=== PATIENT | female | born 1975 | race Caucasian/White ===

== ENCOUNTER → 2019-08-03 09:11 | Outpatient (CLI) | payer OTHER, SELFPAY ==
[2019-08-03 14:22] LABS: Alanine Aminotransferase 37 U/L (12-78); Albumin Level 3.8 gm/dL (3.4-5.0); Albumin/Globulin Ratio 1.2 (1.1-1.8); Alkaline Phosphatase 87 U/L (46-116); Anion Gap 12.7 mEq/L (5-15); Aspartate Amino Transferase 25 U/L (15-37); Bilirubin,Total 0.4 mg/dL (0.2-1.0); Blood Urea Nitrogen 16 mg/dL (7-18); Calcium 9.2 mg/dL (8.5-10.1); Carbon Dioxide 29 mmol/L (21.0-32.0); Chloride 104 mmol/L (98-107); Chol/HDL Ratio 7.5 (1-3.5); Cholesterol 210 mg/dL (140-200); Creatinine,Serum 0.82 mg/dL (0.55-1.02); Estimated Glomerular Filt Rate 75 ml/min (>60); Free Thyroxine Index 4.6 ug/dL (5.93-13.13); GFR (African American) 91 ML/MIN (>60); Globulin 3.3 gm/dl (1.3-3.2); Glucose 83 mg/dL (74-106); HDL Cholesterol 28 mg/dL (29-89); LDL Cholesterol 159 mg/dL (0-130); Potassium 4.7 mmoL/L (3.5-5.1); Sodium 141 mmol/L (136-145); T4 (Thyroxine) 13.2 ug/dl (4.7-13.3); Thyroid Stimulating Hormone 0.16 uIU/ml (0.358-3.740); Total Protein,Serum 7.1 gm/dL (6.4-8.2); Triglycerides 115 mg/dL (30-200); Triiodothryronine (T3) Uptake 35 % (31-39); VLDL Cholesterol 23 mg/dL (0-40)
[2019-08-03 15:04] LABS: Basophils # 0.1 K/mm3 (0-0.2); Basophils % 0.5 % (0.1-2.0); Eosinophils # 0.2 K/mm3 (0.0-0.4); Eosinophils % 1.7 % (0.1-12.0); Hematocrit 42.1 % (37.0-47.0); Hemoglobin 13.1 g/dL (12.2-16.2); Lymphocytes # 3.3 K/mm3 (0.7-4.5); Lymphocytes % 30.9 % (10-50); Mean Corpuscular HGB Conc 31.2 g/dL (31.8-35.4); Mean Corpuscular Hemoglobin 29.1 pg (27.0-31.2); Mean Corpuscular Volume 93.1 fl (81-99); Mean Platelet Volume 7.8 fl (7.4-10.4); Monocytes # 0.5 K/mm3 (0.1-1.0); Monocytes % 4.5 % (1.7-9.3); Neutrophils # 6.8 K/mm3 (1.8-7.8); Neutrophils % 62.4 % (37.0-80.0); Platelet Count 344 K/mm3 (142-424); Red Blood Count 4.52 M/mm3 (4.20-5.40); Red Cell Distribution Width 14.7 % (11.5-17.5); White Blood Count 10.8 K/mm3 (4.8-10.8)
[2019-08-03 16:05] LABS: Hemoglobin A1C 5.5 % (0.0-7.0)
== END ==
PROVIDERS: Visit Provider Nurse Practitioner Family
DX: E03.9 Hypothyroidism, unspecified (principal); E78.5 Hyperlipidemia, unspecified; I10 Essential (primary) hypertension
CPT/HCPCS: 36415; 80053; 80061; 83036; 84436; 84443; 84479; 85025

== ENCOUNTER 2020-01-07 18:49 | Emergency (ER) | payer OTHER, SELFPAY ==
[2020-01-07 19:05] VITALS: BP 136/75; PULSE 87; RESP 17; O2SAT 99; BMI 32.3
--- NOTE | 2020-01-07 19:08 | XR_ITS ---
PROCEDURE: XR FOOT LT MIN 3V CLINICAL INDICATION: pain COMPARISON: No exams were available for comparison FINDINGS: No fracture or dislocation. No lytic or blastic change. There is normal mineralization. The joint spaces are well-preserved. No significant degenerative/arthritic changes. No erosive changes evident. Other findings:There is a prominent calcaneal spur in there is some spurring at the base of the proximal phalanx of the 4th and 5th toes. IMPRESSION: Mild degenerative changes, no acute finding Dictated by: Marshall Brito MD 01/07/2020 21:05 Electronically signed by Marshall Brito MD in [place] 01/07/2020 21:05
--- NOTE | 2020-01-07 19:10 | XR_ITS ---
PROCEDURE: XR ANKLE LT MIN 3V CLINICAL INDICATION: pain COMPARISON: No exams were available for comparison FINDINGS: No fracture or dislocation. No lytic or blastic change. There are minimal spurring along the posterior distal tibia and there is a calcaneal spur noted. IMPRESSION: Degenerative changes, no acute finding Dictated by: Marshall Brito MD 01/07/2020 20:42 Electronically signed by Marshall Brito MD in [place] 01/07/2020 20:42
--- NOTE | 2020-01-07 19:19 | HMH.EDUTC ---
[facility] [place] Clinical Impression: Foot pain Qualifiers: Laterality: left Qualified Code(s): M79.672 - Pain in left foot Disposition: Home, Self-Care Condition on Discharge: Good Additional Instructions: Follow up with family doctor if no improvement or any worsening of symptoms in the next 48-72 hours *Return if needed Straight to ER if any life threatening symptoms Follow up with Dr Cardona if you continue to have pain and swelling in your feet and ankles Use your cane/walker to help with walking and ambulation Call back to [facility] tomorrow for official reading of your xray Referrals: Krystal Chilel APRN [Primary Care Provider] - As needed Elaina Cardona DPM [Staff Physician] - Time of Disposition: 20:07 Medical Decision Making - Tanner Inquiry Pt receiving controlled substance: No Tanner was queried for this patient: No Vital Signs: 01/07/20 19:05 01/07/20 19:27 Temperature 98.3 F Temperature Source Oral Pulse Rate [Right Brachial] 87 87 Respiratory Rate 17 17 Blood Pressure [Right Arm] 136/75 136/75 Blood Pressure Mean [Right Arm] 95 95 Blood Pressure Source [Right Arm] Automatic Cuff Automatic Cuff Blood Pressure Position [Right Arm] Sitting Sitting 02 Sat by Pulse Oximetry 99 99 Oxygen Delivery Method Room Air Room Air - Lab Data Lab results reviewed: Yes: I reviewed the patient's lab results. Lab Results 01/07/20 19:25: Uric Acid 3.5 Orders (Tests/Meds): ORDERS Category Date Time Status Ankle XR - Left minimum 3 Views [XR ankle LT min 3V] Exams 01/07/20 19:10 Taken Stat Foot XR left minimum 3 views [XR foot LT min 3V] Stat Exams 01/07/20 19:08 Taken - Radiology Data #1 Image(s): Foot/Toes Image Reviewed: Yes I reviewed the patient's radiology image Preliminary Findings: No Fracture Seen heel spur noted #2 Image(s): Ankle Image Reviewed: Yes I reviewed the patient's radiology image Preliminary Findings: No Fracture Seen [facility] [place] - General Stated complaint: Left foot pain (no accident) Time Seen by Provider: 01/07/20 19:19 Mode of Arrival: Family Vehicle Source of Information: Patient Limitations: No Limitations Description of Symptoms (Recalled from Triage Doc. by RN): left ankle swollen shooting pain - History of Present Illness Provider Complaint: Patient state that she has been having pain in her left ankle/foot on and off for a couple of weeks States that it is sore to touch and hurts when she walks on it but denies known injury states that she wasnt sure if she hurt it or may have gout - Related Data Home Medications Medication Instructions Recorded Confirmed calcium lnd-H4-J-mag tab PO tab 10/02/18 10/02/18 wz-gvwhnh-hfktmb 250 mg calcium-500 unit tablet cetirizine 10 mg tablet PO 30 Days #30 tab 10/02/18 10/02/18 escitalopram oxalate 20 mg tablet PO 30 Days #30 tab 10/02/18 10/02/18 estradiol 0.075 mg/24 hr TRANSDERMA 28 Days #8 each 10/02/18 10/02/18 semiweekly transdermal patch levothyroxine 100 mcg tablet PO 30 Days #30 tab 10/02/18 10/02/18 linaclotide 145 mcg capsule PO 30 Days #30 cap 10/02/18 10/02/18 multivitamin 1 cap PO DAILY 10/02/18 10/02/18 oxybutynin chloride 15 mg PO 30 Days #30 tab 10/02/18 10/02/18 tablet,extended release 24 hr pantoprazole 40 mg tablet,delayed PO 30 Days #30 tab 10/02/18 10/02/18 release potassium chloride 10 mEq PO 30 Days #30 cap 10/02/18 10/02/18 capsule,extended release pravastatin 40 mg tablet PO 30 Days #30 tab 10/02/18 10/02/18 Allergies Allergy/AdvReac Type Severity Reaction Status Date / Time No Known Allergies Allergy Verified 10/02/18 14:42 [facility] History - Hepatitis A Screen Attestation statement:: This patient has been screened for Hepatitis A risk factors. I have reviewed the patient's past medical history: Yes Medical History: Reports:: Anxiety, Depression, Gastroesophageal Reflux Disease(GERD), Hyperlipidemia Other Medical History: Reports: Ar
[2020-01-07 19:27] VITALS: BP 136/75; PULSE 87; RESP 17; TEMP 36.8; O2SAT 99; BMI 32.3
[2020-01-07 19:48] LABS: Uric Acid 3.5 mg/dl (2.5-6.2)
[2020-01-07 20:17] VITALS: BP 136/75; PULSE 87; RESP 17; TEMP 36.8; O2SAT 99
== END 2020-01-07 20:18 | disposition home or self-care (01) ==
LOC: ER 19:02 → UTC 19:03
PROVIDERS: Emergency Provider Nurse Practitioner; PCP Nurse Practitioner
DX: M79.672 Pain in left foot (principal); F41.8 Other specified anxiety disorders; K21.9 Gastro-esophageal reflux disease without esophagitis; E78.5 Hyperlipidemia, unspecified; M79.7 Fibromyalgia; Z79.899 Other long term (current) drug therapy
CPT/HCPCS: 73610; 73630; 84550; 99202

== ENCOUNTER → 2020-02-29 13:45 | Outpatient (CLI) | payer OTHER, SELFPAY ==
--- NOTE | 2020-02-29 13:59 | MR_ITS ---
PROCEDURE: MR ANKLE LT WO/W CON CLINICAL INDICATION: peroneal tendinitis, pain Lateral sided ankle pain with pain radiating into 2nd and 3rd toes. [id number]. Pain worse when stepping and going down steps. Swelling on anterior aspect of ankle. COMPARISON: CR XR ANKLE LT MIN 3V from 01/07/2020 CR XR FOOT LT MIN 3V from 01/07/2020 TECHNIQUE: Routine multiplanar multi echo sequences are performed without and with gadolinium enhancement. FINDINGS: The tibial fibular ligaments appear intact. There is some mild thickening the ATFL with slight increased T2 signal and slight enhancement suggesting ligamentous sprain. The PT FL appears intact as does the deltoid ligament. No evidence of tear of the peroneal tendons, posterior tibialis, flexor hallucis longus or flexor digitorum longus. There is a small amount of fluid along the tendon sheath of the posterior tibialis and the peroneal tendon suggesting tendinitis. The Achilles tendon appears intact. No bone bruise or fracture. There is a small amount fluid along the posterior aspect of the talus and at the talocalcaneal joint. IMPRESSION: 1. There is some slight thickening of the ATFL which may represent sprain or partial tear. 2. Fluid along the tendon sheath of the posterior tibialis and peroneal tendons consistent with tendinitis. No evidence of tendon tear. 3. Small ankle joint effusion with a small amount of fluid at the talocalcaneal joint posteriorly Dictated by: Marshall Brito MD 03/03/2020 10:01 Marshall Brito MD in [place] 03/03/2020 10:01
[2020-02-29 14:08] LABS: Blood Urea Nitrogen 16 mg/dl (7-17); Estimated Glomerular Filt Rate 67 ml/min (>60); GFR (African American) 82 ML/MIN (>60)
== END ==
PROVIDERS: Visit Provider Podiatrist
DX: G89.29 Other chronic pain (principal); M25.572 Pain in left ankle and joints of left foot; M76.72 Peroneal tendinitis, left leg
CPT/HCPCS: 36415; 73723; 82565; 84520; A9576

== ENCOUNTER 2020-04-23 11:48 | Emergency (ER) | payer OTHER, SELFPAY ==
[2020-04-23 11:56] VITALS: BP 122/80; PULSE 83; RESP 19; TEMP 36.6; O2SAT 98; BMI 32.4
--- NOTE | 2020-04-23 12:01 | HMH.EDUTC ---
[facility] [place] Dis[place] Clinical Impression: Rash and other nonspecific skin eruption Disposition: Home, Self-Care Condition on Discharge: Good Instructions: DI for Insect Bites and Stings, DI for Rash, Hydrocortisone Topical Additional Instructions: Go home and inspect to see what may have been biting you *Over the counter Benadryl may help with itching and irritation of rash Return if needed FOllow up with Family Doctor or Dermatology if no improvement or any worsening of symptoms Straight to ER if any life threatening symptoms Topical hydrocortisone as advised to help with itching Prescriptions: Hydrocortisone [Cortisone] 1 applicatio TP BID #1 tube Transmission Status: Pending to [id number] Referrals: Krystal Chilel, [employer] [Primary Care Provider] - As needed Time of Disposition: 12:27 Medical Decision Making - Tanner Inquiry Pt receiving controlled substance: No Tanner was queried for this patient: No Vital Signs: 04/23/20 11:56 Temperature 97.8 F Temperature Source Oral Pulse Rate [Radial] 83 Respiratory Rate 19 Blood Pressure [Right Arm] 122/80 Blood Pressure Mean [Right Arm] 94 Blood Pressure Source [Right Arm] Automatic Cuff Blood Pressure Position [Right Arm] Sitting 02 Sat by Pulse Oximetry 98 Oxygen Delivery Method Room Air Medical Decision Narrative: Patient states that she is a diabetic however has taken SoluMedrol in that past without complications or reactions and aware that it may elevate her blood sugrar but should return to normal Rash appeared improved after injection [facility] [place] HPI - General Stated complaint: Rash on both arms/legs Time Seen by Provider: 04/23/20 12:01 Mode of Arrival: Ambulatory Source of Information: Patient Limitations: No Limitations Description of Symptoms (Recalled from Triage Doc. by RN): painful rash on arms and legs since last night HEENT Symptoms (Recalled from RN notes): No Resp Symptoms (Recalled from RN notes): No Skin Symptoms (Recalled from RN notes): Yes MS Symptoms (Recalled from RN notes): No Functional Status (Recalled from RN notes): wnl - History of Present Illness Provider Complaint: Patient states that she woke up this morning with rash on both arms and legs States that rash is tender to the touch and feels sore States that she is not sure if she may have been bitten by something throughout the night or not States that she does have animals and not sure if they may have got into something that she is allergic too States that she took benadryl and it helped with the itching but rash did not go away - Related Data Home Medications Medication Instructions Recorded Confirmed calcium amv-N2-Y-mag tab PO tab 10/02/18 03/31/20 dr-rrtddk-gthdml 250 mg calcium-500 unit tablet cetirizine 10 mg tablet PO 30 Days #30 tab 10/02/18 03/31/20 escitalopram oxalate 20 mg tablet PO 30 Days #30 tab 10/02/18 03/31/20 estradiol 0.075 mg/24 hr TRANSDERMA 28 Days #8 each 10/02/18 03/31/20 semiweekly transdermal patch levothyroxine 100 mcg tablet PO 30 Days #30 tab 10/02/18 03/31/20 linaclotide 145 mcg capsule PO 30 Days #30 cap 10/02/18 03/31/20 multivitamin 1 cap PO DAILY 10/02/18 03/31/20 oxybutynin chloride 15 mg PO 30 Days #30 tab 10/02/18 03/31/20 tablet,extended release 24 hr pantoprazole 40 mg tablet,delayed PO 30 Days #30 tab 10/02/18 03/31/20 release potassium chloride 10 mEq PO 30 Days #30 cap 10/02/18 03/31/20 capsule,extended release pravastatin 40 mg tablet PO 30 Days #30 tab 10/02/18 03/31/20 empagliflozin 25 mg tablet 25 mg PO tab 01/21/20 03/31/20 sertraline 50 mg tablet 50 mg PO tab 01/21/20 03/31/20 fluticasone propionate 50 g INTRANASAL 03/31/20 03/31/20 mcg/actuation nasal spray,suspension hydroxyzine HCl 10 mg tablet 10 mg PO PRN tab 03/31/20 03/31/20 Previous Rx's Medication Instructions Recorded lactic acid-urea lotion 1 applic TOPICAL DAILY PRN #473 ml 02/18/20 meloxicam 7.5 mg tablet 7.5 mg PO
[2020-04-23 12:43] VITALS: BP 122/80; PULSE 83; RESP 19; TEMP 36.6; O2SAT 98
== END 2020-04-23 12:44 | disposition home or self-care (01) ==
PROVIDERS: Emergency Provider Nurse Practitioner; PCP Nurse Practitioner
DX: R21 Rash and other nonspecific skin eruption (principal); E11.9 Type 2 diabetes mellitus without complications; F41.8 Other specified anxiety disorders; K21.9 Gastro-esophageal reflux disease without esophagitis; E78.5 Hyperlipidemia, unspecified; M79.7 Fibromyalgia; F17.210 Nicotine dependence, cigarettes, uncomplicated; Z90.49 Acquired absence of other specified parts of digestive tract; Z90.710 Acquired absence of both cervix and uterus; Z79.899 Other long term (current) drug therapy
CPT/HCPCS: 96372; 99201

== ENCOUNTER 2020-04-29 11:00 | Outpatient (RCR) | payer OTHER, SELFPAY ==
--- NOTE | 2020-04-07 11:39 | HMH.PTOPEV ---
PT Outpatient Evaluation Rehab PT Outpatient Evaluation Start: 04/07/20 10:44 Freq: Status: Active Protocol: Document 04/07/20 10:44 LEIA (Rec: 04/07/20 11:38 [email or web address] [id number]) Electronically Signed By Víctor Silva, PT 04/07/20 10:44 Outpatient Therapy Subjective History Subjective History Pt. is a 45 year old female who presents to Outpatient PT clinic w/ complaints of subacute and constant LLE ft./ankle P! of insidious onset for several months. Pt. reports symptoms worsen w/ walking and standing , and states standing and doing dishes is the worst. Pt . reports she was in a cast for 3wks. and is currently donning a CAM bt. walker w/ WBAT, and to progress to an ankle brace per pt. tolerance. Pt. reports I don't feel stable when I use the ankle brace. (PT instructed pt. to bring ankle brace to next session, pt. vocalized understanding) Recent diagnostic imaging positive for increased edema/OA, and exhibited the peroneal tendon has healed per pt. report. Pt. denies having injections for current pathology. Pt. RTMD end of Apr. Current medications include Jardiance, Meloxicam, Levothyroxine, Zoloft, Oxybutynin, Claritin, Pravastatin, and fluid pill as needed. PMH incldues Thyroidectomy, GERD, Hysterectomy, Cholecystectomy, cervical fusion, bilateral Carpal Tunnel, 2 sections, Type II Diabetes, and Hemorrhoids. Chief Complaint Pain,Swelling,Weakness Symptom Type Ache,Throb,Shooting Symptoms Relieved By Rest/Positioning,Brace/Support ,Prescription Meds Symptoms Aggravated By Standing,Physical Activity, Walking Prior Functional Limitations None Current
== END 2020-05-07 11:00 | disposition home or self-care (01) ==
LOC: PT.CARL 11:00
PROVIDERS: PCP Nurse Practitioner; Visit Provider Podiatrist
DX: M76.72 Peroneal tendinitis, left leg (principal); S93.492A Sprain of other ligament of left ankle, initial encounter
CPT/HCPCS: 97010; 97014; 97033; 97110; 97112; 97163; G0283

== ENCOUNTER → 2021-06-27 10:49 | Outpatient (CLI) | payer OTHER, SELFPAY | PROVIDERS: Visit Provider Ophthalmology | DX: Z01.812 Encounter for preprocedural laboratory examination (principal); Z11.52 Encounter for screening for COVID-19 | CPT/HCPCS: C9803; U0003; U0005 ==

== ENCOUNTER 2021-06-30 09:41 | Day surgery (SDC) | payer OTHER, SELFPAY ==
[2021-06-26 09:14] VITALS: BMI 33.9
[2021-06-30] VITALS (7 sets, daily range): BP systolic 115–136; BP diastolic 69–78; PULSE 67–85; RESP 16–18; TEMP 36.3–36.7; O2SAT 97–100
[2022-04-15 10:55] LABS: POC Glucose,Bedside 93 (70-110)
== END 2021-06-30 12:14 | disposition home or self-care (01) ==
LOC: OR 09:42
PROVIDERS: PCP Nurse Practitioner; Visit Provider Ophthalmology
PROC: (CPT 66984; principal; 2021-06-30 12:00)
DX: H25.813 Combined forms of age-related cataract, bilateral (principal); H02.831 Dermatochalasis of right upper eyelid; H02.834 Dermatochalasis of left upper eyelid; E11.9 Type 2 diabetes mellitus without complications; E78.5 Hyperlipidemia, unspecified; Z79.899 Other long term (current) drug therapy; F41.1 Generalized anxiety disorder
CPT/HCPCS: 66984; 82962; V2632

== ENCOUNTER → 2021-07-25 12:56 | Outpatient (CLI) | payer OTHER, SELFPAY | PROVIDERS: Visit Provider Ophthalmology | DX: Z01.812 Encounter for preprocedural laboratory examination (principal); Z11.52 Encounter for screening for COVID-19 | CPT/HCPCS: C9803; U0003; U0005 ==

== ENCOUNTER 2021-07-28 08:26 | Day surgery (SDC) | payer OTHER, SELFPAY ==
[2021-07-22 13:08] VITALS: BMI 33.9
[2021-07-28] VITALS (8 sets, daily range): BP systolic 113–132; BP diastolic 67–79; PULSE 79–91; RESP 16–18; TEMP 36.4; O2SAT 96–100
[2022-04-15 10:56] LABS: POC Glucose,Bedside 106 (70-110)
== END 2021-07-28 11:20 | disposition home or self-care (01) ==
LOC: OR 08:27
PROVIDERS: PCP Nurse Practitioner; Visit Provider Ophthalmology
PROC: (CPT 66984; principal; 2021-07-28 10:30)
DX: H25.813 Combined forms of age-related cataract, bilateral (principal); H53.149 Visual discomfort, unspecified; H02.831 Dermatochalasis of right upper eyelid; H02.834 Dermatochalasis of left upper eyelid; E11.9 Type 2 diabetes mellitus without complications; F41.9 Anxiety disorder, unspecified; M19.90 Unspecified osteoarthritis, unspecified site; K21.9 Gastro-esophageal reflux disease without esophagitis; E78.5 Hyperlipidemia, unspecified; E06.3 Autoimmune thyroiditis; Z79.899 Other long term (current) drug therapy
CPT/HCPCS: 66984; 82962; V2632

== ENCOUNTER 2022-01-21 19:39 | Emergency (ER) | payer OTHER, SELFPAY ==
[2022-01-21 19:40] VITALS: BP 144/80; PULSE 89; RESP 16; TEMP 37.1; O2SAT 100; BMI 32.3
[2022-01-21 20:19] VITALS: BMI 32.3
--- NOTE | 2022-01-21 20:19 | CT_ITS ---
PROCEDURE INFORMATION: Exam: CT Abdomen And Pelvis With Contrast Exam date and time: 01/21/22 08:50 PM Age: 46 years old Clinical indication: Abdominal pain; Generalized; Prior surgery; Additional info: Abd pain TECHNIQUE: Imaging protocol: Computed tomography of the abdomen and pelvis with contrast. Radiation optimization: All CT scans at this facility use at least one of these dose optimization techniques: automated exposure control; mA and/or kV adjustment per patient size (includes targeted exams where dose is matched to clinical indication); or iterative reconstruction. Contrast material: ISOVUE; Contrast volume: 75 ml; Contrast route: IV; COMPARISON: No relevant prior studies available. FINDINGS: Tubes, catheters and devices: None noted. Lungs: Lung bases appear clear. Heart: No significant coronary calcifications. No cardiomegaly. No significant pericardial effusion. Liver: Normal. No mass. Gallbladder and bile ducts: Cholecystectomy. No ductal dilation. Pancreas: Normal. No ductal dilation. Spleen: Normal. No splenomegaly. Adrenal glands: Normal. No mass. Kidneys and ureters: Normal. No hydronephrosis. Stomach and bowel: Diverticulitis in the distal transverse colon. No obstruction. No mucosal thickening. Appendix: No evidence of appendicitis. Intraperitoneal space: Unremarkable. No free air. No significant fluid collection. Retroperitoneal space: No significant retroperitoneal inflammatory changes are noted. Vasculature: Unremarkable. No abdominal aortic aneurysm. Lymph nodes: Unremarkable. No enlarged lymph nodes. Urinary bladder: Unremarkable as visualized. Reproductive: Unremarkable as visualized. Bones/joints: Unremarkable. No acute fracture. Soft tissues: Unremarkable. IMPRESSION: 1. Diverticulitis in the distal transverse colon. No free peritoneal perforation or drainable abscess detected. 2. Cholecystectomy.
[2022-01-21 20:29] LABS: Basophils # 0.2 K/mm3 (0-0.2); Basophils % 1.3 % (0.1-2.0); Eosinophils # 0.2 K/mm3 (0.0-0.4); Eosinophils % 1.1 % (0.1-12.0); Hematocrit 38.2 % (37.0-47.0); Hemoglobin 12.3 g/dL (12.2-16.2); Lymphocytes # 3.9 K/mm3 (0.7-4.5); Lymphocytes % 26.9 % (10-50); Mean Corpuscular HGB Conc 32.2 g/dL (31.8-35.4); Mean Corpuscular Hemoglobin 26.1 pg (27.0-31.2); Mean Corpuscular Volume 81.1 fl (81-99); Mean Platelet Volume 7.8 fl (7.4-10.4); Monocytes # 0.6 K/mm3 (0.1-1.0); Monocytes % 4.4 % (1.7-9.3); Neutrophils # 9.6 K/mm3 (1.8-7.8); Neutrophils % 66.3 % (37.0-80.0); Platelet Count 297 K/mm3 (142-424); Red Blood Count 4.71 M/mm3 (4.20-5.40); White Blood Count 14.5 K/mm3 (4.8-10.8)
[2022-01-21 20:30] LABS: Appearance,Urine CLEAR (Clear); Bilirubin,Urine Negative (Negative); Blood, Urine 1+ (Negative); Chloride 106 mmol/L (98-107); Color,Urine YELLOW (Yellow); Glucose,Urine (UA) 3+ (Negative); Ketones,Urine Negative (Negative); Leukocyte Esterase,Urine Negative (Negative); Microscopic, Urine URINE MICROSCOPIC (MICROSCOPIC); Nitrate,Urine Negative (Negative); Protein,Urine Negative (Negative); Sodium 142 mmol/L (136-145); Specific Gravity, Urine <= 1.005 (1.005-1.030); Urobilinogen,Urine 0.2 EU/dl (0.2)
[2022-01-21 20:31] LABS: Potassium 4.2 mmoL/L (3.5-5.1)
[2022-01-21 20:33] LABS: Alanine Aminotransferase 27 U/L (12-78); Albumin Level 4.5 g/dl (3.5-5.0); Alkaline Phosphatase 81 U/L (38-126); Amylase 40 U/L (30-110); Anion Gap 13.2 mEq/L (5-15); Aspartate Amino Transferase 38 U/L (14-36); Bilirubin,Total 0.6 mg/dl (0.2-1.3); Blood Urea Nitrogen 21 mg/dl (7-17); Calcium 9.4 mg/dl (8.4-10.2); Carbon Dioxide 27 mmol/L (22.0-30.0); Creatinine Clearance Estimated 123 mL/min (50-200); Estimated Glomerular Filt Rate 77 ml/min (>60); GFR (African American) 93 ML/MIN (>60); Glucose 125 mg/dl (74-100); Lipase 51 U/L (23-300)
[2022-01-21 20:34] LABS: Albumin/Globulin Ratio 1.3 (1.1-1.8); Globulin 3.6 g/dL (1.3-3.2); Total Protein,Serum 8.1 g/dl (6.3-8.2)
[2022-01-21 20:39] LABS: C-Reactive Protein 90.9 mg/L (0-4)
--- NOTE | 2022-01-21 20:49 | PC.NURSE ---
DR. DALY AT BEDSIDE DISCUSSING PLAN OR CARE WITH PATIENT.
--- NOTE | 2022-01-21 20:52 | PC.NURSE ---
Pt gone to RAD
[2022-01-21 20:55] LABS: Bacteria,Urine Trace /lpf; WBC,Urine Occasional #/hpf (0-3)
--- NOTE | 2022-01-21 21:02 | PC.NURSE ---
PATIENT RETURNED FROM XRAY.
--- NOTE | 2022-01-21 21:14 | HMH.EDNVD ---
ED Disposition Clinical Impression: Diverticulitis, SIRS (systemic inflammatory response syndrome) Disposition: Home, Self-Care Condition on Discharge: Good Instructions: DI for Diverticulitis Additional Instructions: fluids and use meds and see pcp for follow up Prescriptions: metroNIDAZOLE [metroNIDAZOLE 500mg Tablet] 500 mg PO TID #30 tab Transmission Status: Pending to [id number] Cefdinir [Omnicef 300mg Capsule] 300 mg PO BID #14 cap Transmission Status: Pending to [id number] Referrals: Krystal Chilel APRN [Primary Care Provider] - - Critical Care Critical Care Time: No Attestation: On 01/21/22, the high probability of a clinically significant, sudden or life threatening deterioration of the following system(s) required my full and direct attention, intervention and personal management. The time I documented below is in addition to time spent performing reported procedures but includes the following listed in this critical care notation. Medical Decision Making - Medical Records Medical records reviewed: Yes: I reviewed the patient's medical records. - Tanner Inquiry Pt receiving controlled substance: No Vital Signs: 01/21/22 19:40 Temperature 98.8 F Temperature Source Oral Pulse Rate [Left] 89 Respiratory Rate 16 Blood Pressure [Right Arm] 144/80 H Blood Pressure Mean [Right Arm] 101 02 Sat by Pulse Oximetry 100 Oxygen Delivery Method Room Air - Lab Data Lab results reviewed: Yes: I reviewed the patient's lab results. Lab Results 01/21/22 20:06: Urine Color Yellow, Urine Appearance Clear, Urine pH 6.0, Ur Specific [place] <= 1.005, Urine Protein Negative, Urine Glucose (UA) 3+, Urine Ketones Negative, Urine Blood 1+, Urine Nitrate Negative, Urine Bilirubin Negative, Urine Urobilinogen 0.2, Ur Leukocyte Esterase Negative, Urine WBC Occasional, Ur Squamous Epith Cells 3-5, Urine Bacteria Trace 01/21/22 20:06: WBC 14.5 H, RBC 4.71, Hgb 12.3, Hct 38.2, MCV 81.1, MCH 26.1 L, MCHC 32.2, RDW 17.0, Plt Count 297, MPV 7.8, Neut % (Auto) 66.3, Lymph % (Auto) 26.9, Placer % (Auto) 4.4, Eos % (Auto) 1.1, Baso % (Auto) 1.3, Neut # (Auto) 9.6 H, Lymph # (Auto) 3.9, Placer # (Auto) 0.6, Eos # (Auto) 0.2, Baso # (Auto) 0.2, ESR 116 H 01/21/22 20:06: Sodium 142, Potassium 4.2, Chloride 106, Carbon Dioxide 27, Anion Gap 13.2, BUN 21 H, Creatinine 0.80, Estimated Creat Clear 123, Estimated GFR 77, Est GFR ( Amer) 93, Glucose 125 H, Calcium 9.4, Total Bilirubin 0.6, AST 38 H, ALT 27, Alkaline Phosphatase 81, C-Reactive Protein 90.9 H, Total Protein 8.1, Albumin 4.5, Globulin 3.6 H, Albumin/Globulin Ratio 1.3, Amylase 40, Lipase 51 Result diagrams: 01/21/22 20:06 01/21/22 20:06 Orders (Tests/Meds): ED MEDICATIONS Generic Name Dose Route Start Last Admin Trade Name Freq PRN Reason Stop Dose Admin Sodium Chloride 1,000 mls @ 999 mls/hr 01/21/22 20:30 01/21/22 20:28 Sod Chlor 0.9% 1000ml Bag IV 01/21/22 21:30 999 mls/hr .Q1H1M OUSMANE Administration Sodium Chloride 1,000 mls @ 999 mls/hr 01/21/22 20:30 01/21/22 20:50 Sod Chlor 0.9% 1000ml Bag IV 01/21/22 21:30 999 mls/hr .Q1H1M OUSMANE Administration Sodium Chloride 1,000 mls @ 999 mls/hr 01/21/22 23:15 01/21/22 23:12 Sod Chlor 0.9% 1000ml Bag IV 01/22/22 00:15 999 mls/hr .Q1H1M OUSMANE Administration Ertapenem 1 gm/ Sodium 50 mls @ 100 mls/hr 01/21/22 23:30 Chloride IV 02/04/22 23:29 Q24H OUSMANE Sodium Chloride 8 ml 01/21/22 20:22 Sodium Chloride 0.9% 10ml Vial IV 02/20/22 20:21 NEEDED PRN dilute pepcid Sodium Chloride 8 ml 01/21/22 20:22 Sodium Chloride 0.9% 10ml Vial IV 02/20/22 20:21 NEEDED PRN dilute pepcid Discontinued Medications Generic Name Dose Route Start Last Admin Trade Name Freq PRN Reason Stop Dose Admin Famotidine 20 mg 01/21/22 20:22 01/21/22 20:27 Famotidine 20mg/2ml Vial IV 01/21/22 20:23 20 mg ONCE ONE Administrati
[2022-01-21 21:27] LABS: Erythrocyte Sedimentation Rate 116 mm/hr (0-20)
[2022-01-22 00:07] VITALS: BP 142/80; PULSE 84; RESP 19; TEMP 36.8; O2SAT 98
[2022-01-22 00:08] VITALS: BP 134/78; PULSE 81; RESP 16; TEMP 36.8; O2SAT 98
== END 2022-01-22 00:09 | disposition home or self-care (01) ==
PROVIDERS: Emergency Provider Emergency Medicine; PCP Nurse Practitioner
DX: K57.32 Diverticulitis of large intestine without perforation or abscess without bleeding (principal); R65.10 Systemic inflammatory response syndrome (SIRS) of non-infectious origin without acute organ dysfunction; Z79.899 Other long term (current) drug therapy; Z88.1 Allergy status to other antibiotic agents; F41.9 Anxiety disorder, unspecified; F32.A Depression, unspecified; E11.9 Type 2 diabetes mellitus without complications; K21.9 Gastro-esophageal reflux disease without esophagitis; E78.5 Hyperlipidemia, unspecified; G47.33 Obstructive sleep apnea (adult) (pediatric); K58.9 Irritable bowel syndrome, unspecified; E89.0 Postprocedural hypothyroidism
CPT/HCPCS: 74177; 80053; 81001; 82150; 83690; 85025; 85651; 86140; 96365; 96366; 96375; 99284; J1335; J2405; Q9967

== ENCOUNTER 2022-03-21 11:44 | Emergency (ER) | payer OTHER, SELFPAY ==
[2022-03-21 11:50] VITALS: BP 125/70; PULSE 77; RESP 20; TEMP 36.7; O2SAT 98; BMI 32.8
--- NOTE | 2022-03-21 12:06 | EXP.UTC ---
Discharge Plan Disposition Patient Disposition: Home, Self-Care Condition: Good Prescriptions Prescriptions: New mupirocin 2 % ointment 1 applic topical TID Qty: 22 0RF No Action levothyroxine 100 mcg tablet 150 mcg PO DAILY 30 Days Qty: 30 pravastatin 40 mg tablet 40 mg PO DAILY 30 Days Qty: 30 pantoprazole 40 mg tablet,delayed release (DR/EC) 40 mg PO DAILY 30 Days Qty: 30 oxybutynin chloride 15 mg tablet extended release 24hr 15 mg PO DAILY 30 Days Qty: 30 cetirizine 10 mg tablet 10 mg PO DAILY 30 Days Qty: 30 multivitamin capsule 1 cap PO DAILY Ca Bty-Y6-P-Bdam-ojrib-zlx bor 250 mg calcium -500 unit tablet 250 mg PO BID sertraline 50 mg tablet 50 mg PO DAILY Label Comments: TAKE 1 TABLET BY MOUTH ONCE DAILY empagliflozin 25 mg tablet 25 mg PO DAILY Label Comments: TAKE 1 TABLET BY MOUTH ONCE DAILY IN THE MORNING fluticasone propionate 50 mcg/actuation spray,suspension 50 mcg INTRANASAL BID Label Comments: USE 1 SPRAY(S) IN EACH NOSTRIL ONCE DAILY hydroxyzine HCl 10 mg tablet 10 mg PO DIRECTED PRN (Reason: Anxiety) Label Comments: TAKE 1 TABLET BY MOUTH THREE TIMES DAILY lactic acid-urea Lotion 1 applic TOPICAL DAILY PRN (Reason: keratosis) Qty: 473 2RF metronidazole 500 MG tablet 500 mg PO TID Qty: 30 0RF cefdinir 300 MG capsule 300 mg PO BID Qty: 14 0RF Referrals Follow up/Referrals: Krystal Chilel APRN [Primary Care Provider] - See instructions Activity Restrictions/Add. Instructions Additional Instructions/Restrictions: Do not scratch site. Cut nails. Wash hands frequently. Apply medication as prescribed. Follow up with PCP if symptoms persist or worsen. Clinical Impressions Clinical Impression: Impetigo Discharge ED Provider: Jane Arellano [facility] [place] HPI General Stated complaint: irritation on back of neck Time Seen by Provider: 03/21/22 12:06 History of Present Illness Provider Complaint: Pt states that she was working in the garden and the back of her neck started itching badly. She states that she has been scratching it and her put a gauze over it to protect it. 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 Related Data Home Medications Medication Instructions Recorded Confirmed calcium iyu-G0-C-mag 250 mg PO BID Supplement 10/02/18 01/21/22 oe-qssyso-arzolf 250 mg calcium-500 unit tablet cetirizine 10 mg tablet 10 mg PO DAILY allergies 30 days 10/02/18 01/21/22 #30 tabs levothyroxine 100 mcg tablet 150 mcg PO DAILY thyroid 30 days 10/02/18 01/21/22 #30 tabs multivitamin 1 cap PO DAILY Supplement 10/02/18 01/21/22 oxybutynin chloride 15 mg 15 mg PO DAILY bladder spasms 30 10/02/18 01/21/22 tablet,extended release 24 hr days #30 tabs pantoprazole 40 mg tablet,delayed 40 mg PO DAILY GERD 30 days #30 10/02/18 01/21/22 release tabs pravastatin 40 mg tablet 40 mg PO DAILY Cholesterol 30 days 10/02/18 01/21/22 #30 tabs empagliflozin 25 mg tablet 25 mg PO DAILY Diabetes 01/21/20 01/21/22 sertraline 50 mg tablet 50 mg PO DAILY allergies 01/21/20 01/21/22 fluticasone propionate 50 50 mcg intranasal BID allergies 03/31/20 07/28/21 mcg/actuation nasal spray,suspension hydroxyzine HCl 10 mg tablet 10 mg PO DIRECTED PRN Anxiety 03/31/20 01/21/22 Previous Rx's Medication Instructions Recorded lactic acid-urea lotion 1 applic TOPICAL DAILY PRN 03/31/20 keratosis #473 mL cefdinir 300 mg capsule 300 mg PO BID #14 caps 01/21/22 metronidazole 500 mg tablet 500 mg PO TID #30 tabs 01/21/22 mupirocin 2 % topical ointment 1 applic topical TID #22 grams 03/21/22 Allergies Allergy/AdvReac Type Severity Reaction Status Date / Time azithromycin Allergy Unknown Verified 01/21/22 20:41 [facility] Medical History (Updated 03/21/22 @ 12:22 by Cherry Gaona APRN) Anxiety Bilateral cataracts Depression Diabetes thais
[2022-03-21 12:28] VITALS: BP 125/70; PULSE 77; RESP 20; TEMP 36.7; O2SAT 98
== END 2022-03-21 12:31 | disposition home or self-care (01) ==
PROVIDERS: Emergency Provider Nurse Practitioner; PCP Nurse Practitioner
DX: L01.00 Impetigo, unspecified (principal)
CPT/HCPCS: 99212; G0463

== ENCOUNTER 2022-03-21 20:41 | Emergency (ER) | payer OTHER, SELFPAY ==
[2022-03-21 20:43] VITALS: BP 120/68; PULSE 80; RESP 16; TEMP 37; O2SAT 98; BMI 32.9
--- NOTE | 2022-03-21 21:28 | HMH.EDGENADL ---
Discharge Plan Disposition Patient Disposition: Home, Self-Care Condition: Good Prescriptions Prescriptions: New sulfamethoxazole-trimethoprim [Bactrim DS] 800-160 mg tablet 1 tab PO BID 10 Days Qty: 20 0RF Benadryl 2 % gel 1 applic topical BID PRN (Reason: itching) Qty: 1 0RF No Action levothyroxine 100 mcg tablet 150 mcg PO DAILY 30 Days Qty: 30 pravastatin 40 mg tablet 40 mg PO DAILY 30 Days Qty: 30 pantoprazole 40 mg tablet,delayed release (DR/EC) 40 mg PO DAILY 30 Days Qty: 30 oxybutynin chloride 15 mg tablet extended release 24hr 15 mg PO DAILY 30 Days Qty: 30 cetirizine 10 mg tablet 10 mg PO DAILY 30 Days Qty: 30 multivitamin capsule 1 cap PO DAILY Ca Gqh-V1-F-Rbdv-xsfic-puj bor 250 mg calcium -500 unit tablet 250 mg PO BID sertraline 50 mg tablet 50 mg PO DAILY Label Comments: TAKE 1 TABLET BY MOUTH ONCE DAILY empagliflozin 25 mg tablet 25 mg PO DAILY Label Comments: TAKE 1 TABLET BY MOUTH ONCE DAILY IN THE MORNING fluticasone propionate 50 mcg/actuation spray,suspension 50 mcg INTRANASAL BID Label Comments: USE 1 SPRAY(S) IN EACH NOSTRIL ONCE DAILY hydroxyzine HCl 10 mg tablet 10 mg PO DIRECTED PRN (Reason: Anxiety) Label Comments: TAKE 1 TABLET BY MOUTH THREE TIMES DAILY lactic acid-urea Lotion 1 applic TOPICAL DAILY PRN (Reason: keratosis) Qty: 473 2RF metronidazole 500 MG tablet 500 mg PO TID Qty: 30 0RF cefdinir 300 MG capsule 300 mg PO BID Qty: 14 0RF mupirocin 2 % ointment 1 applic topical TID Qty: 22 0RF Referrals Follow up/Referrals: Krystal Chilel APRN [Primary Care Provider] - See instructions Activity Restrictions/Add. Instructions Additional Instructions/Restrictions: Please follow up with your primary care physician in 2-3 days for further management. Please use the antibiotic as prescribed. You have also been given benadryl cream to help with the itching. Please return if symptoms worsen. Keep pictures of wound progression and bring to your next appointment with primary care physician. Clinical Impressions Clinical Impression: Cellulitis Instructions Patient Instructions: Cellulitis Discharge ED Provider: Cora Vallejo Adult HPI General Chief complaint: Skin/Abscess/Foreign Body Stated complaint: spot on neck Time Seen by Provider: 03/21/22 21:00 Mode of Arrival: Ambulatory Source of Information: Patient Limitations: No Limitations Description of Symptoms (Recalled from ER Triage Doc. by RN): pt was seen in the [facility] earlier today for a spot on her neck the pt stated she was given a cream and came back this eavning and stated it feels worse area is red and opened History of Present Illness MD complaint: Wound on back of neck Onset (ago): day(s) Location: neck Radiation: non-radiation Severity: mild Quality: aching Consistency: constant Relieving factors: none Exacerbating factors: none Associated symptoms: denies other symptoms Treatments prior to arrival: none Related Data Home Medications Medication Instructions Recorded Confirmed calcium kaa-[id number]-[id number]-mag 250 mg PO BID Supplement 10/02/18 01/21/22 og-[id number]-deqphk 250 mg calcium-500 unit tablet cetirizine 10 mg tablet 10 mg PO DAILY allergies 30 days 10/02/18 01/21/22 #30 tabs levothyroxine 100 mcg tablet 150 mcg PO DAILY thyroid 30 days 10/02/18 01/21/22 #30 tabs multivitamin 1 cap PO DAILY Supplement 10/02/18 01/21/22 oxybutynin chloride 15 mg 15 mg PO DAILY bladder spasms 30 10/02/18 01/21/22 tablet,extended release 24 hr days #30 tabs pantoprazole 40 mg tablet,delayed 40 mg PO DAILY GERD 30 days #30 10/02/18 01/21/22 release tabs pravastatin 40 mg tablet 40 mg PO DAILY Cholesterol 30 days 10/02/18 01/21/22 #30 tabs empagliflozin 25 mg tablet 25 mg PO DAILY Diabetes 01/21/20 01/21/22 sertraline 50 mg tablet 50 mg PO DAILY allergies 01/21/20 01/21/22 flut
[2022-03-21 21:36] VITALS: BP 115/78; PULSE 79; RESP 16; TEMP 37; O2SAT 98
== END 2022-03-21 21:43 | disposition home or self-care (01) ==
PROVIDERS: Emergency Provider Student in an Organized Health Care Education/Training Program; PCP Nurse Practitioner
DX: L03.221 Cellulitis of neck (principal)
CPT/HCPCS: 99282

== ENCOUNTER 2022-03-26 19:26 | Emergency (ER) | payer OTHER, SELFPAY ==
[2022-03-26 19:28] VITALS: BP 116/56; PULSE 77; RESP 17; TEMP 37.3; O2SAT 99; BMI 30.9
[2022-03-26 20:46] LABS: Basophils # 0.1 K/mm3 (0-0.2); Eosinophils # 0.3 K/mm3 (0.0-0.4); Eosinophils % 2.4 % (0.1-12.0); Hematocrit 35.8 % (37.0-47.0); Hemoglobin 11.5 g/dL (12.2-16.2); Lymphocytes % 24.4 % (10-50); Mean Corpuscular HGB Conc 32.2 g/dL (31.8-35.4); Mean Corpuscular Volume 77.8 fl (81-99); Mean Platelet Volume 7.3 fl (7.4-10.4); Monocytes # 0.5 K/mm3 (0.1-1.0); Monocytes % 4.3 % (1.7-9.3); Neutrophils # 8.3 K/mm3 (1.8-7.8); Neutrophils % 67.9 % (37.0-80.0); Platelet Count 360 K/mm3 (142-424); Red Cell Distribution Width 16.9 % (11.5-17.5); White Blood Count 12.2 K/mm3 (4.8-10.8)
--- NOTE | 2022-03-26 20:47 | PC.NURSE ---
at speaking with pt about POC
[2022-03-26 20:50] LABS: Alanine Aminotransferase 32 U/L (12-78); Albumin Level 4.4 g/dl (3.5-5.0); Albumin/Globulin Ratio 1.4 (1.1-1.8); Alkaline Phosphatase 96 U/L (38-126); Anion Gap 11.7 mEq/L (5-15); Aspartate Amino Transferase 44 U/L (14-36); Blood Urea Nitrogen 13 mg/dl (7-17); Calcium 9.2 mg/dl (8.4-10.2); Carbon Dioxide 29 mmol/L (22.0-30.0); Chloride 107 mmol/L (98-107); Creatinine Clearance Estimated 88 mL/min (50-200); Estimated Glomerular Filt Rate 59 ml/min (>60); GFR (African American) 71 ML/MIN (>60); Globulin 3.2 g/dL (1.3-3.2); Glucose 104 mg/dl (74-100); Potassium 4.7 mmoL/L (3.5-5.1); Sodium 143 mmol/L (136-145); Total Protein,Serum 7.6 g/dl (6.3-8.2)
[2022-03-26 20:52] LABS: Lactic Acid 1.2 mmol/L (0.7-2.1)
--- NOTE | 2022-03-26 20:52 | HMH.EDSKAF ---
Discharge Plan Disposition Patient Disposition: Home, Self-Care Prescriptions Prescriptions: No Action levothyroxine 100 mcg tablet 150 mcg PO DAILY 30 Days Qty: 30 pravastatin 40 mg tablet 40 mg PO DAILY 30 Days Qty: 30 pantoprazole 40 mg tablet,delayed release (DR/EC) 40 mg PO DAILY 30 Days Qty: 30 oxybutynin chloride 15 mg tablet extended release 24hr 15 mg PO DAILY 30 Days Qty: 30 cetirizine 10 mg tablet 10 mg PO DAILY 30 Days Qty: 30 multivitamin capsule 1 cap PO DAILY Ca Qay-O7-U-Bdlo-ffasz-ott bor 250 mg calcium -500 unit tablet 250 mg PO BID sertraline 50 mg tablet 50 mg PO DAILY Label Comments: TAKE 1 TABLET BY MOUTH ONCE DAILY empagliflozin 25 mg tablet 25 mg PO DAILY Label Comments: TAKE 1 TABLET BY MOUTH ONCE DAILY IN THE MORNING fluticasone propionate 50 mcg/actuation spray,suspension 50 mcg INTRANASAL BID Label Comments: USE 1 SPRAY(S) IN EACH NOSTRIL ONCE DAILY hydroxyzine HCl 10 mg tablet 10 mg PO DIRECTED PRN (Reason: Anxiety) Label Comments: TAKE 1 TABLET BY MOUTH THREE TIMES DAILY lactic acid-urea Lotion 1 applic TOPICAL DAILY PRN (Reason: keratosis) Qty: 473 2RF metronidazole 500 MG tablet 500 mg PO TID Qty: 30 0RF cefdinir 300 MG capsule 300 mg PO BID Qty: 14 0RF mupirocin 2 % ointment 1 applic topical TID Qty: 22 0RF sulfamethoxazole-trimethoprim [Bactrim DS] 800-160 mg tablet 1 tab PO BID 10 Days Qty: 20 0RF Benadryl 2 % gel 1 applic topical BID PRN (Reason: itching) Qty: 1 0RF Referrals Follow up/Referrals: Krystal Chilel, RETAIL ADVISOR [Primary Care Provider] - See instructions Clinical Impressions Clinical Impression: Cellulitis Instructions Patient Instructions: Cellulitis Discharge ED Provider: Buddy Guerrier Skin/Abscess/FB HPI General Chief complaint: Skin/Abscess/Foreign Body Stated complaint: spot on back of neck Time Seen by Provider: 03/26/22 20:52 Mode of Arrival: Family Vehicle Source of Information: Patient and Medical Record Limitations: No Limitations Description of Symptoms (Recalled from ER Triage Doc. by RN): Pt c/o pain, swelling, redness, and clear drainage from a wound to posterior neck/upper back. States she was seen at [facility], ER, and her PCP regarding this and abx was changed to Doxycycline yesterday but pt is concerned d/t the new pain and drainage. She also c/o fever, chills, and malaise. She did take Tylenol at 1400 today, but no motrin d/t her bleeding disorder. History of Present Illness HPI narrative: cellulitis tp post neck over the last week on abx per pcp - tender - pt with feeling of malaise MD complaint: abscess/boil Onset (ago): day(s) Tetanus up to date: unsure Location: neck Severity: moderate Exacerbating factors: palpation Context: recent antibiotic Associated symptoms: malaise Treatments prior to arrival: antibiotic Related Data Home Medications Medication Instructions Recorded Confirmed calcium mqz-K7-R-mag 250 mg PO BID Supplement 10/02/18 01/21/22 nc-rkwrzu-lpcamb 250 mg calcium-500 unit tablet cetirizine 10 mg tablet 10 mg PO DAILY allergies 30 days 10/02/18 01/21/22 #30 tabs levothyroxine 100 mcg tablet 150 mcg PO DAILY thyroid 30 days 10/02/18 01/21/22 #30 tabs multivitamin 1 cap PO DAILY Supplement 10/02/18 01/21/22 oxybutynin chloride 15 mg 15 mg PO DAILY bladder spasms 30 10/02/18 01/21/22 tablet,extended release 24 hr days #30 tabs pantoprazole 40 mg tablet,delayed 40 mg PO DAILY GERD 30 days #30 10/02/18 01/21/22 release tabs pravastatin 40 mg tablet 40 mg PO DAILY Cholesterol 30 days 10/02/18 01/21/22 #30 tabs empagliflozin 25 mg tablet 25 mg PO DAILY Diabetes 01/21/20 01/21/22 sertraline 50 mg tablet 50 mg PO DAILY allergies 01/21/20 01/21/22 fluticasone propionate 50 50 mcg intranasal BID allergies 03/31/20 07/28/21 mcg/actuation nasal spray,suspension hydroxyzine H
[2022-03-26 20:54] LABS: Bilirubin,Total < 0.1 mg/dl (0.2-1.3)
[2022-03-26 20:55] LABS: C-Reactive Protein 11.4 mg/L (0-4)
--- NOTE | 2022-03-26 20:57 | PC.NURSE ---
Pt ambulatory to bathroom
[2022-03-26 21:09] LABS: Procalcitonin 0.031 ng/mL (0.0-2.0)
[2022-03-26 21:17] LABS: Erythrocyte Sedimentation Rate 42 mm/hr (0-20)
[2022-03-26 21:44] VITALS: BP 99/62; PULSE 90; RESP 18; TEMP 37.1; O2SAT 97
== END 2022-03-26 22:01 | disposition home or self-care (01) ==
PROVIDERS: Emergency Provider Emergency Medicine; PCP Nurse Practitioner
DX: L03.221 Cellulitis of neck (principal); L03.312 Cellulitis of back [any part except buttock and flank]; R53.81 Other malaise; R50.9 Fever, unspecified; K21.9 Gastro-esophageal reflux disease without esophagitis; E78.5 Hyperlipidemia, unspecified; E11.9 Type 2 diabetes mellitus without complications; E89.0 Postprocedural hypothyroidism; G43.909 Migraine, unspecified, not intractable, without status migrainosus; H26.9 Unspecified cataract; F32.A Depression, unspecified; F41.9 Anxiety disorder, unspecified; F17.210 Nicotine dependence, cigarettes, uncomplicated; Z79.51 Long term (current) use of inhaled steroids; Z79.899 Other long term (current) drug therapy; Z88.8 Allergy status to other drugs, medicaments and biological substances
CPT/HCPCS: 80053; 83605; 84145; 85025; 85651; 86140; 87040; 96360; 99284; J0696

== ENCOUNTER → 2022-08-03 12:59 | Outpatient (CLI) | payer OTHER, SELFPAY ==
--- NOTE | 2022-08-03 13:04 | XR_ITS ---
FINAL REPORT CLINICAL HISTORY: dizziness/carotid artery disease/family hx of cad/ FINDINGS: PA and lateral views of the chest are obtained. There is no prior exam for comparison. The cardiac and mediastinal silhouettes are within normal limits. The lungs are clear. There is no pleural effusion, pneumothorax, or acute osseous abnormality. IMPRESSION: No radiographic evidence of acute cardiac or pulmonary disease. Reviewed, Interpreted and Dictated by Sadia Barraza MD Transcribed by Tracie Nixon Authenticated and [facility]
== END ==
PROVIDERS: PCP Nurse Practitioner; Visit Provider Physician Assistant
DX: R07.9 Chest pain, unspecified (principal); R42 Dizziness and giddiness; E11.9 Type 2 diabetes mellitus without complications; E78.5 Hyperlipidemia, unspecified; H93.291 Other abnormal auditory perceptions, right ear; I65.29 Occlusion and stenosis of unspecified carotid artery; Z72.0 Tobacco use
CPT/HCPCS: 71046

== ENCOUNTER → 2022-08-10 07:16 | Outpatient (CLI) | payer OTHER, SELFPAY ==
--- NOTE | 2022-08-10 07:16 | NM_ITS ---
APPROVED REPORT Exam: Nuclear Stress Test Indication: Chest pain, Fatigue, Dizziness, DM, High cholesterol, Tobacco use, Family history Patient Location: Outpatient Stress Tech: Courtney Austin [place] Tech:Tanisha Euceda, ARRT, RT (R)(N) Ht: 5 ft 6 in Wt: 201 lbs Bra Size: 38B HR: 69 bpm BP: 123/64 mmHg BSA: 2.00 m2 TID: 1.11 BMI: 32.4 History: Chest pain, Fatigue, Dizziness, DM, High cholesterol, Tobacco use, Family history Procedure: Patient exercised on Silvino protocol 6:15 minutes and sec, resting heart rate 69 bpm, resting blood pressure 123/64 mmHg, with exercise maximum heart rate achived was 146 bpm which is 85 % of the maximum predicted heart rate and blood pressure was 190/72 mmHg. Test was stopped due to SOB and hip pain. Patient denied any complaint of chest pain. Patient has Adequate exercise capacity, achieved 7.0 METs of workload on treadmill, the blood pressure response to exercise was Adequate. Electrocardiogram Resting electrocardiogram shows sinus rhythm, with exercise there is less than 1.[address] segment depression noted from the baseline EKG. The EKG portion of the exercise Myoview is negative for ischemia. Cardiac Stress and Resting SPECT Images: Cardiac Stress and Resting SPECT images were obtained using technetium 99m Myoview 31.5 mCi stress and 9.81 mCi at rest. Gated SPECT for analysis of segmental wall motion and calculation of the ejection fraction also done. Prone images were also obtained. Cardiac stress and rest respectively show uniform myocardial activity without segmental perfusion abnormality, computer derived ejection fraction is 58% with no regional wall motion abnormality, right ventricle is normal size and contractility. Conclusion: 1. The EKG portion of the exercise Myoview is negative for ischemia, patient has adequate exercise capacity achieved 7 METS of workload on treadmill, the blood pressure response to exercise was adequate, there was no exercise-induced chest discomfort. 2. No scintigraphic evidence of reversible ischemia seen, computer derived ejection fraction is 58% with no regional wall motion abnormality, right ventricle is normal size and contractility. 3. Normal Lexiscan Myoview study. Electronically signed by : Edu Magdaleno MD 08/11/2022 07:00:59
--- NOTE | 2022-08-10 08:39 | CA_ITS ---
APPROVED REPORT EXAM: Comprehensive 2D, Doppler, and color-flow Echocardiogram Inspector Assembly: Heide Almeida CRT Ht: 5 ft 4 in Wt: 201lbs BSA: 1.96 BP: 116/75 mmHg Indications: Chest Pain, Diabetes, Hyperlipidemia, smoker, dizziness 2D Dimensions LVOT 1.93 cm (M/F) 1.5-2.5 LA Volume 33.00 mL LA Volume Index 16.40 mL/m2 (M/F) 16-34 M-Mode Dimensions RVDd 3.07 cm (0.9-2.6) LA Diam 2.89 cm (1.9-4.0) LVDd 4.36 cm (3.5-5.7) Ao Diam 3.28 cm (2.0-3.7) LVDs 2.68 cm (3.5-5.7) IVSd 1.18 cm (0.6-1.1) PWd 0.82 cm (0.6-1.1) EF (Teich) 69.10% FS 38.50% EDV (Teich) 85.80 mL TAPSE 1.48 (<1.7) ESV (Teich) 26.50 mL LV Diastology MED E' 8.20 (< 7 cm/sec) MED A' 7.50 cm/s LAT E' 11.70 (<10 cm/sec) LAT A' 12.60 cm/s Aortic Valve AO Peak GR. 6.30 mmHg Pulmonary Valve PV Peak Velocity 123.00 (50-150 cm/s) Tricuspid Valve TR P. Velocity 203.00 cm/s RAP Estimate 10.00 mmHg RVSP 26.50 mmHg Left Ventricle Left atrium normal size left ventricle is normal size, estimated ejection fraction 55% with no regional wall motion abnormality, diastolic parameters are within normal range. Right Ventricle Right atrium and right ventricle are normal size and contractility. Aortic Valve Aortic valve is grossly normal there is no aortic stenosis or aortic insufficiency. Mitral Valve Mitral valve grossly normal, there is trace mitral regurgitation. Tricuspid Valve Tricuspid valve grossly normal, there is trace tricuspid regurgitation, tricuspid regurgitation jet velocity is inadequate for calculation of the right ventricular systolic pressure. Pulmonic Valve Pulmonic valve is poorly visualized. Great Vessels Aortic root is normal size. Inferior vena cava is normal size with normal inspiratory collapse. Pericardium No significant pericardial effusion noted. Conclusion 1. Normal left ventricular size preserved left ventricular systolic function, estimated ejection fraction 55% with no regional wall motion abnormality, diastolic parameters are within normal range. 2. Trace mitral and tricuspid regurgitation. 3. No significant pericardial effusion. 4. Inferior vena cava is normal size with normal inspiratory collapse. Electronically signed by : Edu Magdaleno MD 08/11/2022 05:36:56
--- NOTE | 2022-08-10 08:48 | HMH.ITSHM ---
Current Home Medications as stated by this patient Aracely Powell or parts representative. []SERTRALINE PRAVASTATIN PANTOPRAZOLE OXYBUTYNIN MULTIVITAMIN METRONIDAZOLE LEVOTHYROXINE FLUTICASONE HYDROXYZINE EMPAGLIFLOZIN CETIRIZINE CALCIUM
--- NOTE | 2022-08-10 09:45 | CA_ITS ---
APPROVED REPORT Exam: Exercise Treadmill Technologist: Courtney Austin Ht: 5 ft 4 in Wt: 201 lbs BSA: 1.96 m2 HR: 66 bpm BP: 123/64 mmHg Indications: CAD and dizziness Medical History Medications: Levothyroxine,,,,, Pravastatin,,,,, Pantoprazole,,,,, Sertraline,,,,, BenaDRYL,,,,, Hydroxyzine,,,,, Metronidazole,,,,, EMpagliflozin,,,,, CetIRIizine,,,,, OxYbuteNIN,,,,, Stress Test Details Test: Silvino HR Resting HR: 69 bpm Max Heart Rate (APMHR): 171.005108 bpm Max HR Achieved: 146 bpm Target HR (85% APMHR): 145.302861 bpm % of APMHR: 85.38 Recovery HR: 80 bpm BP Resting BP: 123.0/64.0 mmHg Max BP: 190.0/72.0 mmHg Recovery BP: 132.0/72.0 mmHg ECG Resting ECG: Normal sinus rhythm Clinical Exercise duration: 06:15 min Highest Stage Achieved: Exercise capacity: 7.0 METs Stress ECG Conclusion Patient walked 6:15 on Silvino Protocol with stage II held to completion. Test stopped due to hip pain and shortness of air. Symptoms: Head pressure. No chest pain. Arrhythmias/Ectopy: None ST-T Changes: Within normal ST response to exercise. Conclusion: Normal GXT. Myoview images reported separately. Test Summary REST . . . . . . . Sitting REST . . . . . . . Standing REST 05:49 0.0 0.0 69 . 123/ 64 . . Stage 1 01:00 10.0 1.7 101 . . . . Stage 1 02:00 10.0 1.7 122 . . . . Stage 1 03:00 10.0 1.7 130 . 180/ 70 . . Stage 2 01:00 12.0 2.5 136 . . . . Stage 2 02:00 12.0 2.5 140 . . . . Stage 2 . . . . . . . Myoview Injected Stage 2 . . . . . . . Stage held Stage 2 03:00 12.0 2.5 144 . 190/ 72 . . Stage 2 . . . . . . . Stage resumed Stage 2 03:15 12.0 2.5 146 . 190/ 72 . Stop exercise at 06:15 RECOVERY 01:00 0.0 0.0 128 . . . . RECOVERY 02:00 0.0 0.0 102 . 175/ 77 . . RECOVERY 03:00 0.0 0.0 92 . 175/ 77 . . RECOVERY 04:00 0.0 0.0 87 . 139/ 75 . . RECOVERY 05:00 0.0 0.0 86 . 132/ 72 . . RECOVERY 05:14 0.0 0.0 80 . 132/ 72 . . Electronically signed by : Edu Magdaleno MD 08/11/2022 06:46:45
== END ==
PROVIDERS: PCP Nurse Practitioner; Visit Provider Physician Assistant
DX: R42 Dizziness and giddiness (principal); R07.9 Chest pain, unspecified; E11.9 Type 2 diabetes mellitus without complications; E78.5 Hyperlipidemia, unspecified; H93.291 Other abnormal auditory perceptions, right ear; I65.29 Occlusion and stenosis of unspecified carotid artery; Z72.0 Tobacco use
CPT/HCPCS: 78452; 93017; 93306; A9502

== ENCOUNTER → 2022-08-12 12:05 | Outpatient (CLI) | payer OTHER, SELFPAY ==
--- NOTE | 2022-08-12 12:22 | CT_ITS ---
FINAL REPORT TECHNIQUE: Axial images through the chest were performed by computed tomography before and after the administration of IV contrast. This study was performed with techniques to keep radiation doses as low as reasonably achievable, (ALARA). Individualized dose reduction techniques using automated exposure control or adjustment of mA and/or kV according to the patient's size were employed. CLINICAL HISTORY: cpdizziness/carotid artery disease/family hx of ca FINDINGS: There is no axillary adenopathy. There is no hilar or mediastinal adenopathy. There are surgical changes from thyroidectomy without evidence of mass in the thyroidectomy bed. The heart size is normal. The thoracic aorta and great vessel origins are widely patent without dissection or aneurysm. There is no pericardial or pleural effusion. Limited images of the upper abdomen are unremarkable. No suspicious infiltrate or nodule identified. IMPRESSION: Unremarkable. Reviewed, Interpreted and Dictated by Beka Bowden MD Transcribed by Tracie Nixon Authenticated and [facility]
--- NOTE | 2022-08-12 12:22 | US_ITS ---
FINAL REPORT CLINICAL HISTORY: hx of right carotid dissection/can hear pulse in r FINDINGS: Limited sonographic images of the thyroid were obtained. There are surgical changes from bilateral thyroid lobectomy. There is no evidence of recurrent or residual tissue or adenopathy. IMPRESSION: No thyroid remnant tissue or mass. Reviewed, Interpreted and Dictated by Beka Bowden MD Transcribed by Elena Hurtado Authenticated and [facility]
[2022-08-12 12:37] LABS: Blood Urea Nitrogen 15 mg/dl (7-17); Estimated Glomerular Filt Rate 76 ml/min (>60); GFR (African American) 92 ML/MIN (>60)
== END ==
PROVIDERS: PCP Nurse Practitioner; Visit Provider Physician Assistant
DX: R42 Dizziness and giddiness (principal); R07.9 Chest pain, unspecified; H93.291 Other abnormal auditory perceptions, right ear; E11.9 Type 2 diabetes mellitus without complications; E78.5 Hyperlipidemia, unspecified; I65.29 Occlusion and stenosis of unspecified carotid artery; Z72.0 Tobacco use
CPT/HCPCS: 36415; 71270; 76536; 82565; 84520; Q9967

== ENCOUNTER → 2022-09-10 13:08 | Outpatient (CLI) | payer OTHER, SELFPAY ==
--- NOTE | 2022-09-10 13:15 | CA_ITS ---
FINAL REPORT TECHNIQUE: Color Doppler, duplex Doppler and keane scale sonography of the bilateral neck arterial vasculature was performed. Velocities were measured in the carotid arteries. Stenosis evaluation based on the validated velocity criteria. CLINICAL HISTORY: dizziness, hyperlipidemia, DM, smoker, right sided neck pain. Patient states she hears heartbeat in right ear at all times. COMPARISON: none FINDINGS: The peak systolic velocity of the right common carotid artery is 83 cm/s. The peak systolic velocity of the right internal carotid artery is 92 cm/s and end diastolic velocity 37 cm/s. The ICA/CCA ratio is 1.10. A mild amount of plaque is present. The right external carotid artery is patent. The right vertebral artery is patent with antegrade flow. The peak systolic velocity of the left common carotid artery is 108 cm/s. The peak systolic velocity of the left internal carotid artery is 103 cm/s and end diastolic velocity 34 cm/s. The ICA/CCA ratio is 1.24. A mild amount of plaque is present. The left external carotid artery is patent.The left vertebral artery is patent with antegrade flow. IMPRESSION: Less than 50% bilateral carotid stenoses. Bilateral patent vertebral arteries with antegrade flow. If indicated, CTA or MRA could further evaluate. Reviewed, Interpreted and Dictated by Les Pulido III, MD Transcribed by Sally Macdonald Authenticated and [facility]
== END ==
PROVIDERS: PCP Nurse Practitioner; Visit Provider Internal Medicine
DX: R42 Dizziness and giddiness (principal)
CPT/HCPCS: 93880

== ENCOUNTER → 2023-01-12 07:15 | Outpatient (CLI) | payer OTHER, SELFPAY ==
[2023-01-12 07:37] LABS: Basophils # 0.1 K/mm3 (0-0.2); Basophils % 0.6 % (0.1-2.0); Eosinophils # 0.2 K/mm3 (0.0-0.4); Eosinophils % 1.8 % (0.1-12.0); Hematocrit 38.1 % (37.0-47.0); Hemoglobin 12.1 g/dL (12.2-16.2); Lymphocytes # 3.3 K/mm3 (0.7-4.5); Mean Corpuscular HGB Conc 31.8 g/dL (31.8-35.4); Mean Corpuscular Hemoglobin 23.1 pg (27.0-31.2); Mean Corpuscular Volume 72.6 fl (81-99); Mean Platelet Volume 7.9 fl (7.4-10.4); Monocytes # 0.5 K/mm3 (0.1-1.0); Monocytes % 3.9 % (1.7-9.3); Neutrophils # 7.4 K/mm3 (1.8-7.8); Neutrophils % 64.7 % (37.0-80.0); Platelet Count 324 K/mm3 (142-424); Red Blood Count 5.25 M/mm3 (4.20-5.40); Red Cell Distribution Width 18.6 % (11.5-17.5); White Blood Count 11.4 K/mm3 (4.8-10.8)
--- NOTE | 2023-01-12 07:40 | MR_ITS ---
FINAL REPORT CLINICAL HISTORY: worsening [place] TOR[place], tinnitus, dizziness vision disturbance nausea 18 ml prohance given COMPARISON: None FINDINGS: Multiplanar MR imaging of the brain was performed without and with contrast. There is no evidence of intracranial hemorrhage or mass. No abnormal extra-axial fluid collection is seen. The ventricular size is within normal limits. There is no evidence of shift of the midline structures. The posterior fossa and brainstem have an unremarkable appearance. No area of abnormal restricted diffusion is identified. No abnormal contrast enhancement is seen. Normal major vessel vascular flow voids are noted. IMPRESSION: No acute intracranial abnormality identified. Reviewed, Interpreted and Dictated by Les Pulido III, MD Transcribed by Sally Macdonald Authenticated and [facility]
--- NOTE | 2023-01-12 07:40 | MR_ITS ---
FINAL REPORT CLINICAL HISTORY: worsening [place], tinnitus, dizziness FINDINGS: Multiple projection images of the brain arterial vasculature were obtained without contrast. The raw data images were also reviewed. The distal internal carotid, and basilar arteries have an unremarkable appearance without evidence of significant stenosis or occlusion. The distal right vertebral artery is hypoplastic as a variant. The proximal anterior, middle and posterior cerebral arteries have an unremarkable appearance. There is no evidence of significant stenosis or major branch occlusion. No aneurysm or vascular malformation is identified. IMPRESSION: Unremarkable MR angiogram of the head. Reviewed, Interpreted and Dictated by Les Pulido III, MD Transcribed by Elena Hurtado Authenticated and [facility]
--- NOTE | 2023-01-12 07:40 | MR_ITS ---
FINAL REPORT CLINICAL HISTORY: worsening [place] T[place], tinnitus, dizziness FINDINGS: Multiple projection images of the neck arterial vasculature were obtained without contrast. The raw data images were also reviewed. The right common carotid artery has an unremarkable appearance without evidence of stenosis or occlusion. The right internal carotid artery has an unremarkable appearance without evidence of stenosis or occlusion. The right external carotid artery is patent. The right vertebral artery is patent without evidence of stenosis. The right vertebral artery is hypoplastic. The left common carotid artery has an unremarkable appearance without evidence of stenosis or occlusion. The left internal carotid artery is patent without evidence of stenosis or occlusion. The left external carotid artery is patent. The left vertebral artery is patent without evidence of stenosis. IMPRESSION: Unremarkable MR angiogram of the neck without evidence of stenosis or occlusion. Reviewed, Interpreted and Dictated by Les Pulido III, MD Transcribed by Elena Hurtado Authenticated and [facility]
[2023-01-12 08:14] LABS: Alanine Aminotransferase 29 U/L (12-78); Albumin Level 4.3 g/dl (3.5-5.0); Albumin/Globulin Ratio 1.3 (1.1-1.8); Alkaline Phosphatase 84 U/L (38-126); Anion Gap 13.5 mEq/L (5-15); Aspartate Amino Transferase 36 U/L (14-36); Bilirubin,Total 0.4 mg/dl (0.2-1.3); Blood Urea Nitrogen 15 mg/dl (7-17); Carbon Dioxide 29 mmol/L (22.0-30.0); Chloride 106 mmol/L (98-107); Estimated Glomerular Filt Rate 76 ml/min (>60); GFR (African American) 92 ML/MIN (>60); Globulin 3.2 g/dL (1.3-3.2); Glucose 118 mg/dl (74-100); Potassium 4.5 mmoL/L (3.5-5.1); Sodium 144 mmol/L (136-145); Total Protein,Serum 7.5 g/dl (6.3-8.2)
[2023-01-12 08:53] LABS: Thyroid Stimulating Hormone 2.61 uIU/mL (0.465-4.68)
--- NOTE | 2023-01-12 09:18 | XR_ITS ---
FINAL REPORT CLINICAL HISTORY: neck pain COMPARISON: None FINDINGS: 7 views of the cervical spine were obtained including flexion and extension. Status post fusion at C5-6. There is kyphosis centered at C4. There is no acute fracture or malalignment. Mild and moderate degenerative changes are noted. There is mild neuroforaminal narrowing on the right at C4-5, on the left at C4-5, C5-6, and C6-7. No abnormal movement on flexion or extension. IMPRESSION: Degenerative changes with no acute findings. No abnormal movement on flexion or extension. Reviewed, Interpreted and Dictated by Les Pulido III, MD Transcribed by Sally Macdonald Authenticated and [facility]
[2023-01-12 09:28] LABS: Vitamin B12 417 pg/mL (239-931)
[2023-01-12 09:35] LABS: Folate 6.31 ng/mL
[2023-01-13 11:24] LABS: Rapid Plasma Reagin Ab Titer Non Reactive (NonRea<1:1)
== END ==
PROVIDERS: PCP Nurse Practitioner; Visit Provider Nurse Practitioner Family
DX: G43.709 Chronic migraine without aura, not intractable, without status migrainosus (principal); R42 Dizziness and giddiness; G44.40 Drug-induced headache, not elsewhere classified, not intractable; F11.90 Opioid use, unspecified, uncomplicated; G44.86 Cervicogenic headache; G89.29 Other chronic pain; H93.A1 Pulsatile tinnitus, right ear; M54.2 Cervicalgia; E11.9 Type 2 diabetes mellitus without complications; E66.9 Obesity, unspecified; R53.83 Other fatigue; Z72.0 Tobacco use
CPT/HCPCS: 70544; 70547; 70553; 72052; 80053; 82607; 82746; 84443; 85025; 86593; A9576

== ENCOUNTER → 2023-02-11 13:24 | Outpatient (CLI) | payer OTHER, SELFPAY ==
[2023-02-11 15:39] LABS: Iron 35 ug/dL (37-170)
[2023-02-11 15:49] LABS: Total Iron Binding Capacity 391 ug/dL (265-497)
[2023-02-11 16:16] LABS: Ferritin 9.91 ng/ml (6.24-137)
== END ==
PROVIDERS: PCP Nurse Practitioner; Visit Provider Nurse Practitioner Family
DX: D64.9 Anemia, unspecified (principal); D50.9 Iron deficiency anemia, unspecified
CPT/HCPCS: 36415; 82728; 83540; 83550

== ENCOUNTER → 2023-02-21 13:29 | Outpatient (CLI) | payer OTHER, SELFPAY ==
--- NOTE | 2023-02-21 13:29 | MR_ITS ---
FINAL REPORT CLINICAL HISTORY: neck pain, abn cspine xray, PRIOR FUSION 18ML PROHANCE INJECTED FINDINGS: Multiplanar MR imaging of the cervical spine was performed without and with contrast. On the sagittal T2-weighted images, disc degeneration is seen throughout. There is fusion of C6-7. The vertebral alignment is normal. There is no evidence of fracture. No bony mass is identified. The cervical spinal cord has an unremarkable appearance without evidence of mass, edema or syrinx. There is no evidence of significant canal stenosis. C2-3: Small central disc protrusion is present. No significant canal stenosis or neural foraminal narrowing is identified. C3-4: An annular bulge and uncovertebral osteophytes are present. There is mild bilateral neural foraminal narrowing. C4-5: An annular bulge and uncovertebral osteophytes are present. There is severe bilateral neural foraminal narrowing. C5-6: Disc osteophyte complex is present with severe right and moderate left neural foraminal narrowing. C6-7: This level is fused. There is mild bilateral neural foraminal narrowing. C7-T1: Uncovertebral osteophytes are present with mild bilateral neural foraminal narrowing. T1-2: Uncovertebral osteophytes are present with mild left neural foraminal narrowing. T2-3: No axials were obtained through this level but there appears to be a left foraminal disc protrusion. No abnormal contrast enhancement is seen on the postcontrast images. IMPRESSION: Multilevel degenerative disc disease as described. Small central disc protrusion at C2-3. Left foraminal disc protrusion at T2-3. Reviewed, Interpreted and Dictated by Les Pulido III, MD Transcribed by Elena Hurtado Authenticated and [facility]
== END ==
PROVIDERS: PCP Nurse Practitioner; Visit Provider Nurse Practitioner Family
DX: M54.2 Cervicalgia (principal); R93.7 Abnormal findings on diagnostic imaging of other parts of musculoskeletal system; Z98.890 Other specified postprocedural states
CPT/HCPCS: 72156; 76376; A9576

== ENCOUNTER 2023-11-16 13:31 | Emergency (ER) | payer OTHER, SELFPAY ==
[2023-11-16 13:33] VITALS: BP 127/88; PULSE 68; RESP 17; TEMP 36.6; O2SAT 98; BMI 32.3
--- NOTE | 2023-11-16 14:05 | ED_ITS ---
<Statement entered by Brandon Saravia MD - 11/16/23 15:40> I was consulted by the FELIX, and we discussed the complexity of the problems being addressed. I approved the treatment and management plan for this patient's care in the emergency department, thus performing a substantive portion of the medical decision making. Brandon Saravia MD Discharge Plan Disposition Patient Disposition: Home, Self-Care Condition: Good Prescriptions Prescriptions: New methocarbamol 750 mg tablet 750 mg PO Q6H PRN (Reason: Spasm) Qty: 10 0RF No Action pantoprazole 40 mg tablet,delayed release (DR/EC) 40 mg PO DAILY 30 Days Qty: 30 oxybutynin chloride 15 mg tablet extended release 24hr 15 mg PO DAILY 30 Days Qty: 30 cetirizine 10 mg tablet 10 mg PO DAILY 30 Days Qty: 30 multivitamin capsule 1 cap PO DAILY levothyroxine 100 mcg tablet 110 mcg PO DAILY 30 Days Qty: 33 pravastatin 40 mg tablet 80 mg PO DAILY 30 Days Qty: 60 clgxlxcduy-knvpixodorhsz-jnma 50-300-40 mg capsule 1 cap PO Q8H PRN acetaminophen-codeine 300-30 mg tablet 1 tab PO Q8H PRN flaxseed oil 1,000 mg capsule 1,000 mg PO DAILY Rx Instructions: administer with a meal magnesium oxide 400 mg (241.3 mg magnesium) tablet 400 mg PO DAILY Slow Release Iron 140 mg (45 mg iron) tablet extended release 140 mg PO DAILY Patient Comments: Take 1 tablet every day by oral route for 90 days. sumatriptan succinate 100 mg tablet See Rx Instructions PO .COMPLEX Qty: 10 5RF Rx Instructions: take 1 tab at onset of headache; if no relief, may repeat 1 tab after at least 2 hrs; max = 2 tabs/24 hrs or 4 tabs per week topiramate 50 mg tablet 75 mg PO HS 30 Days Qty: 45 5RF sertraline 50 mg tablet 50 mg PO DAILY Patient Comments: TAKE 1 TABLET BY MOUTH ONCE DAILY empagliflozin 25 mg tablet 25 mg PO DAILY Patient Comments: TAKE 1 TABLET BY MOUTH ONCE DAILY IN THE MORNING fluticasone propionate 50 mcg/actuation spray,suspension 50 mcg INTRANASAL BID Patient Comments: USE 1 SPRAY(S) IN EACH NOSTRIL ONCE DAILY hydroxyzine HCl 10 mg tablet 10 mg PO DIRECTED PRN (Reason: Anxiety) Patient Comments: TAKE 1 TABLET BY MOUTH THREE TIMES DAILY Benadryl 2 % gel 1 applic topical BID PRN (Reason: itching) Qty: 1 0RF Referrals Follow up/Referrals: Krystal Chilel APRN [Primary Care Provider] - See instructions Activity Restrictions/Add. Instructions Additional Instructions/Restrictions: If your symptoms do not resolve please follow-up with your PCP for further evaluation for possible MRI. Return to ER for any worsening signs or symptoms as needed. Clinical Impressions Clinical Impression: Cervicalgia Discharge ED Provider: Dany Watts General Adult HPI General Chief complaint: Fall Stated complaint: AO 11/11/23, inj right shoulder and neck Time Seen by Provider: 11/16/23 13:52 Mode of Arrival: Ambulatory Source of Information: Patient Limitations: No Limitations Description of Symptoms (Recalled from ER Triage Doc. by RN): Patient presents to ED with complaints that she had a fall on Tuesday from standing position and caught herself with right arm. Patient states she thinks she hit her head but denies LOC and blood thinners. Patient states she started hurting on Tuesday and it has gotten progressively worse over the last couple days. Reports pain that starts on right side of neck and goes down right arm into hand. States she has trouble turning head to either side. Patient states pain is constant and rates it 6/10 History of Present Illness HPI narrative: Patient presents for evaluation of left neck and shoulder pain. Patient had a fall on 11/11/2023 after tripping. Patient states that she fell to her knees however her forehead struck a concrete. She did not have any immediate ill effects other than an abrasion to her bilateral knees. However over the course since she has began having right-sided and midline cervical spine pain along with muscular pain along with paresthesias to the right upper extremity. She has no muscle weakness and no other lower extremity symptoms or chest symptoms. Patient does have a history of a previous cervical fusion and degenerative disc disease. She denies chest pain fever chills hemoptysis hematochezia melena nausea vomit diarrhea. Related Data Home Medications Medication Instructions Recorded Confirmed cetirizine 10 mg tablet 10 mg PO DAILY allergies 30 days 10/02/18 06/13/23 #30 tabs multivitamin 1 cap PO DAILY Supplement 10/02/18 06/13/23 oxybutynin chloride 15 mg 15 mg PO DAILY bladder spasms 30 10/02/18 06/13/23 tablet,extended release 24 hr days #30 tabs pantoprazole 40 mg tablet,delayed 40 mg PO DAILY GERD 30 days #30 10/02/18 06/13/23 release tabs empagliflozin 25 mg tablet 25 mg PO DAILY Diabetes 01/21/20 06/13/23 sertraline 50 mg tablet 50 mg PO DAILY allergies 01/21/20 06/13/23 fluticasone propionate 50 50 mcg intranasal BID allergies 03/31/20 06/13/23 mcg/actuation nasal spray,suspension hydroxyzine HCl 10 mg tablet 10 mg PO DIRECTED PRN Anxiety 03/31/20 06/13/23 acetaminophen 300 mg-codeine 30 mg 1 tab PO Q8H PRN 01/03/23 06/13/23 tablet jekiqqnqdn-pkrwcqyefplka-nmyekzbc 1 cap PO Q8H PRN 01/03/23 06/13/23 50 mg-300 mg-40 mg capsule flaxseed oil 1,000 mg capsule 1,000 mg PO DAILY 01/03/23 06/13/23 levothyroxine 100 mcg tablet 110 mcg PO DAILY thyroid 30 days 01/03/23 06/13/23 #33 tabs pravastatin 40 mg tablet 80 mg PO DAILY Cholesterol 30 days 01/03/23 06/13/23 #60 tabs ferrous sulfate 140 mg (45 mg 140 mg PO DAILY 06/13/23 06/13/23 iron) tablet,extended release (Slow Release Iron) magnesium oxide 400 mg (241.3 mg 400 mg PO DAILY 06/13/23 06/13/23 magnesium) tablet Previous Rx's Medication Instructions Recorded diphenhydramine HCl 2 % topical 1 applic topical BID PRN itching 03/21/22 gel (Benadryl) #1 tube sumatriptan succinate 100 mg tablet See Rx Instructions PO .COMPLEX 06/13/23 #10 tabs topiramate 50 mg tablet 75 mg (1.5 x 50 mg) PO HS 30 days 06/13/23 #45 tabs methocarbamol 750 mg tablet 750 mg PO Q6H PRN Spasm #10 tabs 11/16/23 Allergies Allergy/AdvReac Type Severity Reaction Status Date / Time azithromycin Allergy Unknown Verified 06/13/23 12:14 [facility] Disclaimer: The information contained in this section may have been updated after the patient was seen, as this information can be updated by other users. Medical History Anxiety Auditory complaints of right ear Bilateral cataracts Chest pain Depression Diabetes mellitus, type 2 Dizziness DM2 (diabetes mellitus, type 2) History of gastroesophageal reflux (GERD) Hyperlipidemia Migraine Stenosis of carotid artery Thyroid disease Tobacco use Urinary tract infection Surgical History History of carpal tunnel surgery History of section History of cholecystectomy History of hysterectomy History of spinal fusion History of thyroidectomy Hx of hemorrhoidectomy Family History (Updated 06/13/23 @ 13:19 by Shira Martinez) Other Cancer Coronary artery disease Diabetes Hyperlipidemia Hypertension Social History Smoking Status: Current every day smoker tobacco type: cigarettes packs per day: 1 second hand exposure: Yes alcohol intake: never current occupational status: employed Travel in the last 8 weeks: None household members: spouse and family housing: house 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 current occupational exposures/hazards: No caffeine: Yes ROS Obtained: Yes Systems reviewed as appropriate & no additional complaints except as documented Physical Exam General General appearance: alert and in no apparent distress Head Head exam: atraumatic and normal inspection Eye Eye exam: Present normal appearance, PERRL and EOMI ENT ENT exam: Present normal exam, normal oropharynx and mucous membranes moist Neck Neck exam: Present normal inspection, full ROM, trachea midline and tenderness (Patient is tender to palpation in the midline and on the right sided paraspinous musculature into the trapezius. No deformities noted on palpation. Patient is also tender medial to the scapular winging but no deformities noticed in the scapula.); Absent lymphadenopathy Chest Chest inspection: Present normal inspection and symmetric chest wall rise Respiratory Respiratory exam: Present normal lung sounds bilaterally; Absent respiratory distress Cardiovascular Cardiovascular exam: Present regular rate and normal rhythm Extremities Exam Extremities exam: Present normal inspection and full ROM Back Exam Back exam: Present normal inspection, full ROM and tenderness Neurological Exam Neurological exam: Present alert, oriented X3 and CN II-XII intact Psychiatric Psychiatric exam: Present normal affect and normal mood Skin Skin exam: Present warm, dry and normal color Other Other exam information: Patient has decreased flexion due to pain of her cervical spine, patient cannot abduct her right upper extremity due to pain in her trapezius. Abduction causes a tingling sensation down her right upper extremity however she is motor and sensory intact distally in the right upper extremity. Muscle strength is 5 out of 5 bilaterally in upper extremities. Remainder of the 3 unaffected extremities have full range of motion without pain or tenderness. Medical Decision Making Medical Records Medical records reviewed: Yes I reviewed the patient's medical records. [facility] Inquiry Pt receiving controlled substance: No Vital Signs: 11/16/23 13:33 11/16/23 14:37 Temperature 97.9 F Temperature Source Oral Pulse Rate 67 Pulse Rate [Right] 68 Respiratory Rate 17 Blood Pressure 124/81 Blood Pressure [Right Arm] 127/88 Blood Pressure Mean [Right Arm] 101 Blood Pressure Source [Right Arm] Automatic Cuff 02 Sat by Pulse Oximetry 98 98 Oxygen Delivery Method Room Air Lab Data Lab results reviewed: Yes I reviewed the patient's lab results. Orders (Tests/Meds): ED MEDICATIONS Generic Name Dose Route Start Last Admin Trade Name Freq PRN Reason Stop Dose Admin Methocarbamol 500 mg 11/16/23 21:00 11/16/23 14:49 Methocarbamol 500mg Tablet PO 12/16/23 20:59 500 mg BID OUSMANE Administration Discontinued Medications Generic Name Dose Route Start Last Admin Trade Name Freq PRN Reason Stop Dose Admin Acetaminophen 1,000 mg 11/16/23 14:17 11/16/23 14:40 Acetaminophen 1,000mg/100ml Vial IV 11/16/23 14:18 1,000 mg ONCE ONE Administration Dexamethasone Sodium Phosphate 10 mg 11/16/23 14:17 11/16/23 14:40 Dexamethasone 4mg/Ml 5ml Mdv IV 11/16/23 14:18 10 mg ONCE ONE Administration Ketorolac Tromethamine 15 mg 11/16/23 14:17 11/16/23 14:40 Ketorolac 30mg/Ml Vial IV 11/16/23 14:18 15 mg ONCE ONE Administration ORDERS Category Date Time Status CT cervical spine wo con Stat Cat Scan 11/16/23 14:[address] head/brain wo con Stat Cat Scan 11/16/23 14:[address] thoracic spine wo con Stat Cat Scan 11/16/23 14:17 Completed XR shoulder RT min 2V Stat Exams 11/16/23 14:17 Completed Medical Decision Narrative: In summary patient is a 48-year-old female who presents to the emergency department for evaluation of neck and right shoulder pain after a fall. Patient is hemodynamically stable upon arrival, afebrile. Physical exam is remarkable for midline C-spine tenderness and upper thoracic spine tenderness but no deformities noted. Patient is also tender in the musculature on the right side of the trapezius. Right shoulder is intact and has good range of passive motion however abduction causes pain in her neck. Patient also has paresthesias that are worse with abduction of the right upper extremity. Patient is neurovascularly intact distally in the right upper extremity however. Differenti al diagnosis includes cervical spine fracture versus herniated disc versus hardware failure versus brachial plexus injury versus musculoskeletal spasm etc. Initial workup will be conducted with CT scan of the head C-spine and T-spine and right shoulder imaging. Initial interventions include Toradol Tylenol Decadron. Initial workup reviewed by me and my informal interpretation of her imaging shows no acute fractures. Her hematologic labs are nonactionable. Upon repeat evaluation has near complete resolution of her neck pain. Given this patient is appropriate for discharge home with a prescription for Robaxin and close follow-up with her PCP if her symptoms continue for further outpatient evaluation with possibly an MRI. Patient verbalized understanding agreement. Critical Care Critical Care Time Critical Care Time: No
--- NOTE | 2023-11-16 14:08 | PC.NURSE ---
LATANYA DASILVA AT BEDSIDE
--- NOTE | 2023-11-16 14:17 | CT_ITS ---
PROCEDURE INFORMATION: Exam: CT Cervical Spine Without Contrast Exam date and time: 11/16/2023 2:50 PM Age: 48 years old Clinical indication: Injury or trauma; Fall; Blunt trauma TECHNIQUE: Imaging protocol: Computed tomography of the cervical spine without contrast. Radiation optimization: All CT scans at this facility use at least one of these dose optimization techniques: automated exposure control; mA and/or kV adjustment per patient size (includes targeted exams where dose is matched to clinical indication); or iterative reconstruction. COMPARISON: MR CERVICAL SPINE WO/W CON 02/21/2023 1:32 PM FINDINGS: Bones: Postsurgical changes of anterior spinal fusion C6 and C7. Appearance stable. No evidence of periprosthetic lucency or fracture. Lungs: Lung apices are normal. Lymph nodes: nonspecific level 2 B lymph nodes on the right measuring up to 6 x 14 mm in maximum dimensions. Soft tissues: Unremarkable. IMPRESSION: No evidence of acute osseous injury.
--- NOTE | 2023-11-16 14:17 | XR_ITS ---
PROCEDURE INFORMATION: Exam: XR Right Shoulder Exam date and time: 11/16/2023 2:15 PM Age: 48 years old Clinical indication: Injury or trauma; Fall; Blunt trauma (contusions or hematomas); Shoulder; Right TECHNIQUE: Imaging protocol: Radiologic exam of the right shoulder. Views: 2 or more views. COMPARISON: MR CERVICAL SPINE WO/W CON 02/21/2023 1:32 PM FINDINGS: Bones/joints: Normal. Soft tissues: Normal. IMPRESSION: No acute findings.
--- NOTE | 2023-11-16 14:17 | CT_ITS ---
PROCEDURE INFORMATION: Exam: CT Thoracic Spine Without Contrast Exam date and time: 11/16/2023 2:53 PM Age: 48 years old Clinical indication: Injury or trauma; Fall; Blunt trauma (contusions or hematomas) TECHNIQUE: Imaging protocol: Computed tomography of the thoracic spine without contrast. Radiation optimization: All CT scans at this facility use at least one of these dose optimization techniques: automated exposure control; mA and/or kV adjustment per patient size (includes targeted exams where dose is matched to clinical indication); or iterative reconstruction. COMPARISON: CT CERVICAL SPINE WO CON 11/16/2023 2:50 PM FINDINGS: Bones/joints: Generalized osteopenia. Thoracic spondylosis with multilevel disc degeneration. Soft tissues: Unremarkable. IMPRESSION: No evidence of acute osseous injury.
--- NOTE | 2023-11-16 14:18 | CT_ITS ---
PROCEDURE INFORMATION: Exam: CT Head Without Contrast Exam date and time: 11/16/2023 2:50 PM Age: 48 years old Clinical indication: Injury or trauma; Fall; Blunt trauma (contusions or hematomas) TECHNIQUE: Imaging protocol: Computed tomography of the head without contrast. Radiation optimization: All CT scans at this facility use at least one of these dose optimization techniques: automated exposure control; mA and/or kV adjustment per patient size (includes targeted exams where dose is matched to clinical indication); or iterative reconstruction. COMPARISON: MR ANGIO HEAD WO CON 12/01/2023 07:42 FINDINGS: Brain: Normal. No hemorrhage. Unremarkable white matter. No mass effect. Cerebral ventricles: No ventriculomegaly. Paranasal sinuses: Small mucous retention cyst in the right maxillary sinus. Mastoid air cells: Visualized mastoid air cells are well aerated. Bones: Unremarkable. No acute fracture. Soft tissues: Unremarkable. IMPRESSION: No CT evidence of acute brain injury
[2023-11-16 14:37] VITALS: BP 124/81; PULSE 67; O2SAT 98
[2023-11-16] MEDS: KETOROLAC 30MG/ML VIAL 15 MG IV (14:40)
[2023-11-16] MEDS: DEXAMETHASONE 4MG/ML 5ML MDV 10 MG IV (14:40)
[2023-11-16] MEDS: ACETAMINOPHEN 1,000MG/100ML VIAL 1000 MG IV (14:40)
[2023-11-16] MEDS: METHOCARBAMOL 500MG TABLET 500 MG PO (14:49)
[2023-11-16 15:36] VITALS: BP 107/80; PULSE 68; RESP 18; TEMP 36.6; O2SAT 98
== END 2023-11-16 15:40 | disposition home or self-care (01) ==
PROVIDERS: Emergency Provider Emergency Medicine; PCP Nurse Practitioner
DX: M54.2 Cervicalgia (principal); M25.511 Pain in right shoulder; R20.2 Paresthesia of skin; F17.210 Nicotine dependence, cigarettes, uncomplicated; W19.XXXA Unspecified fall, initial encounter
CPT/HCPCS: 70450; 72125; 72128; 73030; 96374; 96375; 99285; J0131

== ENCOUNTER 2023-11-21 10:09 | Observation (INO) | payer OTHER, SELFPAY ==
[2023-11-21] VITALS (11 sets, daily range): BP systolic 108–146; BP diastolic 61–91; PULSE 59–94; RESP 16–20; TEMP 36.8–37; O2SAT 91–100; BMI 32.3; BMI 31.8
--- NOTE | 2023-11-21 10:32 | CT_ITS ---
FINAL REPORT CLINICAL HISTORY: prev R diverticulitis/RLQ pain/constipation COMPARISON: 01/21/2022 FINDINGS: CT OF THE ABDOMEN AND PELVIS WITH CONTRAST Axial CT images of the abdomen and pelvis were obtained after the administration of IV contrast. Coronal reformatted images were also obtained and reviewed. This study was performed with techniques to keep radiation doses as low as reasonably achievable (ALARA). Individualized dose reduction techniques using automated exposure control or adjustment of mA and/or kV according to the patient's size were employed. Abdomen: There is mild atelectasis or scarring in the lung bases.. The heart is normal in size. The liver has an unremarkable appearance, without evidence of mass or biliary ductal dilatation. Postcholecystectomy. The spleen is unremarkable. No adrenal mass is present. The pancreas has an unremarkable appearance. The kidneys are normal, without evidence of mass or hydronephrosis. The aorta is normal in caliber. There are mild vascular calcifications. There is no free fluid or adenopathy. No mass or abnormal fluid collection is seen. There is scattered descending and sigmoid diverticula. There is wall thickening with surrounding inflammation in the mid sigmoid colon consistent with acute diverticulitis. Pelvis: The appendix is not well-visualized. The urinary bladder is unremarkable. Post hysterectomy. There is a moderate to large amount of retained stool in the rectum which may represent constipation/fecal impaction. There is no evidence of mass or adenopathy. There is no evidence of bowel obstruction. IMPRESSION: Acute diverticulitis mid sigmoid colon. Moderate to large amount of retained stool in the rectum may represent constipation/fecal impaction. Reviewed, Interpreted and Dictated by Les Pulido III, MD Transcribed by Sally Macdonald Authenticated and [facility]
--- NOTE | 2023-11-21 10:33 | HMH.EDGENADL ---
Discharge Plan Disposition Patient Disposition: Home, Self-Care Chief Complaint: Abdominal Pain Prescriptions Prescriptions: No Action pantoprazole 40 mg tablet,delayed release (DR/EC) 40 mg PO DAILY 30 Days Qty: 30 oxybutynin chloride 15 mg tablet extended release 24hr 15 mg PO DAILY 30 Days Qty: 30 cetirizine 10 mg tablet 10 mg PO DAILY 30 Days Qty: 30 multivitamin capsule 1 cap PO DAILY levothyroxine 100 mcg tablet 110 mcg PO DAILY 30 Days Qty: 33 pravastatin 40 mg tablet 80 mg PO DAILY 30 Days Qty: 60 wnrlaffnmf-yvlrdkdkchcvk-rmzu 50-300-40 mg capsule 1 cap PO Q8H PRN acetaminophen-codeine 300-30 mg tablet 1 tab PO Q8H PRN flaxseed oil 1,000 mg capsule 1,000 mg PO DAILY Rx Instructions: administer with a meal magnesium oxide 400 mg (241.3 mg magnesium) tablet 400 mg PO DAILY Slow Release Iron 140 mg (45 mg iron) tablet extended release 140 mg PO DAILY Patient Comments: Take 1 tablet every day by oral route for 90 days. sumatriptan succinate 100 mg tablet See Rx Instructions PO .COMPLEX Qty: 10 5RF Rx Instructions: take 1 tab at onset of headache; if no relief, may repeat 1 tab after at least 2 hrs; max = 2 tabs/24 hrs or 4 tabs per week topiramate 50 mg tablet 75 mg PO HS 30 Days Qty: 45 5RF sertraline 50 mg tablet 50 mg PO DAILY Patient Comments: TAKE 1 TABLET BY MOUTH ONCE DAILY empagliflozin 25 mg tablet 25 mg PO DAILY Patient Comments: TAKE 1 TABLET BY MOUTH ONCE DAILY IN THE MORNING fluticasone propionate 50 mcg/actuation spray,suspension 50 mcg INTRANASAL BID Patient Comments: USE 1 SPRAY(S) IN EACH NOSTRIL ONCE DAILY hydroxyzine HCl 10 mg tablet 10 mg PO DIRECTED PRN (Reason: Anxiety) Patient Comments: TAKE 1 TABLET BY MOUTH THREE TIMES DAILY Benadryl 2 % gel 1 applic topical BID PRN (Reason: itching) Qty: 1 0RF methocarbamol 750 mg tablet 750 mg PO Q6H PRN (Reason: Spasm) Qty: 10 0RF Referrals Follow up/Referrals: Krystal Chilel APRN [Primary Care Provider] - See instructions Clinical Impressions Clinical Impression: Diverticulitis, Constipation, UTI (urinary tract infection) Instructions Patient Instructions: DI for Acute Abdominal Pain Discharge ED Provider: Brandon Saravia General Adult HPI General Chief complaint: Abdominal Pain Stated complaint: lower abd pain Time Seen by Provider: 11/21/23 10:13 Mode of Arrival: Ambulatory Source of Information: Patient Limitations: No Limitations Description of Symptoms (Recalled from ER Triage Doc. by RN): pt presents to ED c/o RLQ abdominal pain. pt reports hx of diverticulitis, pt also states that she has not had a bowel movement in 3 days and has stool stuck in her rectum. History of Present Illness HPI narrative: Patient is a 48-year-old female past medical history of obn-qlqiomu-ybovxemjm diabetes, chronic narcotic use, previous right-sided diverticulitis who presents emergency department for evaluation of abdominal pain. Onset was acute, over the last 24 hours. Patient has been constipated for 3 days and feels as if there is a ball stool in her rectum. Still passing flatus. Over the last 24 hours she has had stabbing right lower quadrant abdominal pain, patient still has her appendix. There is associated dysuria. No vomiting although nauseous. No other acute complaints at this time. Related Data Home Medications Medication Instructions Recorded Confirmed cetirizine 10 mg tablet 10 mg PO DAILY allergies 30 days 10/02/18 06/13/23 #30 tabs multivitamin 1 cap PO DAILY Supplement 10/02/18 06/13/23 oxybutynin chloride 15 mg 15 mg PO DAILY bladder spasms 30 10/02/18 06/13/23 tablet,extended release 24 hr days #30 tabs pantoprazole 40 mg tablet,delayed 40 mg PO DAILY GERD 30 days #30 10/02/18 06/13/23 release tabs empagliflozin 25 mg tablet 25 mg PO DAILY Diabetes 01/21/20 06/13/23 sertraline 50 mg tablet 50 mg PO DAILY allergies 01/21/20 06/13/23 fluticasone propionate 50 50 mcg intranasal BID allergies 03/31/20 06/13/23 mcg/actuation nasal spray,suspension hydroxyzine HCl 10 mg tablet 10 mg PO DIRECTED PRN Anxiety 03/31/20 06/13/23 acetaminophen 300 mg-codeine 30 mg 1 tab PO Q8H PRN 01/03/23 06/13/23 tablet emxdwijlch-tmmptbanfeorc-uiquoqjc 1 cap PO Q8H PRN 01/03/23 06/13/23 50 mg-300 mg-40 mg capsule flaxseed oil 1,000 mg capsule 1,000 mg PO DAILY 01/03/23 06/13/23 levothyroxine 100 mcg tablet 110 mcg PO DAILY thyroid 30 days 01/03/23 06/13/23 #33 tabs pravastatin 40 mg tablet 80 mg PO DAILY Cholesterol 30 days 01/03/23 06/13/23 #60 tabs ferrous sulfate 140 mg (45 mg 140 mg PO DAILY 06/13/23 06/13/23 iron) tablet,extended release (Slow Release Iron) magnesium oxide 400 mg (241.3 mg 400 mg PO DAILY 06/13/23 06/13/23 magnesium) tablet Previous Rx's Medication Instructions Recorded diphenhydramine HCl 2 % topical 1 applic topical BID PRN itching 03/21/22 gel (Benadryl) #1 tube sumatriptan succinate 100 mg tablet See Rx Instructions PO .COMPLEX 06/13/23 #10 tabs topiramate 50 mg tablet 75 mg (1.5 x 50 mg) PO HS 30 days 06/13/23 #45 tabs methocarbamol 750 mg tablet 750 mg PO Q6H PRN Spasm #10 tabs 11/16/23 Allergies Allergy/AdvReac Type Severity Reaction Status Date / Time azithromycin Allergy Unknown Verified 06/13/23 12:14 [facility] Disclaimer: The information contained in this section may have been updated after the patient was seen, as this information can be updated by other users. Medical History Anxiety Auditory complaints of right ear Bilateral cataracts Chest pain Depression Diabetes mellitus, type 2 Dizziness DM2 (diabetes mellitus, type 2) History of gastroesophageal reflux (GERD) Hyperlipidemia Migraine Stenosis of carotid artery Thyroid disease Tobacco use Urinary tract infection Surgical History History of carpal tunnel surgery History of section History of cholecystectomy History of hysterectomy History of spinal fusion History of thyroidectomy Hx of hemorrhoidectomy Family History (Updated 06/13/23 @ 13:19 by Shira Martinez) Other Cancer Coronary artery disease Diabetes Hyperlipidemia Hypertension Social History Smoking Status: Current every day smoker tobacco type: cigarettes packs per day: 1 second hand exposure: Yes alcohol intake: never current occupational status: employed Travel in the last 8 weeks: None household members: spouse and family housing: house 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 current occupational exposures/hazards: No caffeine: Yes ROS Obtained: Yes Systems reviewed as appropriate & no additional complaints except as documented Physical Exam General General appearance: alert and in no apparent distress Head Head exam: atraumatic and normocephalic Eye Eye exam: Present PERRL ENT ENT exam: Present mucous membranes moist Neck Neck exam: Present normal inspection Chest Chest inspection: Present normal inspection and symmetric chest wall rise Respiratory Respiratory exam: Absent respiratory distress Cardiovascular Cardiovascular exam: Present regular rate and normal rhythm Abdominal Exam Abdominal exam: Present soft, tenderness (Diffuse, mild, severe, right lower quadrant) and guarding (Voluntary) Extremities Exam Extremities exam: Present normal inspection Neurological Exam Neurological exam: Present alert Psychiatric Psychiatric exam: Present normal affect Skin Skin exam: Present warm and dry Medical Decision Making Tanner Inquiry Pt receiving controlled substance: No Vital Signs: 11/21/23 10:09 11/21/23 10:30 11/21/23 11:00 Temperature 98.6 F Temperature Source Oral Pulse Rate 85 82 Pulse Rate [Right Radial] 94 H Respiratory Rate 18 18 Blood Pressure 146/76 H 146/76 H Blood Pressure [Right Arm] 129/80 Blood Pressure Mean Blood Pressure Mean [Right Arm] 96 Blood Pressure Source Automatic Cuff Blood Pressure Source [Right Arm] Automatic Cuff Blood Pressure Position Sitting Blood Pressure Position [Right Arm] Sitting 02 Sat by Pulse Oximetry 98 97 91 L Oxygen Delivery Method Room Air Room Air Room Air 11/21/23 11:01 11/21/23 11:30 11/21/23 12:00 Temperature Temperature Source Pulse Rate 77 74 66 Pulse Rate [Right Radial] Respiratory Rate 16 Blood Pressure 113/66 111/67 108/61 L Blood Pressure [Right Arm] Blood Pressure Mean 76 Blood Pressure Mean [Right Arm] Blood Pressure Source Blood Pressure Source [Right Arm] Blood Pressure Position Blood Pressure Position [Right Arm] 02 Sat by Pulse Oximetry 92 L 94 L 93 L Oxygen Delivery Method Room Air Room Air 11/21/23 12:06 11/21/23 13:03 Temperature Temperature Source Pulse Rate 67 59 L Pulse Rate [Right Radial] Respiratory Rate 18 Blood Pressure 108/61 L 133/82 Blood Pressure [Right Arm] Blood Pressure Mean Blood Pressure Mean [Right Arm] Blood Pressure Source Automatic Cuff Blood Pressure Source [Right Arm] Blood Pressure Position Sitting Blood Pressure Position [Right Arm] 02 Sat by Pulse Oximetry 93 L 100 Oxygen Delivery Method Room Air Room Air Lab Data Lab Results 11/21/23 10:30: WBC 19.9 H, RBC 4.25, Hgb 13.7, Hct 40.0, MCV 94.2, MCH 32.3 H, MCHC 34.3, RDW 14.5, Plt Count 302, MPV 7.8, Neut % (Auto) 80.2 H, Lymph % (Auto) 14.0, [place] % (Auto) 4.2, Eos % (Auto) 1.3, Baso % (Auto) 0.4, Neut # (Auto) 15.9 H, Lymph # (Auto) 2.8, [place] # (Auto) 0.8, Eos # (Auto) 0.3, Baso # (Auto) 0.1, Total Counted 100, Neutrophils % (Manual) 82 H, Lymphocytes % (Manual) 14, Monocytes % (Manual) 4, Platelet Estimate Normal, RBC Morphology Normal, Sodium 142, Potassium 4.0, Chloride 113 H, Carbon Dioxide 24, Anion Gap 9.0, BUN 15, Creatinine 0.90, Estimated Creat Clear 107, Estimated GFR 66, Est GFR ( Amer) 80, Glucose 119 H, Calcium 9.7, Total Bilirubin 0.9, AST 32, ALT 29, Alkaline Phosphatase 70, Total Protein 8.0, Albumin 4.4, Globulin 3.6 H, Albumin/Globulin Ratio 1.2, Lipase 76, Urine Color Yellow, Urine Appearance Clear, Urine pH 6.0, Ur Specific [place] 1.010, Urine Protein 1+, Urine Glucose (UA) 3+, Urine Ketones Negative, Urine Blood 2+, Urine Nitrate Positive, Urine Bilirubin Negative, Urine Urobilinogen 0.2, Ur Leukocyte Esterase Negative, Urine RBC 5-10, Urine WBC 10-20, Ur Squamous Epith Cells 5-10, Urine Bacteria 4+ 11/21/23 10:30 11/21/23 10:30 Orders (Tests/Meds): ED MEDICATIONS Generic Name Dose Route Start Last Admin Trade Name Freq PRN Reason Stop Dose Admin Acetaminophen 650 mg 11/21/23 13:26 Acetaminophen 325mg Tab PO 12/21/23 13:25 Q4HP PRN Fever or Mild Pain (1-3) Heparin Sodium (Porcine) 5,000 unit 11/21/23 13:30 Heparin Sodium 5,000 Unit/Ml Vial SQ 12/21/23 13:29 Q8H OUSMANE Sodium Chloride 1,000 mls @ 75 mls/hr 11/21/23 13:30 Sod Chlor 0.9% 1000ml Bag IV 12/21/23 13:29 .[id number] OUSMANE Morphine Sulfate 2 mg 11/21/23 13:26 Morphine 2mg/Ml Syringe IV 12/21/23 13:25 Q2HP PRN Severe Pain (7-10) Ondansetron HCl 4 mg 11/21/23 13:26 Ondansetron 4mg/2ml Vial IV 12/21/23 13:25 Q8HP PRN Nausea Sodium Chloride 10 ml 11/21/23 11:24 11/21/23 11:25 Sodium Chloride 0.9% 10ml Syr (Rad Only) IV 12/21/23 11:23 10 ml NEEDED PRN Administration Maintain IV Site Discontinued Medications Generic Name Dose Route Start Last Admin Trade Name Freq PRN Reason Stop Dose Admin Acetaminophen 1,000 mg 11/21/23 10:32 11/21/23 10:47 Acetaminophen 1,000mg/100ml Vial IV 11/21/23 10:33 1,000 mg ONCE ONE Administration Hydromorphone HCl 0.5 mg 11/21/23 10:36 11/21/23 10:50 Hydromorphone 2mg/Ml Syringe IV 11/21/23 10:37 0.5 mg ONCE ONE Administration Hydromorphone HCl 0.5 mg 11/21/23 13:03 11/21/23 13:07 Hydromorphone 2mg/Ml Syringe IV 11/21/23 13:04 0.5 mg ONCE ONE Administration Lactated Ringer's 1,000 mls @ 999 mls/hr 11/21/23 10:32 11/21/23 10:46 Lactated Ringer's 1000 Ml Bag IV 11/21/23 11:32 999 mls/hr .Q1H1M ONE Administration Piperacillin Sod/Tazobactam 100 mls @ 200 mls/hr 11/21/23 12:58 11/21/23 13:07 Sod 4.5 gm/ Sodium Chloride IV 11/21/23 13:27 200 mls/hr ONCE ONE Administration Iopamidol 75 ml 11/21/23 11:24 11/21/23 11:24 Iopamidol-370 (76%);100ml Bottle IV 11/21/23 11:25 75 ml ONCE ONE Administration Ketorolac Tromethamine 30 mg 11/21/23 10:32 11/21/23 10:46 Ketorolac 30mg/Ml Vial IV 11/21/23 10:33 30 mg ONCE ONE Administration Ondansetron HCl 4 mg 11/21/23 10:32 11/21/23 10:46 Ondansetron 4mg/2ml Vial IV 11/21/23 10:33 4 mg ONCE ONE Administration ORDERS Category Date Time Status CT abdomen pelvis w con Stat Cat Scan 11/21/23 10:32 Completed Basic Metabolic Panel [facility] Lab 11/22/23 06:00 Ordered Basic Metabolic Panel [facility] Lab 11/23/23 06:00 Ordered Basic Metabolic Panel [facility] Lab 11/24/23 06:00 Ordered Complete Blood Count Auto Diff [facility] Lab 11/22/23 06:00 Ordered Complete Blood Count Auto Diff [facility] Lab 11/23/23 06:00 Ordered Complete Blood Count Auto Diff [facility]AB Lab 11/24/23 06:00 Ordered Complete Blood Count Auto Diff Stat Lab 11/21/23 10:30 Completed Comprehensive Metabolic Panel Stat Lab 11/21/23 10:30 Completed Lipase Stat Lab 11/21/23 10:30 Completed Urinalysis and Microscopic Stat Lab 11/21/23 10:30 Completed Blood Culture Stat Micro 11/21/23 13:03 Received Urine Culture Stat Micro 11/21/23 10:30 Received Medical Decision Narrative: In summary patient is a 48-year-old female past medical history described above who presents emergency department for evaluation of right lower quadrant abdominal pain in the setting of previous right-sided diverticulitis, constipation. Patient is hemodynamically stable nontoxic-appearing upon arrival, appearing in pain, afebrile. Differential diagnosis includes appendicitis, diverticulitis, urinary tract infection, stercoral colitis, among others. Workup will be conducted with hematologic labs, urinalysis, CT abdomen pelvis IV contrast. Initial inventions include crystalloid bolus, IV Tylenol, Toradol, IV Dilaudid. Initial workup reviewed by me, hematologic labs remarkable for leukocytosis 19.9, no MESSI or critical electrolyte abnormality. Urinalysis interpreted by me and consistent with infection. CT imaging shows acute diverticulitis mid sigmoid colon with moderate to large retained stool in the rectum. Patient was started on Zosyn for empiric coverage of UTI and diverticulitis. She has persistent pain for which medication will be redosed. Patient will undergo enema at bedside for her stool ball in her rectum. The case was discussed with hospital medicine who will admit the patient their service for continued evaluation at this time. Critical Care Critical Care Time Critical Care Time: No
[2023-11-21 10:41] LABS: Microscopic, Urine URINE MICROSCOPIC (MICROSCOPIC)
[2023-11-21 10:44] LABS: Basophils # 0.1 K/mm3 (0-0.2); Basophils % 0.4 % (0.1-2.0); Eosinophils # 0.3 K/mm3 (0.0-0.4); Eosinophils % 1.3 % (0.1-12.0); Hemoglobin 13.7 g/dL (12.2-16.2); Lymphocytes # 2.8 K/mm3 (0.7-4.5); Mean Corpuscular HGB Conc 34.3 g/dL (31.8-35.4); Mean Corpuscular Hemoglobin 32.3 pg (27.0-31.2); Mean Corpuscular Volume 94.2 fl (81-99); Mean Platelet Volume 7.8 fl (7.4-10.4); Monocytes # 0.8 K/mm3 (0.1-1.0); Monocytes % 4.2 % (1.7-9.3); Neutrophils # 15.9 K/mm3 (1.8-7.8); Neutrophils % 80.2 % (37.0-80.0); Platelet Count 302 K/mm3 (142-424); Red Blood Count 4.25 M/mm3 (4.20-5.40); Red Cell Distribution Width 14.5 % (11.5-17.5); White Blood Count 19.9 K/mm3 (4.8-10.8)
[2023-11-21 10:45] LABS: Appearance,Urine CLEAR (Clear); Bilirubin,Urine Negative (Negative); Blood, Urine 2+ (Negative); Color,Urine YELLOW (Yellow); Glucose,Urine (UA) 3+ (Negative); Ketones,Urine Negative (Negative); Leukocyte Esterase,Urine Negative (Negative); MANUAL DIFFERENTIAL MANUAL DIFFERENTIAL (MANUAL DIFF); Nitrate,Urine POSITIVE (Negative); Protein,Urine 1+ (Negative); Urobilinogen,Urine 0.2 EU/dl (0.2)
[2023-11-21 10:46] LABS: Sodium 142 mmol/L (136-145)
[2023-11-21] MEDS: LACTATED RINGERS 1000ML 1,000 ML 999 ML IV (10:46)
[2023-11-21] MEDS: ONDANSETRON 4MG/2ML VIAL 4 MG IV (10:46)
[2023-11-21] MEDS: KETOROLAC 30MG/ML VIAL 30 MG IV (10:46)
[2023-11-21 10:47] LABS: Chloride 113 mmol/L (98-107)
[2023-11-21] MEDS: ACETAMINOPHEN 1,000MG/100ML VIAL 1000 MG IV (10:47)
[2023-11-21 10:48] LABS: Blood Urea Nitrogen 15 mg/dl (7-17); Creatinine Clearance Estimated 107 mL/min (50-200); Estimated Glomerular Filt Rate 66 ml/min (>60); GFR (African American) 80 ML/MIN (>60)
[2023-11-21 10:49] LABS: Alanine Aminotransferase 29 U/L (12-78); Albumin Level 4.4 g/dl (3.5-5.0); Albumin/Globulin Ratio 1.2 (1.1-1.8); Alkaline Phosphatase 70 U/L (38-126); Aspartate Amino Transferase 32 U/L (14-36); Bilirubin,Total 0.9 mg/dl (0.2-1.3); Calcium 9.7 mg/dl (8.4-10.2); Carbon Dioxide 24 mmol/L (22.0-30.0); Globulin 3.6 g/dL (1.3-3.2); Glucose 119 mg/dl (74-100); Lipase 76 U/L (23-300)
[2023-11-21] MEDS: HYDROMORPHONE 2MG/ML SYRINGE 0.5 MG IV ×2 (10:50→13:07)
--- NOTE | 2023-11-21 11:14 | PC.NURSE ---
Pt gone to RAD
[2023-11-21 11:20] LABS: Bacteria,Urine 4+ /lpf
[2023-11-21] MEDS: IOPAMIDOL-370 (76%);100ML BOTTLE 75 ML IV (11:24)
[2023-11-21] MEDS: SODIUM CHLORIDE 0.9% 10ML SYR (RAD ONLY) 10 ML IV (11:25)
--- NOTE | 2023-11-21 11:25 | PC.NURSE ---
pt returned from radiology. call light w/i reach.
[2023-11-21 11:29] LABS: Lymphocytes % 14 % (10-50); Monocytes % 4 % (2-9); Neutrophils % 82 % (42-76); Total Cells Counted 100
--- NOTE | 2023-11-21 11:29 | PC.NURSE ---
pt arrived back to room from ct
[2023-11-21 11:30] LABS: Platelet Estimate Normal; RBC Morphology Normal
--- NOTE | 2023-11-21 12:35 | PC.NURSE ---
ROUNDED ON PT NO NEEDS AT THIS TIME,CALL LIGHT IN REACH
[2023-11-21] MEDS: PIPERACILLIN/TAZO 4.5 GM in 0.9 % SODIUM CHLORIDE 100 ML IV (13:07)
--- NOTE | 2023-11-21 13:39 | PC.NURSE ---
House notified of pt admission
--- NOTE | 2023-11-21 13:46 | PC.NURSE ---
report called to Jane Gregg RN.
--- NOTE | 2023-11-21 14:13 | PC.NURSE ---
arrived by w/c from ED
[2023-11-21] MEDS: HEPARIN SODIUM 5,000 UNIT/ML VIAL 5000 UNIT SQ ×2 (15:11→20:59)
[2023-11-21] MEDS: 0.9 % SODIUM CHLORIDE 1000ML 1,000 ML 75 ML IV (15:17)
[2023-11-21 17:11] LABS: POC Glucose,Bedside 111 (70-110)
--- NOTE | 2023-11-21 17:14 | EXP.HP ---
History of Present Illness *Admission Date: 11/21/23 *Reason for visit:: Abdominal pain *History of present illness: Patient is a 48-year-old female with past medical history of diabetes mellitus, tobacco use hypertension hyperlipidemia who presents to the hospital due to abdominal pain. According to the patient she has been having abdominal pain for past 1 day, it is located in the left lower quadrant, constant, associated with constipation, burning urination. She mentions she has been passing flatus. Denies associated fevers chills diarrhea. Patient endorses having nausea but no vomiting. On further evaluation on CT abdomen patient was found to have mid sigmoid colon PFSH PFS Disclaimer: The information contained in this section may have been updated after the patient was seen, as this information can be updated by other users. Medical History Anxiety Auditory complaints of right ear Bilateral cataracts Chest pain Depression Diabetes mellitus, type 2 Dizziness DM2 (diabetes mellitus, type 2) History of gastroesophageal reflux (GERD) Hyperlipidemia Migraine Stenosis of carotid artery Thyroid disease Tobacco use Urinary tract infection Surgical History History of carpal tunnel surgery History of section History of cholecystectomy History of hysterectomy History of spinal fusion History of thyroidectomy Hx of hemorrhoidectomy Family History Other Cancer Coronary artery disease Diabetes Hyperlipidemia Hypertension Social History (Updated 11/21/23 @ 14:41 by Jane Vargas RN) Smoking Status: Current every day smoker tobacco type: cigarettes packs per day: 1 second hand exposure: Yes alcohol intake: never current occupational status: employed Travel in the last 8 weeks: None household members: spouse and family housing: house 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 current occupational exposures/hazards: No caffeine: Yes Review of Systems Review of Systems Review of systems:: pertinent systems reviewed and negative unless documented below Meds Home Medications and Allergies Home Medications Medication Instructions Recorded Confirmed Type cetirizine 10 mg tablet 10 mg PO DAILY 30 days #30 tabs 10/02/18 11/21/23 History multivitamin 1 cap PO DAILY Supplement 10/02/18 06/13/23 History oxybutynin chloride 15 mg 15 mg PO DAILY 30 days #30 tabs 10/02/18 11/21/23 History tablet,extended release 24 hr pantoprazole 40 mg tablet,delayed 40 mg PO DAILY 30 days #30 tabs 10/02/18 11/21/23 History release sertraline 50 mg tablet 50 mg PO DAILY 01/21/20 11/21/23 History fluticasone propionate 50 50 mcg intranasal BID 03/31/20 11/21/23 History mcg/actuation nasal spray,suspension flaxseed oil 1,000 mg capsule 1,000 mg PO DAILY 01/03/23 06/13/23 History pravastatin 40 mg tablet 80 mg PO DAILY 30 days #60 tabs 01/03/23 11/21/23 History ergocalciferol (vitamin D2) 1,250 1,250 mcg PO WEEKLY 11/21/23 11/21/23 History mcg (50,000 unit) capsule (Vitamin D2) levothyroxine 112 mcg tablet 112 mcg PO DAILYDM 11/21/23 11/21/23 History sumatriptan succinate 100 mg tablet 100 mg PO NEEDED PRN migraine 11/21/23 11/21/23 History headaches topiramate 50 mg tablet 75 mg PO HS migraine headaches 11/21/23 11/21/23 History New Prescriptions to Start Prescriptions: Allergies Allergy/AdvReac Type Severity Reaction Status Date / Time azithromycin Allergy Unknown Verified 06/13/23 12:14 Exam Data for Last 24 hours Vital signs and Labs for Last 24 Hours: Temp Pulse Resp BP Pulse Ox O2 Del Method 98.6 F 73 18 133/91 H 99 Room Air 11/21/23 15:00 11/21/23 15:00 11/21/23 15:11/21/23 15:11/21/23 15:00 11/21/23 17:12 Laboratory Results - last 24 hr 11/21/23 10:30: WBC 19.9 H, RBC 4.25, Hgb 13.7, Hct 40.0, MCV 94.2, MCH 32.3 H, MCHC 34.3, RDW 14.5, Plt Count 302, MPV 7.8, Neut % (Auto) 80.2 H, Lymph % (Auto) 14.0, [place] % (Auto) 4.2, Eos % (Auto) 1.3, Baso % (Auto) 0.4, Neut # (Auto) 15.9 H, Lymph # (Auto) 2.8, [place] # (Auto) 0.8, Eos # (Auto) 0.3, Baso # (Auto) 0.1, Total Counted 100, Neutrophils % (Manual) 82 H, Lymphocytes % (Manual) 14, Monocytes % (Manual) 4, Platelet Estimate Normal, RBC Morphology Normal, Sodium 142, Potassium 4.0, Chloride 113 H, Carbon Dioxide 24, Anion Gap 9.0, BUN 15, Creatinine 0.90, Estimated Creat Clear 107, Estimated GFR 66, Est GFR ( Amer) 80, Glucose 119 H, Calcium 9.7, Total Bilirubin 0.9, AST 32, ALT 29, Alkaline Phosphatase 70, Total Protein 8.0, Albumin 4.4, Globulin 3.6 H, Albumin/Globulin Ratio 1.2, Lipase 76, Urine Color Yellow, Urine Appearance Clear, Urine pH 6.0, Ur Specific [place] 1.010, Urine Protein 1+, Urine Glucose (UA) 3+, Urine Ketones Negative, Urine Blood 2+, Urine Nitrate Positive, Urine Bilirubin Negative, Urine Urobilinogen 0.2, Ur Leukocyte Esterase Negative, Urine RBC 5-10, Urine WBC 10-20, Ur Squamous Epith Cells 5-10, Urine Bacteria 4+ 11/21/23 16:32: POC Glucose 111 H I & O for Last 24 hours: Intake & Output 11/18/23 11/19/23 11/20/23 11/21/23 23:59 23:59 23:59 23:59 Output Total 0 / 0 Balance 0 / 0 Weight 89.358 kg Constitutional Constitutional: no acute distress *Routine HEENT Exam Head: Present normocephalic Eye: Present EOMI and PERRL ENT: Present mucous membranes moist *Routine Neck Exam Neck: Present supple; Absent lymphadenopathy *Routine Respiratory Exam Respiratory: Present CTA bilaterally *Routine Cardiovascular Exam Cardiovascular: Present RRR *Routine Abdominal Exam Abdominal: Present soft, normoactive bowel sounds and tenderness Comments: tender in lower abdomen *Routine Rectal Exam Rectal:: deferred *Routine Genitalia Exam Genitalia:: deferred *Routine Extremities Exam Extremities: Absent cyanosis, clubbing or edema *Routine Skin Exam Skin: Present warm; Absent rash *Routine Neurological Exam Neurological: Present alert and oriented X3 Assessment and Plan *Assessment and plan (1) Diverticulitis: Status: Acute Category: Medical Code(s): K57.92 - Diverticulitis of intestine, part unspecified, without perforation or abscess without bleeding (2) Constipation: Status: Acute Category: Medical Code(s): K59.00 - Constipation, unspecified (3) Chronic narcotic use: Status: Chronic Category: Social Hx Code(s): F11.90 - Opioid use, unspecified, uncomplicated (4) Dizziness: Status: Chronic Category: Medical Code(s): R42 - Dizziness and giddiness Plan Patient is a 48-year-old female with past medical history of diabetes mellitus, tobacco use hypertension hyperlipidemia who presents to the hospital due to abdominal pain. According to the patient she has been having abdominal pain for past 1 day, it is located in the left lower quadrant, constant, associated with constipation, burning urination. She mentions she has been passing flatus. Denies associated fevers chills diarrhea. Patient endorses having nausea but no vomiting. On further evaluation on CT abdomen patient was found to have mid sigmoid colon Assessment and plan Acute diverticulitis sigmoid colon Constipation/ rectal fecal impaction on CT abdomen Leukocytosis secondary to #1 IV fluids Start IV Zosyn N.p.o. for now Pain control fleet enema chronic medical conditions Hypertension - monitor Hyperlipidemia DVT PPx - heparin
[2023-11-21] MEDS: MINERAL OIL ENEMA 133ML 133 ML RC (18:09)
[2023-11-21] MEDS: PIPERACILLIN/TAZO 3.375 GM in 0.9 % SODIUM CHLORIDE 50 ML IV (20:58)
[2023-11-21] MEDS: MORPHINE 2MG/ML SYRINGE 2 MG IV (20:59)
[2023-11-21] MEDS: PATIENT'S OWN HOME MEDICATION (Topiramate 50 mg tablet) 75 EACH PO (21:00)
[2023-11-21 22:29] LABS: POC Glucose,Bedside 122 (70-110)
[2023-11-22] MEDS: PIPERACILLIN/TAZO 3.375 GM in 0.9 % SODIUM CHLORIDE 50 ML IV ×3 (02:32→15:10)
[2023-11-22 04:00] VITALS: BP 101/60; PULSE 65; RESP 18; TEMP 36.7; O2SAT 98; BMI 32.5
[2023-11-22] MEDS: HEPARIN SODIUM 5,000 UNIT/ML VIAL 5000 UNIT SQ ×3 (06:16→20:38)
[2023-11-22] MEDS: MORPHINE 2MG/ML SYRINGE 2 MG IV ×3 (06:22→20:35)
[2023-11-22 06:40] LABS: POC Glucose,Bedside 103 (70-110)
[2023-11-22 06:57] LABS: Basophils # 0.1 K/mm3 (0-0.2); Basophils % 0.6 % (0.1-2.0); Eosinophils # 0.3 K/mm3 (0.0-0.4); Eosinophils % 2.4 % (0.1-12.0); Hematocrit 37.5 % (37.0-47.0); Lymphocytes # 2.9 K/mm3 (0.7-4.5); Lymphocytes % 23.4 % (10-50); Mean Corpuscular HGB Conc 32.3 g/dL (31.8-35.4); Mean Corpuscular Hemoglobin 31.2 pg (27.0-31.2); Mean Corpuscular Volume 96.7 fl (81-99); Mean Platelet Volume 7.7 fl (7.4-10.4); Monocytes # 0.5 K/mm3 (0.1-1.0); Monocytes % 3.9 % (1.7-9.3); Neutrophils # 8.5 K/mm3 (1.8-7.8); Neutrophils % 69.8 % (37.0-80.0); Platelet Count 242 K/mm3 (142-424); Red Blood Count 3.88 M/mm3 (4.20-5.40); Red Cell Distribution Width 14.2 % (11.5-17.5); White Blood Count 12.2 K/mm3 (4.8-10.8)
[2023-11-22 07:00] LABS: Anion Gap 11.9 mEq/L (5-15); Blood Urea Nitrogen 17 mg/dl (7-17); Calcium 8.4 mg/dl (8.4-10.2); Carbon Dioxide 25 mmol/L (22.0-30.0); Chloride 109 mmol/L (98-107); Creatinine Clearance Estimated 109 mL/min (50-200); Estimated Glomerular Filt Rate 66 ml/min (>60); GFR (African American) 80 ML/MIN (>60); Glucose 94 mg/dl (74-100); Potassium 3.9 mmoL/L (3.5-5.1); Sodium 142 mmol/L (136-145)
[2023-11-22 07:05] LABS: Hemoglobin 12.1 g/dL (12.2-16.2)
[2023-11-22 08:00] VITALS: BP 108/63; PULSE 64; RESP 16; TEMP 36.9; O2SAT 98
[2023-11-22] MEDS: POLYETHYLENE GLYCOL 3350 17 GM PACKET PO ×3 (10:05→20:38)
[2023-11-22] MEDS: OXYBUTYNIN 5MG TAB 5 MG PO ×2 (10:07→20:38)
[2023-11-22] MEDS: LEVOTHYROXINE 112MCG (0.112MG) TAB 112 MCG PO (10:07)
[2023-11-22] MEDS: SERTRALINE 50MG TABLET 50 MG PO (10:07)
[2023-11-22] MEDS: 0.9 % SODIUM CHLORIDE 1000ML 1,000 ML 75 ML IV (10:08)
[2023-11-22] MEDS: PANTOPRAZOLE 40MG TABLET 40 MG PO (10:24)
[2023-11-22 12:34] LABS: POC Glucose,Bedside 109 (70-110)
[2023-11-22 16:00] VITALS: BP 127/74; PULSE 72; RESP 20; TEMP 36.9; O2SAT 97
--- NOTE | 2023-11-22 16:17 | EXP.ACUTE.PN ---
Subjective *Date: 11/22/23 *Time: 17:47 Interval history: Patient did well overnight. Seeing some slight improvement in her abdominal pain. No fever overnight. On room air. Tolerating clears, would like to advance diet. Denies chest pain or shortness of breath. Small bowel movement with enemas. Medical Exam Vital signs and Labs for Last 24 Hours: Vital Signs Temp Pulse Resp BP Pulse Ox O2 Del Method 11/22/23 15:00 Room Air 11/22/23 13:00 Room Air 11/22/23 11:00 Room Air 11/22/23 09:00 Room Air 11/22/23 08:00 98.5 F 64 16 108/63 L 98 Room Air 11/22/23 08:00 Room Air 11/22/23 06:43 Room Air 11/22/23 05:00 Room Air 11/22/23 04:00 98.0 F 65 18 101/60 L 98 Room Air 11/22/23 02:59 Room Air 11/22/23 00:58 Room Air 11/21/23 22:52 Room Air 11/21/23 21:00 Room Air 11/21/23 20:00 Room Air 11/21/23 20:00 98.3 F 67 20 131/75 100 Room Air 11/21/23 18:45 Room Air 11/21/23 17:12 Room Air 11/21/23 17:00 Room Air Intake and Output 11/22/23 11/22/23 11/22/23 07:59 15:59 23:59 Intake Total 50 / 410 360 / 410 Output Total 0 / 0 0 / 0 Balance 50 / 410 360 / 410 Intake: Intake, Oral Amount 360 / 360 Intake, Total IV Amount 50 / 50 Piperacillin/Tazo 3.375 gm In 0 50 / 50 .9 % Sodium Chloride 50 ml @ 100 mls/hr IV Q6H [facility] Rx#: [id number] Output: Output, Urine Amount 0 / 0 0 / 0 Other: Number of Voids 0 Number of Unmeasured Voids 1 1 Number of Bowel Movements 1 Weight 91.943 kg Patient Weight 11/22/23 23:59 Weight 91.943 kg Laboratory Results - last 24 hr 11/21/23 10:30: Urine Color Yellow, Urine Appearance Clear, Urine pH 6.0, Ur Specific [place] 1.010, Urine Protein 1+, Urine Glucose (UA) 3+, Urine Ketones Negative, Urine Blood 2+, Urine Nitrate Positive, Urine Bilirubin Negative, Urine Urobilinogen 0.2, Ur Leukocyte Esterase Negative, Urine RBC 5-10, Urine WBC 10-20, Ur Squamous Epith Cells 5-10, Urine Bacteria 4+ 11/21/23 16:32: POC Glucose 111 H 11/21/23 22:22: POC Glucose 122 H 11/22/23 06:15: POC Glucose 103 11/22/23 06:33: WBC 12.2 H D, RBC 3.88 L, Hgb 12.1 L D, Hct 37.5, MCV 96.7, MCH 31.2, MCHC 32.3, RDW 14.2, Plt Count 242, MPV 7.7, Neut % (Auto) 69.8, Lymph % (Auto) 23.4, [place] % (Auto) 3.9, Eos % (Auto) 2.4, Baso % (Auto) 0.6, Neut # (Auto) 8.5 H, Lymph # (Auto) 2.9, [place] # (Auto) 0.5, Eos # (Auto) 0.3, Baso # (Auto) 0.1, Sodium 142, Potassium 3.9, Chloride 109 H, Carbon Dioxide 25, Anion Gap 11.9, BUN 17, Creatinine 0.90, Estimated Creat Clear 109, Estimated GFR 66, Est GFR ( Amer) 80, Glucose 94 D, Calcium 8.4 11/22/23 12:15: POC Glucose 109 I & O for Labs for Last 24 Hours: Intake & Output 11/19/23 11/20/23 11/21/23 11/22/23 23:59 23:59 23:59 23:59 Intake Total 410 / 410 Output Total 0 / 0 0 / 0 Balance 0 / 50 410 / 410 Weight 89.358 kg 91.943 kg Microbiology Reports for the Last 24 Hours: Microbiology 11/21/23 10:30 Urine,Clean Catch Urine Culture - Preliminary Gram Negative Rods Constitutional: Present no acute distress and obese Head: Present atraumatic and normocephalic ENT: Present normal exam Neck: Present normal inspection Respiratory: Present normal respiratory effort; Absent rhonchi, wheezes or crackles Cardiac: Present Reg Rate and Rhythm GI: Present soft, tenderness (Diffuse, no rebound) and normal bowel sounds; Absent distention or guarding Extremities: Present normal inspection and full ROM Comment:: Complaining of some right calf pain, not tender on exam however. No swelling or redness Skin: Present intact; Absent erythema Neuro: Present Grossly Intact, alert, awake, oriented x 3 and moves all extremities Assessment and Plan *Assessment and plan (1) Diverticulitis: Status: Acute Category: Medical Code(s): K57.92 - Diverticulitis of intestine, part unspecified, without perforation or abscess without bleeding (2) UTI (urinary tract infection): Status: Acute Category: Medical Code(s): N39.0 - Urinary tract infection, site not specified (3) Constipation: Status: Acute Category: Medical Code(s): K59.00 - Constipation, unspecified (4) Chronic narcotic use: Status: Chronic Category: Social Hx Code(s): F11.90 - Opioid use, unspecified, uncomplicated (5) Dizziness: Status: Chronic Category: Medical Code(s): R42 - Dizziness and giddiness (6) DM2 (diabetes mellitus, type 2): Status: Chronic Category: Medical Code(s): E11.9 - Type 2 diabetes mellitus without complications Plan Patient is a 48-year-old female with past medical history of diabetes mellitus, tobacco use hypertension hyperlipidemia who presents to the hospital due to abdominal pain. According to the patient she has been having abdominal pain for past 1 day, it is located in the left lower quadrant, constant, associated with constipation, burning urination. She mentions she has been passing flatus. Denies associated fevers chills diarrhea. Patient endorses having nausea but no vomiting. On further evaluation on CT abdomen patient was found to have mid sigmoid colon diverticulitis. Along with constipation. Urine positive for UTI. Continues to require inpatient management. Problems addressed as follows: Acute diverticulitis sigmoid colon Constipation/ rectal fecal impaction on CT abdomen -Discontinue Zosyn, transition to Levaquin Flagyl for diverticulitis as well as UTI below. Transition for ease of dosing and transition to oral therapy at discharge -White cell count elevated at 12.2. No fever overnight. Tolerating p.o. liquid diet. Advance to full's. -Repeat CBC, CMP, magnesium ordered for the morning. -Wean morphine to 2 mg every 4 hours as needed for breakthrough pain. Will continue to de-escalate daily. Monitor for toxicity -No further enemas, increase bowel regimen with MiraLAX 17 g every 6 hours. Discussed potential need for disimpaction if no improvement the next 24-hour UTI: - Urine positive for nitrate, negative for leuk esterase. 10-20 white cells. 4+ bacteria. -Urine culture positive for greater than 100,000 CFU's of gram-negative rods -Initiated on Zosyn, transition to levofloxacin for ease of dosing and transition to oral regimen at discharge. De-escalate pending sensitivity Continue levothyroxine for hypothyroidism, 112 mcg daily Continue oxybutynin 5 mg twice daily Protonix 40 mg nightly for GERD Pravastatin 80 mg nightly for hyperlipidemia Zoloft 50 mg daily for mood Topamax 75 mg nightly for sleep DVT PPx - heparin Full code Full liquid diet
[2023-11-22 17:32] LABS: POC Glucose,Bedside 87 (70-110)
--- NOTE | 2023-11-22 17:34 | PC.NURSE ---
Pt had a large BM this afternoon. She states she feels better. Has had a shower. She is currently eating her dinner. Medications administered per mar. VS currently stable. Call light within reach.
[2023-11-22] MEDS: METRONIDAZ/SOD CHL 500 MG/100 ML PIGGYBACK 100 MG IV (17:55)
[2023-11-22] MEDS: LEVOFLOXACIN/D5W 750 MG/150 ML 750 MG/150 ML PIGGYBACK 100 MG IV (19:00)
[2023-11-22 20:00] VITALS: BP 123/68; PULSE 64; RESP 18; TEMP 36.6; O2SAT 100
[2023-11-22] MEDS: TOPIRAMATE 25MG TABLET 75 MG PO (20:38)
[2023-11-22] MEDS: PRAVASTATIN 40MG TAB 80 MG PO (20:38)
[2023-11-22 22:18] LABS: POC Glucose,Bedside 98 (70-110)
[2023-11-23] MEDS: MORPHINE 2MG/ML SYRINGE 2 MG IV ×2 (01:02→21:16)
[2023-11-23] MEDS: METRONIDAZ/SOD CHL 500 MG/100 ML PIGGYBACK 100 MG IV ×3 (01:03→17:10)
[2023-11-23 04:00] VITALS: BP 130/76; PULSE 56; RESP 18; TEMP 36.3; O2SAT 100; BMI 32.5
[2023-11-23] MEDS: HEPARIN SODIUM 5,000 UNIT/ML VIAL 5000 UNIT SQ ×3 (06:07→21:06)
[2023-11-23] MEDS: LEVOTHYROXINE 112MCG (0.112MG) TAB 112 MCG PO (06:08)
[2023-11-23 06:41] LABS: Basophils # 0.1 K/mm3 (0-0.2); Basophils % 0.5 % (0.1-2.0); Eosinophils # 0.3 K/mm3 (0.0-0.4); Eosinophils % 2.8 % (0.1-12.0); Hematocrit 36.3 % (37.0-47.0); Hemoglobin 11.8 g/dL (12.2-16.2); Lymphocytes # 3.4 K/mm3 (0.7-4.5); Lymphocytes % 35.2 % (10-50); Mean Corpuscular HGB Conc 32.5 g/dL (31.8-35.4); Mean Corpuscular Hemoglobin 31.3 pg (27.0-31.2); Mean Corpuscular Volume 96.5 fl (81-99); Mean Platelet Volume 7.5 fl (7.4-10.4); Monocytes # 0.4 K/mm3 (0.1-1.0); Monocytes % 4.6 % (1.7-9.3); Neutrophils # 5.5 K/mm3 (1.8-7.8); Platelet Count 233 K/mm3 (142-424); Red Blood Count 3.76 M/mm3 (4.20-5.40); White Blood Count 9.6 K/mm3 (4.8-10.8)
[2023-11-23 06:49] LABS: Anion Gap 14.7 mEq/L (5-15); Blood Urea Nitrogen 13 mg/dl (7-17); Calcium 8.5 mg/dl (8.4-10.2); Carbon Dioxide 22 mmol/L (22.0-30.0); Chloride 109 mmol/L (98-107); Creatinine Clearance Estimated 122 mL/min (50-200); Estimated Glomerular Filt Rate 76 ml/min (>60); GFR (African American) 92 ML/MIN (>60); Glucose 94 mg/dl (74-100); Potassium 3.7 mmoL/L (3.5-5.1); Sodium 142 mmol/L (136-145)
[2023-11-23 07:04] LABS: POC Glucose,Bedside 108 (70-110)
[2023-11-23 08:00] VITALS: BP 119/68; PULSE 54; RESP 16; TEMP 36.4; O2SAT 100
[2023-11-23] MEDS: 0.9 % SODIUM CHLORIDE 1000ML 1,000 ML 75 ML IV (08:51)
[2023-11-23] MEDS: SERTRALINE 50MG TABLET 50 MG PO (08:51)
[2023-11-23] MEDS: PANTOPRAZOLE 40MG TABLET 40 MG PO (08:51)
[2023-11-23] MEDS: OXYBUTYNIN 5MG TAB 5 MG PO ×2 (08:51→21:07)
[2023-11-23 11:31] LABS: POC Glucose,Bedside 115 (70-110)
[2023-11-23 12:00] VITALS: BP 120/66; PULSE 56; RESP 16; TEMP 36.6; O2SAT 100
--- NOTE | 2023-11-23 12:20 | CT_ITS ---
FINAL REPORT CLINICAL HISTORY: abscess formation or perf? + peritonitis, rlq pain COMPARISON: 11/21/2023 FINDINGS: CT OF THE ABDOMEN AND PELVIS WITH CONTRAST Axial CT images of the abdomen and pelvis were obtained after the administration of oral and iv contrast. Coronal and sagittal reformatted images were also obtained and reviewed.This study was performed with techniques to keep radiation doses as low as reasonably achievable (ALARA). Individualized dose reduction techniques using automated exposure control or adjustment of mA and/or kV according to the patient's size were employed. Abdomen: There is mild atelectasis in the lung bases.. The heart is normal in size. The liver has an unremarkable appearance, without evidence of mass or biliary ductal dilatation. The gallbladder has been surgically resected. The spleen is unremarkable. No adrenal mass is present. The pancreas has an unremarkable appearance. The kidneys are normal, without evidence of mass or hydronephrosis. The aorta is normal in caliber. There is no free fluid or adenopathy. No mass or abnormal fluid collection is seen. Pelvis: The appendix is normal in appearance. The uterus has been surgically resected. The urinary bladder is unremarkable. There is been interval partial improvement of inflammatory change in the distal sigmoid colon when compared to the prior exam. There is new rectal wall thickening with surrounding stranding worrisome for proctitis. No evidence of abscess or pneumoperitoneum is present. There is no evidence of mass or adenopathy. There is no evidence of bowel obstruction. IMPRESSION: There has been interval partial improvement in the inflammatory change around the sigmoid colon. There is new rectal wall thickening with stranding surrounding the region of the rectum, worrisome for proctitis. No focal abscess or pneumoperitoneum is identified. Reviewed, Interpreted and Dictated by Les Pulido III, MD Transcribed by Tere Blair Authenticated and [facility]
[2023-11-23] MEDS: IOPAMIDOL-370 (76%);100ML BOTTLE 75 ML IV (12:42)
[2023-11-23] MEDS: SODIUM CHLORIDE 0.9% 10ML SYR (RAD ONLY) 10 ML IV (12:42)
[2023-11-23] MEDS: DIATRIZOATE MEG 66% & DIATRIZOATE NA 10% 30ML UDC 30 ML PO (12:42)
--- NOTE | 2023-11-23 14:23 | P.PN_ITS ---
Subjective *Date: 11/23/23 *Time: 14:23 Interval history: Patient hemodynamically stable. Belly pain has changes morning however, has some pain on rebound. Discussed obtaining CT of abdomen to monitor for perforation or abscess formation. Urine culture returned positive for E. coli. Tolerating p.o. intake. Had several bowel movements, denies any further constipation. Stable on room air. Medical Exam Vital signs and Labs for Last 24 Hours: Vital Signs Temp Pulse Resp BP Pulse Ox O2 Del Method 11/23/23 13:00 Room Air 11/23/23 12:00 98 F 56 L 16 120/66 100 Room Air 11/23/23 11:00 Room Air 11/23/23 09:00 Room Air 11/23/23 08:00 Room Air 11/23/23 08:00 97.6 F 54 L 16 119/68 100 Room Air 11/23/23 04:00 97.4 F L 56 L 18 130/76 100 Room Air 11/22/23 20:00 97.8 F 64 18 123/68 100 Room Air 11/22/23 18:43 Room Air 11/22/23 17:00 Room Air 11/22/23 16:00 98.5 F 72 20 127/74 97 Room Air 11/22/23 15:00 Room Air Intake and Output 11/22/23 11/23/23 11/23/23 23:59 07:59 15:59 Intake Total 480 / 480 Output Total 0 / 0 0 / 250 250 / 250 Balance 0 / 830 0 / 230 230 / 230 Intake: Intake, Oral Amount 480 / 480 Output: Output, Urine Amount 0 / 0 0 / 250 250 / 250 Other: Number of Voids 2 Number of Unmeasured Voids 1 1 1 Number of Bowel Movements 1 1 Weight 91.943 kg Patient Weight 11/23/23 23:59 Weight 91.943 kg Laboratory Results - last 24 hr 11/22/23 17:24: POC Glucose 87 11/22/23 22:10: POC Glucose 98 11/23/23 06:00: WBC 9.6, RBC 3.76 L, Hgb 11.8 L, Hct 36.3 L, MCV 96.5, MCH 31.3 H, MCHC 32.5, RDW 14.0, Plt Count 233, MPV 7.5, Neut % (Auto) 57.0, Lymph % (Auto) 35.2, [place] % (Auto) 4.6, Eos % (Auto) 2.8, Baso % (Auto) 0.5, Neut # (Auto) 5.5, Lymph # (Auto) 3.4, [place] # (Auto) 0.4, Eos # (Auto) 0.3, Baso # (Auto) 0.1, Sodium 142, Potassium 3.7, Chloride 109 H, Carbon Dioxide 22, Anion Gap 14.7, BUN 13, Creatinine 0.80, Estimated Creat Clear 122, Estimated GFR 76, Est GFR ( Amer) 92, Glucose 94, Calcium 8.5 11/23/23 06:56: POC Glucose 108 11/23/23 11:24: POC Glucose 115 H I & O for Labs for Last 24 Hours: Intake & Output 11/20/23 11/21/23 11/22/23 11/23/23 23:59 23:59 23:59 23:59 Intake Total 830 / 830 480 / 480 Output Total 0 / 0 0 / 0 250 / 250 Balance 0 / 50 830 / 830 230 / 230 Weight 89.358 kg 91.943 kg 91.943 kg Microbiology Reports for the Last 24 Hours: Microbiology 11/21/23 10:30 Urine,Clean Catch Urine Culture - Final Escherichia coli Constitutional: Present no acute distress and obese Head: Present atraumatic and normocephalic ENT: Present normal exam Neck: Present normal inspection Respiratory: Present normal respiratory effort; Absent rhonchi, wheezes or crackles Cardiac: Present Reg Rate and Rhythm GI: Present soft, tenderness (Diffuse, worse in left and right lower abdomen), rebound and normal bowel sounds; Absent distention or guarding Extremities: Present normal inspection and full ROM Comment:: Complaining of some right calf pain, not tender on exam however. No swelling or redness Skin: Present intact; Absent erythema Neuro: Present Grossly Intact, alert, awake, oriented x 3 and moves all extremities Assessment and Plan *Assessment and plan (1) Diverticulitis: Status: Acute Category: Medical Code(s): K57.92 - Diverticulitis of intestine, part unspecified, without perforation or abscess without bleeding (2) UTI (urinary tract infection): Status: Acute Category: Medical Code(s): N39.0 - Urinary tract infection, site not specified (3) Constipation: Status: Acute Category: Medical Code(s): K59.00 - Constipation, unspecified (4) Chronic narcotic use: Status: Chronic Category: Social Hx Code(s): F11.90 - Opioid use, unspecified, uncomplicated (5) Dizziness: Status: Chronic Category: Medical Code(s): R42 - Dizziness and giddiness (6) DM2 (diabetes mellitus, type 2): Status: Chronic Category: Medical Code(s): E11.9 - Type 2 diabetes mellitus without complications Plan Patient is a 48-year-old female with past medical history of diabetes mellitus, tobacco use hypertension hyperlipidemia who presents to the hospital due to abdominal pain. According to the patient she has been having abdominal pain for past 1 day, it is located in the left lower quadrant, constant, associated with constipation, burning urination. She mentions she has been passing flatus. Denies associated fevers chills diarrhea. Patient endorses having nausea but no vomiting. On further evaluation on CT abdomen patient was found to have mid sigmoid colon diverticulitis. Along with constipation. Urine positive for UTI. Continues to require inpatient management. Problems addressed as follows: Acute diverticulitis sigmoid colon Constipation/ rectal fecal impaction on CT abdomen -Continue levofloxacin and Flagyl for diverticulitis as well as UTI coverage. -White cell count normal this morning at 9.6. Exam is changed however and has some rebound on exam. Will obtain CT abdomen pelvis with contrast. Personally reviewed, has some mild stranding around sigmoid colon. No overt free fluid per my evaluation. Does not appear to have free air but do see diverticulum in the sigmoid colon. Awaiting formal read. -Further management pending findings, will consider surgical consult if appears to have abscess or perforation. - No fever overnight. Tolerating p.o. full liquid -Repeat CBC, CMP, magnesium ordered for the morning. -Wean morphine to 2 mg every 4 hours as needed for breakthrough pain. Will continue to de-escalate daily. Monitor for toxicity -No further enemas, had multiple bowel movements. - Miralax daily UTI: -Urine culture positive for E. coli. Sensitive to Levaquin. Will continue levofloxacin for total of 7 days. Continue levothyroxine for hypothyroidism, 112 mcg daily Continue oxybutynin 5 mg twice daily Protonix 40 mg nightly for GERD Pravastatin 80 mg nightly for hyperlipidemia Zoloft 50 mg daily for mood Topamax 75 mg nightly for sleep DVT PPx - heparin Full code Full liquid diet
[2023-11-23 16:00] VITALS: BP 119/73; PULSE 62; RESP 16; TEMP 36.6; O2SAT 99
--- NOTE | 2023-11-23 16:58 | PC.NURSE ---
Pt is currently resting in bed. States she had a BM. Not observed by staff. New order placed for pt to have regular diet. IV fluids SL. NO complaints of any discomfort this afternoon. Call light within reach.
[2023-11-23 20:00] VITALS: BP 120/68; PULSE 66; RESP 20; TEMP 36.6; O2SAT 100
[2023-11-23] MEDS: LEVOFLOXACIN/D5W 750 MG/150 ML 750 MG/150 ML PIGGYBACK 100 MG IV (21:05)
[2023-11-23] MEDS: TOPIRAMATE 25MG TABLET 75 MG PO (21:06)
[2023-11-23] MEDS: PRAVASTATIN 40MG TAB 80 MG PO (21:07)
[2023-11-23 22:29] LABS: POC Glucose,Bedside 96 (70-110)
[2023-11-24] MEDS: METRONIDAZ/SOD CHL 500 MG/100 ML PIGGYBACK 100 MG IV ×2 (02:45→10:04)
[2023-11-24 04:00] VITALS: BP 124/78; PULSE 65; RESP 18; TEMP 36.7; O2SAT 98; BMI 32.6
[2023-11-24] MEDS: HEPARIN SODIUM 5,000 UNIT/ML VIAL 5000 UNIT SQ (04:55)
[2023-11-24] MEDS: ONDANSETRON 4MG/2ML VIAL 4 MG IV (04:55)
[2023-11-24] MEDS: SUMAtriptan SUCCINATE 25MG TABLET 100 MG PO (05:09)
--- NOTE | 2023-11-24 06:25 | PC.NURSE ---
Pt is A&Ox4 and currently tolerating RA well. Pt has c/o abdominal pain this shift and has been treated per SEP. Pt also c/o possible start of migraine and nausea and pt was treated per SEP. Pt has tolerated antibiotic therapy well.
[2023-11-24 06:57] LABS: Basophils # 0.1 K/mm3 (0-0.2); Basophils % 0.5 % (0.1-2.0); Eosinophils # 0.3 K/mm3 (0.0-0.4); Eosinophils % 2.7 % (0.1-12.0); Hematocrit 36.9 % (37.0-47.0); Hemoglobin 12.1 g/dL (12.2-16.2); Lymphocytes # 2.2 K/mm3 (0.7-4.5); Lymphocytes % 20.9 % (10-50); Mean Corpuscular HGB Conc 32.8 g/dL (31.8-35.4); Mean Corpuscular Hemoglobin 31.5 pg (27.0-31.2); Mean Platelet Volume 8.1 fl (7.4-10.4); Monocytes # 0.5 K/mm3 (0.1-1.0); Monocytes % 4.3 % (1.7-9.3); Neutrophils # 7.5 K/mm3 (1.8-7.8); Neutrophils % 71.5 % (37.0-80.0); Platelet Count 238 K/mm3 (142-424); Red Blood Count 3.85 M/mm3 (4.20-5.40); White Blood Count 10.5 K/mm3 (4.8-10.8)
[2023-11-24 07:08] LABS: Alanine Aminotransferase 37 U/L (12-78); Albumin Level 3.9 g/dl (3.5-5.0); Albumin/Globulin Ratio 1.2 (1.1-1.8); Alkaline Phosphatase 71 U/L (38-126); Anion Gap 14.7 mEq/L (5-15); Aspartate Amino Transferase 40 U/L (14-36); Bilirubin,Total 0.4 mg/dl (0.2-1.3); Blood Urea Nitrogen 12 mg/dl (7-17); Calcium 8.8 mg/dl (8.4-10.2); Carbon Dioxide 21 mmol/L (22.0-30.0); Chloride 111 mmol/L (98-107); Creatinine Clearance Estimated 122 mL/min (50-200); Estimated Glomerular Filt Rate 76 ml/min (>60); GFR (African American) 92 ML/MIN (>60); Globulin 3.2 g/dL (1.3-3.2); Glucose 112 mg/dl (74-100); Magnesium 2.2 mg/dl (1.6-2.3); Potassium 3.7 mmoL/L (3.5-5.1); Sodium 143 mmol/L (136-145); Total Protein,Serum 7.1 g/dl (6.3-8.2)
--- NOTE | 2023-11-24 07:42 | EXP.DC.SUM ---
General Admission date:: 11/21/23 Discharge date: 11/24/23 HPI HPI HPI: Patient is a 48-year-old female with past medical history of diabetes mellitus, tobacco use hypertension hyperlipidemia who presents to the hospital due to abdominal pain. According to the patient she has been having abdominal pain for past 1 day, it is located in the left lower quadrant, constant, associated with constipation, burning urination. She mentions she has been passing flatus. Denies associated fevers chills diarrhea. Patient endorses having nausea but no vomiting. On further evaluation on CT abdomen patient was found to have mid sigmoid colon Hospital Course Hospital Course Hospital Course: Patient is a 48-year-old female with past medical history of diabetes mellitus, tobacco use hypertension hyperlipidemia who presents to the hospital due to abdominal pain. According to the patient she has been having abdominal pain for past 1 day, it is located in the left lower quadrant, constant, associated with constipation, burning urination. She mentions she has been passing flatus. Denies associated fevers chills diarrhea. Patient endorses having nausea but no vomiting. On further evaluation on CT abdomen patient was found to have mid sigmoid colon diverticulitis. Along with constipation. Urine positive for UTI. Showed gradual improvement in symptoms. Responding to antibiotics. White cell count normalized. Having bowel movements. Hemodynamically stable. Tolerating p.o. intake. Meeting criteria for discharge home with close follow-up as an outpatient. Problems addressed as follows: Acute diverticulitis sigmoid colon Constipation/ rectal fecal impaction on CT abdomen -CT of abdomen obtained on admission showing constipation and sigmoid diverticulitis. White cell count was elevated. Initiated on spectrum antibiotics. Showed clinical improvement. White cell count normalized, 10.5 on day of discharge. Transitioned to levofloxacin and Flagyl to complete 10-day course of antibiotics for diverticulitis. Gradually advance diet. Tolerating p.o. intake. Bowel regimen initiated with resolution of constipation. Continue bowel regimen at discharge with goal of 1-2 soft stools a day. During admission, repeat CT obtained due to worsening abdominal exam. Showed improvement. No free air or perforation. No development of abscess at this time. Will discharge on short course of oral pain medication to assist with severe breakthrough. Recommend follow-up with PCP coming weeks. Will refer to surgery for evaluation of further diverticula and possible need for scope or further treatment. UTI: Urine culture positive for E. coli. Sensitive to Levaquin. Treating with course as above Continue levothyroxine for hypothyroidism, 112 mcg daily Continue oxybutynin 5 mg twice daily Protonix 40 mg nightly for GERD Pravastatin 80 mg nightly for hyperlipidemia Zoloft 50 mg daily for mood Topamax 75 mg nightly for sleep Exam Data for Last 24 hours Vital signs and Labs for Last 24 Hours: Temp Pulse Resp BP Pulse Ox O2 Del Method 98.1 F 65 18 124/78 98 Room Air 11/24/23 04:00 11/24/23 04:00 11/24/23 04:00 11/24/23 04:00 11/24/23 04:00 11/24/23 05:00 Laboratory Results - last 24 hr 11/23/23 11:24: POC Glucose 115 H 11/23/23 16:41: POC Glucose 96 11/24/23 06:11: WBC 10.5, RBC 3.85 L, Hgb 12.1 L, Hct 36.9 L, MCV 96.0, MCH 31.5 H, MCHC 32.8, RDW 14.0, Plt Count 238, MPV 8.1, Neut % (Auto) 71.5, Lymph % (Auto) 20.9, Ponce % (Auto) 4.3, Eos % (Auto) 2.7, Baso % (Auto) 0.5, Neut # (Auto) 7.5, Lymph # (Auto) 2.2, Ponce # (Auto) 0.5, Eos # (Auto) 0.3, Baso # (Auto) 0.1, Sodium 143, Potassium 3.7, Chloride 111 H, Carbon Dioxide 21 L, Anion Gap 14.7, BUN 12, Creatinine 0.80, Estimated Creat Clear 122, Estimated GFR 76, Est GFR ( Amer) 92, Glucose 112 H, Calcium 8.8, Magnesium 2.2, Total Bilirubin 0.4, AST 40 H, ALT 37 D, Alkaline Phosphatase 71, Total Protein 7.1, Albumin 3.9, Globulin 3.2, Albumin/Globulin Ratio 1.2 I & O for Last 24 hours: Intake & Output 11/21/23 11/22/23 11/23/23 11/24/23 23:59 23:59 23:59 23:59 Intake Total 830 / 830 1230 / 1470 240 / 240 Output Total 0 / 0 0 / 0 250 / 250 0 / 0 Balance 0 / 50 830 / 830 980 / 1220 240 / 240 Weight 89.358 kg 91.943 kg 91.943 kg 92.125 kg Microbiology Reports for the Last 24 Hours: Microbiology 11/21/23 10:30 Urine,Clean Catch Urine Culture - Final Escherichia coli Constitutional Constitutional: no acute distress, obese and cooperative *Routine HEENT Exam Head: Present normocephalic Eye: Present EOMI and PERRL ENT: Present mucous membranes moist *Routine Neck Exam Neck: Present supple; Absent lymphadenopathy *Routine Respiratory Exam Respiratory: Present CTA bilaterally; Absent rhonchi, wheezes or crackles *Routine Cardiovascular Exam Cardiovascular: Present RRR *Routine Abdominal Exam Abdominal: Present soft, normoactive bowel sounds and tenderness (Diffuse but improving); Absent distended or rebound *Routine Rectal Exam Patient deferred: visual exam *Routine Exam Patient deferred: external exam *Routine Extremities Exam Extremities: Absent cyanosis, clubbing or edema *Routine Skin Exam Skin: Present warm; Absent rash *Routine Neurological Exam Neurological: Present alert, oriented X3 and moving all extremities; Absent altered mental status Results Data Completed and Pending Labs on day of discharge: Labs from last 24 hours 11/24/23 11/23/23 11/23/23 06:11 16:41 11:24 WBC 10.5 RBC 3.85 L Hgb 12.1 L Hct 36.9 L MCV 96.0 MCH 31.5 H MCHC 32.8 RDW 14.0 Plt Count 238 MPV 8.1 Neut % (Auto) 71.5 Lymph % (Auto) 20.9 Ponce % (Auto) 4.3 Eos % (Auto) 2.7 Baso % (Auto) 0.5 Neut # (Auto) 7.5 Lymph # (Auto) 2.2 Ponce # (Auto) 0.5 Eos # (Auto) 0.3 Baso # (Auto) 0.1 Sodium 143 Potassium 3.7 Chloride 111 H Carbon Dioxide 21 L Anion Gap 14.7 BUN 12 Creatinine 0.80 Estimated Creat Clear 122 Estimated GFR 76 Est GFR ( Amer) 92 Glucose 112 H POC Glucose 96 115 H Calcium 8.8 Magnesium 2.2 Total Bilirubin 0.4 AST 40 H ALT 37 D Alkaline Phosphatase 71 Total Protein 7.1 Albumin 3.9 Globulin 3.2 Albumin/Globulin Ratio 1.2 DS: Diagnosis Discharge Diagnosis (1) Diverticulitis: Status: Acute Code(s): K57.92 - Diverticulitis of intestine, part unspecified, without perforation or abscess without bleeding (2) UTI (urinary tract infection): Status: Acute Code(s): N39.0 - Urinary tract infection, site not specified (3) Constipation: Status: Acute Code(s): K59.00 - Constipation, unspecified (4) Chronic narcotic use: Status: Chronic Code(s): F11.90 - Opioid use, unspecified, uncomplicated (5) Dizziness: Status: Chronic Code(s): R42 - Dizziness and giddiness (6) DM2 (diabetes mellitus, type 2): Status: Chronic Code(s): E11.9 - Type 2 diabetes mellitus without complications Meds Home Medications and Allergies Home Medications Medication Instructions Recorded Confirmed Type cetirizine 10 mg tablet 10 mg PO DAILY 30 days #30 tabs 10/02/18 11/21/23 History multivitamin 1 cap PO DAILY Supplement 10/02/18 06/13/23 History oxybutynin chloride 15 mg 15 mg PO DAILY 30 days #30 tabs 10/02/18 11/21/23 History tablet,extended release 24 hr pantoprazole 40 mg tablet,delayed 40 mg PO DAILY 30 days #30 tabs 10/02/18 11/21/23 History release sertraline 50 mg tablet 50 mg PO DAILY 01/21/20 11/21/23 History fluticasone propionate 50 50 mcg intranasal BID 03/31/20 11/21/23 History mcg/actuation nasal spray,suspension flaxseed oil 1,000 mg capsule 1,000 mg PO DAILY 01/03/23 06/13/23 History pravastatin 40 mg tablet 80 mg PO DAILY 30 days #60 tabs 01/03/23 11/21/23 History ergocalciferol (vitamin D2) 1,250 1,250 mcg PO WEEKLY 11/21/23 11/21/23 History mcg (50,000 unit) capsule (Vitamin D2) levothyroxine 112 mcg tablet 112 mcg PO DAILYDM 11/21/23 11/21/23 History sumatriptan succinate 100 mg tablet 100 mg PO NEEDED PRN migraine 11/21/23 11/21/23 History headaches topiramate 50 mg tablet 75 mg PO HS migraine headaches 11/21/23 11/21/23 History hydrocodone 5 mg-acetaminophen 325 1 tab PO Q8H PRN pain #6 tabs 11/24/23 Rx mg tablet levofloxacin 750 mg tablet 750 mg PO DAILY 7 days #7 tabs 11/24/23 Rx metronidazole 500 mg tablet 500 mg PO Q8H 7 days #20 tabs 11/24/23 Rx sennosides 8.6 mg-docusate sodium 1 tab-cap PO HS #30 tabs 11/24/23 Rx 50 mg tablet New Prescriptions to Start Prescriptions: hydrocodone-acetaminophen Hector,Karl levofloxacin Hector,Karl metronidazole Hector,Karl sennosides-docusate sodium Hector,Karl Allergies Allergy/AdvReac Type Severity Reaction Status Date / Time azithromycin Allergy Unknown Verified 06/13/23 12:14 Discharge Plan Disposition Patient Disposition: Home, Self-Care Condition: Fair Follow up Plan Follow up with: Les Dao MD [Staff Physician] - 11/29/23 9:30 am Krystal Chilel APRN [Primary Care Provider] - 12/01/23 1:45 pm Prescriptions/Medication Reconciliation: New levofloxacin 750 mg tablet 750 mg PO DAILY 7 Days Qty: 7 0RF metronidazole 500 mg tablet 500 mg PO Q8H 7 Days Qty: 20 0RF sennosides-docusate sodium 8.6-50 mg tablet 1 tab-cap PO HS Qty: 30 0RF hydrocodone-acetaminophen 5-325 mg tablet 1 tab PO Q8H PRN (Reason: pain) Qty: 6 0RF Continued pantoprazole 40 mg tablet,delayed release (DR/EC) 40 mg PO DAILY 30 Days Qty: 30 oxybutynin chloride 15 mg tablet extended release 24hr 15 mg PO DAILY 30 Days Qty: 30 cetirizine 10 mg tablet 10 mg PO DAILY 30 Days Qty: 30 multivitamin capsule 1 cap PO DAILY pravastatin 40 mg tablet 80 mg PO DAILY 30 Days Qty: 60 flaxseed oil 1,000 mg capsule 1,000 mg PO DAILY Rx Instructions: administer with a meal sertraline 50 mg tablet 50 mg PO DAILY Patient Comments: TAKE 1 TABLET BY MOUTH ONCE DAILY fluticasone propionate 50 mcg/actuation spray,suspension 50 mcg INTRANASAL BID Patient Comments: USE 1 SPRAY(S) IN EACH NOSTRIL ONCE DAILY ergocalciferol (vitamin D2) [Vitamin D2] 1,250 mcg (50,000 unit) capsule 1,250 mcg PO WEEKLY levothyroxine 112 mcg tablet 112 mcg PO DAILYDM Patient Comments: TAKE 1 TABLET BY MOUTH ONCE DAILY topiramate 50 mg tablet 75 mg PO HS sumatriptan succinate 100 mg tablet 100 mg PO NEEDED PRN (Reason: migraine headaches) Rx Instructions: take 1 tab at onset of headache; if no relief, may repeat 1 tab after at least 2 hrs; max = 2 tabs/24 hrs or 4 tabs per week Problem Reconciliation Problems Reviewed?: Yes Patient Discharge Instructions ACTIVITY: Continue current activity DIET: continue same diet Patient Instructions: DI for Diverticulitis, DI for Urinary Tract Infection (UTI), DI for Abdominal Pain-Adult, DI for Constipation Providers Primary Care Provider: Krystal Chilel Admit Provider: Jaden Osuna Attending Provider: Jaden Osuna
[2023-11-24 08:00] VITALS: BP 123/73; PULSE 63; RESP 16; TEMP 36.7; O2SAT 99
[2023-11-24] MEDS: SERTRALINE 50MG TABLET 50 MG PO (08:21)
[2023-11-24] MEDS: OXYBUTYNIN 5MG TAB 5 MG PO (08:21)
[2023-11-24] MEDS: PANTOPRAZOLE 40MG TABLET 40 MG PO (08:21)
[2023-11-24] MEDS: LEVOTHYROXINE 112MCG (0.112MG) TAB 112 MCG PO (08:21)
[2023-11-24 12:00] VITALS: BP 120/70; PULSE 63; RESP 16; TEMP 36.6; O2SAT 99
--- NOTE | 2023-11-25 14:24 | CARE MANAGER ---
Contacted patient related to hospital discharge. Patient states she still has some pain, but it is better than it was. She denies questions or concerns. She has her new medications and is aware of follow up appointments.
== END 2023-11-24 14:32 | disposition home or self-care (01) ==
LOC: ER 13:32 → 2ND 13:42
PROVIDERS: Internal Medicine Adolescent Medicine; Admitting Provider Internal Medicine; Emergency Provider Emergency Medicine; PCP Nurse Practitioner; Visit Provider Internal Medicine
DX: K57.32 Diverticulitis of large intestine without perforation or abscess without bleeding (principal); F17.210 Nicotine dependence, cigarettes, uncomplicated; Z79.899 Other long term (current) drug therapy; E11.9 Type 2 diabetes mellitus without complications; N39.0 Urinary tract infection, site not specified; F11.90 Opioid use, unspecified, uncomplicated; B96.20 Unspecified Escherichia coli [E. coli] as the cause of diseases classified elsewhere
CPT/HCPCS: 36415; 74177; 80048; 80053; 81001; 82962; 83690; 83735; 85007; 85025; 87040; 87086; 87088; 87186; 99285; G0378; J0131; J1956; J2405; J2543; Q9967

== ENCOUNTER 2025-01-23 13:02 | Outpatient (CLI) | payer OTHER, SELFPAY ==
--- OUTSIDE RECORDS SUMMARY | 2024-12-05 08:04 | XMS_ITS | Continuity of Care Document ---
Author Organization [facility] Phone Care Team Providers Care Still Operator Brandy Name Role Phone CALLIE GARRISON Admitting CALLIE GARRISON Unavailable CALLIE GARRISON Primary Attending NO, DEFINED P Primary Care Unavailable CALLIE GARRISON Surgeon ALLERGIES AND ADVERSE REACTIONS ALLERGIES AND ADVERSE REACTIONS Code System Allergy Substance Adverse Reaction Date Reaction (Severity) Comment Status Reported By Updated By SEASONAL (Free Text Allergy) Adverse reaction to substance unknown active Patient [id number] on June 01, 2021 4:01:54 PM [facility] FAMILY HISTORY RELATION: Father Status: LIVING SNOMED-CT Diagnosis Age At Onset Information not available RELATION: Mother Status: LIVING SNOMED-CT Diagnosis Age At Onset [id number] Arthritis [id number] Essential hypertension [id number] Disorder of thyroid gland MEDICATIONS HOME MEDICATIONS Status RXNORM NDC Medication Dose Route Frequency Dates Comments Reported By Updated By Drug Treatment Unknown DISCHARGE MEDICATIONS Status RXNORM NDC Medication Dose Route Frequency Dates Comments Physician Updated By No Discharge Medication Info rmation Available INPATIENT MEDICATIONS Status RXNORM NDC Medication Dose Route Frequency Rat e Quantity Dates Comments Physician Updated By Litzy inued [id number] [phone] botulinum toxin a (BOTOX) 100 UNIT SOLR 100.0 UNT ONE TIME ONLY (SCHEDULED DOSE) Start: November 30, 2024 1:02:0 0 PM [place] End: November 30, 2024 12:52: 00 PM [place] MELI Sexton INTERFAC ED on November 30, 2024 1:00:00 PM [place] Josieont inued [id number] SODIUM CHLORIDE (PF) 0.9 % TJ 20.0 ML INTRAV ENOUS ONE TIME ONLY (SCHEDULED DOSE) 0.833 ML/HR Start: November 30, 2024 5:47:0 0 PM [place] End: November 30, 2024 12:52: 00 PM [facility] MELI Sexton [id number] on November 30, 2024 5:50:00 PM [facility] SOCIAL HISTORY SOCIAL HISTORY SNOMED-CT Social History Element Description Effective Dates Offered Cessation Comment UpdatedBy [id number] Historical Tobacco smoking status Current Every Day Smoker [id number] on June 01, 2021 4:53:02 PM [facility] SOCIAL HISTORY - Gender Sex: Female SOCIAL HISTORY - Status : status i nformation is not available Intention in Next Year: intention information is not available SOCIAL HISTORY - Sexual Behavior Sexual Orientation Gender Identity SNOMED-CT Description SNO MED -CT Description Activity Level No of Partners Partner Type UpdatedBy Information is not available HEALTH CONCERNS Problems Concern Status Health Concern problem infor mation not available. Smoking Status Status Years Used Consumed packs p er day Health Concern smoking histo ry information not available. Family History Concern Status Health Concern family histor y information not available. ENCOUNTERS ENCOUNTER INFORMATION Reason for Visit BOTOX MIGRAINE 155 U NITS Admission November 30, 2024 12:52:[address] [id number] Discharge November 30, 2024 12:52:00 PM [facility] DIS CHARGED TO HOME OR SELF CARE ENCOUNTER DIAGNOSES Notes information is not joi ilable. Code System Diagnosis Onset Date Diagnosis information is not available. ABSTRACT DIAGNOSES Code System Diagnosis Updated By G43.709 ICD10 CHRONIC MIGRAINE WITHOUT AURA, NOT INTRACTABLE, WITHOUT STATUS MIGRAINOSUS [id number] on December 05, 2024 12:03:41 PM [facility] G43.709 ICD10 CHRONIC MIGRAINE WITHOUT AURA, NOT INTRACTABLE, WITHOUT STATUS MIGRAINOSUS [id number] on December 05, 2024 12:03:41 PM [facility] F17.200 ICD10 NICOTINE DEPENDE NCE, UNSPECIFIED, UNCOMPLICATED [id number] on December 05, 2024 12:03:41 PM [facility] Z88.0 ICD10 ALLERGY STATUS TO PENICILLIN [id number] on December 05, 2024 12:03:41 PM [facility] CARE TEAM Care Still Operator Brandy Role CALLIE GARRISON Admitting CALLIE GARRISON Referring CALLIE GARRISON Primary Attending DEFINED NO Primary Care CALLIE GARRISON Surgeon CARE TEAM CARE weaver 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 loom Role on Team Status Start Date End Date Update d By MELI CORONEL Surgeon normal November 30, 2024 12:52:00 PM UTC November 30, 2024 12:52:00 PM UTC [id number] on December 05, 2024 12:03:46 PM UTC NO DEFINED PRIMARY C PCP normal November 21, 2024 5:51:30 PM UTC November 30, 2024 12:52:00 PM UTC [id number] on December 05, 2024 12:03:46 PM UTC MELI CORONEL Referring normal November 21, 2024 5:51:30 PM UTC November 30, 2024 12:52:00 PM UTC [id number] on December 05, 2024 12:03:46 PM UTC MELI CORONEL Attending normal November 21, 2024 5:51:30 PM UTC November 30, 2024 12:52:00 PM UTC [id number] on December 05, 2024 12:03:46 PM UTC MELI CORONEL Admitting normal November 21, 2024 5:51:30 PM UTC November 30, 2024 12:52:00 PM UTC [id number] on December 05, 2024 12:03:46 PM UTC
--- OUTSIDE RECORDS SUMMARY | 2024-12-17 08:44 | XMS_ITS | Continuity of Care Document ---
Author Organization [facility] Phone Care Team Providers Care Tetryl Wringer Operator Name Role Phone CALLIE STRICKLAND Primary Attending NO, DEFINED P Primary Care Unavailable CALLIE STRICKLAND Admitting CALLIE STRICKLAND Unavailable CALLIE STRICKLAND Surgeon ALLERGIES AND ADVERSE REACTIONS ALLERGIES AND ADVERSE REACTIONS Code System Allergy Substance Adverse Reaction Date Reaction (Severity) Comment Status Reported By Updated By SEASONAL (Free Text Allergy) Adverse reaction to substance unknown active Patient [id number] on June 01, 2021 4:01:54 PM UTC 35480 RXNorm Azithromycin Not available active [id number] on December 12, 2024 11:39:55 AM UTC ASSESSMENTS Pain of right hip joint ; FAMILY HISTORY RELATION: Father Status: LIVING SNOMED-CT Diagnosis Age At Onset Information not available RELATION: Mother Status: LIVING SNOMED-CT Diagnosis Age At Onset [id number] Arthritis [id number] Essential hypertension [id number] Disorder of thyroid gland PROBLEMS PATIENT PROBLEMS Code Description/Comments Category Status Upda twan By [id number] Pain of right hip joint active [id number] on December 12, 2024 11:36:14 AM UTC RESULTS Patient: ELIAN GROVE Date of : 1975 3 LABORATORY RESULTS ORDER 100: GLUCOSE BEDSIDE T ESTING (LOINC: 76340-1) ORDER DATE: December 13, 2024 2:55:00 PM UTC Specimen Source: WHOLE BLOOD Specimen Type: Whole blood s ample PERFORMING LAB: [facility] [address] [facility] [id number] Result Comment: December 13, 2024 3:03:00 PM UTC Test performed by: [id number] ; Instrument: [id number] Final Result Date: December 13, 2024 3:03:00 PM UTC LOINC TEST [place] [address]-2 Glucose [Mass/volume ] in Capillary blood by Glucometer H 128 mg/dl 70 mg/dl - 105 mg/dl December 13 3:03:00 PM [facility] LABORATORY NARRATIVE RESULTS Information is not available RADIOLOGY RESULTS Information is not available PATHOLOGY NARRATIVE RESULTS Information is not available MICROBIOLOGY RESULTS No Micro Labs/Results Exist for Patient BLOOD ADMIN RESULTS Information is not available MEDICATIONS HOME MEDICATIONS Status RXNORM AKC Medication Dose Route Frequency Dates Comments Reported By Updated By Active 0704401 42039 83262 1 cetirizine (ZyrTEC) 10.0 MG ORAL DAILY Last Dose: [id number] on December 12, 2024 11:40:37 AM [facility] Active 7915988 64638 80581 1 fluticasone nasal (FLONASE) 50 MCG/ACT 2.0 SPR NASAL DAILY Last Dose: [id number] on December 12, 2024 11:40:50 AM [facility] Active 944916 17402 23861 1 hydrOXYzine (ATARAX) 10.0 MG ORAL TIDPRN Last Dose: [id number] on December 12, 2024 11:40:52 AM [facility] Active 7364170 02571 58771 0 Jardiance Oral Tablet 25 MG 25.0 MG ORAL DAILY Last Dose: [id number] on December 12, 2024 11:41:00 AM [facility] Active 814170 45515 57640 0 levothyroxin e (SYNTHROID) 112.0 MCG ORAL DAILY Last Dose: [id number] on December 12, 2024 11:41:04 AM [facility] Active 975735 67085 18725 7 Oxybutynin Chloride ER Oral Tablet Extended Release 24 Hour 15 MG 15.0 MG ORAL DAILY Last Dose: [id number] on December 12, 2024 11:41:21 AM [facility] Active 086112 63214 46433 0 Pantoprazole Sodium Oral Tablet Delayed Release 40 MG 40.0 MG ORAL DAILY Last Dose: [id number] on December 12, 2024 11:41:24 AM [facility] Active 684067 06419 07468 9 Pravastatin Sodium Oral Tablet 80 MG 80.0 MG ORAL DAILY Last Dose: [id number] on December 12, 2024 11:41:26 AM [facility] Active 4744798 36029 21529 1 Fioricet Oral Capsule 50-300-40 MG 1.0 CAP ORAL L95FUNI Last Dose: [id number] on December 12, 2024 11:42:04 AM [facility] Active 795552 22637 96893 3 Estradiol Vaginal Cream 0.1 MG/GM 1.0 GM VAGINA L MWF Last Dose: [id number] on December 12, 2024 11:42:50 AM [place] Active 27089 71130 1 MAGnesium-Ox ebony Oral Tablet 400 (240 Mg) MG 1.0 TAB ORAL DAILY Last Dose: [id number] on December 12, 2024 11:43:22 AM UTC Active 189150 63966 46584 2 Methocarbamo l Oral Tablet 750 MG 1.0 TAB ORAL U57CWHE Last Dose: [id number] on December 12, 2024 11:43:49 AM [facility] Active 1557670 94557 20576 2 Nurtec Oral Tablet Disintegrati ng 75 MG 1.0 TAB ORAL DAILYPRN Last Dose: [id number] on December 12, 2024 11:44:12 AM [place] Active 460340 67246 31729 0 Promethazine HCl Rectal Suppository 25 MG 1.0 SUP RECTAL Q6HPRN Last Dose: [id number] on December 12, 2024 11:44:41 AM [place] Active 0915440 24001 41305 0 Qulipta Oral Tablet 60 MG 1.0 TAB ORAL DAILY Last Dose: [id number] on December 12, 2024 11:44:56 AM [place] Active 752394 55280 23732 5 Sertraline HCl Oral Tablet 50 MG 1.0 TAB ORAL DAILY Last Dose: [id number] on December 12, 2024 11:45:13 AM [place] Active 26360 02829 1 Slow Release Iron Oral Tablet Extended Release 45 MG 1.0 TAB ORAL DAILY Last Dose: [id number] on December 12, 2024 11:45:39 AM [place] Active 15259 81978 0 Stimulant Laxative Oral Tablet 8.6-50 MG 1.0 TAB ORAL BEDTIME Last Dose: [id number] on December 12, 2024 11:45:54 AM [place] Active 383739 91939 79583 9 SUMAtriptan Succinate Oral Tablet 100 MG 1.0 TAB ORAL DAILYPRN Last Dose: [id number] on December 12, 2024 11:46:13 AM [place] Active 407045 77425 10325 5 Topiramate Oral Tablet 100 MG 1.5 TAB ORAL BEDTIME Last Dose: [id number] on December 12, 2024 11:46:32 AM [place] Active 264450 95752 80761 0 Ventolin HFA Inhalation Aerosol Solution 108 (90 Base) MCG/ACT 2.0 PUF ORAL Q4HPRN Last Dose: [id number] on December 12, 2024 11:47:04 AM [place] DISCHARGE MEDICATIONS Status RXNORM NDC Medication Dose Route Frequency Dates Comments Physician Updated By No Discharge Medication Info rmation Available INPATIENT MEDICATIONS Status RXNORM ND Medication Dose Route Frequency Rat e Quantity Dates Comments Physician Updated By Discont inued [id number] 4820 9028 003 methylpredn isoLONE ACETATE 40 MG/ML SUSP 40.0 MG INTRAM USCULA R ONE TIME ONLY (SCHEDULED DOSE) Start: December 13, 2024 3:02:0 0 PM UT End: December 13, 2024 3:02:0 0 PM [place] MUNISWAMY CALLIE K INTERFAC ED on December 13, 2024 2:59:00 PM UT Discont inued 2253232 5455 9427 902 lidocaine (XYLOCAINE) 1% MPF SOLN 30.0 ML ONE TIME ONLY (SCHEDULED DOSE) Start: December 13, 2024 3:02:0 0 PM UTC End: December 13, 2024 3:02:0 0 PM [place] MUNISWAMY CALLIE K INTERFAC ED on December 13, 2024 3:00:00 PM UT Discont inued 0027 0141 215 iopamidol 61% (ISOVUE-M 300) 15 ML SOLN 15.0 ML INTRAV ENOUS ONE TIME ONLY (SCHEDULED DOSE) Start: December 13, 2024 3:02:0 0 PM UTC End: December 13, 2024 3:02:0 0 PM UTC MUNISWAMY CALLIE K INTERFAC ED on December 13, 2024 3:00:00 PM UT Discont inued 5220646 6378 9135 799 bupivacaine PF 0.25% 10 ML SOLN 10.0 ML EPIDUR AL ONE TIME ONLY (SCHEDULED DOSE) Start: December 13, 2024 3:02:0 0 PM UTC End: December 13, 2024 3:02:0 0 PM UTC MUNISWAMY CALLIE K INTERFAC ED on December 13, 2024 3:00:00 PM UT SOCIAL HISTORY SOCIAL HISTORY SNOMED-CT Social History Element Description Effective Dates Offered Cessation Comment UpdatedBy [id number] Historical Tobacco smoking status Current Every Day Smoker [id number] on June 01, 2021 4:53:02 PM [place] SOCIAL HISTORY - Gender Sex: Female SOCIAL HISTORY - Status : status i nformation is not available Intention in Next Year: intention information is not available SOCIAL HISTORY - Sexual Behavior Sexual Orientation Gender Identity SNOMED-CT Description SNO MED -CT Description Activity Level No of Partners Partner Type UpdatedBy Information is not available VITAL SIGNS PATIENT VITAL SIGNS This section displays the mo st recent value for each vital sign as of December 17, 2024 12:44:27 PM [place] Loinc Code Vital Sign Activity Date Result Updated By 8302-2 Body height December 12, 2024 11:39:41 AM UTC 167.64 cm (66.0 in) [id number] on December 12, 2024 11:39:41 AM UT 8310-5 Body temperature December 13, 2024 6:27:00 PM UTC 97.7 [degF] [id number] on December 13, 2024 6:27:25 PM UTC 8462-4 Diastolic blood pressure December 13, 2024 6:27:00 PM UTC 69.0 mm[Hg] [id number] on December 13, 2024 6:27:25 PM UT 8867-4 Heart rate December 13, 2024 6:27:00 PM UTC 81 /min [id number] on December 13, 2024 6:27:[place] [address]-0 Oxygen saturation in Arterial blood by Pulse oximetry December 13, 2024 6:27:00 PM UTC 99.0 % [id number] on December 13, 2024 6:27:25 PM UT 9279-1 Respiratory rate December 13, 2024 6:27:00 PM UTC 16 /min [id number] on December 13, 2024 6:27:25 PM UTC 8480-6 Systolic blood pressure December 13, 2024 6:27:00 PM UTC 117.0 mm[Hg] [id number] on December 13, 2024 6:27:25 PM UT PEDIATRIC GROWTH CHART - VITAL SIGNS This section displays Head C ircumference Percentile, Weight for Length Percentile and BMI Percentile Loinc Code Pediatric Measure Age (Months) Result Updat ed By No Pediatric Growth Chart Pe rcentile Information Available. PROCEDURES PATIENT PROCEDURES Procedure information is not available. PROCEDURE NOTE Note Title [facility] - Post Procedur e Note Date Of Service December 13, 2024 7:58:13 PM UTC Created By [id number] on December 13 7:58:13 PM UT Signed By [id number] on December 14 12:22:24 PM UT Procedure / Surgery None Intra-articular right hip injection Pre-Procedure Diagnosis Pain of right hip joint Post- Procedure Diagnosis Pain of right hip joint Procedure Description / Findings Right Hip Injection The patient understands the risks and benefits of the procedure and wishes to proceed. The patient was seen in the preoperative area. Patient's consent was obtained and updated. Vitals were taken. Patient was then brought to the procedure suite and placed in a supine position for the injection. The appropriate anatomic area was widely prepped with Chloraprep and draped in a sterile fashion. Noninvasive monitoring per routine anesthesia protocol was placed. Under fluoroscopic guidance using an AP view, a 22 gauge straight tip spinal needle was passed through skin and anesthetized with 1% Lidocaine without epinephrine. The needle tip was guided to the right hip joint using fluoroscopy. 2mL of [id number] preservative free contrast were injected into the joint to confirm location. A clear outline was obtained and 5mL of steroid solution containing 4mL 0.25% bupivacaine, and 1mL 40mg Depo-medrol was injected. The patient tolerated with no mk-procedural complications. A sterile dressing was placed over the puncture sites. Electronically signed by MELI CORONEL on 0822 HEALTH CONCERNS Problems Concern Status Health Concern problem infor mation not available. Smoking Status Status Years Used Consumed packs p er day Health Concern smoking histo ry information not available. Family History Concern Status Health Concern family histor y information not available. ENCOUNTERS ENCOUNTER INFORMATION Reason for Visit RIGHT HIP INJECTION Admission December 13, 2024 2:31:[address] [address] Discharge December 13, 2024 10:31:00 PM [facility] DIS CHARGED TO HOME OR SELF CARE ENCOUNTER DIAGNOSES Notes information is not joi ilable. Code System Diagnosis Onset Date Diagnosis information is not available. ABSTRACT DIAGNOSES Code System Diagnosis Updated By M25.551 ICD10 PAIN IN RIGHT HIP [id number] on December 17, 2024 12:44:02 PM [facility] M25.551 ICD10 PAIN IN RIGHT HIP [id number] on December 17, 2024 12:44:02 PM [place] E11.9 ICD10 TYPE 2 DIABETES MELLITUS WITHOUT COMPLICATIONS [id number] on December 17, 2024 12:44:02 PM UT Z79.84 ICD10 NURSING HOME (CURRE NT) USE OF ORAL HYPOGLYCEMIC DRUGS [id number] on December 17, 2024 12:44:02 PM UT E06.3 ICD10 AUTOIMMUNE THYROIDITIS [id number] 37 on December 17, 2024 12:44:02 PM UT K57.92 ICD10 DIVERTICULITIS O F INTESTINE, PART UNSPECIFIED, WITHOUT PERFORATION OR ABSCESS WITHOUT BLEEDING [id number] on December 17, 2024 12:44:02 PM [place] F17.200 ICD10 NICOTINE DEPENDE NCE, UNSPECIFIED, UNCOMPLICATED [id number] on December 17, 2024 12:44:02 PM [facility] Z88.1 ICD10 ALLERGY STATUS T O OTHER ANTIBIOTIC AGENTS [id number] on December 17, 2024 12:44:02 PM [facility] CARE TEAM Care Tetryl Wringer Operator Role CALLIE STRICKLAND Primary Attending DEFINED NO Primary Care CALLIE STRICKLAND Admitting CALLIE STRICKLAND Referring CALLIE STRICKLAND Surgeon HOSPITAL DISCHARGE INSTRUCTION DISCHARGE INSTRUCTION Encounter [id number] Admit Date December 13, 2024 2:31:00 PM [facility] Discharge Date December 13, 2024 10:31:0 0 PM [facility] PATIENT EDUCATION SUMMARY Patient/Visit Information: Patient Name: PERFECTO PLUMMER Diag: Attending Caregiver: MELI Sexton Discharge Instruction Sheets Provided: Dr. Strickland General Discharge COVID-19 CDC-EN Discharge Information BEFAST-Stroke Warning Signs Fall Prevention in Hospitals and in the Home [facility] Pain and Responsible Opioid (Pain Medication) Management KYNECT- HELP Medication Side Effects Suicide - Managing your Feelings Patient Instructions: Followup Appointments/Instructions: CARE TEAM CARE traffic maintenance officer Role on Team Status Start Date End Date Update d By MELI Sexton PHY Surgeon normal December 13, 2024 2:31:00 PM [facility] December 13, 2024 10:31:00 PM [facility] [id number] on December 17, 2024 12:44:07 PM UTC NO DEFINED PRIMARY C PCP normal November 27, 2024 6:12:31 PM UTC December 13, 2024 10:31:00 PM UTC [id number] on December 17, 2024 12:44:07 PM [place] MELI CORONEL Referring normal November 27, 2024 6:12:31 PM UTC December 13, 2024 10:31:00 PM UT [id number] on December 17, 2024 12:44:07 PM [place] MELI CORONEL Attending normal November 27, 2024 6:12:31 PM UTC December 13, 2024 10:31:00 PM UT [id number] on December 17, 2024 12:44:07 PM UT MELI CORONEL Admitting normal November 27, 2024 6:12:31 PM UTC December 13, 2024 10:31:00 PM UT [id number] on December 17, 2024 12:44:07 PM [facility]
--- OUTSIDE RECORDS SUMMARY | 2025-01-07 13:34 | XMS_ITS | Encounter Summary ---
Author Organization [facility] [address] Care Team Providers Care Historiography Teacher Name Role Phone Unavailable Primary Care Provider Unavailabl e Reason for Referral * Mammography (Routine) - Pending Review Specialty Diagnoses / Procedures Referred By Contac t Referred To Contact Radiology Diagnoses Encounter for screening mammogram for malignant neoplasm of breast Procedures MM MAMMO DIGITAL RANDELL SCREEN Krystal Jacome NP [address] [place] [address] Phone: tel: Referral ID Status Reason Start Date Expiration Date V isits Requested Visits Authorized [id number] Pending Review 11/29/2024 11/29/2026 1 1 Reason for Visit * Mammography (Routine) - Pending Review Specialty Diagnoses / Procedures Referred By Jayden arias Referred To Contact Radiology Diagnoses Encounter for screening mammogram for malignant neoplasm of breast Procedures MM MAMMO DIGITAL RANDELL SCREEN Krystal Jacome NP [address] [place] [address] Phone: tel: Referral ID Status Reason Start Date Expiration Date V isits Requested Visits Authorized [id number] Pending Review 11/29/2024 11/29/2026 1 1 Encounter Details Date Type Department Care Team (Latest Contact Info) Description 01/07/2025 1:34 PM EDT - 01/07/2025 11:59 PM EDT Hospital Encounter Mobile Mammography Other Location View online schedule for mobile van location [phone] Krystal Chilel NP [address] [place] [address] Encounter for screening mammogram for malignant neoplasm of breast Discharge Disposition: Home or Self Care Social History Tobacco Use Types Packs/Day Years Used Date Smoking Tobacco: Never Assessed Comments No Sex and Gender Information Value Date Recorded Sex Assigned at Not on file Legal Sex Female 12:47 PM EDT Gender Identity Not on file Sexual Orientation Not on file documented as of this encounter Last Filed Vital Signs Vital Sign Reading Time Taken Comments Blood Pressure - - Pulse - - Temperature - - Respiratory Rate - - Oxygen Saturation - - Inhaled Oxygen Concentration - - Weight 90.7 kg (200 lb) 01/07/2025 1:35 PM EDT Height 167.6 cm (5' 6 ) 01/07/2025 1:35 PM EDT Body Mass Index 32.28 01/07/2025 1:35 PM EDT documented in this encounter Discharge Disposition Disposition Code Departure Means Destination Home or Self Care documented in this encounter Plan of Treatment Not on file documented as of this encounter Procedures Procedure Name Priority Date/Time Associated Diagnosis Comments MM MAMMO DIGITAL RANDELL SCREEN BILAT Routine 01/07/2025 1:35 PM EDT Encounter for screening mammogram for malignant neoplasm of breast documented in this encounter Results * (ABNORMAL) MM MAMMO DIGITAL RANDELL SCREEN BILAT (01/07/2025 1:35 PM EDT) Anatomical Region Laterality Modality Breast Bilateral Mammography 01/07/2025 1:35 PM EDT Impressions 01/08/2025 12:15 PM EDT Incomplete: Need additional imaging evaluation ([id number]-6) RECOMMENDATION: Additional Imaging Diagnostic Mammogram Left Additional Imaging Breast Ultrasound Left COMMENTS: DISCLAIMER *The patient was notified by MyChart or mail of the results for this examination. *The patient's information was entered into a reminder system with a target due date for the next breast imaging, in accordance with the [employer] and the Society of Breast Imaging recommendations. *Breast Imaging has a false negative rate of 15%. *Any patient with a palpable abnormality, unexplained by breast imaging, should be managed on a clinical basis by the attending physician. Narrative 01/08/2025 12:15 PM EDT EXAM: MM MAMMO DIGITAL RANDELL SCREEN BILAT EXAM DATE: 01/07/2025 1:35 PM INDICATION: Z12.31-Encounter for screening mammogram for malignant neoplasm of qecsfu-OSD-91-CM COMPARISON STUDIES: Compared with prior studies the most recent being 09/22/2022, [place], [place] TISSUE DENSITY: There are scattered areas of fibroglandular density. FINDINGS: One view asymmetry left breast seen in superior aspect of left breast on MLO view only. No suspicious microcalcification Right-sided mammograms are normal. Procedure Note Td Kay MD - 01/08/2025 EXAM: MM MAMMO DIGITAL RANDELL SCREEN BILAT EXAM DATE: 01/07/2025 1:35 PM INDICATION: Z12.31-Encounter for screening mammogram for malignantneoplasm of bconvw-QYI-66-CM COMPARISON STUDIES: Compared with prior studies the most recent being09/22/2022, [place], [place] TISSUE DENSITY: There are scattered areas of fibroglandular density. FINDINGS: One view asymmetry left breast seen in superior aspect of leftbreast on MLO view only. No suspicious microcalcification Right-sided mammograms are normal. IMPRESSION: Incomplete: Need additional imaging evaluation (IGZ-Chrhrmxp-5) RECOMMENDATION: Additional Imaging Diagnostic Mammogram Left Additional Imaging Breast Ultrasound Left COMMENTS: DISCLAIMER *The patient was notified by MyChart or mail of the results for this examination. *The patient's information was entered into a reminder system with atarget due date for the next breast imaging, in accordance with the [employer] and the Society of Breast Imaging recommendations. *Breast Imaging has a false negative rate of 15%. *Any patient with a palpable abnormality, unexplained by breast imaging,should be managed on a clinical basis by the attending physician. Krystal Chilel CODING COMPLIANCE MANAGER IMG MAMMOGRAPHY ORDERABLE S Final Result documented in this encounter Visit Diagnoses Diagnosis Encounter for screening mammogram for malignant neoplasm of breast Other screening mammogram documented in this encounter
--- OUTSIDE RECORDS SUMMARY | 2025-01-10 06:20 | XMS_ITS | Continuity of Care Document ---
Author Organization [facility] Phone Care Team Providers Care Inkjet Operator Name Role Phone CALLIE GARRISON Admitting CALLIE GARRISON Surgeon NO, DEFINED P Primary Care Unavailable CALLIE GARRISON Primary Attending CALLIE GARRISON Unavailable ALLERGIES AND ADVERSE REACTIONS ALLERGIES AND ADVERSE REACTIONS Code System Allergy Substance Adverse Reaction Date Reaction (Severity) Comment Status Reported By Updated By SEASONAL (Free Text Allergy) Adverse reaction to substance unknown active Patient [id number] on June 01, 2021 4:01:54 PM [facility] [address] RXNorm Azithromycin Not available active [id number] on December 12, 2024 11:39:55 AM [facility] FAMILY HISTORY RELATION: Father Status: LIVING SNOMED-CT Diagnosis Age At Onset Information not available RELATION: Mother Status: LIVING SNOMED-CT Diagnosis Age At Onset [id number] Arthritis [id number] Essential hypertension [id number] Disorder of thyroid gland MEDICATIONS HOME MEDICATIONS Status RXNORM NDC Medication Dose Route Frequency Dates Comments Reported By Updated By Drug Treatment Unknown DISCHARGE MEDICATIONS Status RXNORM NDC Medication Dose Route Frequency Dates Comments Physician Updated By No Discharge Medication Info rmation Available INPATIENT MEDICATIONS Status RXNORM NDC Medication Dose Route Frequency Rat e Quantity Dates Comments Physician Updated By Litzy inued [id number] BUPIVACAINE HCL (PF) 0.25 % SO 20.0 ML EPIDUR AL ONE TIME ONLY (SCHEDULED DOSE) 0.833 ML/HR Start: January 04, 2025 3:13:0 0 PM [place] End: January 04, 2025 2:45:0 0 PM [facility] MELI Sexton [id number] on January 07, 2025 3:13:00 PM [facility] SOCIAL HISTORY SOCIAL HISTORY SNOMED-CT Social History Element Description Effective Dates Offered Cessation Comment UpdatedBy [id number] Historical Tobacco smoking status Current Every Day Smoker [id number] on June 01, 2021 4:53:02 PM UT [...] available. ENCOUNTERS ENCOUNTER INFORMATION Reason for Visit TPI B CERVICO OCCIPI JAMES Admission January 04, 2025 2:45:[address] [id number] Discharge January 04, 2025 2:45:00 PM [place] DIS CHARGED TO HOME OR SELF CARE ENCOUNTER DIAGNOSES Notes information is not joi ilable. Code System Diagnosis Onset Date Diagnosis information is not available. ABSTRACT DIAGNOSES Code System Diagnosis Updated By M79.12 ICD10 MYALGIA OF AUXIL IARY MUSCLES, HEAD AND NECK [id number] on January 10, 2025 10:20:10 AM [facility] M79.12 ICD10 MYALGIA OF AUXIL IARY MUSCLES, HEAD AND NECK [id number] on January 10, 2025 10:20:10 AM [facility] M79.18 ICD10 MYALGIA, OTHER SITE [id number] on January 10, 2025 10:20:10 AM [facility] Z88.1 ICD10 ALLERGY STATUS T O OTHER ANTIBIOTIC AGENTS [id number] on January 10, 2025 10:20:10 AM [place] F17.200 ICD10 NICOTINE DEPENDE NCE, UNSPECIFIED, UNCOMPLICATED [id number] on January 10, 2025 10:20:10 AM [place] CARE TEAM Care Inkjet Operator Role CALLIE GARRISON Admitting CALLIE GARRISON Surgeon DEFINED NO Primary Care CALLIE GARRISNO Primary Attending CALLIE GARRISON Referring CARE TEAM CARE compatibility test engineer Role on Team Status Start Date End Date Update d By MELI CORONEL Surgeon normal January 04, 2025 2:45:00 PM UTC January 04, 2025 2:45:00 PM UTC [id number] on January 10, 2025 10:20:18 AM UTC NO DEFINED PRIMARY C PCP normal December 12, 2024 4:03:53 PM UTC January 04, 2025 2:45:00 PM UTC [id number] on January 10, 2025 10:20:18 AM [place] MELI Sexton PHY Referring normal December 12, 2024 4:03:53 PM UTC January 04, 2025 2:45:00 PM UTC [id number] on January 10, 2025 10:20:18 AM [place] MELI Sexton PHY Attending normal December 12, 2024 4:03:53 PM UTC January 04, 2025 2:45:00 PM UTC [id number] on January 10, 2025 10:20:18 AM [place] MELI Sexton PHY Admitting normal December 12, 2024 4:03:53 PM UTC January 04, 2025 2:45:00 PM UTC [id number] on January 10, 2025 10:20:18 AM UTC
--- NOTE | 2025-01-23 13:04 | MM_ITS ---
PROCEDURE INFORMATION: Exam: US Left Breast, Complete MG Left Diagnostic Breast Tomosynthesis MG Left Diagnostic Mammography Exam date and time: 01/23/2025 2:52 PM Age: 49 years old Clinical indication: Patient recalled on the basis of a screening mammogram for further evaluation of the left breast. TECHNIQUE: Imaging protocol: Complete ultrasound of all four quadrants of the left breast and the retroareolar regions, including ultrasound of the axilla when performed. Left Diagnostic tomosynthesis and 2D mammography including computer-aided detection (CAD) when performed. Unilateral or bilateral exam. Left Diagnostic mammography including computer-aided detection (CAD) when performed. Unilateral exam. COMPARISON: 1. MG MM MAMMO DIGITAL RANDELL SCREEN BILAT 01/07/2025 1:36 PM 2. US BREAST LT COMPLETE 01/23/2025 2:08 PM FINDINGS: MAMMOGRAPHY: Breast composition: There are scattered areas of fibroglandular density. Breast mammogram findings: No persistent mass, asymmetry, or other mammographic abnormality is seen in the left superior breast on the spot compression views. ULTRASOUND: Breast ultrasound findings: Ultrasound of the left breast is performed. There is no suspicious mass, shadowing, or distortion. No axillary adenopathy. IMPRESSION: 1. No persistent abnormality in the left breast. No suspicious finding on left breast ultrasound. 2. Annual bilateral mammographic screening is recommended unless otherwise clinically indicated. ASSESSMENT: BI-RADS Category 1: Negative.
--- OUTSIDE RECORDS SUMMARY | 2025-01-23 13:11 | XMS_ITS | Continuity of Care Document ---
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 Plan of Treatment Reminders Order Date Submit Date Provider Last Modified By Organization Details Last Modified Time Details Appointments OV EST 15 025 01:30PM BILLIE ZAMORA PA-C Not available Not available Not available Lab None record ed. Referral None record ed. Procedures None record ed. Surgeries None record ed. Imaging None record ed. Medication Orders None record ed. Patient TargetsNo targets recorded. Patient InstructionsNo instructions recorded. Reason for Referral None Reported. Problems Name Problem SNOMED Code Status Onset Date Resolution Date Notes Provider Name and Address Organization Details Recorded Time Urge incontine nce of urine 06673393 Active 2017 Not Available [facility] 2 11:44:10 Mixed anxiety and depressiv e disorder 110835781 Active 2018 Mixed anxiety and depressiv e disorder Not Available [facility] 2 11:44:10 Epistaxis Active 2014 Epistaxis Not Available [facility] 2 11:44:10 Diverticu litis 189451671 Active 2019 Not Available [facility] 2 11:44:10 Nervous system symptoms Active 2014 ICD-9: 781.99 - Abnormal neurologi lexii exam Not Available [facility] 2 11:44:10 Chronic constipat ion 760527731 Active 2015 Chronic constipat ion Not Available [facility] 2 11:44:10 Laceratio n - injury 802435496 Active 2014 Not Available [facility] 2 11:44:10 Blood leukocyte number above reference range 950398482 Active 2014 Leukocyto sis Not Available [facility] 2 11:44:10 Type 2 diabetes mellitus without complicat ion 539021281 Active 2018 Type 2 diabetes mellitus without complicat ion Not Available [facility] 2 11:44:10 Benign essential hypertens ion 9131631 Active 2016 Benign essential hypertens ion Not Available [facility] 2 11:44:10 Acquired hypothyro idism 896400287 Active 2014 Acquired hypothyro idism Not Available [facility] 2 11:44:10 Puncture wound - injury 680873760 Active 2014 Puncture wound Not Available [facility] 2 11:44:10 Constipat ion 48331329 Active 2014 Constipat ion Const ipation C onstipati on Not Available [facility] 2 11:44:10 Managemen t of drug regimen Active 2014 Medicatio n managemen t Medicat ion managemen t Medicat ion managemen t Not Available [facility] 2 11:44:10 Gastroeso phageal reflux disease 652204698 Active 2014 Gastroeso phageal reflux disease Not Available [facility] 2 11:44:11 Inflammat ion of sacroilia c joint 07955608 Active 2020 Not Available [facility] 2 11:44:11 Shoulder joint pain 062869606 Active 2014 Shoulder joint pain Not Available [facility] 2 11:44:11 Injury of knee 910675473 Active 2014 Knee injury Not Available [facility] 2 11:44:11 Cervical spondylos is without myelopath y 010665032 Active 2020 Cervical spondylos is without myelopath y Not Available [facility] 2 11:44:11 Hypothyro idism 69579856 Active 2014 Hypothyro idism Not Available [facility] 2 11:44:11 Tobacco user 275915659 Active 2014 Tobacco user Not Available [facility] 2 11:44:11 Menopausa l flushing 445714348 Active 2014 Hot flashes Not Available [facility] 2 11:44:11 Chronic pain 46396569 Active 2017 Not Available [facility] 2 11:44:11 Spinal enthesopa thy 22968576 Active 2021 Not Available [facility] 2 11:44:11 Candidias is of the esophagus 35428902 Active 2014 Candidias is of the esophagus Not Available [facility] 2 11:44:11 Abdominal pain 50606401 Active 2014 Abdominal pain Abdo macey pain Not Available [facility] 2 11:44:12 Spasm of urinary bladder 693738638 Active 2019 Bladder spasm Not Available [facility] 2 11:44:12 Pain of shoulder region 53691900 Active 2021 Not Available [facility] 2 11:44:12 Hemorrhoi ds 07946861 Active 2014 Hemorrhoi ds Not Available [facility] 2 11:44:12 Urinary tract infectiou s disease 55615923 Active 2014 Urinary tract infectiou s disease Not Available [facility] 2 11:44:12 Carpal tunnel syndrome 47840650 Active 2014 Carpal tunnel syndrome Not Available [facility] 2 11:44:12 Hyperlipi demia 21857419 Active 2018 Hyperlipi demia Not Available [facility] 2 11:44:12 Follow-up status 104092463 Active 2014 Follow-up status Not Available [facility] 2 11:44:12 Degenerat ion of lumbar intervert ebral disc 31675845 Active 2020 Degenerat ion of lumbar intervert ebral disc Not Available [facility] 2 11:44:12 Allergic rhinitis 65245027 Active 2014 Allergic rhinitis Allergic rhinitis Not Available [facility] 2 11:44:13 Chronic pain syndrome 778304606 Active 2020 Chronic pain syndrome Not Available [facility] 2 11:44:13 Dyslipide vika 010345530 Active 2014 Dyslipide vika Dysli pidemia Not Available [facility] 2 11:44:13 Benign neoplasm of colon 33579545 Active 2014 Benign neoplasm of colon Not Available [facility] 2 11:44:13 Pain in back following surgical procedure 259629065 Active 2020 Not Available [facility] 2 11:44:13 Acid reflux 663628765 Active 2015 Acid reflux Not Available [facility] 2 11:44:13 Fibromyal brigitte 999505737 Active 2016 Fibromyal brigitte Not Available [facility] 2 11:44:13 Dysphagia 28037669 Active 2014 Dysphagia Not Available [facility] 2 11:44:13 Sprain of foot 55716848 Active 2014 Foot sprain Not Available [facility] 2 11:44:14 Right lower quadrant pain 602824339 Active 2021 Kasey Pettit NP [address] [place] [address], [address], [place], [address] [facility] [place] [facility] [place] [facility] [place] 2 12:24:36 Cervical spondylos is 618384578 Active 2021 Ria Vu null[place] [facility] [place] 2 16:19:56 Opioid dependenc e 94288322 Active 2021 Ria Vu null[place] [facility] [place] 2 16:19:58 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 587281925 Active 2021 Ria Vu [place] 2 16:19:59 Radicular pain 92366474 Active 2021 Ria Vu [place] 2 16:20:00 History of total knee arthropla sty 44626878483 05 Active 2021 Ria Vu [place] 2 16:20:03 Poisoning due to bite of brown recluse spider 82695066 Active 2021 Ria Vu [place] [facility] 2 16:20:05 Cervico-o ccipital neuralgia 10230095 Active 2022 Ria Vu null[place] 3 11:44:49 Chronic migraine without aura 10389184108 4105 Active 2022 Ria Vu [place] 3 09:38:21 Spinal enthesopa thy of cervical region Active 2022 Ria Vu [place] 3 11:45:37 Myofascia l pain 704173889 Active 2023 Ria Vu null[place] 4 09:38:19 Irritable bowel syndrome character ized by constipat ion 863566536 Active 2023 Kasey Pettit NP [facility] [address], [address], [address] , [place] [facility] [place] 4 09:50:12 Gastro-es ophageal reflux disease with esophagit is 241399541 Active 2023 Kasey Pettit NP [address], [address], [address] , [place] [facility] [place] 4 09:50:21 Brachial (cervical ) neuritis 862666220 Active 2023 Ria Vu null[place] [facility] [place] 09:41:30 Notes:Problem Name: Edema Pr oblem Code: 864086565 Problem Code Type: SNOMED Status: Active Start_Date: 12/12/2014 - Problem Name: Depression Problem Code: 601638771 Problem Code Type: SNOMED Status: Active Start_Date: 10/11/2014 - Problem Notes None recorded. Procedures Surgical History Date Name Laterality Status Provider Name and Address Organization Details Recorded Time 025 Cervicothoracic Trigger Point Injection completed [address], [place], [address], [place] [facility] [place] 01/04/2025 11:53:26 025 Botox Migraine completed MD Markos Dnaielson , [place], [address], [place] [facility] 12/03/2024 12:00:58 025 Injection Only completed MD Markos Danielson , [place], [address], [place] 11/08/2024 13:38:29 025 Thoracolumbar Trigger Point Injection completed MD Markos Danielson , [place], [address], [place] [facility] & [place] 11/08/2024 13:37:43 025 Cervicothoracic Trigger Point Injection completed MD Markos Danielson , [place], [address], [place] [facility] [place] 09/24/2024 13:38:18 025 Botox Migraine completed [address], [place], [address], [place] 08/29/2024 12:56:02 025 Injection Only completed Ria Vu [place] [facility] [place] 08/03/2024 15:06:47 024 Injection Only completed Ria Vu [place] 06/22/2024 12:17:02 024 Botox Migraine completed Ria Vu [place] 05/28/2024 09:44:30 024 Injection Only completed BILLIE ZAMORA PA-C [address], [place], [address], [place] 05/07/2024 09:59:34 024 EGD/Endoscopy completed Mariluz [place] 04/20/2024 15:00:51 024 Colonoscopy completed Mariluz [place] 04/20/2024 15:00:58 024 Injection Only completed Ria Vu [place] 03/26/2024 10:37:00 024 Botox Migraine [place] Ria Vu [place] 02/16/2024 14:33:37 024 Botox Migraine completed Ria Vu [place] 11/10/2023 07:37:48 023 completed Amy [place] 02/15/2024 12:05:41 015 thyroidectomy [place] analilia [place] 04/12/2022 15:59:26 015 Other completed Amy [place] 02/15/2024 12:06:08 014 Other completed Julisa Núñze [place] 03/05/2024 13:16:37 012 Other completed Amy [place] 02/15/2024 12:06:08 012 Thyroid Surgery completed Amy [place] 02/15/2024 12:06:08 012 Back Surgery [place] Amy [place] [facility] [facility] & [place] 02/15/2024 12:06:08 012 Head or Neck Surgery completed Julisa [place] 03/05/2024 13:16:37 008 Cholecystectomy completed Amy [place] [facility] [facility] & [place] 02/15/2024 12:06:08 003 Other completed Amy [place] [facility] & [place] 02/15/2024 12:06:08 003 Narcotics Investigator Surgery completed Julisa [place] 03/05/2024 13:16:37 001 Abdominal Surgery completed Amy [place] 02/15/2024 12:06:08 997 Abdominal Surgery completed Amy [place] [facility] 02/15/2024 12:06:08 cholecystectomy completed analilia [place]iff[place] 04/12/2022 15:58:26 Hysterectomy completed analilia [place] 04/12/2022 15:58:34 open hemorrhoidectomy completed analilia [place]iff[place] 04/12/2022 15:58:55 section completed analilia ashcraf t [place] [facility] 04/12/2022 15:59:09 Imaging Results None recorded. Procedure Notes None recorded. Medical Equipment None Reported. Allergies Allergen ID Allergen Name Allergen Category Reaction Reaction Severity Criticality Documentation Date Start Date Code Code System Note Provider Name and Address Organization Details Recorded Time 20865 azithromy rhett medicatio n Not available Not available Not available 07/07/2022 49329 RxNorm Aditi Sarita [place], [place] [facility] [place] 14:19:44 Medications Name Sig Start Date Stop Date Status Note LastModified by Organization Details LastModified Time oxybutynin chloride ER 15 mg tablet,exte nded release 24 hr TAKE 1 TABLET BY MOUTH ONCE DAILY active Not Available Not Available No t Available triamcinolo ne acetonide 0.5 % topical cream APPLY A THIN LAYER OF CREAM TOPICALLY TO AFFECTED AREA TWICE DAILY 05/24 completed Not Available Not Available Not Available cetirizine 10 mg tablet TAKE 1 TABLET BY MOUTH ONCE DAILY active Not Available Not Available No t Available ofloxacin 0.3 % eye drops INSTILL 1 DROP INTO OPERATIVE EYE 4 TIMES DAILY FOR 7 DAYS 05/24 completed Not Available Not Available Not Available fluconazole 150 mg tablet TAKE ONE TABLET BY MOUTH A ONE-TIME DOSE 01/14 completed Not Available Not Available Not Available sumatriptan 100 mg tablet take ONE tablet by MOUTH MAY REPEAT DOSE AFTER AT least TWO hours with no more THAN TWO tablets/2 4 hours] active Not Available Not Available No t Available hydrocodone 5 mg-acetamin ophen 325 mg tablet TAKE ONE TABLET BY MOUTH EVERY 8 HOURS NEEDED FOR PAIN MAY CAUSE DROWSINES S 01/15 completed Not Available Not Available Not Available promethazin e 25 mg rectal suppository INSERT 1 SUPPOSITO RY RECTALLY EVERY 6 HOURS NEEDED active Not Available Not Available No t Available promethazin e 12.5 mg tablet TAKE 1 TABLET BY MOUTH EVERY 4 TO 6 HOURS NEEDED FOR NAUSEA DUE TO MIGRAINE 12/04 completed Not Available Not Available Not Available prednisone 20 mg tablet Take 1 tablet 3 times a day by oral route for 3 days. 12/04 completed Not Available Not Available Not Available sumatriptan 50 mg tablet TAKE 1 TABLET BY MOUTH EVERY 8 HOURS NEEDED ONE DOSE WITH FLUIDS EARLY POSSIBLE AFTER THE ONSET OF A MIGRAINE ATTACK, IF HEADACHE RETURNS, THE DOSE MAY BE REPEATED AFTER 2 HOURS DO NOT EXCEED A TOTAL DAILY DOSE OF 3 TABS 10/08 completed Not Available Not Available Not Available topiramate 25 mg tablet Take 1 tablet every day by oral route as directed for 30 days. 06/20 completed Not Available Not Available Not Available metronidazo le 500 mg tablet TAKE ONE TABLET BY MOUTH EVERY 8 HOURS FOR 7 DAYS -- FINISH ALL MEDICINE -- --AVOID ANY PRODUCT(S ) CONTAININ G ALCOHOL WHILE TAKING THIS MEDICATIO N-- 07/01 /2024 completed Not Available Not Available Not Available acetaminoph en 300 mg-codeine 30 mg tablet TAKE 1 TABLET BY MOUTH ONCE DAILY NEEDED 02/11 completed Not Available Not Available Not Available ciprofloxac in 500 mg tablet TAKE 1 TABLET BY MOUTH EVERY 12 HOURS FOR 7 DAYS 10/04 completed Not Available Not Available Not Available sulfamethox azole 800 mg-trimetho prim 160 mg tablet TAKE 1 TABLET BY MOUTH TWICE DAILY FOR 10 DAYS 05/24 completed Not Available Not Available Not Available tramadol 50 mg tablet 1 tablet as needed Orally Once a day 05/24 completed Not Available Not Available Not Available ketorolac 10 mg tablet TAKE 1 TABLET BY MOUTH EVERY 12 HOURS NEEDED FOR PAIN 11/21 completed Not Available Not Available Not Available ketorolac 0.5 % eye drops STARTING 3 DAYS BEFORE SURGERY INSTILL 1 DROP INTO OPERATIVE EYE 4 TIMES DAILY FOR 10 DAYS, THEN DECREASE TO 1 DROP TWICE DAILY FOR 14 DAYS 05/24 completed Not Available Not Available Not Available calcium 600 mg (as calcium carbonate 1,500 mg) tablet 1 tablet with meals Orally Twice a day 04/11 completed Not Available Not Available Not Available pravastatin 80 mg tablet TAKE 1 TABLET BY MOUTH ONCE DAILY active Not Available Not Available No t Available prednisolon e acetate 1 % eye drops,suspe nsion INSTILL 1 DROP INTO OPRATIVE EYE 4 TIMES DAILY FOR 7 DAYS, THEN DECREASE TO 1 DROP TWICE DAILY FOR 14 DAYS 05/24 completed Not Available Not Available Not Available magnesium oxide 400 mg (241.3 mg magnesium) tablet TAKE ONE TABLET BY MOUTH EVERY DAY active Not Available Not Available No t Available methocarbam ol 750 mg tablet Take 1 tablet every 12 hours by oral route as needed for 30 days. active Not Available Not Available No t Available JolicloudTouch Ultra Test strips use to test three times daily active Not Available Not Available No t Available doxycycline monohydrate 100 mg capsule TAKE 1 CAPSULE BY MOUTH TWICE DAILY 05/24 completed Not Available Not Available Not Available cephalexin 500 mg capsule TAKE 1 CAPSULE BY MOUTH EVERY 8 HOURS FOR 10 DAYS 11/21 completed Not Available Not Available Not Available pantoprazol e 40 mg tablet,carin yed release TAKE 1 TABLET BY MOUTH ONCE DAILY active Not Available Not Available No t Available Proctofoam HC 1 %-1 % APPLY TO AFFECTED AREA THREE TIMES DAILY NEEDED FOR PAIN DIRECTED 05/24 completed Not Available Not Available Not Available triamcinolo ne acetonide 0.1 % topical ointment Apply to affected areas twice daily for up to two weeks. Stop for one week. Repeat as needed for flares. active Not Available Not Available No t Available nystatin 100,000 unit/gram topical cream 05/24 completed Not Available Not Available Not Available promethazin e 25 mg tablet 12/04 completed Not Available Not Available Not Available levothyroxi ne 150 mcg tablet 1 tablet on an empty stomach in the morning (this is a dosage change) Orally Once a day for 30 days 05/19 completed Not Available Not Available Not Available mupirocin 2 % topical ointment APPLY OINTMENT TOPICALLY THREE TIMES DAILY 10/04 completed Not Available Not Available Not Available polyethylen e glycol 3350 17 gram/dose oral powder Take 17 g by oral route for 2 days. 04/19 completed Not Available Not Available Not Available estradiol 0.01% (0.1 mg/gram) vaginal cream insert TWO grams vaginally ONCE daily FOR TWO WEEKS THEN ONE gram vaginally ONCE daily FOR TWO WEEKS THEN ONE gram vaginally three times WEEKLY as directed active Not Available Not Available No t Available levofloxaci n 750 mg tablet TAKE ONE TABLET BY MOUTH ONCE DAILY FOR 7 DAYS -- FINISH ALL MEDICINE -- 01/15 completed Not Available Not Available Not Available methylpredn isolone 4 mg tablets in a dose pack 10/08 completed Not Available Not Available Not Available SSD 1 % topical cream 12/06 completed Not Available Not Available Not Available Vitamin D2 1,250 mcg (50,000 unit) capsule TAKE ONE CAPSULE BY MOUTH EVERY WEEK active Not Available Not Available No t Available ketorolac 60 mg/2 mL intramuscul ar solution Inject 2 mL as needed by intramusc ular route as needed. 11/21 completed Not Available Not Available Not Available ketoconazol e 2 % topical cream Apply to affected areas on face twice daily as needed when flared. 11/21 completed Not Available Not Available Not Available hydroxyzine HCl 10 mg tablet TAKE 1 TABLET BY MOUTH THREE TIMES DAILY active Not Available Not Available No t Available cefdinir 300 mg capsule TAKE ONE CAPSULE BY MOUTH TWICE DAILY FOR SEVEN DAYS 06/20 completed Not Available Not Available Not Available topiramate 100 mg tablet TAKE 1.5 TABLETS BY MOUTH NIGHTLY AT BEDTIME FOR MIGRAINE active Not Available Not Available No t Available fluticasone propionate 50 mcg/actuati on nasal spray,suspe nsion instill ONE SPRAY into each NOSTRIL ONCE daily active Not Available Not Available No t Available sertraline 50 mg tablet TAKE ONE TABLET BY MOUTH EVERY DAY active Not Available Not Available No t Available levothyroxi ne 112 mcg tablet TAKE 1 TABLET BY MOUTH ONCE DAILY active Not Available Not Available No t Available amoxicillin 875 mg-potassiu m clavulanate 125 mg tablet TAKE 1 TABLET BY MOUTH EVERY 12 HOURS FOR 10 DAYS 10/08 completed Not Available Not Available Not Available Ventolin HFA 90 mcg/actuati on aerosol inhaler INHALE TWO puffs BY MOUTH every 4 to 6 hours as needed for shortness of breath active Not Available Not Available No t Available Laxative (bisacodyl) 5 mg tablet,carin yed release TAKE TWO TABLETS FOR ONE DAY as directed FOR bowel prep 04/19 completed Not Available Not Available Not Available topiramate 50 mg tablet TAKE 1 AND 1/2 TABLETS BY MOUTH AT BEDTIME 12/04 completed Not Available Not Available Not Available hydrochloro thiazide 12.5 mg tablet 2 tablet Orally Once a day for 30 days 10/04 completed Not Available Not Available Not Available guaifenesin ER 1,200 mg tablet, extended release 12 hr 10/08 completed Not Available Not Available Not Available ketorolac 30 mg/mL injection solution Inject 1 mL as needed by intraveno us route as needed. 10/08 completed Not Available Not Available Not Available butalbital- acetaminoph en-caffeine 50 mg-300 mg-40 mg capsule Take 1 capsule every 12 hours by mouth as needed for 8 days active Not Available Not Available No t Available Slow Release Iron 140 mg (45 mg iron) tablet,exte nded release TAKE ONE TABLET BY MOUTH ONCE DAILY FOR 90 DAYS active Not Available Not Available No t Available Linzess 145 mcg capsule SPRINKLE THE ENTIRE CONTENTS OF THE CAPSULE ON A SMALL AMOUNT OF APPLESAUC E. TAKE IMMEDIATE LY ONCE A DAY ON AN EMPTY STOMACH AT LEAST 30 MINUTES BEFORE THE FIRST MEAL OF THE DAY 05/24 completed Not Available Not Available Not Available Stimulant Laxative Plus 8.6 mg-50 mg tablet TAKE ONE TABLET BY MOUTH EVERY DAY AT BEDTIME active Not Available Not Available No t Available Jardiance 25 mg tablet TAKE 1 TABLET BY MOUTH ONCE DAILY IN THE MORNING active Not Available Not Available No t Available OneTouch Ultra2 Meter active Not Available Not Available Not Available OneTouch Delica Plus Lancet 33 gauge active Not Available Not Available Not Available [facility] ODT 75 mg disintegrat ing tablet dissole ONE tablet BY MOUTH ONCE DAILY NEEDED FOR MIGRAINE. max DAILY dosage 75 mg(1 tablet) active Not Available Not Available No t Available Qulipta 60 mg tablet Take by oral route for 30 days. 2024 active Not Available Not Available Not Avai lable Vitals Date Recorded Body height Body temperature Oxygen saturation Oxygen saturation in Arterial blood by Pulse oximetry Heart rate Systolic And Diastolic Provider Name and Address Organization Details Last Updated DateTime 5 167.64 cm 97.4 [degF] 98 % 98 % 75 /min 114/58 mm[Hg] [facility] [place] [facility] [place] 5 10:02:01 Social History Question Answer Notes LastModified by [employer] Details LastModified Time Tobacco Smoking Status Current Every Day Smoker Not Available [facility] 03/29/2022 09:52:02 Do You Have An Advance Directive? No Information not available 02/15/2024 Are You Blind Or Do You Have Difficulty Seeing? No Information not available 02/15/2024 What Was The Date Of Your Most Recent Tobacco Screening? 01/15/2024 Information not available 03/05/2024 Are You Passively Exposed To Smoke? Yes Information not available 02/15/2024 How Much Tobacco Do You Smoke? 0.5 PPD Information not available 02/15/2024 How Many Years Have You Smoked Tobacco? 28 Information not available 02/15/2024 Sex: Unknown Functional Status Question Answer Note LastModified by [email or web address] ion Details LastModified Time Do you use any illicit or recreational drugs? No Information not available 02/15/2024 What is your level of alcohol consumption? None Information not available 02/15/2024 Do you or have you ever used smokeless tobacco? Never used smokeless tobacco Information not available 02/15/2024 What is your exercise level? Moderate Information not available 02/15/2024 Mental Status Question Answer Note LastModified by Organization D etails LastModified Time Do you feel stressed (tense, restless, nervous, or anxious, or unable to sleep at night)? [id number] Information not available 03/05/2024 Family History Relationship Description Onset Age of this Age Resolved Age Notes LastModified by Organization Details LastModified Time Mother Hypertensive disorder pt. added direct ly (07/07) [email or web address] Not available 07/07/2022 11:35:28 Notes:Mother Alive-Thyroid d isease, Hypertension; Father Alive-NKFH Medical History Condition Response Coronary Artery Disease N Gout N Hernia N Thyroid Problems Y Depression N COPD N Anemia N Ulcers N Heart Attack ([place]) N Spine Problems Y Obstructive Sleep Apnea Y Anxiety Disorder N Diabetes Y Bleeding Disorder N Arthritis Y Tuberculosis N Acid Reflux (GERD) N Cancer N Stroke N Asthma N Substance Abuse N Reflux/GERD Y Back Injury N High Cholesterol Y Hepatitis N Liver Disease Y Heart Disease N Fibromyalgia N Headaches Y Hypertension N Osteoporosis N Kidney Disease N Gynecological History Statement/Question Response Abnormal Pap N 11/22/2022 Sexually Active? Y Menses Monthly N Current Control Method Hysterectom y Age at Menarche 10 Obstetrics History GPAL:G 0 P 0 0 0 0 Immunizations Vaccine Type Date Status Note Provider Nam e and Address Organization Details Recorded Time Td (adult), 5 Lf tetanus toxoid, preservative free, adsorbed 5 completed Not Available [facility] 03/29/2022 10:30:24 TST-PPD intradermal 8 completed Not Available [facility] 03/29/2022 10:30:24 TST-PPD intradermal 6 completed Not Available [facility] 03/29/2022 10:30:24 TST-PPD intradermal 7 completed Not Available [facility] 03/29/2022 10:30:24 TST-PPD intradermal 9 completed Not Available [facility] 03/29/2022 10:30:24 Past Encounters Encounter ID Performer Location Encounter Start Date Encounter Closed Date Diagnosis/Indication Diagnosis SNOMED-CT Code Diagnosis ICD10 Code Diagnosis Note [id number] Magdy Strickland MD [facility] [address] [facility] [address] [place] [address] 11/08/2024 09:08:26 11/08/2024 10:26:10 Myofascial pain 968009644 M79.18 Chronic mi graine without aura [id number] 06345 G43.601 [id number] Magdy Strickland MD [facility] [address] [facility] [address] [place] [address] 11/21/2024 11:34:03 11/21/2024 12:10:37 Pain of right hip joint [id number] 51562 M25.551 - The patient complains of right hip pain with radiation into the groin.- XR Right hip showed mild DJD, spurring at the greater trochanter and calcific bursitis.- Based on the history, imaging and physical exam findings her pain is likely due to Osteoarthr itis .- To address her pain I will proceed with a Right hip steroid injection under fluoroscop y.- If patient does not gain benefit following this injection I will consider a surgical evaluation with Ortho for her Right hip.- Follow up 2 weeks post injection. Chronic mi graine without aura [id number] 93379 G43.709 - The patient is scheduled for Botox injections for migraine headache quarterly. - Will refill Qulipta 60 mg once daily, Fioricet and Nurtec today. Myofascial pain 99108569 9 M79.12 The patient is S/P TPI of the bilateral cervico-oc cipital region Bup only, which was successful in decreasing neck pain described as tightness/ spasm and headache by greater than 60%.- Patient receives TPI of her bilateral cervico-oc cipital region Bup only q 6 weeks. I will reschedule her next TPI today. She will be scheduled on or after 12/20/24. Cervico-oc cipital neuralgia 89822913 M54.81 Pain of ri ght shoulder region 7590134152 M25.511 - The patient notes that right shoulder pain isn't bothersome at this time. Cervical spondylosis 387 359657 M47.812 Brachial ( cervical) neuritis 881288803 M54.12 Constipation 30933730 K5 9.00 - The patient has a recent history of an ED visit due to constipati on.- The patient is currently taking an antibiotic (diagnosed with diverticul itis).- The patient is managing constipati on with OTC medication .- I advised the patient to follow up with GI for further evaluation . [id number] Magdy Strickland MD [facility] [address] [place] [address] 11/30/2024 08:51:25 11/30/2024 09:41:54 Migraine without aura, not refractory [id number] G43.709 Health Concerns Section Related Observation LastModified by Organization Detai ls LastModified Time None Recorded Concern Status LastModified by Organization Details LastModified Time None Recorded Payers Encounter Date Sequence Insurance Name Policy Number Policy Wang Covered Member ID Wang Member ID Guarantor Name 11/30/2024 1 [employer] [facility] (MEDICAID HMO) Aracely Powell [id number] Aracely Powell OBGyn Episode No OBEpisode recorded.
--- OUTSIDE RECORDS SUMMARY | 2025-01-23 13:11 | XMS_ITS | Continuity of Care Document ---
Author Organization [facility] Address [address] [place] [address] Care Team Providers Care Cut Off Sawyer Log Name Role Phone RAJIV RASHEED Primary Care Provider KASEY PETTIT [employer] Assistant Manager Assessment No assessment recorded. Plan of Treatment [...] Recorded Time Urge incontine nce of urine 84579574 Active 2017 Not Available [facility] 2 11:44:10 Mixed anxiety and depressiv e disorder 503570852 Active 2018 Mixed anxiety and depressiv e disorder Not Available [facility] 2 11:44:10 Epistaxis Active 2014 Epistaxis Not Available [facility] 2 11:44:10 Diverticu litis 400388267 Active 2019 Not Available [facility] 2 11:44:10 Nervous system symptoms Active 2014 ICD-9: 781.99 - Abnormal neurologi lexii exam Not Available [facility] 2 11:44:10 Chronic constipat ion 325842683 Active 2015 Chronic constipat ion Not Available [facility] 2 11:44:10 Laceratio n - injury 734488923 Active 2014 Not Available [facility] 2 11:44:10 Blood leukocyte number above reference range 711750059 Active 2014 Leukocyto sis Not Available [facility] 2 11:44:10 Type 2 diabetes mellitus without complicat ion 638544841 Active 2018 Type 2 diabetes mellitus without complicat ion Not Available [facility] 2 11:44:10 Benign essential hypertens ion 6016286 Active 2016 Benign essential hypertens ion Not Available [facility] 2 11:44:10 Acquired hypothyro idism 683500697 Active 2014 Acquired hypothyro idism Not Available [facility] 2 11:44:10 Puncture wound - injury 508272783 Active 2014 Puncture wound Not Available [facility] 2 11:44:10 Constipat ion 52336610 Active 2014 Constipat ion Const ipation C onstipati on Not Available [facility] 2 11:44:10 Managemen t of drug regimen Active 2014 Medicatio n managemen t Medicat ion managemen t Medicat ion managemen t Not Available [facility] 2 11:44:10 Gastroeso phageal reflux disease 183029177 Active 2014 Gastroeso phageal reflux disease Not Available [facility] 2 11:44:11 Inflammat ion of sacroilia c joint 86356388 Active 2020 Not Available [facility] 2 11:44:11 Shoulder joint pain 542411499 Active 2014 Shoulder joint pain Not Available [facility] 2 11:44:11 Injury of knee 521392466 Active 2014 Knee injury Not Available [facility] 2 11:44:11 Cervical spondylos is without myelopath y 103834353 Active 2020 Cervical spondylos is without myelopath y Not Available [facility] 2 11:44:11 Hypothyro idism 40006183 Active 2014 Hypothyro idism Not Available [facility] 2 11:44:11 Tobacco user 785151756 Active 2014 Tobacco user Not Available [facility] 2 11:44:11 Menopausa l flushing 910808985 Active 2014 Hot flashes Not Available [facility] 2 11:44:11 Chronic pain 11501526 Active 2017 Not Available [facility] 2 11:44:11 Spinal enthesopa thy 78641372 Active 2021 Not Available [facility] 2 11:44:11 Candidias is of the esophagus 60239458 Active 2014 Candidias is of the esophagus Not Available [facility] 2 11:44:11 Abdominal pain 64544051 Active 2014 Abdominal pain Abdo macey pain Not Available [facility] 2 11:44:12 Spasm of urinary bladder 201302685 Active 2019 Bladder spasm Not Available [facility] 2 11:44:12 Pain of shoulder region 48234641 Active 2021 Not Available [facility] 2 11:44:12 Hemorrhoi ds 43938012 Active 2014 Hemorrhoi ds Not Available [facility] 2 11:44:12 Urinary tract infectiou s disease 79629626 Active 2014 Urinary tract infectiou s disease Not Available [facility] 2 11:44:12 Carpal tunnel syndrome 92824287 Active 2014 Carpal tunnel syndrome Not Available [facility] 2 11:44:12 Hyperlipi demia 67007596 Active 2018 Hyperlipi demia Not Available [facility] 2 11:44:12 Follow-up status 304477833 Active 2014 Follow-up status Not Available [facility] 2 11:44:12 Degenerat ion of lumbar intervert ebral disc 39659196 Active 2020 Degenerat ion of lumbar intervert ebral disc Not Available [facility] 2 11:44:12 Allergic rhinitis 28052959 Active 2014 Allergic rhinitis Allergic rhinitis Not Available [facility] 2 11:44:13 Chronic pain syndrome 983591565 Active 2020 Chronic pain syndrome Not Available [facility] 2 11:44:13 Dyslipide vika 333459651 Active 2014 Dyslipide vika Dysli pidemia Not Available [facility] 2 11:44:13 Benign neoplasm of colon 87890696 Active 2014 Benign neoplasm of colon Not Available [facility] 2 11:44:13 Pain in back following surgical procedure 186446261 Active 2020 Not Available [facility] 2 11:44:13 Acid reflux 319319152 Active 2015 Acid reflux Not Available [facility] 2 11:44:13 Fibromyal brigitte 505273684 Active 2016 Fibromyal brigitte Not Available [facility] 2 11:44:13 Dysphagia 69134462 Active 2014 Dysphagia Not Available [facility] 2 11:44:13 Sprain of foot 48692298 Active 2014 Foot sprain Not Available [facility] 2 11:44:14 Right lower quadrant pain 396010652 Active 2021 Kasey Pettit NP [address] [place] [address], [address], [place], [address] [facility] [place] 2 12:24:36 Cervical spondylos is 577916992 Active 2021 Ria Vu null, [place] 2 16:19:56 Opioid dependenc e 03759337 Active 2021 Ria Vu null, [place] 2 16:19:58 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 585792169 Active 2021 Ria Vu [place] 2 16:19:59 Radicular pain 54680697 Active 2021 Ria Vu [place] 2 16:20:00 History of total knee arthropla sty 26633962658 05 Active 2021 Ria Vu [place] 2 16:20:03 Poisoning due to bite of brown recluse spider 96421665 Active 2021 Ria Vu [place] 2 16:20:05 Cervico-o ccipital neuralgia 74998492 Active 2022 Ria Vu [place] 3 11:44:49 Chronic migraine without aura 75383129328 4105 Active 2022 Ria Vu [place] 3 09:38:21 Spinal enthesopa thy of cervical region Active 2022 Ria Vu [place], [place] 3 11:45:37 Myofascia l pain 466935871 Active 2023 Ria Vu [place] 4 09:38:19 Irritable bowel syndrome character ized by constipat ion 962174002 Active 2023 Kasey Pettit NP [facility] [address], [address] , [place] 4 09:50:12 Gastro-es ophageal reflux disease with esophagit is 093036884 Active 2023 Kasey Pettit NP [address], [address], [place], [address] , [place] 4 09:50:21 Brachial (cervical ) neuritis 843894244 Active 2023 Ria Vu [place], [place] 09:41:30 Notes:Problem Name: Edema Pr oblem Code: 441560312 Problem Code Type: SNOMED Status: Active Start_Date: 12/12/2014 - Problem Name: Depression Problem Code: 413610683 Problem Code Type: SNOMED Status: Active Start_Date: 10/11/2014 - Problem Notes None recorded. Procedures Surgical History Date Name Laterality Status Provider Name and Address Organization Details Recorded Time 025 Cervicothoracic Trigger Point Injection completed [address], [place], [address], [place] 01/04/2025 11:53:26 025 Botox Migraine completed MD Markos Danielson , [place], [address], [place] [facility] [facility] & [place] 12/03/2024 12:00:58 025 Injection Only completed MD Markos Danielson , [place], [address], [place] 11/08/2024 13:38:29 025 Thoracolumbar Trigger Point Injection completed MD Markos Danielson , [place], [address], [place] [facility] & [place] 11/08/2024 13:37:43 025 Cervicothoracic Trigger Point Injection completed MD Markos Danielson , [place], [address], [place] 09/24/2024 13:38:18 025 Botox Migraine completed [address], [place], [address], [place] 08/29/2024 12:56:02 025 Injection Only completed Ria Vu [place] [facility] & [place] 08/03/2024 15:06:47 024 Injection Only completed Ria Vu [place] 06/22/2024 12:17:02 024 Botox Migraine [place]ia Vu [place] 05/28/2024 09:44:30 024 Injection Only completed BILLIE ZAMORA PA-C [address], [place], [address], [place] 05/07/2024 09:59:34 024 EGD/Endoscopy completed Mariluz [place] 04/20/2024 15:00:51 024 Colonoscopy completed Mariluz [place] 04/20/2024 15:00:58 024 Injection Only completed Ria Vu [place] 03/26/2024 10:37:00 024 Botox Migraine [place]ia Vu [place] 02/16/2024 14:33:37 024 Botox Migraine [place] Ria Vu [place] 11/10/2023 07:37:48 023 completed Amy [place] 02/15/2024 12:05:41 015 thyroidectomy [place] analilia [place]no [place] 04/12/2022 15:59:26 015 Other completed [place] 02/15/2024 12:06:08 014 Other completed Julisa N[place]ñez [place] 03/05/2024 13:16:37 012 Other completed [place] 02/15/2024 12:06:08 012 Thyroid Surgery completed Amy [place]vino [place] 02/15/2024 12:06:08 012 Back Surgery [place] [facility] [place] 02/15/2024 12:06:08 012 Head or Neck Surgery completed Julisa [place] 03/05/2024 13:16:37 008 Cholecystectomy [place] [facility] & [place] 02/15/2024 12:06:08 003 Other completed [place]vino [place] [facility] & [place] 02/15/2024 12:06:08 003 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 Julisa [place] 03/05/2024 13:16:37 001 Abdominal Surgery completed Amy [place]ino [place] 02/15/2024 12:06:08 997 Abdominal Surgery completed Amy [place]be [place] 02/15/2024 12:06:08 cholecystectomy completed analilia tiffanie [place] 04/12/2022 15:58:26 Hysterectomy completed analilia [place]iffanie [place] 04/12/2022 15:58:34 open hemorrhoidectomy completed analilia [place]iffanie [place] 04/12/2022 15:58:55 section completed analilia ashcraf t [place] 04/12/2022 15:59:09 Imaging Results None recorded. Procedure Notes None recorded. Medical Equipment None Reported. Allergies Allergen ID Allergen Name Allergen Category Reaction Reaction Severity Criticality Documentation Date Start Date Code Code System Note Provider Name and Address Organization Details Recorded Time 13428 azithromy rhett medicatio n Not available Not available Not available 07/07/2022 78240 RxNorm Aditi Sarita [place], [place] [facility] 14:19:44 Medications Name Sig Start Date Stop [...] Not Available Not Available No t Available PopUp LeasingTouch Ultra Test strips use to test three [...] active Not Available Not Available Not Available [facility] ODT 75 mg disintegrat ing tablet [...] Details Last Updated DateTime 5 167.64 cm 97.6 [degF] 97 % 97 % 77 /min 128/60 mm[Hg] [facility] [place] [facility] & [place] 5 11:58:52 Social History Question Answer Notes LastModified by [place] Details LastModified Time Tobacco Smoking Status Current Every Day Smoker Not Available [facility] 03/29/2022 09:52:02 Do You Have An Advance [...] Functional Status Question Answer Note LastModified by [employer] ion Details LastModified Time Do you use [...] anxious, or unable to sleep at night)? [id number] Information not available 03/05/2024 Family History Relationship [...] N Anemia N Ulcers N Heart Attack ([place]) N Spine Problems Y Obstructive Sleep Apnea [...] preservative free, adsorbed 5 completed Not Available [facility] 03/29/2022 10:30:24 TST-PPD intradermal 8 completed Not Available [facility] 03/29/2022 10:30:24 TST-PPD intradermal 6 completed Not Available [facility] 03/29/2022 10:30:24 TST-PPD intradermal 7 completed Not Available [facility] 03/29/2022 10:30:24 TST-PPD intradermal 9 completed Not Available [facility] 03/29/2022 10:30:24 Past Encounters Encounter ID Performer Location Encounter Start Date Encounter Closed Date Diagnosis/Indication Diagnosis SNOMED-CT Code Diagnosis ICD10 Code Diagnosis Note [id number] Magdy Strickland MD [facility] [address] [facility] [address] [place] [address] 01/04/2025 10:44:36 01/04/2025 11:46:54 Myofascial pain 093715459 M79.18 Health Concerns Section Related Observation LastModified by Organization Detai ls LastModified Time None Recorded Concern Status LastModified by Organization Details LastModified Time None Recorded Payers Encounter Date Sequence Insurance Name Policy Number Policy Wang Covered Member ID Wang Member ID Guarantor Name 01/04/2025 1 [employer] [facility] (MEDICAID HMO) Aracely Powell [id number] Aracely Powell OBGyn Episode No OBEpisode recorded.
--- OUTSIDE RECORDS SUMMARY | 2025-01-23 13:11 | XMS_ITS | Data Portability ---
Author Organization [place] - [facility] - [place] & ESTHER Alonso ADMIN Address [address] [place] [address] Care Team Providers Care Apprentice Cosmetologist Name Role Phone WILI RAJIV Primary Care Provider [phone] KASEY PETTIT Inside Wireman Assessment Encounter Date Assessment Date Assessment LastModified by Organization Details LastModified Time 10/08/2024 10/08/2024 Mrs. Powell was referred by Dr. Garcia for SI joint pain. The patient has a history of tailbone fracture. The patient has a history of cervical surgery (ACDF). The patient has controlled DM. The patient has been diagnosed with Leonard's disease. The patient has a recent history of an ED visit due to constipation. The patient is currently taking an antibiotic (diagnosed with diverticuliti s). [email or web address] Not available 10/10/2024 09:34:53 11/21/2024 11/21/2024 Mrs. Powell was referred by Dr. Garcia for SI joint pain. The patient has a history of tailbone fracture. The patient has a history of cervical surgery (ACDF). The patient has controlled DM. The patient has been diagnosed with Leonard's disease. The patient has a recent history of an ED visit due to constipation. The patient is currently taking an antibiotic (diagnosed with diverticuliti s). Not available 11/22/2024 09:56:36 Plan of Treatment Reminders Order Date Submit Date Provider Last Modified By Organization Details Last Modified Time Details Appointments OV EST 15 2024 01:30P M BILLIE ZAMORA PA-C Not available Not available Not available Lab None record ed. Referral None record ed. Procedures inject ion, trigge r point (PROC) - TPI of the bilate ral cervic o-occi pital region [place] only, . [address] 2024 025 [email or web address] Magdy Strickland MD, [address], [address], [place], [address], 12/12/2024 12:10:48 inject ion/as pirati on joint/ bursa (PROC) - Right Hip joint inject ion. 2024 025 [email or web address] Magdy Strickland MD, [address] [facility], [address], [place], [address], 12/13/2024 11:25:07 Surgeries None record ed. Imaging None record ed. Medication Orders Fioric et 50 mg-300 mg-40 mg capsul e 2024 025 [facility], [address] [place] [address], [id number], 11/23/2024 14:24:05 Nurtec ODT 75 mg disint egrati ng tablet 2024 025 [facility], [address] [place] [address], [id number], 11/22/2024 11:33:47 Qulipt a 60 mg tablet 2024 025 [facility], [address] [place] [address], [id number], 11/22/2024 14:14:32 ketoro lac 60 mg/2 mL intram uscula r soluti on 2024 025 [facility], [address] [place] [address], [id number], 11/21/2024 12:02:45 Patient TargetsNo targets recorded. Patient Instructions Encounter Date Encounter Id Patient Instructions Last Modified By Organization Details Last Modified Time 10/08/2024 [id number] I have discussed in great detail our potential treatment options which would include a rehabilitative approach to care. This program would include medication management, Physical Therapy, consideration for interventional procedures as appropriate, and lifestyle modification (diet, weight loss, exercise, smoking/tobacco cessation, holistic approach including meditation and yoga). The patient understands and agrees prior to proceeding with this plan. _ __ __ __ __ __ __ __ __ __ __ __ __ __ __ __ __ __ __ __ __ __ __ __ __ __ __ __ _ RECORDS REVIEW: As per clinic policy, we will have the patient sign a release to obtain previous imaging and clinical notes. _ __ __ __ __ __ __ __ __ __ __ __ __ __ __ __ __ __ __ __ __ __ __ __ __ __ __ __ _ PSYCH: Pain affecting Neuro-psych behavior was discussed. Discussed about pain psychological counseling as a part of the multimodal approach to pain treatment. _ __ __ __ __ __ __ __ __ __ __ __ __ __ __ __ __ __ __ __ __ __ __ __ __ __ __ __ _ REHABILITATION: Discussed with the patient the importance of diet, daily physical activity and PT. Discussed with the patient the need to be scheduled for physical therapy since physical therapy will prolong the benefits of the procedure and interventions. _ __ __ __ __ __ __ __ __ __ __ __ __ __ __ __ __ __ __ __ __ __ __ __ __ __ __ __ _ MARIAH: [id number] I have reviewed patient's MARIAH report prior to prescribing Schedule II, III, and IV medications that require review by law. I counseled the patient extensively and informed of the risks of the procedure, including the risk of paralysis, nerve damage, respiratory arrest, arrhythmias, stroke, weakness, and infection, which although very low, could result in or disability. The patient acknowledged to me that they understand and accept these risks. RN EDUCATION Extensive coordination of care provided by RN to educate patient on upcoming procedure and to coordinate obtaining extensive incoming medical records. [email or web address] Not available 10/10/2024 09:31:54 11/21/2024 [id number] I have discussed in great detail our potential treatment options which would include a rehabilitative approach to care. This program would include medication management, Physical Therapy, consideration for interventional procedures as appropriate, and lifestyle modification (diet, weight loss, exercise, smoking/tobacco cessation, holistic approach including meditation and yoga). The patient understands and agrees prior to proceeding with this plan. _ __ __ __ __ __ __ __ __ __ __ __ __ __ __ __ __ __ __ __ __ __ __ __ __ __ __ __ _ RECORDS REVIEW: As per clinic policy, we will have the patient sign a release to obtain previous imaging and clinical notes. _ __ __ __ __ __ __ __ __ __ __ __ __ __ __ __ __ __ __ __ __ __ __ __ __ __ __ __ _ PSYCH: Pain affecting Neuro-psych behavior was discussed. Discussed about pain psychological counseling as a part of the multimodal approach to pain treatment. _ __ __ __ __ __ __ __ __ __ __ __ __ __ __ __ __ __ __ __ __ __ __ __ __ __ __ __ _ REHABILITATION: Discussed with the patient the importance of diet, daily physical activity and PT. Discussed with the patient the need to be scheduled for physical therapy since physical therapy will prolong the benefits of the procedure and interventions. _ __ __ __ __ __ __ __ __ __ __ __ __ __ __ __ __ __ __ __ __ __ __ __ __ __ __ __ _ MARIAH I have reviewed patient's MARIAH report prior to prescribing Schedule II, III, and IV medications that require review by law. I counseled the patient extensively and informed of the risks of the procedure, including the risk of paralysis, nerve damage, respiratory arrest, arrhythmias, stroke, weakness, and infection, which although very low, could result in or disability. The patient acknowledged to me that they understand and accept these risks. RN EDUCATION Extensive coordination of care provided by RN to educate patient on upcoming procedure and to coordinate obtaining extensive incoming medical records. Not available 11/22/2024 10:32:22 Reason for Referral None Reported. Problems Name Problem SNOMED Code Status Onset Date Resolution Date Notes Provider Name and Address Organization Details Recorded Time Urge incontine nce of urine 01712493 Active 2017 Not Available [facility] 2 11:44:10 Mixed anxiety and depressiv e disorder 598123817 Active 2018 Mixed anxiety and depressiv e disorder Not Available [facility] 2 11:44:10 Epistaxis Active 2014 Epistaxis Not Available [facility] 2 11:44:10 Diverticu litis 717642934 Active 2019 Not Available [facility] 2 11:44:10 Nervous system symptoms Active 2014 ICD-9: 781.99 - Abnormal neurologi lexii exam Not Available [facility] 2 11:44:10 Chronic constipat ion 990472132 Active 2015 Chronic constipat ion Not Available [facility] 2 11:44:10 Laceratio n - injury 751214953 Active 2014 Not Available [facility] 2 11:44:10 Blood leukocyte number above reference range 514657865 Active 2014 Leukocyto sis Not Available [facility] 2 11:44:10 Type 2 diabetes mellitus without complicat ion 862158921 Active 2018 Type 2 diabetes mellitus without complicat ion Not Available [facility] 2 11:44:10 Benign essential hypertens ion 1963497 Active 2016 Benign essential hypertens ion Not Available [facility] 2 11:44:10 Acquired hypothyro idism 802321858 Active 2014 Acquired hypothyro idism Not Available [facility] 2 11:44:10 Puncture wound - injury 242226158 Active 2014 Puncture wound Not Available [facility] 2 11:44:10 Constipat ion 55766667 Active 2014 Constipat ion Const ipation C onstipati on Not Available [facility] 2 11:44:10 Managemen t of drug regimen Active 2014 Medicatio n managemen t Medicat ion managemen t Medicat ion managemen t Not Available [facility] 2 11:44:10 Gastroeso phageal reflux disease 422528703 Active 2014 Gastroeso phageal reflux disease Not Available [facility] 2 11:44:11 Inflammat ion of sacroilia c joint 60272035 Active 2020 Not Available [facility] 2 11:44:11 Shoulder joint pain 319359031 Active 2014 Shoulder joint pain Not Available [facility] 2 11:44:11 Injury of knee 077220976 Active 2014 Knee injury Not Available [facility] 2 11:44:11 Cervical spondylos is without myelopath y 992855801 Active 2020 Cervical spondylos is without myelopath y Not Available [facility] 2 11:44:11 Hypothyro idism 53671969 Active 2014 Hypothyro idism Not Available [facility] 2 11:44:11 Tobacco user 569277395 Active 2014 Tobacco user Not Available [facility] 2 11:44:11 Menopausa l flushing 557961352 Active 2014 Hot flashes Not Available [facility] 2 11:44:11 Chronic pain 40982932 Active 2017 Not Available [facility] 2 11:44:11 Spinal enthesopa thy 77682592 Active 2021 Not Available [facility] 2 11:44:11 Candidias is of the esophagus 35197344 Active 2014 Candidias is of the esophagus Not Available [facility] 2 11:44:11 Abdominal pain 52958873 Active 2014 Abdominal pain Abdo macey pain Not Available [facility] 2 11:44:12 Spasm of urinary bladder 608636556 Active 2019 Bladder spasm Not Available [facility] 2 11:44:12 Pain of shoulder region 99585984 Active 2021 Not Available [facility] 2 11:44:12 Hemorrhoi ds 76007375 Active 2014 Hemorrhoi ds Not Available [facility] 2 11:44:12 Urinary tract infectiou s disease 28777970 Active 2014 Urinary tract infectiou s disease Not Available [facility] 2 11:44:12 Carpal tunnel syndrome 11113491 Active 2014 Carpal tunnel syndrome Not Available [facility] 2 11:44:12 Hyperlipi demia 58819740 Active 2018 Hyperlipi demia Not Available [facility] 2 11:44:12 Follow-up status 640147346 Active 2014 Follow-up status Not Available [facility] 2 11:44:12 Degenerat ion of lumbar intervert ebral disc 36760329 Active 2020 Degenerat ion of lumbar intervert ebral disc Not Available [facility] 2 11:44:12 Allergic rhinitis 77299237 Active 2014 Allergic rhinitis Allergic rhinitis Not Available [facility] 2 11:44:13 Chronic pain syndrome 060457339 Active 2020 Chronic pain syndrome Not Available [facility] 2 11:44:13 Dyslipide vika 526712825 Active 2014 Dyslipide vika Dysli pidemia Not Available [facility] 2 11:44:13 Benign neoplasm of colon 65039178 Active 2014 Benign neoplasm of colon Not Available [facility] 2 11:44:13 Pain in back following surgical procedure 391514245 Active 2020 Not Available [facility] 2 11:44:13 Acid reflux 198461704 Active 2015 Acid reflux Not Available [facility] 2 11:44:13 Fibromyal brigitte 365611293 Active 2016 Fibromyal brigitte Not Available [facility] 2 11:44:13 Dysphagia 66391258 Active 2014 Dysphagia Not Available [facility] 2 11:44:13 Sprain of foot 42709392 Active 2014 Foot sprain Not Available [facility] 2 11:44:14 Right lower quadrant pain 627627888 Active 2021 Kasey Pettit NP [address] [place] [address], [address], [place], [address] , [place] [facility] [place] & [place] 2 12:24:36 Cervical spondylos is 808242060 Active 2021 Ria Vu null, [place] [facility] [place] & [place] 2 16:19:56 Opioid dependenc e 07441297 Active 2021 Ria Vu null, [place] [facility] [place] 2 16:19:58 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 671356162 Active 2021 Ria Vu [place] [facility] [place] 2 16:19:59 Radicular pain 10023427 Active 2021 Ria [place] [facility] [place] 2 16:20:00 History of total knee arthropla sty 50352772761 05 Active 2021 Ria Vu [place] [facility] [place] & [place] 2 16:20:03 Poisoning due to bite of brown recluse spider 62842956 Active 2021 Ria Vu [place] [facility] [place] 2 16:20:05 Cervico-o ccipital neuralgia 83489463 Active 2022 Ria Vu null[place] [facility] & [place] 3 11:44:49 Chronic migraine without aura 37286386441 4105 Active 2022 Ria Vu [place], [place] [facility] [place] & [place] 3 09:38:21 Spinal enthesopa thy of cervical region Active 2022 Ria [place], [place] [facility] [place] & [place] 3 11:45:37 Myofascia l pain 036195619 Active 2023 Ria Vu null, [place] [facility] & [place] 4 09:38:19 Irritable bowel syndrome character ized by constipat ion 682554293 Active 2023 Kasey Pettit NP [address], [address], [place], [address] , [place] [facility] [place] & [place] 4 09:50:12 Gastro-es ophageal reflux disease with esophagit is 136039455 Active 2023 Kasey Pettit NP [address], [address], [place], [address] , [place] [facility] [place] & [place] 4 09:50:21 Brachial (cervical ) neuritis 112491465 Active 2023 Ria [place], [place] [facility] [place] & [place] 4 09:41:30 Notes:Problem Name: Edema Pr oblem Code: 784400277 Problem Code Type: SNOMED Status: Active Start_Date: 12/12/2014 - Problem Name: Depression Problem Code: 934815488 Problem Code Type: SNOMED Status: Active Start_Date: 10/11/2014 - Problem Notes None recorded. Procedures Surgical History Date Name Laterality Status Provider Name and Address Organization Details Recorded Time 025 Cervicothoracic Trigger Point Injection completed ALEIDA COOPER PA-C [address], [place], [address], [place] [facility] & [place] 01/04/2025 11:53:26 025 Botox Migraine completed Magdy Strickland MD [address], [place], [address], [place] [facility] [place] & [place] 12/03/2024 12:00:58 025 Injection Only completed MD [address], [place], [address], [place] [facility] [place] & [place] 11/08/2024 13:38:29 025 Thoracolumbar Trigger Point Injection completed Magdy Strickland MD [address] , [place], [address], [place] [facility] [place] [facility] & [place] 11/08/2024 13:37:43 025 Cervicothoracic Trigger Point Injection completed Magdy Strickland MD [address] , [place], [address], [place] [facility] & [place] 09/24/2024 13:38:18 025 Botox Migraine completed ALEIDA COOPER PA-C [address] , [place], [address], [place] [facility] [place] [facility] & [place] 08/29/2024 12:56:02 025 Injection Only completed Ria Vu [place] [facility] [place] [facility] & [place] 08/03/2024 15:06:47 024 Injection Only completed Ria Vu [place] [facility] [place] [facility] & [place] 06/22/2024 12:17:02 024 Botox Migraine completed Ria Vu [place] [facility] [place] & [place] 05/28/2024 09:44:30 024 Injection Only completed BILLIE ZAMORA PA-C [address], [place], [address], [place] [facility] [place] [facility] & [place] 05/07/2024 09:59:34 024 EGD/Endoscopy completed Mrailuz Nolascos [place] [facility] [place] [facility] & [place] 04/20/2024 15:00:51 024 Colonoscopy completed Mariluz Nolascos [place] [facility] [place] [facility] & [place] 04/20/2024 15:00:58 024 Injection Only completed [place] Vu [place] [facility] [place] [facility] & [place] 03/26/2024 10:37:00 024 Botox Migraine completed Ria Vu [place] [facility] & [place] 02/16/2024 14:33:37 024 Botox Migraine completed [place]ia Vu [place] [facility] & [place] 11/10/2023 07:37:48 023 completed Amy [place]ino [place] [facility] [place] [facility] & [place] 02/15/2024 12:05:41 015 thyroidectomy completed analilia tiffanie [place] [facility] [place] [facility] & [place] 04/12/2022 15:59:26 015 Other completed Amy [place] [facility] [facility] & [place] 02/15/2024 12:06:08 014 Other completed Julisa [place] [facility] [place] [facility] & [place] 03/05/2024 13:16:37 012 Other completed Amy [place] [facility] [facility] & [place] 02/15/2024 12:06:08 012 Thyroid Surgery completed Amy [place] & [place] 02/15/2024 12:06:08 012 Back Surgery completed Amy [place] & [place] 02/15/2024 12:06:08 012 Head or Neck Surgery completed Julisa [place] [facility] [place] [facility] & [place] 03/05/2024 13:16:37 008 Cholecystectomy completed Amy [place] [facility] [place] [facility] & [place] 02/15/2024 12:06:08 003 Other completed Amy [place] [facility] & [place] 02/15/2024 12:06:08 003 Travel Director Surgery completed Julisa [place] [facility] [place] [facility] & [place] 03/05/2024 13:16:37 001 Abdominal Surgery completed Amy [place]ino [place] [facility] & [place] 02/15/2024 12:06:08 997 Abdominal Surgery completed Amy Alvino DEBORAH SANTANA [facility] & [place] 02/15/2024 12:06:08 cholecystectomy completed analilia SANTANA [facility] & [place] 04/12/2022 15:58:26 Hysterectomy completed analilia SANTANA [facility] & [place] 04/12/2022 15:58:34 open hemorrhoidectomy completed analilia SANTANA [facility] & [place] 04/12/2022 15:58:55 section completed analilia SANTANA [facility] & [place] 04/12/2022 15:59:09 Imaging Results None recorded. Procedure Notes None recorded. Medical Equipment None Reported. Allergies Allergen ID Allergen Name Allergen Category Reaction Reaction Severity Criticality Documentation Date Start Date Code Code System Note Provider Name and Address Organization Details Recorded Time 78715 azithromy rhett medicatio n Not available Not available Not available 07/07/2022 15194 RxNorm Aditi DEBORAH Eugene [facility] [place] & [place] 14:19:44 Medications Name Sig Start Date Stop [...] G ALCOHOL WHILE TAKING THIS MEDICATIO N-- 01/15 completed Not Available Not Available Not [...] Not Available Not Available No t Available [employer] Test strips use to test three times [...] active Not Available Not Available Not Available [facility] ODT 75 mg disintegrat ing tablet dissole [...] Details Last Updated DateTime 5 167.64 cm 97.5 [degF] 99 % 99 % 77 /min 101/78 mm[Hg] [facility] & [place] 5 11:02:31 Date Recorded Body height Body temperature Oxygen saturation Oxygen saturation in Arterial blood by Pulse oximetry Heart rate Systolic And Diastolic Provider Name and Address Organization Details Last Updated DateTime 5 167.64 cm 99.7 [degF] 95 % 95 % 79 /min 140/86 mm[Hg] [facility] & [place] 5 10:28:28 Date Recorded Body height Body mass index (BMI) Body weight Body temperature Oxygen saturation Oxygen saturation in Arterial blood by Pulse oximetry Heart rate Systolic And Diastolic Provider Name and Address Organization Details Last Updated DateTime 5 167.64 cm 33.3 kg/m2 39859.7 5 g 97.5 [degF] 97 % 97 % 81 /min 110/71 mm[Hg] [facility] & [place] 5 12:02:14 Date Recorded Body height Body temperature Oxygen saturation Oxygen saturation in Arterial blood by Pulse oximetry Heart rate Systolic And Diastolic Provider Name and Address Organization Details Last Updated DateTime 5 167.64 cm 97.4 [degF] 98 % 98 % 75 /min 114/58 mm[Hg] [facility] & [place] 5 10:02:01 Date Recorded Body height Body temperature Oxygen saturation Oxygen saturation in Arterial blood by Pulse oximetry Heart rate Systolic And Diastolic Provider Name and Address Organization Details Last Updated DateTime 5 167.64 cm 97.6 [degF] 97 % 97 % 77 /min 128/60 mm[Hg] [facility] & [place] 5 11:58:52 Social History Question Answer Notes LastModified by Organizat ion Details LastModified Time Tobacco Smoking Status Current Every Day Smoker Not Available [facility] 03/29/2022 09:52:02 Do You Have An Advance [...] Functional Status Question Answer Note LastModified by Organizat ion Details LastModified Time Do you use [...] anxious, or unable to sleep at night)? [id number] Information not available 03/05/2024 Family History Relationship Description Onset Age of this Age Resolved Age Notes LastModified by Organization Details LastModified Time Mother Hypertensive disorder pt. added direct ly (07/07) API-13 Not available 07/07/2022 11:35:28 Notes:Mother Alive-Thyroid d isease, Hypertension; Father Alive-NKFH Medical History Condition Response Coronary Artery Disease N Gout N Hernia N Thyroid Problems Y Depression N COPD N Anemia N Spine Problems Y Heart Attack ([place]) N Ulcers N Obstructive Sleep Apnea Y Anxiety Disorder N [...] preservative free, adsorbed 5 completed Not Available [facility] 03/29/2022 10:30:24 TST-PPD intradermal 8 completed Not Available [facility] 03/29/2022 10:30:24 TST-PPD intradermal 6 completed Not Available [facility] 03/29/2022 10:30:24 TST-PPD intradermal 7 completed Not Available [facility] 03/29/2022 10:30:24 TST-PPD intradermal 9 completed Not Available [facility] 03/29/2022 10:30:24 Past Encounters Encounter ID Performer Location Encounter Start Date Encounter Closed Date Diagnosis/Indication Diagnosis SNOMED-CT Code Diagnosis ICD10 Code Diagnosis Note [id number] Magdy Strickland MD [facility] [address] [place] [address] DEBORAH MOSLEY [phone] 04/12/2022 09:33:39 04/12/2022 10:18:38 Spinal enthesopathy 28863731 M46.00 Cervical spondylosis 387 952056 M47.812 Opioid dependence 580553 00 F11.20 Stenosis o f spinal canal due to intervertebral disc 981219904 M99.53 Radicular pain 63019160 M54.10 History of total knee arthroplasty 8508951587 105 Z96.653 Poisoning due to bite of brown recluse spider 13724693 T63.331S [id number] Kasey Pettit NP [facility] DEBORAH COOK [id number] 04/14/2022 13:30:33 04/15/2022 13:38:34 Right lower quadrant pain 454873538 R10.31 Several month history of right lower quadrant pain following treatment of diverticul itis. Pain comes and goes daily. Recommend follow up CT to ensure resolution given her recent history. Will notify patient of results. History of diverticulitis [id number] 98856 Z87.19 diverticul itis in the distal transverse colon noted on CT from 01/21/2022 at [facility]. Follow-up CT from 01/26/22 at [facility] noted significan t improvemen t of diverticul itis. Plan for CT as above due to continued complaints of abdominal pain. Recommend colonoscop y to be scheduled in the future for follow-up. Last colonoscop y 12/2014. Gastroesop hageal reflux disease 688818978 K21.9 controlled with daily PPI. [id number] Magdy Strickland MD [facility] [address] [place] [address] [place] [address] 05/24/2022 14:15:36 05/24/2022 14:45:47 Spinal enthesopathy 00850518 M46.00 M46.02 Cervical spondylosis 387 894311 M47.812 Opioid dependence 293902 00 F11.20 Stenosis o f spinal canal due to intervertebral disc 675306345 M99.53 Radicular pain 49152820 M54.10 History of total knee arthroplasty 6167307352 105 Z96.653 Poisoning due to bite of brown recluse spider 59775751 T63.331S Cervico-oc cipital neuralgia 63701671 M54.81 [id number] Magdy Strickland MD [facility] [address] [place] [address] [place] [address] 07/05/2022 14:59:20 07/05/2022 15:27:59 Spinal enthesopathy 78614017 M46.00 M46.02 Cervical spondylosis 387 370245 M47.812 Opioid dependence 423614 00 F11.20 Stenosis o f spinal canal due to intervertebral disc 667728503 M99.53 Radicular pain 19834565 M54.10 History of total knee arthroplasty 0548227678 105 Z96.653 Poisoning due to bite of brown recluse spider 35989546 T63.331S Cervico-oc cipital neuralgia 64976308 M54.81 [id number] Kasey Pettit NP [facility] 8 [place] [address] 07/07/2022 14:02:19 07/14/2022 12:49:28 Right lower quadrant pain 524664493 R10.31 2 day history of moderately severe RLQ pain. Concern for recurrent diverticul itis given her history. Patient was transferre d to [facility] for further evaluation and imaging given the severity of symptoms and concern for recurrent diverticul itis, micro perforatio n, abscess collection other. [facility] ED was notified. History of diverticulitis [id number] 85995 Z87.19 diverticul itis in the distal transverse colon noted on CT from 01/21/2022 at [facility]. Follow-up CT 04/2022 noted Diverticul osis without evidence of acute diverticul itis. Gastroesop hageal reflux disease 364285498 K21.9 controlled with daily PPI. [id number] Magdy Strickland MD [facility] [address] [place] [address] [place] [address] 08/16/2022 14:32:08 08/16/2022 15:58:09 Spinal enthesopathy 34718835 M46.00 M46.02 Cervical spondylosis 387 818966 M47.812 Stenosis o f spinal canal due to intervertebral disc 220737958 M99.53 Radicular pain 10891776 M54.10 Cervico-oc cipital neuralgia 11733867 M54.81 Opioid dependence 924980 00 F11.20 [id number] Magdy Strickland MD [facility] [address] [place] [address] [address] [place], [place] [address] 10/04/2022 15:34:20 10/04/2022 16:23:32 Spinal enthesopathy 58836482 M46.00 M46.02 Cervical spondylosis 387 395990 M47.812 Stenosis o f spinal canal due to intervertebral disc 821776508 M99.53 Radicular pain 48028181 M54.10 Cervico-oc cipital neuralgia 46594851 M54.81 Opioid dependence 351852 00 F11.20 Chronic mi graine without aura 2650145664 49365 G43.709 [id number] Magdy Strickland MD [facility] [address] [place] [address] [place] [address] 11/01/2022 13:56:49 11/01/2022 14:49:57 Chronic migraine without aura 4210287325 17700 G43.709 Spinal enthesopathy 1031 7009 M46.00 M46.02 Cervical spondylosis 387 280386 M47.812 Stenosis o f spinal canal due to intervertebral disc 006885519 M99.53 Radicular pain 12342413 M54.10 Cervico-oc cipital neuralgia 88944570 M54.81 Opioid dependence 192054 00 F11.20 [id number] BILLIE ZAMORA PA-C [facility] [address] [place] [address] [place] [address] 12/06/2022 13:21:51 12/06/2022 13:43:49 Spinal enthesopathy 15966460 M46.00 M46.02 Cervical spondylosis 387 611552 M47.812 Stenosis o f spinal canal due to intervertebral disc 551416898 M99.53 Radicular pain 04325460 M54.10 Cervico-oc cipital neuralgia 91561337 M54.81 Chronic mi graine without aura 4625584557 71029 G43.709 [id number] BILLIE ZAMORA PA-C [facility] [address] [place] [address] [place] [address] 02/07/2023 13:02:40 02/07/2023 14:44:42 Spinal enthesopathy 25345607 M46.00 M46.02 Cervical spondylosis 387 941189 M47.812 Stenosis o f spinal canal due to intervertebral disc 934342222 M99.53 Radicular pain 48841292 M54.10 Cervico-oc cipital neuralgia 00597304 M54.81 Chronic mi graine without aura 8737953085 80389 G43.709 [id number] Magdy Strickland MD [facility] [address] [place] [address] [place] [address] 04/11/2023 08:30:47 04/11/2023 08:57:21 Cervical spondylosis 833589935 M47.812 Stenosis o f spinal canal due to intervertebral disc 631727134 M99.53 Radicular pain 13638750 M54.10 Cervico-oc cipital neuralgia 82549741 M54.81 Chronic mi graine without aura 4462867466 15458 G43.709 Spinal ent hesopathy of cervical region 9496444258 30150 M46.02 [id number] Magdy Strickland MD [facility] [address] [place] [address] [place] [address] 05/19/2023 09:58:09 05/19/2023 10:49:36 Cervical spondylosis 215031457 M47.812 Stenosis o f spinal canal due to intervertebral disc 152587251 M99.53 Radicular pain 65286002 M54.10 Cervico-oc cipital neuralgia 94140029 M54.81 Chronic mi graine without aura 2265981692 70943 G43.709 Spinal ent hesopathy of cervical region 1802720526 27057 M46.02 [id number] Magdy Strickland MD [facility] [address] [place] [address] 06/20/2023 13:37:38 06/20/2023 14:16:19 Cervical spondylosis 424097979 M47.812 Stenosis o f spinal canal due to intervertebral disc 753527123 M99.53 Radicular pain 89450134 M54.10 Cervico-oc cipital neuralgia 00994682 M54.81 Chronic mi graine without aura 9540873370 61178 G43.709 Spinal ent hesopathy of cervical region 3134727180 23443 M46.02 Spinal enthesopathy 1031 7009 M46.00 M46.02 [id number] Magdy Strickland MD [facility] [address] [place] [address] 10/03/2023 13:41:47 10/03/2023 14:57:03 Chronic migraine without aura 7533565862 62872 G43.709 Cervical spondylosis 387 230186 M47.812 Cervico-oc cipital neuralgia 12439800 M54.81 Stenosis o f spinal canal due to intervertebral disc 196023934 M99.53 Radicular pain 39829181 M54.10 Spinal ent hesopathy of cervical region 9969004374 77622 M46.02 Spinal enthesopathy 1031 7009 M46.00 M46.02 [id number] Magdy Strickland MD [facility] [address] [place] [address] 11/09/2023 10:53:53 11/09/2023 14:59:27 Chronic migraine without aura 4952144993 56868 G43.651 [id number] Magdy Strickland MD [facility] [address] [place] [address] [place] [address] 12/05/2023 12:40:35 12/05/2023 14:05:51 Chronic migraine without aura 6365445205 34299 G43.709 Cervical spondylosis 387 472280 M47.812 Cervico-oc cipital neuralgia 18340336 M54.81 Stenosis o f spinal canal due to intervertebral disc 861662061 M99.53 Radicular pain 43178837 M54.10 Myofascial pain 04115836 9 M79.12 [id number] Kasey Pettit NP [facility] 8 [facility] [place] [address] 01/11/2024 09:11:36 01/11/2024 13:00:34 Right lower quadrant pain 962415853 R10.31 Right lower quadrant pain following episode of diverticul itis from 11/2023 at which time hospitaliz ed at [facility]. Records have been requested for review. Concern for recurrent versus smoldering diverticul itis given her history. Recommend labs today and plan to follow up with CT abd/pelvis given her symptoms. Patient encouraged to be evaluated in the ED if her symptoms progress or worsen. She did voice understand ing. Last colonoscop y 12/2014. Plan to schedule colonoscop y at clinic follow up pending CT results. History of diverticulitis 1625196878 98709 Z87.19 Most recent episode diverticul itis reported 10/2023 at [facility]. Records have been requested for review. Irritable bowel syndrome characterized by constipation 811015740 K58.1 continues fiber as well as Senokot with controlled symptoms at this time. Gastro-eso phageal reflux disease with esophagitis 637575751 K21.00 continue daily PPI as well as avoidance of known food triggers [id number] Magdy Strickland MD [facility] [address] [place] [address] 01/16/2024 14:16:31 01/16/2024 15:24:10 Chronic migraine without aura 0459542418 95927 G43.709 Myofascial pain 18223216 9 M79.12 Cervical spondylosis 387 539067 M47.812 Cervico-oc cipital neuralgia 71495246 M54.81 Stenosis o f spinal canal due to intervertebral disc 544891525 M99.53 Radicular pain 84547133 M54.10 [id number] Kasey Pettit NP [facility] 8 [facility] [place] [address] 02/15/2024 11:42:09 02/15/2024 13:54:06 Right lower quadrant pain 623902248 R10.31 Continued dull RLQ pain following episode of diverticul itis from 11/2023 at [facility]. CT abd/pelvis completed 01/18/24 showed no evidence of active diverticul itis. Last colonoscop y 12/2014. Recommend colonoscop y to further evaluate. History of hysterecto my and appendecto my. History of diverticulitis 9940571309 93606 Z87.19 Most recent episode diverticul itis 11/2023 at [facility]. No evidence on recent CT from 01/18/24. Recommend continued use of fiber supplement s. Irritable bowel syndrome characterized by constipation 901148252 K58.1 continues fiber as well as Senokot with controlled symptoms at this time. Gastro-eso phageal reflux disease with esophagitis 567214476 K21.00 Controlled with use of pantoprazo le 40 mg daily. Recommend continued use as well as avoidance of known food triggers. Dysphagia 39975955 R13.1 0 Recent episodes of dysphagia to solids and medication . Recommend EGD to further evaluate for esophagiti s, hiatal hernia, stricture, ring. Colonoscopy planned 7039 21406 Z76.89 [id number] Magdy Strickland MD [facility] [address] [facility] [place] [address] 02/16/2024 13:33:00 02/16/2024 14:22:15 Chronic migraine without aura 0663798053 72578 G43.380 [id number] Magdy Strickland MD [facility] [address] [place] [address] 03/05/2024 13:12:19 03/05/2024 14:40:44 Chronic migraine without aura 1583006598 89272 G43.709 Myofascial pain 69233482 9 M79.12 Cervical spondylosis 387 315896 M47.812 Cervico-oc cipital neuralgia 57308270 M54.81 Brachial ( cervical) neuritis 290046780 M54.12 [id number] Magdy Strickland MD [facility] [address] [facility] [address] [place] [address] 03/26/2024 09:16:50 03/26/2024 10:07:24 Myofascial pain 824361442 M79.12 [id number] Magdy Strickland MD [facility] [address] [facility] [address] [place] [address] 04/19/2024 10:35:53 04/19/2024 11:23:24 Chronic migraine without aura 1330074697 51181 G43.709 - Patient has been treated by neurology and failed Topirimate , Metoprolol , Fioricet. She also has failed injections such as multiple TPIs, occipital nerve blocks, cervical MBBs, and cervical RFA which only provide short-term relief.- Without Botox injections , ADLs are become more difficult due to pain- Patient scheduled for Botox on 05/28/24. Brachial ( cervical) neuritis 119391419 M54.12 Cervico-oc cipital neuralgia 77353601 M54.81 - The patient may also be a candidate for neuromodul ation if other treatments are ineffectiv e long-term regarding her cervical neuritis. I will discuss later in the future. Cervical spondylosis 387 326004 M47.812 Myofascial pain 11493696 9 M79.12 - Based on the patients history and physical exam, it appears her pain is likely associated with myofascial pain of the cervical region. I also feel that cervical neuritis is a contributo r as well.- The ultimate goal in pursuing repeat Botox and TPIs sequential ly will be to establish a therapeuti c level of pain control to improve the patients quality of life.- I feel that the patient would benefit significan tly from recurrent TPI of the bilateral cervico-oc cipital region along with Botox injections quarterly to maintain a therapeuti c level of pain control as myofascial pain and cervical neuritis trigger her ongoing migraines. - S/p TPI Cervicotho racic region on 03/26/24.- successful - Schedule a TPI bilateral cervico-oc cipital region Q 6 weeks (on or after 05/07/24)- Follow up post procedure Pain of ri ght shoulder region 0019209713 M25.511 - Patient with Acute pain in her Right shoulder- She states she was reaching to get something from her cabinet and hurt her shoulder- Patient has history of shoulder impingemen t and has followed with Dr. Garcia in the past.- Patient is interested in a Subacromia l bursa injection following her Botox injections .- Will follow up post Botox. [id number] Magdy Strickland MD [facility] [address] [address] 05/07/2024 09:09:41 05/07/2024 09:38:00 Muscle pain 13814431 M79.18 [id number] Magdy Striclkand MD [facility] [address] [address] 05/28/2024 08:59:29 05/28/2024 09:55:16 Chronic migraine without aura 2217961114 58091 G43.073 [id number] Magdy Strickland MD [facility] [address] [address] 06/22/2024 08:55:29 06/22/2024 09:41:49 Myofascial pain 221195866 M79.10 [id number] BILLIE ZAMORA PA-C [facility] [address] [address] 07/06/2024 10:11:28 07/06/2024 11:47:49 Pain of right hip joint 7576874947 97538 M25.551 - The patient complains of right hip pain with radiation into the groin.- I will order a right hip x-ray to assess the degree of degenerati ve changes and the overall bony architectu re. Chronic mi graine without aura 2899446507 76790 G43.709 - Prior to Botox injections , the patient had a migraine headache daily, exceeding 15 migraine headache days per month, most of which lasted more than 4 hours despite abortive therapy. Migraine headache has been refractory to conservati ve and pharmacolo gic approaches (prophylac tic and abortive). The patient has taken numerous medication s without significan t benefit or tolerabili ty, such as: Topiramate , Metoprolol , and Fioricet. It appears that migraine headache severely limits function and ability to perform ADLs or work, thereby negatively impacting quality of life. The patient received Botox injections for migraine headache on 05/28/24, which was successful , as she noticed significan t (50% reduction in intensity and frequency of migraine headache and a decrease in headache hours per month by at least 100 hours) benefit following the procedure. I think the patient is a good candidate for quarterly Botox injections for migraine headache, so I will proceed with scheduling a repeat procedure. - In effort to better manage migraine headache in conjuction with Botox injections , I will start Qulipta 60 mg once daily. Myofascial pain 87458428 9 M79.12 - The patient is 2 weeks S/P TPI of the bilateral cervico-oc cipital region, which was successful in decreasing neck pain described as tightness/ spasm and headache by greater than 50%. Cervico-oc cipital neuralgia 67839432 M54.81 Pain of ri t shoulder region 9577276189 M25.511 - The patient notes that right shoulder pain isn't bothersome at this time. Cervical spondylosis 387 837979 M47.812 Brachial ( cervical) neuritis 759656319 M54.12 [id number] Magdy Strickland MD [facility] [address] [place] [address] 08/03/2024 10:03:31 08/03/2024 11:55:32 Myofascial pain 567531480 M79.12 [id number] Magdy Strickland MD [facility] [address] [facility] [address] [place] [address] 08/29/2024 11:08:17 08/29/2024 12:11:57 Chronic migraine without aura 2687040811 13024 G43.545 [id number] Magdy Strickland MD [facility] [address] [address] 09/21/2024 09:33:59 09/21/2024 10:47:06 Myofascial pain 169497990 M79.12 [id number] BILLIE ZAMORA PA-C [facility] [address] [address] 10/08/2024 10:47:01 10/08/2024 13:13:42 Pain of right hip joint 4783603766 20819 M25.551 - The patient complains of right hip pain with radiation into the groin.- The patient completed a right hip x-ray, which I will review upon receipt.- I would like to review imaging prior to considerin g interventi onal treatment options. After reviewing imaging, I will likely schedule either a right hip intra-espinoza cular injection or a right GTB injection. Chronic mi graine without aura 5250554745 35695 G43.709 - The patient is scheduled for Botox injections for migraine headache.- Continue Qulipta 60 mg once daily Myofascial pain 36413702 9 M79.12 The patient is 2 weeks S/P TPI of the bilateral cervico-oc cipital region, which was successful in decreasing neck pain described as tightness/ spasm and headache by greater than 50%. Cervico-oc cipital neuralgia 57040588 M54.81 Pain of ri ght shoulder region 9012741449 M25.511 - The patient notes that right shoulder pain isn't bothersome at this time. Cervical spondylosis 387 431080 M47.812 Brachial ( cervical) neuritis 632781618 M54.12 Constipation 74640022 K5 9.00 - The patient has a recent history of an ED visit due to constipati on.- The patient is currently taking an antibiotic (diagnosed with diverticul itis).- The patient is managing constipati on with OTC medication .- I advised the patient to follow up with GI for further evaluation . [id number] Magdy Strickland MD [facility] [address] [facility] [address] [place] [address] 11/08/2024 09:08:26 11/08/2024 10:26:10 Myofascial pain 728012446 M79.18 Chronic mi graine without aura 3814210050 11580 G43.394 [id number] Magdy Strickland MD [facility] [address] [facility] [address] [place] [address] 11/21/2024 11:34:03 11/21/2024 12:10:37 Pain of right hip joint 2634085926 67482 M25.551 - The patient complains of right [...] post injection. Chronic mi graine without aura 2530072767 46628 G43.709 - The patient is scheduled for Botox injections for migraine headache quarterly. - Will refill Qulipta 60 mg once daily, Fioricet and Nurtec today. Myofascial pain 24589251 9 M79.12 The patient is S/P TPI [...] on or after 12/20/24. Cervico-oc cipital neuralgia 46377704 M54.81 Pain of ri ght shoulder region 5278903354 M25.511 - The patient notes that right shoulder pain isn't bothersome at this time. Cervical spondylosis 387 157529 M47.812 Brachial ( cervical) neuritis 934941282 M54.12 Constipation 91990495 K5 9.00 - The patient has a recent history of an ED visit due to constipati on.- The patient is currently taking an antibiotic (diagnosed with diverticul itis).- The patient is managing constipati on with OTC medication .- I advised the patient to follow up with GI for further evaluation . [id number] Magdy Strickland MD [facility] [address] [address] 11/30/2024 08:51:25 11/30/2024 09:41:54 Migraine without aura, not refractory 972268684 G43.221 [id number] Magdy Strickland MD [facility] [address] [facility] [address] [address] 01/04/2025 10:44:36 01/04/2025 11:46:54 Myofascial pain 592859153 M79.18 Health Concerns Section Related Observation LastModified by Organization Detai ls LastModified Time None Recorded Concern Status LastModified by Organization Details LastModified Time None Recorded Advance Directives Directive N: Payers Insurance Date Sequence Insurance Name Policy Number Policy Wang Covered Member ID Wang Member ID Guarantor Name 01/21/2025 1 [facility] (MEDICAID HMO) Aracely Galeanoizzy [id number] Aracely Carlie Andre Notes Date Note Type Note Provider Name and Address Organization Details Recorded Time 10/08/2024 text/html Mrs. Powell was referred by Dr. Garcia for SI joint pain. The patient has a history of tailbone fracture. The patient has a history of cervical surgery (ACDF). The patient has been diagnosed with Leonard's disease. The patient has a recent history of an ED visit due to constipation. The patient is currently taking an antibiotic (diagnosed with diverticulitis). The patient presents to the clinic today to follow up post-procedure. The patient is 2 weeks S/P TPI of the bilateral cervico-occipital region, which was successful in decreasing neck pain described as tightness/spasm and headache by greater than 50%. The patient continues to complain of migraine headache, which has decreased function, thereby negatively affecting quality of life. The patient states that she is scheduled for Botox injections for migraine headache. The patient also complains of right hip pain with radiation into the groin. Today the pain level is a 5/10, but fluctuates higher (6 or more). BILLIE ZAMORA PA-C [address], [place], [address], [facility] [place] [facility] [place] 10/10/2024 09:40:31 11/21/2024 text/html Mrs. Powell was referred by Dr. Garcia for SI joint pain. The patient has a history of tailbone fracture. The patient has a history of cervical surgery (ACDF). The patient has been diagnosed with Leonard's disease. The patient has a recent history of an ED visit due to constipation. The patient is currently taking an antibiotic (diagnosed with diverticulitis). The patient presents to the clinic today to follow up post-procedure. The patient is S/p TPI Bilateral Occipital Tendon, Trapezius, Levator Scapulae with Bup only on 11/08/24. Patient states she received significant benefit of 80% reduction in pain as well as a decrease in the frequency of her headaches since the injection. The patient continues to complain of migraine headache although decreased from prior. The patient also complains of right hip pain with radiation into the groin. Today the pain level is a 3/10, but fluctuates higher (6 or more). ALEIDA COOPER PA-C [address], [place], [address], [facility] [place] [facility] [place] 11/22/2024 10:35:31 OBGyn Episode No OBEpisode recorded.
--- OUTSIDE RECORDS SUMMARY | 2025-01-23 13:11 | XMS_ITS | Clinical Summary ---
Author Organization [facility] Address 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 [address] Madeline Morris, Clerical Staff Abnormal Radiology 01/07/2025 1:34 PM EDT - 01/07/2025 11:59 PM EDT Hospital Encounter Mobile Mammography Other Location View online schedule for mobile van location [phone] Krystla Chilel NP Encounter for screening mammogram for malignant neoplasm of breast Discharge Disposition: Home or Self Care from Last 3 Months Surgical History Surgery Date Site/Laterality Comments BREAST BIOPSY 07/18/2010 - 07/17/2011 Right Social History Tobacco Use Types Packs/Day Years Used Date Smoking Tobacco: Never Assessed Comments No Sex and Gender Information Value Date Recorded Sex Assigned at Not on file Legal Sex Female 12:47 PM EDT Gender Identity Not on file Sexual Orientation Not on file Obstetrics History Para Term AB IAB SAB Ectopic Multiple Livin g Live Births 2 Last Filed Vital Signs Vital Sign Reading Time Taken Comments Blood Pressure - - Pulse - - Temperature - - Respiratory Rate - - Oxygen Saturation - - Inhaled Oxygen Concentration - - Weight 90.7 kg (200 lb) 01/07/2025 1:35 PM EDT Height 167.6 cm (5' 6 ) 01/07/2025 1:35 PM EDT Body Mass Index 32.28 01/07/2025 1:35 PM EDT Plan of Treatment Health Maintenance Due Date Last Done Comments Annual Wellness Exam 1976 Hepatitis B Vaccine (1 of 3 - 19+ 3-dose series) 1992 Cervical Cancer Screening 1994 Pap Smear 1994 HPV/Pap Cotest 2003 DTaP/TDaP/Td (1 - Tdap) 11/12/2014 11/11/2014 Colonoscopy 2018 FIT 2018 Sigmoidoscopy 2018 Virtual Colonography 2018 Pneumococcal Vaccine 50+ (1 of 1 - PCV) 2023 Zoster (1 of 2) 2023 COVID-19 Vaccine (5 - season) 2024 05/25/2022, 06/04/2021, 10/16/2020, Additional history exists Influenza Vaccine (#1) 2025 04/17/2024, 2022 Cologuard 02/27/2026 02/27/2023 Colon Cancer Screening 02/27/2026 Breast Cancer Screening 01/07/2027 01/07/2025 Meningococcal B Vaccine Aged Out No l onger eligible based on patient's age to complete this topic Procedures Procedure Name Priority Date/Time Associated Diagnosis Comments MM OUTSIDE FILMS FOR COMPARISON Routine 01/08/2025 10:55 AM EDT MM OUTSIDE FILMS FOR COMPARISON Routine 01/08/2025 10:53 AM EDT MM OUTSIDE FILMS FOR COMPARISON Routine 01/08/2025 10:53 AM EDT MM MAMMO DIGITAL RANDELL SCREEN BILAT Routine 01/07/2025 1:35 PM EDT Encounter for screening mammogram for malignant neoplasm of breast from Last 3 Months Results * MM OUTSIDE FILMS FOR COMPARISON (01/08/2025 10:55 AM EDT) Only the most recent of3 resultswithin the time period is included. us Unknown Provider IMG MAMMOGRAPHY ORDERABLES Oneyda l Result PACS * (ABNORMAL) MM MAMMO DIGITAL RANDELL SCREEN BILAT (01/07/2025 1:35 PM EDT) Anatomical Region Laterality Modality Breast Bilateral Mammography 01/07/2025 1:35 PM EDT Impressions 01/08/2025 12:15 PM EDT Incomplete: Need additional imaging evaluation ([id number]) RECOMMENDATION: Additional Imaging Diagnostic Mammogram Left Additional Imaging Breast Ultrasound Left COMMENTS: DISCLAIMER *The patient was notified by MyChart or mail of the results for this examination. *The patient's information was entered into a reminder system with a target due date for the next breast imaging, in accordance with the [employer] and the Society of [...] for screening mammogram for malignant neoplasm of [id number] COMPARISON STUDIES: Compared with prior studies the most recent being 09/22/2022, [place], [place] TISSUE DENSITY: There are scattered areas of fibroglandular density. FINDINGS: One view asymmetry left breast seen in superior aspect of left breast on MLO view only. No suspicious microcalcification Right-sided mammograms are normal. Procedure Note Td Kay MD - 01/08/2025 EXAM: MM MAMMO DIGITAL RANDELL SCREEN BILAT EXAM DATE: 01/07/2025 1:35 PM INDICATION: Z12.31-Encounter for screening mammogram for malignantneoplasm of [id number] COMPARISON STUDIES: Compared with prior studies the most recent being09/22/2022, [place], [place] TISSUE DENSITY: There are scattered areas of fibroglandular density. FINDINGS: One view asymmetry left breast seen in superior aspect of leftbreast on MLO view only. No suspicious microcalcification Right-sided mammograms are normal. IMPRESSION: Incomplete: Need additional imaging evaluation ([id number]) RECOMMENDATION: Additional Imaging Diagnostic Mammogram Left Additional Imaging Breast Ultrasound Left COMMENTS: DISCLAIMER *The patient was notified by MyChart or mail of the results for this examination. *The patient's information was entered into a reminder system with atarget due date for the next breast imaging, in accordance with the [employer] and the Society of Breast Imaging recommendations. *Breast Imaging has a false negative rate of 15%. *Any patient with a palpable abnormality, unexplained by breast imaging,should be managed on a clinical basis by the attending physician. us Krystal Chilel BOX LINER IMG MAMMOGRAPHY ORDERABLE S Final Result from Last 3 Months Insurance [facility] [place] [address]
--- OUTSIDE RECORDS SUMMARY | 2025-01-23 13:12 | XMS_ITS | Clinical Summary ---
Author Organization [facility] Address [address] [place] [address] Care Team Providers Care Drum Attendant Name Role Phone Krystal Chilel APRN Primary Care Provider [phone] Allergies No known active allergies Medications No known medications Active Problems No known active problems Family History Medical History Relation Name Comments Conversions - Other Father Back pro blem Goiter Mother Hypertension Mother Conversions - Other Other 1 Back pro blem Hypertension Other 2 Goiter Other 3 Other cancer Other 4 Conversions - Other Other 5 Heredita ry hemorrhagic telangiectasia Relation Name Status Comments Father Mother Other 1 Other 2 Other 3 Other 4 Other 5 Social History Tobacco Use Types Packs/Day Years Used Date Smoking Tobacco: Every Day Alcohol Use Standard Drinks/Week Comments No 0 (1 standard drink = 0.6 oz pur e alcohol) Comments Unknown Sex and Gender Information Value Date Recorded Sex Assigned at Not on file Legal Sex Female 7:48 PM EDT Gender Identity Not on file Sexual Orientation Not on file Last Filed Vital Signs Vital Sign Reading Time Taken Comments Blood Pressure 143/80 03/30/2022 3:00 AM EDT Pulse 71 03/30/2022 3:00 AM EDT Temperature 37.1 C (98.8 F) 03/30/2022 3:00 AM EDT Respiratory Rate 18 03/30/2022 3:00 AM EDT Oxygen Saturation 99% 03/30/2022 3:00 AM EDT Inhaled Oxygen Concentration - - Weight 98.6 kg (217 lb 6 oz) 01/28/2017 1:17 PM EDT Height 167.6 cm (5' 6 ) 01/28/2017 1:17 PM EDT Body Mass Index 35.09 01/28/2017 1:17 PM EDT Plan of Treatment Upcoming Encounters Date Type Department Care Team (Late st Contact Info) Description 02/01/2025 3:00 PM EDT Office Visit [facility] [address] [place] [address] Odessa Rodriguez PA [address] [place] [address] Health Maintenance Due Date Last Done Comments [facility]-Depression Screening 1975 [facility]-/Child/Adol SDOH Screenings 1973 [facility]- SDOH Screenings 1991 [facility]-Adult SDOH Screenings 1991 [facility]-DTaP,Tdap,and Td Vaccines (1 - Tdap) 1992 [facility]-Hepatitis B Vaccines (1 of 3 - 19+ 3-dose series) 1992 CT Colonography 2018 Colonoscopy 2018 FIT-DNA 2018 FIT 2018 FOBT 2018 Sigmoidoscopy 2018 [facility]-Colorectal Cancer Screening 2018 [facility]-Breast Cancer Screening 2023 [facility]-Pneumococcal Vaccine: 50+ Years (1 of 1 - PCV) 2023 [facility]-Zoster Vaccines (1 of 2) 2023 [id number] Vaccine ( season) 2024 05/25/2022, 06/04/2021, 10/16/2020, Additional history exists [facility]-Influenza Vaccine (#1) 2025 04/17/2024, [facility]-Cervical Cancer Screening Discontinued [facility]-HPV/Cotest Discontinued 07/08/2014 [facility]-Pap Smear Discontinued 07/08/2014 [facility]-HIV Screening Completed 03/29/2022 [facility]-Hepatitis C Screening Completed 03/29/2022 HPV Vaccines Aged Out No longer eligi ble based on patient's age to complete this topic [facility]-HIB Vaccines Aged Out No longer e ligible based on patient's age to complete this topic [facility]-Hepatitis A Vaccines Aged Out No longer eligible based on patient's age to complete this topic [facility]-IPV Vaccines Aged Out No longer e ligible based on patient's age to complete this topic [facility]-Rotavirus Vaccines Aged Out No lo nger eligible based on patient's age to complete this topic Procedures Procedure Name Priority Date/Time Associated Diagnosis Comments HEPATITIS C ANTIBODY - ED W/REFLEX TO HCV QUANT PCR STAT 03/29/2022 10:59 PM EDT HIV 1/2 ANTIBODY/ANTIGEN SCREEN WITH REFLEX TO HIV I/II DIFFERENTIATION STAT 03/29/2022 10:59 PM EDT CYTO DATA CONVERSION Routine 07/08/2014 12:00 AM EST from Last 3 Months or Most Recently Relevant to Health Maintenance Results * HIV 1 & 2 Antibody/Antigen Screen (03/29/2022 10:59 PM EDT) HIV 1 & 2 Antibody/Anti gen Screen Nonreactive Nonreactive 03/30/2022 1:16 AM EDT [facility] Blood Venous blood specimen / Unknown Venipuncture / Unknown 03/29/2022 10:59 PM EDT 03/29/2022 11:22 PM EDT us Godfrey Quiles MD LAB BLOOD ORDERABLES Final Result Performing Organization Address City/[facility] Co de Phone Number [facility] [address] [place] [address] * Hepatitis C Antibody - ED (03/29/2022 10:59 PM EDT) Hepatitis C Antibody Negative Negative 03/30/2022 1:28 AM EDT [facility]ALTH[facility]ARE [facility] Blood Venous blood specimen / Unknown Venipuncture / Unknown 03/29/2022 10:59 PM EDT 03/29/2022 11:22 PM EDT us Godfrey Quiles MD LAB BLOOD ORDERABLES Final Result Performing Organization Address [facility] Co de Phone Number [facility] [address] [place] [address] * Cytology (07/08/2014 12:00 AM EST) 07/08/2014 07/09/2014 11: 21 AM EST Narrative SUNQUEST - 07/15/2014 3:22 PM EST [facility] MR #: [id number] [facility] [place] [id number] 1975 (Age: 39) FW Collect Date: 07/08/2014 00:00 Receipt Date: 07/09/2014 11:21 Page 1 DEPARTMENT OF PATHOLOGY AND LABORATORY MEDICINE CYTOPATHOLOGY REPORT Email: [email or web address] [phone] ATTENDING MD/Practitioner: Elio Michael MD Service: SSG Location: SSGS Reported: 07/15/2014 15:22 Collected: 07/08/2014 00:00 DIAGNOSIS A. LEFT LEVEL 4 LYMPH NODE (0.9cm), ULTRASOUND GUIDED FNA: - PAUCICELLULAR ASPIRATE WITH FEW LYMPHOCYTES, SEE COMMENT. B. RIGHT THYROID NODULE (1cm), ULTRASOUND GUIDED FNA: - ABUNDANT COLLOID, FEW BLAND FOLLICULAR GROUPS, MOST CONSISTENT WITH COLLOID NODULE. COMMENT Of the four passes performed, three passes are acellular and only one pass shows scattered lymphocytes, definite aggregates of lymphoid tissue are not identified. Although no metastatic carcinoma is identified, given the limited sample available for review, sampling variance cannot be excluded. Please correlate with clinical findings and imaging studies. Electronically Signed Out Sharmila Guan M.D. PROCEDURES/ADDENDA GROSS DESCRIPTION: A: No needle rinse fluid B: No needle rinse fluid CLINICAL INFORMATION: CLINICAL DIAGNOSIS A: FNA performed by: Dr. Michael Number of sticks: 4 Immediate evaluation performed by: Dr. Guan Evaluation episode # 1 3: Blood 4: Few lymphocytes B: FNA performed by: Dr. Michael Number of sticks: 3 Immediate evaluation performed by: Dr. Guan Evaluation episode # 1 3: Colloid and no follicular groups A pathologist has personally reviewed the slides/tissue and has rendered and is responsible for the diagnosis that appears on the report. SPECIMEN DESCRIPTION: A: US GUIDED FNA 0.9 CM LEFT LEVEL 4 LYMPH NODE PAP STAIN x 4, DIFF-QUIK x 4 B: FNA 1.0 CM RIGHT THYROID NODULE, ULTRASOUND GUIDED PAP STAIN x 3, DIFF-QUIK x 3 ICD: 240.9 GOITER NOS 785.6 ENLARGEMENT OF LYMPH NODES (REACTIVE LYMPHOID HYPERPLASIA - LYMPH NODE) F: A; 10965 ASP INTER, 80958 A,B; 23051(2) B; 96392 ASP INTER SNOMED CODES: A; P1144 P1149 [id number] B; Y14698 P1149 [id number] A resident has participated in this service. A pathologist has performed and is responsible for the reported pathologic evaluation. us Franck Michael MD LAB PATHOLOGY ORDERABLES Final Result SUNQUEST from Last 3 Months or Most Recently Relevant to Health Maintenance Insurance [employer] Care Teams Drum Attendant Relationship Specialty Start Date End Date Krystal Chilel APRN [address] [place] [address] PCP - General 03/29/22
--- OUTSIDE RECORDS SUMMARY | 2025-01-23 13:12 | XMS_ITS | Data Portability ---
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 Increase oral fluids. Medications per plan below. Patient states she cannot tolerate medication only twice per day and requests QID antibiotic. Follow up if no improvement or worsening and as needed. Not available 06/27/2024 11:16:00 Plan of Treatment Reminders Order Date Submit Date Provider Last Modified By Organization Details Last Modified Time Details Appointments FOLLOW UP 15 2024 01:30P M Odilon Chilel APRN Not available Not available Not available Lab PPD (purified protein derivativ e), skin test 2024 025 [facility], [place], [address] [place] [address], [id number], 12/26/2024 16:00:53 HbA1c (hemoglob in A1c), blood 2024 025 [email or web address] [facility], [place], [address] [place] [address], [id number], 11/23/2024 18:09:26 CMP, serum or plasma 2024 025 [facility] ([facility], [address] [place], [address], 11/26/2024 14:11:03 CBC w/ auto diff 2024 025 [facility]), [address] [place], [address], 11/26/2024 14:11:02 TSH + free T4, serum 2024 025 [facility]), [address] [place], [address], 11/26/2024 14:11:01 dhea-sulf ate, serum 2024 025 [facility]), [facility] [place], [address], 11/26/2024 14:11:06 lh + FSH, serum [address] [facility] ([place]), [address] [place], [address], 11/26/2024 14:11:05 JEFF (antinucl ear antibodie s) screen, serum 2024 025 [facility]), [address] [place] [address], [address], 11/26/2024 14:11:08 HIV 1 + 2, meaningfu l use set 2024 025 [facility]), [address] [place] [address], [address], 11/26/2024 14:11:08 lipid panel, serum 2024 025 [facility]), [address] [place] [address], [address], 11/26/2024 14:11:04 vitamin D, 25-hydrox y, total, serum 2024 025 [facility]), [address] [place] [address] [place], [address], 11/26/2024 14:11:07 cobalamin and folate panel, serum 2024 025 [facility] ([place]), [address] [facility], [place], [address], 11/26/2024 14:11:04 iron + TIBC + ferritin, serum 2024 025 [facility] ([place]), [address] [facility], [place], [address], 11/26/2024 14:11:00 HbA1c (hemoglob in A1c), blood [address], [address] [place] [address], [phone], 08/16/2024 18:15:55 rapid flu (A+B) [address], [address], 06/27/2024 11:14:38 rapid SARS CoV 2 Ag, QL, IA, upper respirato ry specimen [address], [address], 06/27/2024 11:14:37 rapid strep group A, throat [address], [address], 06/27/2024 11:14:37 Referral endocrino logy referral - first avail. [address] [facility] , [address], [address], [place], [address], 12/03/2024 11:07:59 Procedures None recorded. Surgeries None recorded. Imaging None recorded. Medication Orders tuberculi n PPD 5 tub. unit/0.1 mL intraderm al injection solution [email or web address] [facility], [address] [place] [address], [id number], 12/24/2024 10:24:32 cetirizin e 10 mg tablet 2024 025 [facility], [address] [place] [address], [id number], 01/14/2025 11:08:50 hydroxyzi ne HCl 10 mg tablet 2024 [facility], [address] [place] [address], [id number], 11/26/2024 12:59:09 pravastat in 80 mg tablet 2024 025 [facility], [address] [place] [address], [id number], 12/26/2024 15:23:57 estradiol 0.01% (0.1 mg/gram) vaginal cream 2024 025 [facility], [address] [place] [address], [address], 11/28/2024 09:53:18 magnesium oxide 400 mg (241.3 mg magnesium ) tablet 2024 025 [facility], [address] [place] [address], [id number], 11/26/2024 12:59:11 inositol- choline bit-biofl tam-vit B complex and C 500 mg tablet 2024 025 [facility], [address] [place] [address], [address], 11/23/2024 15:44:33 oxybutyni n chloride ER 15 mg tablet,ex tended release 24 hr 2024 025 [facility], [address] [place] [address], [id number], 11/23/2024 15:49:34 ergocalci ferol (vitamin D2) 1,250 mcg (50,000 unit) capsule 2024 025 [facility], [address] [place] [address], [id number], 11/26/2024 12:59:10 pantopraz ole 40 mg tablet,de layed release 2024 025 [facility], [address] [place] [address], [id number], 11/23/2024 17:50:31 albuterol sulfate HFA 90 mcg/actua tion aerosol inhaler 2024 025 [facility], [address] [place] [address], [id number], 11/26/2024 12:59:08 levothyro xine 112 mcg tablet 2024 025 [facility], [address] [place] [address], [address], 11/26/2024 12:59:08 cetirizin e 10 mg tablet 2024 025 [facility], [address] [place] [address], [id number], 11/23/2024 14:24:06 fluticaso ne propionat e 50 mcg/actua tion nasal spray,maylin pension 2024 025 [facility], [address] [place] [address], [id number], 08/21/2024 13:51:29 blood sugar diagnosti c strips 2024 025 [facility], [address] [place] [address], [id number], 08/21/2024 13:51:39 estradiol 0.01% (0.1 mg/gram) vaginal cream 2024 025 [facility], [address] [place] [address], [id number], 08/21/2024 13:51:36 hydroxyzi ne HCl 10 mg tablet 2024 025 [facility], [address] [place] [address], [address], 08/21/2024 13:51:34 inositol- choline bit-biofl tam-vit B complex and C 500 mg tablet 2024 025 [facility], [address] [place] [address], [address], 08/16/2024 15:25:31 Jardiance 25 mg tablet 2024 025 [facility], [address] [place] [address], [address], 11/03/2024 10:57:52 Augmentin 875 mg-125 mg tablet 2023 025 [facility], [address] [place] [address], [address], 08/16/2024 13:35:21 Medrol (Baron) 4 mg tablets in a dose pack 2023 025 [facility], [address] [place] [address], [address], 08/16/2024 14:55:24 albuterol sulfate HFA 90 mcg/actua tion aerosol inhaler 2023 024 [facility], [address] [place] [address], [address], 06/27/2024 15:06:37 Mucinex 1,200 mg tablet, extended release 2023 024 [facility], [address] [place] [address], [id number], 06/27/2024 15:06:36 Patient TargetsNo targets recorded. Patient Instructions Encounter Date Encounter Id Patient Instructions Last Modified By Organization Details Last Modified Time 06/27/2024 [id number] sore throat: car e instructions Not available 06/27/2024 11:14:37 bronchitis: care instructions Not available 06/27/2024 11:14:37 Reason for Referral Endocrinology Referral for H ypothyroidism first avail. Referring Physician: Krystal Chilel, Family Medicine, Encounter Date: 11/23/2024 Results Created Date Observation Date Name Description Value Unit Range Abnormal Flag Note LastModifiedBy Organization Detail LastModifiedTime 06/27/20 24 06/27/2024 rapid strep group A, throa t Strep negati ve Not Available [address], [address], 06/27/2024 10:41:35 06/27/20 24 06/27/2024 rapid SARS CoV 2 Ag, QL, IA, upper respi rator y speci men SARS CoV Ag negati ve Not Available [address], [address], 06/27/2024 10:41:30 06/27/20 24 06/27/2024 rapid flu (A+B) Flu A negati ve Not Available [address], [address], 06/27/2024 10:41:26 06/27/20 24 06/27/2024 rapid flu (A+B) Flu B negati ve Not Available [address], [address], 06/27/2024 10:41:26 08/16/19 25 08/16/2024 HbA1c (hemo globi n A1c), blood HbA1c 5.8 Not Available [address], [address], 08/16/2024 13:36:19 11/24/19 25 11/24/2024 FE+TI BC+FE R iron bind.cap.(TI BC) 391 ug/dL 250-45 0 normal Not Available [facility] ([facility]) [address] [place], [address], 11/26/2024 14:11:00 11/24/19 25 11/24/2024 FE+TI BC+FE R UIBC 375 ug/dL 131-42 5 normal Not Available [facility] ([facility]) [address] [place], [address], 11/26/2024 14:11:00 11/24/19 25 11/24/2024 FE+TI BC+FE R iron 16 ug/dL 27-159 below low normal Not Available [facility] ([facility]) [address] [place], [address], 11/26/2024 14:11:00 11/24/19 25 11/24/2024 FE+TI BC+FE R iron saturation 4 % 15-55 alert low Not Available [facility] ([facility]) [address] [place], [address], 11/26/2024 14:11:00 11/24/19 25 11/24/2024 FE+TI BC+FE R ferritin 16 NG/mL 15-150 normal Not Available [facility] ([facility]) [address] [place], [address], 11/26/2024 14:11:00 11/24/19 25 11/24/2024 TSH+F REE T4 TSH 2.540 uIU/m L 0.450- 4.500 normal Not Available [facility] ([facility]) [address] [place], [address], 11/26/2024 14:11:01 11/24/1911/24/2024 TSH+F REE T4 T4,free(dire ct) 1.22 NG/dL 0.82-1 .77 normal Not Available [facility] ([facility]) [address] [place], [address], 11/26/2024 14:11:01 11/24/1911/24/2024 CBC WITH DIFFE RENTI AL/PL ATELE T WBC 10.6 x10e3 /uL 3.4-10 .8 normal Not Available [facility] ([facility]) [address] [place], [address], 11/26/2024 14:11:02 11/24/1911/24/2024 CBC WITH DIFFE RENTI AL/PL ATELE T RBC 4.46 x10e6 /uL 3.77-5 .28 normal Not Available [facility] ([facility]) [address] [place], [address], 11/26/2024 14:11:02 11/24/1911/24/2024 CBC WITH DIFFE RENTI AL/PL ATELE T hemoglobin 10.9 g/dL 11.1-1 5.9 below low normal Not Available [facility] ([facility]) [address] [place], [address], 11/26/2024 14:11:02 11/24/1911/24/2024 CBC WITH DIFFE RENTI AL/PL ATELE T hematocrit 35.8 % 34.0-4 6.6 normal Not Available [facility] ([facility]) [address] [place], [address], 11/26/2024 14:11:02 11/24/19 25 11/24/2024 CBC WITH DIFFE RENTI AL/PL ATELE T MCV 80 fL 79-97 normal Not Available [facility] ([facility]) [address] [place], [address], 11/26/2024 14:11:02 11/24/19 25 11/24/2024 CBC WITH DIFFE RENTI AL/PL ATELE T MCH 24.4 pg 26.6-3 3.0 below low normal Not Available [facility] ([facility]) [address] [place], [address], 11/26/2024 14:11:02 11/24/1911/24/2024 CBC WITH DIFFE RENTI AL/PL ATELE T MCHC 30.4 g/dL 31.5-3 5.7 below low normal Not Available [facility] ([facility]) [address] [place], [address], 11/26/2024 14:11:02 11/24/19 25 11/24/2024 CBC WITH DIFFE RENTI AL/PL ATELE T RDW 14.7 % 11.7-1 5.4 Not Available [facility] ([facility]) [address] [place], [address], 11/26/2024 14:11:02 11/24/19 25 11/24/2024 CBC WITH DIFFE RENTI AL/PL ATELE T platelets 310 x10e3 /uL 150-45 0 normal Not Available [facility] ([facility]) [address] [place], [address], 11/26/2024 14:11:02 11/24/19 25 11/24/2024 CBC WITH DIFFE RENTI AL/PL ATELE T neutrophils 62 % not estab. normal Not Available [facility] ([facility]) [address] [place], [address], 11/26/2024 14:11:02 11/24/19 25 11/24/2024 CBC WITH DIFFE RENTI AL/PL ATELE T lymphs 30 % not estab. normal Not Available [facility] ([facility]) [address] [place], [address], 11/26/2024 14:11:02 11/24/19 25 11/24/2024 CBC WITH DIFFE RENTI AL/PL ATELE T monocytes 5 % not estab. normal Not Available [facility] ([facility]) [address] [facility], [place], [address], 11/26/2024 14:11:02 11/24/19 25 11/24/2024 CBC WITH DIFFE RENTI AL/PL ATELE T eos 2 % not estab. normal Not Available [facility] ([facility]) [address] [facility], [place], [address], 11/26/2024 14:11:02 11/24/19 25 11/24/2024 CBC WITH DIFFE RENTI AL/PL ATELE T basos 1 % not estab. normal Not Available [facility] ([facility]) [address] [place], [address], 11/26/2024 14:11:02 11/24/19 25 11/24/2024 CBC WITH DIFFE RENTI AL/PL ATELE T immature cells [employer] Not Available [facility] ([facility]) [address] [place], [address], 11/26/2024 14:11:02 11/24/19 25 11/24/2024 CBC WITH DIFFE RENTI AL/PL ATELE T neutrophils (absolute) 6.7 x10e3 /uL 1.4-7. 0 normal Not Available [facility] ([facility]) [address] [place], [address], 11/26/2024 14:11:02 11/24/19 25 11/24/2024 CBC WITH DIFFE RENTI AL/PL ATELE T lymphs (absolute) 3.1 x10e3 /uL 0.7-3. 1 normal Not Available [facility] ([facility]) [address] [facility], [place], [address], 11/26/2024 14:11:02 11/24/19 25 11/24/2024 CBC WITH DIFFE RENTI AL/PL ATELE T monocytes(ab solute) 0.5 x10e3 /uL 0.1-0. 9 normal Not Available [facility] ([facility]) [address] [facility], [place], [address], 11/26/2024 14:11:02 11/24/1911/24/2024 CBC WITH DIFFE RENTI AL/PL ATELE T eos (absolute) 0.2 x10e3 /uL 0.0-0. 4 normal Not Available [facility] ([facility]) [address] [facility], [place], [address], 11/26/2024 14:11:02 11/24/19 25 11/24/2024 CBC WITH DIFFE RENTI AL/PL ATELE T baso (absolute) 0.1 x10e3 /uL 0.0-0. 2 normal Not Available [facility] ([facility]) [address] [facility], [place], [address], 11/26/2024 14:11:02 11/24/1911/24/2024 CBC WITH DIFFE RENTI AL/PL ATELE T immature granulocytes 0 % not estab. Not Available [facility] ([facility]) [address] [facility], [place], [address], 11/26/2024 14:11:02 11/24/1911/24/2024 CBC WITH DIFFE RENTI AL/PL ATELE T immature grans (abs) 0.0 x10e3 /uL 0.0-0. 1 Not Available [facility] ([facility]) [address] [facility], [place], [address], 11/26/2024 14:11:02 11/24/19 25 11/24/2024 CBC WITH DIFFE RENTI AL/PL ATELE T NRBC [employer] Not Available [facility] ([facility]) [address] [facility], [place], [address], 11/26/2024 14:11:02 11/24/19 25 11/24/2024 CBC WITH DIFFE RENTI AL/PL ATELE T hematology comments: [employer] Not Available [facility] ([facility]) [address] [facility], [place], [address], 11/26/2024 14:11:02 11/24/19 25 11/24/2024 COMP. METAB OLIC PANEL (14) glucose 92 mg/dL 70-99 normal Not Available [facility] ([facility]) [address] [facility], [place], [address], 11/26/2024 14:11:03 11/24/19 25 11/24/2024 COMP. METAB OLIC PANEL (14) BUN 15 mg/dL 6-24 normal Not Available [facility] ([facility]) [address] [place], [address], 11/26/2024 14:11:03 11/24/19 25 11/24/2024 COMP. METAB OLIC PANEL (14) creatinine 0.86 mg/dL 0.57-1 .00 normal Not Available [facility] ([facility]) [address] [facility], [place], [address], 11/26/2024 14:11:03 11/24/19 25 11/24/2024 COMP. METAB OLIC PANEL (14) eGFR 82 mL/mi n/1.7 3 >59 normal Not Available [facility] ([facility]) [address] [place], [address], 11/26/2024 14:11:03 11/24/19 25 11/24/2024 COMP. METAB OLIC PANEL (14) BUN/creatini ne ratio 17 9-23 normal Not Available [facility] ([facility]) [address], [place], [address], 11/26/2024 14:11:03 11/24/19 25 11/24/2024 COMP. METAB OLIC PANEL (14) sodium 142 mmol/ L 134-14 4 normal Not Available [facility] ([facility]) [address] [place], [address], 11/26/2024 14:11:03 11/24/19 25 11/24/2024 COMP. METAB OLIC PANEL (14) potassium 3.9 mmol/ L 3.5-5. 2 normal Not Available [facility] ([facility]) [address] [place], [address], 11/26/2024 14:11:03 11/24/19 25 11/24/2024 COMP. METAB OLIC PANEL (14) chloride 106 mmol/ L 96-106 normal Not Available [facility] ([facility]) [address] [place], [address], 11/26/2024 14:11:03 11/24/19 25 11/24/2024 COMP. METAB OLIC PANEL (14) carbon dioxide, total 21 mmol/ L 20-29 normal Not Available [facility] ([facility]) [address] [place], [address], 11/26/2024 14:11:03 11/24/19 25 11/24/2024 COMP. METAB OLIC PANEL (14) calcium 9.6 mg/dL 8.7-10 .2 normal Not Available [facility] ([facility]) [address] [place], [address], 11/26/2024 14:11:03 11/24/19 25 11/24/2024 COMP. METAB OLIC PANEL (14) protein, total 7.8 g/dL 6.0-8. 5 normal Not Available [facility] ([facility]) [address] [place], [address], 11/26/2024 14:11:03 11/24/19 25 11/24/2024 COMP. METAB OLIC PANEL (14) albumin 4.7 g/dL 3.8-4. 9 normal Not Available [facility] ([facility]) [address] [place], [address], 11/26/2024 14:11:03 11/24/19 25 11/24/2024 COMP. METAB OLIC PANEL (14) globulin, total 3.1 g/dL 1.5-4. 5 Not Available [facility] ([facility]) [address] [place], [address], 11/26/2024 14:11:03 11/24/19 25 11/24/2024 COMP. METAB OLIC PANEL (14) bilirubin, total <0.2 mg/dL 0.0-1. 2 Not Available [facility] ([facility]) [address] [place], [address], 11/26/2024 14:11:03 11/24/19 25 11/24/2024 COMP. METAB OLIC PANEL (14) alkaline phosphatase 105 IU/L 44-121 normal Not Available [facility]) [address] [place], [address], 11/26/2024 14:11:03 11/24/19 25 11/24/2024 COMP. METAB OLIC PANEL (14) AST (SGOT) 21 IU/L 0-40 normal Not Available [facility] ([facility]) [address] [place], [address], 11/26/2024 14:11:03 11/24/19 25 11/24/2024 COMP. METAB OLIC PANEL (14) ALT (SGPT) 17 IU/L 0-32 normal Not Available [facility] ([facility]) [address] [place], [address], 11/26/2024 14:11:03 11/24/19 25 11/24/2024 LIPID PANEL cholesterol, total 193 mg/dL 100-19 9 normal Not Available [facility] ([facility]) [address] [place], [address], 11/26/2024 14:11:04 11/24/19 25 11/24/2024 LIPID PANEL triglyceride s 148 mg/dL 0-149 normal Not Available [facility] ([facility]) [address] [place], [address], 11/26/2024 14:11:04 11/24/19 25 11/24/2024 LIPID PANEL HDL cholesterol 29 mg/dL >39 below low normal Not Available [facility] ([facility]) [address] [place], [address], 11/26/2024 14:11:04 11/24/19 25 11/24/2024 LIPID PANEL VLDL cholesterol lexii 27 mg/dL 5-40 Not Available [facility] ([facility]) [address] [place], [address], 11/26/2024 14:11:04 11/24/19 25 11/24/2024 LIPID PANEL LDL chol calc ([facility]) 137 mg/dL 0-99 above high normal Not Available [facility] ([facility]) [address] [place], [address], 11/26/2024 14:11:04 11/24/19 25 11/24/2024 LIPID PANEL LDL calc comment: [employer] Not Available [facility] ([facility]) [address] [place], [address], 11/26/2024 14:11:04 11/24/19 25 11/24/2024 VITAM IN B12 AND FOLAT E vitamin B12 468 pg/mL 232-12 45 normal Not Available [facility] ([facility]) [address] [place], [address], 11/26/2024 14:11:04 11/24/1911/24/2024 VITAM IN B12 AND FOLAT E folate (folic acid), serum 8.7 NG/mL >3.0 normal A serum folat e delvis ntrat ion of less than 3.1 ng/mL is consi dered to repre sent clini lexii defic iency . Not Available [facility] ([facility]) [address] [place], [address], 11/26/2024 14:11:04 11/24/1911/24/2024 FSH AND LH LH 19.8 mIU/m L normal Adult Femal e Range Folli cular phase 2.4 - 12.6 Ovula tion phase 14.0 - 95.6 Lutea l phase 1.0 - 11.4 Postm enopa usal 7.7 - 58.5 Not Available [facility] ([facility]) [address] [place], [address], 11/26/2024 14:11:05 11/24/1911/24/2024 FSH AND LH FSH 49.5 mIU/m L Adult Femal e Range Folli cular phase 3.5 - 12.5 Ovula tion phase 4.7 - 21.5 Lutea l phase 1.7 - 7.7 Postm enopa usal 25.8 - 134.8 Not Available [facility] ([facility]) [address] [place], [address], 11/26/2024 14:11:05 11/24/1911/24/2024 DHEA- SULFA TE DHEA-sulfate 28.8 ug/dL 41.2-2 43.7 below low normal Not Available [facility] ([facility]) [address] [place], [address], 11/26/2024 14:11:06 11/24/19 25 11/24/2024 VITAM IN D, 25-HY DROXY vitamin D, 25-hydroxy 28.7 NG/mL 30.0-1 00.0 below low normal Vitam in D defic iency has been defin ed by the Insti tute of Medic ine and an Endoc rine Socie ty pract ice guide line as a level of serum 25-OH vitam in D less than 20 ng/mL (1,2) . The Endoc rine Socie ty went on to furth er defin e vitam in D insuf ficie ncy as a level betwe en 21 and 29 ng/mL (2). 1. IOM (Inst itute of Medic ine). 2010. Dieta ry refer ence intak es for calci um and D. Mannie norton [place]: [facility] Press . 2. Yomaira denise [place], Angeline patel [place], Eloy off-F breanne i DE LA TORRE, et al. Evalu ation , treat ment, and preve ntion of vitam in D defic iency : an Endoc rine Socie ty clini lexii pract ice guide line. JCEM. 2010; 96(7) :1911 -30. Not Available [facility] ([facility]) [address] [facility], [place], [address], 11/26/2024 14:11:07 11/24/19 25 11/24/2024 HIV AB/P2 4 AG WITH REFLE X HIV Ab/P24 Ag screen Non Reacti ve non reacti ve HIV-1 /HIV- 2 antib odies and HIV-1 p24 antig en were NOT detec michaelle. There is no labor atory evide nce of HIV infec tion. HIV Negat moe Not Available [facility] ([facility]) [address] [facility], [place], [address], 11/26/2024 14:11:07 11/24/19 25 11/26/2024 JEFF W/REF DESTINY JEFF direct Negati ve negati ve Not Available [facility] ([facility]) [address] [facility], [place], [address], 11/26/2024 14:11:08 11/24/19 25 11/23/2024 HbA1c (hemo globi n A1c), blood HbA1c 6.0 Not Available [address], [address], 11/23/2024 14:10:31 11/29/1911/29/2024 TESTO STERO NE,FR EE AND TOTAL testosterone <3 NG/dL 4-50 below low normal Not Available [facility] ([facility]) [address] [place], [address], 12/06/2024 23:06:54 11/29/19 25 12/01/2024 TESTO STERO NE,FR EE AND TOTAL free testosterone (direct) <0.2 pg/mL 0.0-4. 2 Not Available [facility] ([facility]) [address] [facility], [place], [address], 12/06/2024 23:06:54 11/29/19 25 12/06/2024 DHEA- SULFA TE, SERUM DHEA-sulfate , lcms 21 ug/dL This test was devel jennifer and its perfo rmanc e daysi cteri stics deter mined by [facility]. It has not been clear ed or appro bubba by the Food and Drug Admin istra tion. Refer ence Range : Adult Femal es (51 - 60y): <215 Not Available [facility] [address] [facility], [place], [address], 12/06/2024 23:06:55 11/29/19 25 11/29/2024 PROLA CTIN prolactin 6.3 NG/mL 3.6-25 .2 normal Not Available [facility] ([facility]) [address] [facility], [place], [address], 12/06/2024 23:06:56 11/29/19 25 11/29/2024 MAGNE SIUM magnesium 2.2 mg/dL 1.6-2. 3 normal Not Available [facility] ([facility]) [address] [place], [address], 12/06/2024 23:06:56 11/29/19 25 11/29/2024 PROGE STERO NE progesterone <0.1 NG/mL Folli cular phase 0.1 - 0.9 Lutea l phase 1.8 - 23.9 Ovula tion phase 0.1 - 12.0 Pregn ant First trime ster 11.0 - 44.3 Secon d trime ster 25.4 - 83.3 Third trime ster 58.7 - 214.0 Postm enopa usal 0.0 - 0.1 Not Available [facility] ([facility]) [address] [place], [address], 12/06/2024 23:06:57 11/29/19 25 11/29/2024 PTH, INTAC T PTH, intact 19 pg/mL 15-65 normal Not Available [facility] ([facility]) [address] [place], [address], 12/06/2024 23:06:57 11/29/19 25 11/29/2024 CORTI TJ - AM cortisol - AM 7.7 ug/dL 6.2-19 .4 Not Available [facility] ([facility]) [address] [place], [address], 12/06/2024 23:06:58 12/27/19 25 12/26/2024 PPD (kahlil fied prote in deriv ative ), skin test TB negati ve Not Available 33 [address], [place], [address], 12/26/2024 15:11:33 09/07/19 25 09/07/2024 XR, hip, unila teral No observ ation record ed. [facility] (Radiology) [address] , [place], [address], 09/07/2024 16:11:19 01/10/20 25 01/08/2025 MAMMO , scree crystal, digit al, bilat eral No observ ation record ed. Not Available 01/11 14:07:12 Result Notes None recorded. Problems Name Problem SNOMED Code Status Onset Date Resolution Date Notes Provider Name and Address Organization Details Recorded Time Urinary incontin ence 765576621 Active 2022 REINIER NICOLE hodges, [employer] 3 16:08:55 Diabetes mellitus 95906339 Active 2023 Delia hodges, [employer]. 4 14:06:27 Acute bronchit is 03170949 Active 2023 Mariluz García NP [address] [place] [address], [id number] , [employer]. 4 11:12:49 Sore throat 606538127 Active 2023 Mariluz García NP [address] [place] [address], [phone] , [employer]. 4 11:12:51 Type 2 diabetes mellitus 65368867 Active 2024 Delia hodges, [employer] 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 2 21:25:22 Type 2 diabetes mellitus without complica tion 915727233 Active 2019 Not Available [facility] 2 21:25:22 Vitamin D deficien cy 54237977 Active 2019 Problem Code: E55.9; Problem Code Type: ICD-10; Not Available [facility] 2 21:25:22 Nicotine dependen ce 47388393 Active 2021 Problem Code: F17.200; Problem Code Type: ICD-10; Not Available [facility] 2 21:25:22 Dysthymi a 95885562 Active 2019 Problem Code: F34.1; Problem Code Type: ICD-10; Not Available [facility] 2 21:25:22 Hyperlip idemia 12405460 Active 2019 Problem Code: E78.5; Problem Code Type: ICD-10; Not Available [facility] 21:25:22 Allergic rhinitis 38268750 Active 2019 Problem Code: J30.9; Problem Code Type: ICD-10; Not Available [facility] 21:25:22 Irritabl e bowel syndrome characte rized by constipa tion 550565343 Active 2019 Problem Code: K58.1; Problem Code Type: ICD-10; Not Available [facility] 21:25:23 Constipa tion 11308698 Completed 202012/05/2020 Not Available [facility] 21:25:23 Hemorrho ids 93877233 Completed 202012/05/2020 Problem Code: K64.9; Problem Code Type: ICD-10; Not Available [facility] 21:25:23 Atopic dermatit is 33162353 Completed 202003/29/2022 Problem Code: L20.9; Problem Code Type: ICD-10; 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 15:32:31 Trigger finger Completed 201909/09/2020 Not Available [facility] 21:25:23 Myositis 43473353 Completed 201912/04/2020 Problem Code: M60.9; Problem Code Type: ICD-10; Not Available 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 15:32:25 Pyrexia of unknown origin 2680679 Completed 201903/29/2022 Problem Code: R50.9; Problem Code Type: ICD-10; REINIER hodges, [employer]. 2 15:32:33 Chronic fatigue syndrome 36366378 Active 2020 Problem Code: R53.82; Problem Code Type: ICD-10; Not Available [facility] 2 21:25:24 General examinat ion of patient Completed 202003/29/2022 REINIER JARANER [facility] 2 15:32:05 Medical examinat ion for suspecte d conditio n Completed 201906/10/2020 Problem Code: Z03.89; Problem Code Type: ICD-10; Not Available [facility] 2 21:25:24 Screenin g mammogra phy Completed 202003/29/2022 Problem Code: Z12.31; Problem Code Type: ICD-10; REINIER hodges, [employer]. 2 15:32:14 Medical examinat ion for suspecte d conditio n Completed 201906/10/2020 Problem Code: Z03.89; Problem Code Type: ICD-10; Not Available [facility] 2 21:25:25 Screenin g for malignan t neoplasm of vagina Completed 201903/29/2022 [facility] 2 15:32:11 Body mass index 30+ - obesity 411845734 Active 2021 Problem Code: Z68.32; Problem Code Type: ICD-10; Not Available [facility] 2 21:25:25 Body mass index 30+ - obesity 564412285 Completed 201906/10/2020 Problem Code: Z68.33; Problem Code Type: ICD-10; Not Available [facility] 2 21:25:26 Gastroes ophageal reflux disease without esophagi tis 034320195 Active 2019 Not Available [facility] 2 21:25:26 Abdomina l pain 57951733 Completed 202103/29/2022 Problem Code: R10.9; Problem Code Type: ICD-10; REINIER hodges, [employer]. 15:32:21 Examinat ion for suspecte d tubercul osis Completed 201905/21/2020 Problem Code: V71.2; Problem Code Type: ICD-9; Not Available [facility] 21:25:27 General examinat ion of patient Completed 201906/10/2020 REINIER hodges, [employer]. 15:32:05 Finding of Mantoux test 556170075 Completed 202103/29/2022 Problem Code: Z11.1; Problem Code Type: ICD-10; REINIER hodges, [employer]. 15:31:59 Body mass index 30+ - obesity 143172029 Completed 202101/05/2022 Problem Code: Z68.33; Problem Code Type: ICD-10; Not Available [facility] 21:25:27 Body mass index 30+ - obesity 282130070 Completed 202012/04/2020 Problem Code: Z68.33; Problem Code Type: ICD-10; Not Available [facility] 21:25:28 Problem Notes None recorded. Procedures Surgical History Date Name Laterality Status Provider Name and Address Organization Details Recorded Time 09/23/19 23 Most Recent Mammogram completed Delia Wilkinson [employer] 08/19/2023 13:45:15 12/11/19 20 cholecystectomy completed Not Available [facility] 03/23/2022 22:56:19 12/11/19 20 hysterectomy completed Not Available [facility] 03/23/2022 22:56:19 12/11/19 20 section completed Not Available [facility] 03/23/2022 22:56:20 12/11/19 20 thyroidectomy completed Not Available [facility] 03/23/2022 22:56:20 Imaging Results None recorded. Procedure Notes None recorded. Medical Equipment None Reported. Allergies Allergen ID Allergen Name Allergen Category Reaction Reaction Severity Criticality Documentation Date Start Date Code Code System Note Provider Name and Address Organization Details Recorded Time 96640 azithromy rhett medicatio n Not available Not available Not available 03/23/2022 32087 RxNorm Not Available [facility] 2 22:56:56 Medications Name Sig Start Date Stop Date Status Note LastModified by Organization Details LastModified Time tuberculi n PPD 5 tub. unit/0.1 mL intraderm al injection solution Inject 0.01 mL as needed by intrader mal route. 2024 active Not Available Not Available Not Avai lable oxybutyni n chloride ER 15 mg tablet,ex tended release 24 hr TAKE 1 TABLET BY MOUTH ONCE DAILY 2024 active Not Available Not Available Not Avai lable polyethyl david glycol 3350 17 gram oral powder packet take 1 packet (17 gram) mixed with 8 oz. water, juice, soda, coffee or tea by oral route once daily 03/29 completed Not Available Not Available Not Available triamcino lone acetonide 0.5 % topical cream APPLY A THIN LAYER OF CREAM TOPICALL Y TO AFFECTED AREA TWICE DAILY 07/26 completed Not Available Not Available Not Available cetirizin e 10 mg tablet TAKE 1 TABLET BY MOUTH ONCE DAILY 2024 active Not Available Not Available Not Avai lable pravastat in 40 mg tablet take 1 tablet (40 mg) by oral route once daily 03/29 completed Not Available Not Available Not Available ofloxacin 0.3 % eye drops INSTILL 1 DROP INTO OPERATIV E EYE 4 TIMES DAILY FOR 7 DAYS 03/29 completed Not Available Not Available Not Available fluconazo le 150 mg tablet TAKE ONE TABLET BY MOUTH A ONE-TIME DOSE 02/16 completed Not Available Not Available Not Available sumatript an 100 mg tablet take ONE tablet by MOUTH MAY REPEAT DOSE AFTER AT least TWO hours with no more THAN TWO tablets/ 24 hours] active Not Available Not Available No t Available hydrocodo ne 5 mg-acetam inophen 325 mg tablet TAKE ONE TABLET BY MOUTH EVERY 8 HOURS NEEDED FOR PAIN MAY CAUSE DROWSINE SS 11/30 completed Not Available Not Available Not Available promethaz ine 25 mg rectal supposito ry INSERT 1 SUPPOSIT ORY RECTALLY EVERY 6 HOURS NEEDED active Not Available Not Available No t Available promethaz ine 12.5 mg tablet take 1 tablet (12.5 mg) by oral route every 4-6 hours as needed for nausea due to migraine 01/05 completed Not Available Not Available Not Available prednison e 20 mg tablet Take 1 tablet 3 times a day by oral route for 3 days. 05/20 completed Not Available Not Available Not Available sumatript an 50 mg tablet TAKE 1 TABLET BY MOUTH EVERY 8 HOURS NEEDED ONE DOSE WITH FLUIDS EARLY POSSIBLE AFTER THE ONSET OF A MIGRAINE ATTACK, IF HEADACHE RETURNS, THE DOSE MAY BE REPEATED AFTER 2 HOURS DO NOT EXCEED A TOTAL DAILY DOSE OF 3 TABS 05/18 completed Not Available Not Available Not Available topiramat e 25 mg tablet TAKE 1 TABLET BY MOUTH AT BEDTIME FOR 7 DAYS THEN INCREASE BY 1 TABLET WEEKLY UP TO 6 TABLETS OR 150MG DAILY 08/19 completed Not Available Not Available Not Available metronida zole 500 mg tablet TAKE ONE TABLET BY MOUTH EVERY 8 HOURS FOR 7 DAYS -- FINISH ALL MEDICINE -- --AVOID ANY PRODUCT( S) CONTAINI NG ALCOHOL WHILE TAKING THIS MEDICATI ON-- 02/16 completed Not Available Not Available Not Available acetamino phen 300 mg-codein e 30 mg tablet TAKE 1 TABLET BY MOUTH ONCE DAILY NEEDED 05/18 completed pain manageme nt Not Available Not Available Not Available ciproflox acin 500 mg tablet TAKE 1 TABLET BY MOUTH EVERY 12 HOURS FOR 7 DAYS 07/26 completed Not Available Not Available Not Available sulfameth oxazole 800 mg-trimet hoprim 160 mg tablet TAKE 1 TABLET BY MOUTH TWICE DAILY FOR 10 DAYS 03/29 completed Not Available Not Available Not Available tramadol 50 mg tablet TAKE 1 TABLET BY MOUTH EVERY 6 HOURS NEEDED FOR PAIN 03/29 completed Not Available Not Available Not Available ketorolac 10 mg tablet TAKE 1 TABLET BY MOUTH EVERY 12 HOURS NEEDED FOR PAIN active Not Available Not Available No t Available ketorolac 0.5 % eye drops STARTING 3 DAYS BEFORE SURGERY INSTILL 1 DROP INTO OPERATIV E EYE 4 TIMES DAILY FOR 10 DAYS, THEN DECREASE TO 1 DROP TWICE DAILY FOR 14 DAYS 03/29 completed Not Available Not Available Not Available levothyro xine 100 mcg tablet Take 1 tablet by mouth once daily 07/26 completed Not Available Not Available Not Available lancets pt tests TID 2019 active Not Available Not Available Not Avai lable pravastat in 80 mg tablet TAKE 1 TABLET BY MOUTH ONCE DAILY 2024 active Not Available Not Available Not Avai lable prednisol one acetate 1 % eye drops,maylin pension INSTILL 1 DROP INTO OPRATIVE EYE 4 TIMES DAILY FOR 7 DAYS, THEN DECREASE TO 1 DROP TWICE DAILY FOR 14 DAYS 03/29 completed Not Available Not Available Not Available magnesium oxide 400 mg (241.3 mg magnesium ) tablet TAKE ONE TABLET BY MOUTH EVERY DAY active Not Available Not Available No t Available blood-glu cose meter kit test TID 08/24 completed Not Available Not Available Not Available methocarb antoine 750 mg tablet Take 1 tablet every 12 hours by oral route as needed for 30 days. active Not Available Not Available No t Available HiFiKiddoTouch Ultra Test strips use to test three times daily active Not Available Not Available No t Available doxycycli ne monohydra te 100 mg capsule TAKE 1 CAPSULE BY MOUTH TWICE DAILY 04/13 completed Not Available Not Available Not Available cephalexi n 500 mg capsule TAKE 1 CAPSULE BY MOUTH EVERY 8 HOURS FOR 10 DAYS 11/23 completed Not Available Not Available Not Available pantopraz ole 40 mg tablet,de layed release TAKE 1 TABLET BY MOUTH ONCE DAILY 2024 active Not Available Not Available Not Avai lable Proctofoa m HC 1 %-1 % APPLY TO AFFECTED AREA THREE TIMES DAILY NEEDED FOR PAIN DIRECTED 03/29 completed Not Available Not Available Not Available triamcino lone acetonide 0.1 % topical ointment Apply to affected areas twice daily for up to two weeks. Stop for one week. Repeat as needed for flares. active derm Not Available Not Available No t Available nystatin 100,000 unit/gram topical cream 03/29 completed Not Available Not Available Not Available promethaz ine 25 mg tablet TAKE 1 TABLET BY MOUTH EVERY 6 HOURS NEEDED 02/16 completed Not Available Not Available Not Available mupirocin 2 % topical ointment APPLY OINTMENT TOPICALL Y THREE TIMES DAILY 05/20 completed Not Available Not Available Not Available polyethyl david glycol 3350 17 gram/dose oral powder 05/18 completed Not Available Not Available Not Available estradiol 0.01% (0.1 mg/gram) vaginal cream insert TWO grams vaginall y ONCE daily FOR TWO WEEKS THEN ONE gram vaginall y ONCE daily FOR TWO WEEKS THEN ONE gram vaginall y three times WEEKLY as directed active Not Available Not Available No t Available levofloxa rhett 750 mg tablet TAKE ONE TABLET BY MOUTH ONCE DAILY FOR 7 DAYS -- FINISH ALL MEDICINE -- 02/16 completed Not Available Not Available Not Available methylpre dnisolone 4 mg tablets in a dose pack Take as directed 08/16 completed Not Available Not Available Not Available SSD 1 % topical cream 12/07 completed Not Available Not Available Not Available Vitamin D2 1,250 mcg (50,000 unit) capsule TAKE ONE CAPSULE BY MOUTH EVERY WEEK active Not Available Not Available No t Available ketoconaz ole 2 % topical cream Apply to affected areas on face twice daily as needed when flared. active derm Not Available Not Available No t Available hydroxyzi ne HCl 10 mg tablet TAKE 1 TABLET BY MOUTH THREE TIMES DAILY active Not Available Not Available No t Available cefdinir 300 mg capsule TAKE ONE CAPSULE BY MOUTH TWICE DAILY FOR SEVEN DAYS 05/20 completed Not Available Not Available Not Available topiramat e 100 mg tablet TAKE 1.5 TABLETS BY MOUTH NIGHTLY AT BEDTIME FOR MIGRAINE active Not Available Not Available No t Available fluticaso ne propionat e 50 mcg/actua tion nasal spray,maylin pension instill ONE SPRAY into each NOSTRIL ONCE daily active Not Available Not Available No t Available sertralin e 50 mg tablet TAKE ONE TABLET BY MOUTH EVERY DAY 2024 active Not Available Not Available Not Avai lable levothyro xine 112 mcg tablet TAKE 1 TABLET BY MOUTH ONCE DAILY active Not Available Not Available No t Available amoxicill in 875 mg-potass ium clavulana te 125 mg tablet Take 1/2 tablet every 6 hours x 10 days 08/16 completed Not Available Not Available Not Available Ventolin HFA 90 mcg/actua tion aerosol inhaler INHALE TWO puffs BY MOUTH every 4 to 6 hours as needed for shortnes s of breath active Not Available Not Available No t Available esomepraz ole magnesium 20 mg capsule,d elayed release TAKE ONE CAPSULE BY MOUTH ONCE DAILY AT LEAST 1 HOUR BEFORE A MEAL FOR 4 WEEKS. SWALLOW WHOLE. DO NOT CRUSH OR CHEW GRANULES 03/29 completed Not Available Not Available Not Available Laxative (bisacody l) 5 mg tablet,de layed release 05/18 completed Not Available Not Available Not Available topiramat e 50 mg tablet TAKE 1 AND 1/2 TABLETS BY MOUTH AT BEDTIME 11/30 completed Not Available Not Available Not Available lactulose 10 gram/15 mL oral solution take 15 millilit ers (10 gram) by oral route once now, then again if no BM in 4 hours 03/29 completed Not Available Not Available Not Available flaxseed active Not Available Not Avai lable Not Available guaifenes in ER 1,200 mg tablet, extended release 12 hr Take 1 tablet twice a day by oral route. active Not Available Not Available No t Available Slow Fe 142 mg (45 mg iron) tablet,ex tended release Take 1 tablet every day by oral route for 90 days. 05/20 completed Not Available Not Available Not Available butalbita l-acetami nophen-ca ffeine 50 mg-300 mg-40 mg capsule Take 1 capsule every 12 hours by mouth as needed for 8 days active Not Available Not Available No t Available Slow Release Iron 140 mg (45 mg iron) tablet,ex tended release Take 1 tablet every day by oral route for 90 days. 2023 active Not Available Not Available Not Avai lable Linzess 145 mcg capsule SPRINKLE THE ENTIRE CONTENTS OF THE CAPSULE ON A SMALL AMOUNT OF APPLESAU CE. TAKE IMMEDIAT VESNA ONCE A DAY ON AN EMPTY STOMACH AT LEAST 30 MINUTES BEFORE THE FIRST MEAL OF THE DAY 03/29 completed Not Available Not Available Not Available Stimulant Laxative Plus 8.6 mg-50 mg tablet TAKE ONE TABLET BY MOUTH EVERY DAY AT BEDTIME active Not Available Not Available No t Available Jardiance 25 mg tablet TAKE 1 TABLET BY MOUTH ONCE DAILY IN THE MORNING active Not Available Not Available No t Available inositol- choline bit-biofl tam-vit B complex and C 500 mg tablet Take 1 tablet every day by oral route for 90 days. 2024 active Not Available Not Available Not Avai lable metformin ER 500 mg tablet,ex t rel 24 hr-blood sugar diagnosti c strips once po daily 07/26 completed Not Available Not Available Not Available OneTouch Ultra2 Meter USE TO TEST BLOOD SUGAR LEVELS THREE TIMES DAILY. active Not Available Not Available No t Available OneTouch Delica Plus Lancet 33 gauge USE TO TEST BLOOD SUGAR LEVELS THREE TIMES DAILY active Not Available Not Available No t Available Nurtec ODT 75 mg disintegr ating tablet dissole ONE tablet BY MOUTH ONCE DAILY NEEDED FOR MIGRAINE . max DAILY dosage 75 mg(1 tablet) active Not Available Not Available No t Available SlowMag Muscle Recovery active Not Available Not Available Not Available Vitals Date Recorded Body height Body mass index (BMI) Body weight Heart rate Oxygen saturation Oxygen saturation in Arterial blood by Pulse oximetry Systolic And Diastolic Provider Name and Address Organization Details Last Updated DateTime 5 167.64 cm 32.4 kg/m2 51307.0 7 g 79 /min 96 % 96 % 108/74 mm[Hg] Delia [employer]. 5 13:30:57 Date Recorded Body height Body mass index (BMI) Body weight Heart rate Oxygen saturation Oxygen saturation in Arterial blood by Pulse oximetry Systolic And Diastolic Provider Name and Address Organization Details Last Updated DateTime 5 167.64 cm 32.7 kg/m2 20709.7 6 g 91 /min 96 % 96 % 111/73 mm[Hg] Delia [place] [employer]. 5 14:22:55 Date Recorded Body height Body mass index (BMI) Body weight Body temperature Heart rate Oxygen saturation Oxygen saturation in Arterial blood by Pulse oximetry Systolic And Diastolic Provider Name and Address Organization Details Last Updated DateTime 4 167.64 cm 32.9 kg/m2 57557.5 4 g 97.8 [degF] 67 /min 97 % 97 % 118/80 mm[Hg] Maria T Bush [employer]. 4 10:40:47 Social History Question Answer Notes LastModified by Organizat ion Details LastModified Time Tobacco Smoking Status Current Every Day Smoker REINIER hodges [facility] [employer] 03/29/2022 15:46:19 Do You Have An Advance Directive? No [email or web address] Information n ot available 03/29/2022 Is Your Home Air Conditioned? Yes Information not available 11/19/2022 Do You Wear A Helmet When Biking? No [email or web address] Information not available 06/27/2024 Are You Blind Or Do You Have Difficulty Seeing? No Information n ot available 05/25/2022 What Is Your Level Of Caffeine Consumption? Moderate Information not available 11/19/2022 Are You A Caregiver? Yes [email or web address] Information not available 05/25/2022 In The 14 Days Before Symptom Onset, Have You Had Close Contact With A Laboratory-confirm ed COVID-19 While That Case Was Ill? No [email or web address] Information n ot available 05/25/2022 In The 14 Days Before Symptom Onset, Have You Had Close Contact With A Person Who Is Under Investigation For COVID-19 While That Person Was Ill? No Information not available 05/25/2022 Have You Been To An Area Known To Be High Risk For COVID-19? No [email or web address] Information not available 05/25/2022 Are You Deaf Or Do You Have Serious Difficulty Hearing? No [email or web address] Information not available 05/25/2022 What Type Of Diet Are You Following? DIABETIC [email or web address] Information n ot available 05/25/2022 Have There Been Any Changes To Your Family Or Social Situation? No [email or web address] Information no t available 05/25/2022 Which Of Your Hands Is Dominant? Right Information n ot available 11/19/2022 Do You Have A Medical Power Of Vegetable Handler? No [email or web address] Information not available 03/29/2022 What Was The Date Of Your Most Recent Tobacco Screening? 11/23/2024 Information not available 11/23/2024 What Is Your Current Pack Years? [email or web address] Information not available 02/17/2023 Do You Have Any Pets? Yes Information not available 11/19/2022 What Is Your Relationship Status? [email or web address] Information not available 03/29/2022 Do You Use Your Seat Belt Or Car Seat Routinely? Yes Information not available 11/19/2022 Are You Sexually Active? Yes [email or web address] Information not available 03/29/2022 Do You Have Smoke And Carbon Monoxide Detectors In Your Home? Yes Information not available 11/19/2022 At What Age Did You Start Smoking Tobacco? 20 Information not available 02/17/2023 Are You Passively Exposed To Smoke? Yes Information no t available 11/19/2022 Are There Any Smokers In Your House? Yes Information not available 11/19/2022 How Much Tobacco Do You Smoke? 0.5 PPD [email or web address] Information not available 03/29/2022 Do You Participate In Social Media? Yes [email or web address] Information not available 06/27/2024 Do You Use Sunscreen Routinely? Yes Information not available 11/19/2022 Has Tobacco Cessation Counseling Been Provided? Yes Information not available 01/25/2023 On What Date Was Tobacco Cessation Counseling Provided? 11/23/2024 Information not available 11/23/2024 How Many Years Have You Smoked Tobacco? 26 [email or web address] Information not available 03/29/2022 Have You Recently Traveled Abroad? No [email or web address] Information not available 05/25/2022 Do You Have Difficulty Walking Or Climbing Stairs? No [email or web address] Information not available 05/25/2022 Are You Currently In School? No [email or web address] Information not available 05/25/2022 Do You Have Any Dietary Restrictions? Yes [email or web address] Information not available 06/27/2024 Sex: Female Functional Status Question Answer Note LastModified by Organizat ion Details LastModified Time Do you use any illicit or recreational drugs? No Information not available 11/19/2022 Do you or have you ever used any other forms of tobacco or nicotine? No Information not available 02/17/2023 Are you currently employed? No [email or web address] Information not available 05/25/2022 Do you have transportation difficulties? No [email or web address] Information not available 05/25/2022 Are you able to walk? YESWOREST [email or web address] Information not available 05/25/2022 Do you have difficulty doing errands alone? No Information not available 05/25/2022 Are you able to care for yourself? Yes Information not available 05/25/2022 Do you have difficulty dressing or bathing? No [email or web address] Information not available 05/25/2022 What is your exercise level? None [email or web address] Information not available 05/25/2022 Mental Status Question Answer Note LastModified by Organizat ion Details LastModified Time Do you feel stressed (tense, restless, nervous, or anxious, or unable to sleep at night)? [id number] Information not available 11/19/2022 Do you have difficulty concentrating, remembering or making decisions? No [email or web address] Information no t available 05/25/2022 Family History Relationship Description Onset Age of this Age Resolved Age Notes LastModified by Organization Details LastModified Time Unspecified Relation Family history of Hypertension [email or web address] Not available 15:35:01 Unspecified Relation Family history of diabetes mellitus type 2 [email or web address] Not available 03/29 15:34:57 Unspecified Relation Family history of ischemic heart disease [email or web address] Not available 03/29 15:35:07 Unspecified Relation Family history of Depression Not available 03/18 15:34:42 Father Family history of hyperlipidem ia [email or web address] Not available 03/29 15:34:06 Mother Family history of Hypothyroidi sm [email or web address] Not available 03/29 15:34:37 Mother Family history of hyperlipidem ia [email or web address] Not available 03/29 15:34:10 Brother Family history of hyperlipidem ia [email or web address] Not available 03/29 15:34:21 Medical History Condition Response Hospitalizations N Diabetes Y Emergency room visit since last appointm ent. N Hypothyroidism Y High Cholesterol Y Gynecological History Statement/Question Response Date of Last Pap Smear Most Recent Mammogram 09/22/2022 Obstetrics History GPAL:G 0 P 0 0 0 0 Immunizations Vaccine Type Date Status Note Provider Nam e and Address Organization Details Recorded Time Influenza, split virus, quadrivalent, PF 04/22/2023 completed Krystal Chilel APRN [address] [place] [address], [phone], [facility] Anna Lozabai Eads [employer] 04/22/2023 16:12:01 Influenza, split virus, trivalent, PF 04/17/2024 completed [place]ia [place], [place] Anna Lozabai Alfonso [employer] 04/17/2024 13:46:02 COVID-19, mRNA, LNP-S, PF, 100 mcg/0.5mL dose or 50 mcg/0.25mL dose 10/16/2020 completed REINIER hodges [place] Anna Lozabai [facility] [employer] 05/25/2022 13:43:55 COVID-19, mRNA, LNP-S, PF, 100 mcg/0.5mL dose or 50 mcg/0.25mL dose 09/18/2020 completed REINIER hodges [place] [facility] [employer] 05/25/2022 13:43:55 COVID-19, mRNA, LNP-S, PF, 100 mcg/0.5mL dose or 50 mcg/0.25mL dose 06/04/2021 completed REINIER hodges [place] [facility] [employer] [employer] 05/25/2022 13:43:56 COVID-19, mRNA, LNP-S, bivalent, PF, 30 mcg/0.3 mL dose 05/25/2022 completed Krystal Chilel APRN [address] [place] [address], [phone], [facility] Anna Lozabai Eads [employer] 05/25/2022 14:33:42 Past Encounters Encounter ID Performer Location Encounter Start Date Encounter Closed Date Diagnosis/Indication Diagnosis SNOMED-CT Code Diagnosis ICD10 Code Diagnosis Note [id number] Krsytal Chilel [address] [address] 03/29/2022 15:24:24 03/29/2022 16:37:30 Nonvenomous insect bite with infection 58390028 L08.9 [id number] Krystal Chilel [address] [address] 04/13/2022 14:59:45 04/13/2022 15:39:02 Otalgia of right ear 4268344661 H92.01 Insect bite - wound 2764 87470 T14.8XXA [id number] [place] [address] 05/25/2022 13:06:29 05/25/2022 13:39:11 Type 2 diabetes mellitus without complication 246523943 E11.9 Administra tion of SARS-CoV-2 vaccine 6086124804 Z23 Otitis media 25495765 H6 6.91 Allergic rhinitis 874571 04 J30.9 Gastroesop hageal reflux disease without esophagitis 586893033 K21.9 Dysthymia 21491299 F34.1 Hyperlipidemia 67909711 E78.5 Hypothyroidism 67882111 E03.9 Nicotine dependence 5629 4008 F17.200 Vaginal dryness 83740417 N89.8 Increased frequency of urination 588366412 R35.0 [id number] Krystal Chilel [place] [address] 07/26/2022 16:23:58 07/26/2022 17:10:49 Dizziness 689650962 R42 Body mass index 30+ - obesity 284623562 Z68.32 [id number] [place] [address] 08/24/2022 11:35:12 08/24/2022 12:08:37 Type 2 diabetes mellitus without complication 562556170 E11.9 Screening for malignant neoplasm of breast 644139517 Z12.39 Hypothyroidism 65572347 E03.9 Hyperlipidemia 19731723 E78.5 Vaginal dryness 14796383 N89.8 Allergic rhinitis 875544 04 J30.9 Dysthymia 33582835 F34.1 Increased frequency of urination 001121579 R35.0 Gastroesop hageal reflux disease without esophagitis 594043790 K21.9 Body mass index 30+ - obesity 970141744 Z68.32 [id number] Krystal Chilel, [place] [address] 11/19/2022 14:47:36 11/19/2022 15:37:24 Type 2 diabetes mellitus without complication 453855880 E11.9 Hyperlipidemia 70375178 E78.5 Hypothyroidism 21401193 E03.9 Chronic fa tigue syndrome 75476615 R53.82 Allergic rhinitis 433092 04 J30.9 Vaginal dryness 65867205 N89.8 Dysthymia 94693134 F34.1 Increased frequency of urination 183044405 R35.0 Gastroesop hageal reflux disease without esophagitis 514826880 K21.9 Migraine 51033488 G43.90 9 Body mass index 30+ - obesity 132037671 Z68.32 [id number] [place] [address] 12/07/2022 08:57:50 12/07/2022 09:34:05 Fatigue 75157367 R53.83 Migraine 62069989 G43.90 9 [id number] [place] [address] 01/04/2023 16:01:16 01/04/2023 16:55:54 Tuberculosis screening 761983564 Z11.1 [id number] [place] [address] 01/25/2023 11:10:45 01/25/2023 11:40:09 Cellulitis of periorbital region of left eye 9496554238 93058 L03.213 Body mass index 30+ - obesity 941110989 Z68.32 [id number] Krystal Chilel [place] [address] 02/17/2023 13:22:00 02/17/2023 17:38:57 Diabetes mellitus 73325041 E11.9 Hyperlipidemia 43265124 E78.5 Hypothyroidism 46833556 E03.9 Vitamin D deficiency 347 27934 E55.9 Fatigue 78954709 R53.83 Muscle pain 46672411 M79 .10 Iron deficiency 79408433 E61.1 Migraine 22804045 G43.90 9 Allergic rhinitis 854869 04 J30.9 Vaginal dryness 85243111 N89.8 Dysthymia 21828537 F34.1 Type 2 sandhya betes mellitus without complication 587471104 E11.9 Increased frequency of urination 317067918 R35.0 Gastroesop hageal reflux disease without esophagitis 401267536 K21.9 Body mass index 30+ - obesity 897631720 Z68.32 Screening for malignant neoplasm of colon 273409420 Z12.11 [id number] [place] [address] 03/15/2023 14:51:49 03/15/2023 16:26:11 Pain of right wrist 8098491942 33979 M25.531 Localized edema 30894302 4 R60.0 Body mass index 30+ - obesity 567977082 Z68.32 [id number] [place] [address] 04/12/2023 14:28:13 04/12/2023 15:40:29 Acute bronchitis 62541967 J20.9 Cough 42673444 R05.9 Body mass index 30+ - obesity 172312731 Z68.32 [id number] [place] [address] 04/22/2023 16:02:16 04/22/2023 16:12:11 Administration of influenza vaccine 52473221 Z23 [id number] [place] [address] 05/20/2023 13:32:12 05/20/2023 14:24:32 Type 2 diabetes mellitus without complication 233541532 E11.9 Allergic rhinitis 355532 04 J30.9 Vaginal dryness 13482095 N89.8 Dysthymia 47771708 F34.1 Hypothyroidism 38961478 E03.9 Muscle pain 28529070 M79 .10 Migraine 86026575 G43.90 9 Body mass index 30+ - obesity 801636709 Z68.32 [id number] [place] [id number] 08/19/2023 13:31:49 08/19/2023 14:31:22 Type 2 diabetes mellitus without complication 385158968 E11.9 Long-term drug therapy 504445583 Z79.899 Hyperlipidemia 22769502 E78.5 Hypothyroidism 51483947 E03.9 Vitamin D deficiency 347 85751 E55.9 Fatigue 69881862 R53.83 Iron defic iency anemia 16565035 D50.9 Body mass index 30+ - obesity 914734902 Z68.32 Migraine 14193051 G43.90 9 Allergic rhinitis 532872 04 J30.9 Vaginal dryness 27773016 N89.8 Dysthymia 17146977 F34.1 Muscle pain 05606693 M79 .10 Diabetes mellitus 429051 09 E11.9 Increased frequency of urination 284103609 R35.0 Gastroesop hageal reflux disease without esophagitis 089257257 K21.9 Iron deficiency 83025229 E61.1 Vitamin B deficiency 479 93112 E53.9 [id number] Krystal Chilel[address] 11/18/2023 12:41:46 11/18/2023 14:08:59 Type 2 diabetes mellitus without complication 337348916 E11.9 Dysthymia 78072833 F34.1 Iron deficiency 46789187 E61.1 Vitamin D deficiency 347 25507 E55.9 Candidiasis of vagina 72 735070 B37.31 Body mass index 30+ - obesity 551818042 Z68.32 [id number] [place] [address] 12/01/2023 13:36:20 12/01/2023 14:29:14 Type 2 diabetes mellitus without complication 698972113 E11.9 History of urinary tract infection 4831957522 107 Z87.440 History of diverticulitis 4884630875 18572 Z87.19 Body mass index 30+ - obesity 194249127 Z68.32 [id number] Krystal Chilel, [place] [address] 12/09/2023 13:32:28 12/09/2023 14:05:51 Low back pain 733005497 M54.50 Body mass index 30+ - obesity 667526553 Z68.32 [id number] Mariluz GarcíaVIJAY [place] [address] 01/04/2024 13:27:55 01/04/2024 16:46:04 Tuberculosis screening 470703415 Z11.1 [id number] Krystal Chilel [place] [address] 02/17/2024 13:32:53 02/17/2024 14:57:30 Diabetes mellitus 63792865 E11.9 Fatigue 26653625 R53.83 Iron defic iency anemia 69463659 D50.9 Vitamin D deficiency 347 08862 E55.9 Hyperlipidemia 92812611 E78.5 Migraine 83201890 G43.90 9 Allergic rhinitis 229068 04 J30.9 Vaginal dryness 19138525 N89.8 Dysthymia 61081490 F34.1 Vitamin B deficiency 479 68945 E53.9 Type 2 sandhya betes mellitus without complication 604127998 E11.9 Hypothyroidism 36487744 E03.9 Muscle pain 50747158 M79 .10 Increased frequency of urination 926620202 R35.0 Gastroesop hageal reflux disease without esophagitis 493504103 K21.9 Iron deficiency 13658290 E61.1 Body mass index 30+ - obesity 307604199 Z68.32 [id number] [place] [address] 03/08/2024 10:09:52 03/08/2024 10:11:09 Finding related to health literacy 796231271 Z55.6 [id number] Krystal Chilel APRN [place] [id number] 04/17/2024 13:17:19 04/17/2024 14:38:32 Active or passive immunization 152330319 Z23 [id number] Krystal Stone, [place] [address] 05/18/2024 12:55:34 05/18/2024 14:25:46 Diabetes mellitus 08023497 E11.9 Fatigue 41215106 R53.83 Iron defic iency anemia 27451382 D50.9 Hyperlipidemia 13067798 E78.5 Vitamin D deficiency 347 74033 E55.9 Allergic rhinitis 774066 04 J30.9 Vaginal dryness 30278478 N89.8 Dysthymia 31674707 F34.1 Vitamin B deficiency 479 13380 E53.9 Type 2 sandhya betes mellitus without complication 628994647 E11.9 Hypothyroidism 17824894 E03.9 Muscle pain 44233187 M79 .10 Increased frequency of urination 911447926 R35.0 Gastroesop hageal reflux disease without esophagitis 378182279 K21.9 Iron deficiency 59109850 E61.1 Migraine 85012871 G43.90 9 Body mass index 30+ - obesity 075833980 Z68.32 [id number] Mariluz García, [place] [address] 06/27/2024 10:19:38 06/27/2024 12:57:46 Sore throat 339847602 J02.9 Acute bronchitis 5959435 2 J20.9 [id number] [place] [address] 08/16/2024 13:05:26 08/16/2024 14:20:28 Type 2 diabetes mellitus without complication 594932599 E11.9 Allergic rhinitis 024624 04 J30.9 Vaginal dryness 68280497 N89.8 Dysthymia 79815978 F34.1 Vitamin B deficiency 479 74752 E53.9 Diabetes mellitus 634295 09 E11.9 Body mass index 30+ - obesity 122360583 Z68.32 [id number] Krystal Chilel [place] [address] 0 11/23/2024 13:52:11 11/23/2024 15:16:25 Type 2 diabetes mellitus 41474369 E11.9 Fatigue 65371490 R53.83 Iron defic iency anemia 04424559 D50.8 Vitamin D deficiency 347 22445 E55.9 Cobalamin deficiency 190 661231 E53.8 Mixed hyperlipidemia 267 126636 E78.2 HIV screening 871269257 Z11.4 External hemorrhoids 239 53134 K64.4 Allergic rhinitis 852320 04 J30.9 Vaginal dryness 93589145 N89.8 Dysthymia 26270000 F34.1 Vitamin B deficiency 479 88236 E53.9 Hypothyroidism 55258434 E03.9 Muscle pain 92193992 M79 .10 Increased frequency of urination 867877461 R35.0 Gastroesop hageal reflux disease without esophagitis 324485208 K21.9 Hyperlipidemia 79739635 E78.5 Acute bronchitis 9329930 2 J20.9 Body mass index 30+ - obesity 509283573 Z68.32 [id number] Krystal Chilel APRN [place] [address] 12/24/2024 10:05:26 12/24/2024 10:31:08 Tuberculosis screening status 017924301 Z11.1 [id number] Mariluz García NP [place] [address] 12/26/2024 15:05:15 12/26/2024 15:28:39 Tuberculosis screening status 436527249 Z11.1 Health Concerns Section Related Observation LastModified by Organization Detai ls LastModified Time None Recorded Concern Status LastModified by Organization Details LastModified Time None Recorded Advance Directives Directive N: Payers Insurance Date Sequence Insurance Name Policy Number Policy Wang Covered Member ID Wang Member ID Guarantor Name 02/22/2023 1 UNSPECIFIED REMIT PAYOR Aracely Powell 12/24/2024 1 [employer] [facility] (MEDICAID HMO) Aracely Powell [id number] Aracely Powell 03/09/2024 SLIDING FEE SCHEDULE - DISCOUNT Aracely Powell Notes Date Note Type Note Provider Name and Address Organization Details Recorded Time 06/27/2024 text/html Presents for sor e throat, cough, sinus congestion and pressure, bilateral ear pain, [place]. States that she thinks she had a fever over the weekend. Symptoms have been ongoing for the past 5 days now. Her cough is productive sometimes. She has been short of breath.Mom recently hospitalized with pneumonia. Granddaughter with flu a last week. also has been ill. Mariluz García NP [address] [place], [address], [employer] 06/27/2024 16:37:01 08/16/2024 text/html 49 year old fema le here for chronic disease f/u and refills. States she is doing well with current regimen without AE. Denies acute concerns today. A1C 5.8 today. Continue to be active and follow diabetic diet. Will plan to refill medications today. Pt agreeable Krystal Chilel APRN [address] [place], [phone], [employer] [employer]. 08/16/2024 18:15:53 11/23/2024 text/html pt here today fo r medication refills. pt states shes doing well on current medication regime. pt states that she would like a referral to endocrinology. states that she would like a work up for any autoimmune disease. pt states that she is tired all the time. states she has to stop doing her house work to take a rest before she can finish it. states that her pain doctor, that does botox for her injections, told her that her face was puffy and she needed to see an assistant chief of police. pt states i know its not my heart and i know its not my NEHEMIAH . several years ago pt states that she had a goiter that was wrapped around her carotid and they had to remove her thyroid too. i am going to order labs today and send the referral. pt also c/o external hemorrhoids for the past month. denies bleeding but states that one swelled and turned purple and was painful but not very painful now. pt states that she has had a hx of hemorrhoid ectomy in 2012 and does not want to go through that again. on exam, pt appears to have several external hemorrhoids, no bleeding and none appear to have any clots. pt states that she is a pt of dr kaur and she will call and make an appt. Krystal Chilel APRN [address] [place], [address], [facility] [employer] 11/23/2024 15:39:07 OBGyn Episode No OBEpisode recorded.
--- OUTSIDE RECORDS SUMMARY | 2025-01-23 13:12 | XMS_ITS | Continuity of Care Document ---
Author Organization [place] - Alfonso[facility], [place] [employer] [facility] Address [address] [place] [id number] Care Team Providers Care Patient Service Rep Name Role Phone KRYSTAL CHILEL Primary Care Provider Unavailabl e Assessment No assessment recorded. Plan of Treatment Reminders Order Date Submit Date Provider Last Modified By Organization Details Last Modified Time Details Appointments FOLLOW UP 15 2024 01:30P M Odilon Chilel APRN Not available Not available Not available Lab PPD (purifie d protein derivati ve), skin test 2024 025 [facility], [address] [place] [address], [phone], 12/26/2024 16:00:53 Referral None recorded . Procedures None recorded . Surgeries None recorded . Imaging None recorded . Medication Orders None recorded . Patient TargetsNo targets recorded. Patient InstructionsNo instructions recorded. Reason for Referral None Reported. Results Created Date Observation Date Name Description Value Unit Range Abnormal Flag Note LastModifiedBy Organization Detail LastModifiedTime 12/27/1912/26/2024 PPD (kahlil fied prote in deriv ative ), skin test TB negati ve Not Available [address], [phone], 12/26/2024 15:11:33 01/10/20 25 01/08/2025 MAMMO , scree crystal, digit al, bilat eral No observ ation record ed. Not Available 01/11 14:07:12 Result Notes None recorded. Problems Name Problem SNOMED Code Status Onset Date Resolution Date Notes Provider Name and Address Organization Details Recorded Time Urinary incontin ence 000198518 Active 2022 REINIER hodges, [employer] 3 16:08:55 Diabetes mellitus 06048498 Active 2023 Delia hodges, [employer] 4 14:06:27 Acute bronchit is 11189281 Active 2023 Mariluz García, VIJAY [address] [place] [address], [phone] , [employer] 4 11:12:49 Sore throat 465897101 Active 2023 Mariluz García NP [address] [place], [address] , [employer] 4 11:12:51 Type 2 diabetes mellitus 00052134 Active 2024 Delia hodges, [employer] 5 14:10:27 Hypothyr oidism 77777755 Active 2019 Not Available [facility] 2 21:25:22 Type 2 diabetes mellitus without complica tion 603534778 Active 2019 Not Available [facility] 2 21:25:22 Vitamin D deficien cy 11753190 Active 2019 Problem Code: E55.9; Problem Code Type: ICD-10; Not Available [facility] 2 21:25:22 Nicotine dependen ce 95047641 Active 2021 Problem Code: F17.200; Problem Code Type: ICD-10; Not Available [facility] 2 21:25:22 Dysthymi a 68043048 Active 2019 Problem Code: F34.1; Problem Code Type: ICD-10; Not Available [facility] 2 21:25:22 Hyperlip idemia 95173015 Active 2019 Problem Code: E78.5; Problem Code Type: ICD-10; Not Available [facility] 21:25:22 Allergic rhinitis 65077706 Active 2019 Problem Code: J30.9; Problem Code Type: ICD-10; Not Available [facility] 21:25:22 Irritabl e bowel syndrome characte rized by constipa tion 504852197 Active 2019 Problem Code: K58.1; Problem Code Type: ICD-10; Not Available [facility] 2 21:25:23 Constipa tion 09050167 Completed 202012/05/2020 Not Available [facility] 21:25:23 Hemorrho ids 89377513 Completed 202012/05/2020 Problem Code: K64.9; Problem Code Type: ICD-10; Not Available [facility] 21:25:23 Atopic dermatit is 08314957 Completed 202003/29/2022 Problem Code: L20.9; Problem Code Type: ICD-10; REINIER hodges, [employer] 15:32:31 Trigger finger Completed 201909/09/2020 Not Available [facility] 21:25:23 Myositis 44470480 Completed 201912/04/2020 Problem Code: M60.9; Problem Code Type: ICD-10; Not Available [facility] 21:25:23 Pelvic and perineal pain 474556311 Completed 202003/05/2021 Problem Code: R10.2; Problem Code Type: ICD-10; Not Available [facility] 21:25:23 Diarrhea 07372637 Completed 201903/29/2022 Problem Code: R19.7; Problem Code Type: ICD-10; REINIER hodges [employer] 15:32:25 Pyrexia of unknown origin 1068832 Completed 201903/29/2022 Problem Code: R50.9; Problem Code Type: ICD-10; REINIER JARANER tracie, [employer] 2 15:32:33 Chronic fatigue syndrome 29329319 Active 2020 Problem Code: R53.82; Problem Code Type: ICD-10; Not Available [facility] 21:25:24 General examinat ion of patient Completed 202003/29/2022 REINIER JARANER tracie, [employer] 2 15:32:05 Medical examinat ion for suspecte d conditio n Completed 201906/10/2020 Problem Code: Z03.89; Problem Code Type: ICD-10; Not Available [facility] 21:25:24 Screenin g mammogra phy Completed 202003/29/2022 Problem Code: Z12.31; Problem Code Type: ICD-10; REINIER hodges, [employer] 15:32:14 Medical examinat ion for suspecte d conditio n Completed 201906/10/2020 Problem Code: Z03.89; Problem Code Type: ICD-10; Not Available [facility] 2 21:25:25 Screenin g for malignan t neoplasm of vagina Completed 201903/29/2022 REINIER JARANER tracie, [employer] 2 15:32:11 Body mass index 30+ - obesity 494223789 Active 2021 Problem Code: Z68.32; Problem Code Type: ICD-10; Not Available [facility] 2 21:25:25 Body mass index 30+ - obesity 905319169 Completed 201906/10/2020 Problem Code: Z68.33; Problem Code Type: ICD-10; Not Available [facility] 2 21:25:26 Gastroes ophageal reflux disease without esophagi tis 024636958 Active 2019 Not Available [facility] 2 21:25:26 Abdomina l pain 98193367 Completed 202103/29/2022 Problem Code: R10.9; Problem Code Type: ICD-10; [employer] 15:32:21 Examinat ion for suspecte d tubercul osis Completed 201905/21/2020 Problem Code: V71.2; Problem Code Type: ICD-9; Not Available [facility] 21:25:27 General examinat ion of patient Completed 201906/10/2020 [employer] 15:32:05 Finding of Mantoux test 280315799 Completed 202103/29/2022 Problem Code: Z11.1; Problem Code Type: ICD-10; [employer]. 15:31:59 Body mass index 30+ - obesity 346594686 Completed 202101/05/2022 Problem Code: Z68.33; Problem Code Type: ICD-10; Not Available [facility] 21:25:27 Body mass index 30+ - obesity 789065757 Completed 202012/04/2020 Problem Code: Z68.33; Problem Code Type: ICD-10; Not Available [facility] 21:25:28 Problem Notes None recorded. Procedures Surgical History Date Name Laterality Status Provider Name and Address Organization Details Recorded Time 09/23/19 Most Recent Mammogram completed Delia Wilkinson [employer] 08/19/2023 13:45:15 12/11/19 20 cholecystectomy completed Not Available [facility] 03/23/2022 22:56:19 12/11/19 20 hysterectomy completed Not Available [facility] 03/23/2022 22:56:19 12/11/19 20 section completed Not Available [facility] 03/23/2022 22:56:20 12/11/19 20 thyroidectomy completed Not Available [facility] 03/23/2022 22:56:20 Imaging Results None recorded. Procedure Notes None recorded. Medical Equipment None Reported. Allergies Allergen ID Allergen Name Allergen Category Reaction Reaction Severity Criticality Documentation Date Start Date Code Code System Note Provider Name and Address Organization Details Recorded Time 24348 azithromy rhett medicatio n Not available Not available Not available 03/23/2022 90399 RxNorm Not Available [facility] 2 22:56:56 Medications Name Sig Start Date [...] Not Available Not Available No t Available DB3 [employer] Ultra Test strips use to test three [...] Not Available Not Available Not Available Vitals None Recorded Social History Question Answer Notes LastModified by Organizat ion Details LastModified Time Tobacco Smoking Status Current Every Day Smoker REINIER hodges [employer] 03/29/2022 15:46:19 Do You Have An Advance Directive? No [email or web address] Information n ot available 03/29/2022 Is Your Home Air Conditioned? Yes Information not available 11/19/2022 Do You Wear A Helmet When Biking? No Information not available 06/27/2024 Are You Blind Or Do You Have Difficulty Seeing? No [email or web address] Information n ot available 05/25/2022 What Is Your Level Of Caffeine Consumption? Moderate Information not available 11/19/2022 Are You A Caregiver? Yes [email or web address] Information not available 05/25/2022 In The 14 Days Before Symptom Onset, Have You Had Close Contact With A Laboratory-confirm ed COVID-19 While That Case Was Ill? No [email or web address] Information n ot available 05/25/2022 In The 14 Days Before Symptom Onset, Have You Had Close Contact With A Person Who Is Under Investigation For COVID-19 While That Person Was Ill? No [email or web address] Information not available 05/25/2022 Have You Been To An Area Known To Be High Risk For COVID-19? No [email or web address] Information not available 05/25/2022 Are You Deaf Or Do You Have Serious Difficulty Hearing? No [email or web address] Information not available 05/25/2022 What Type Of Diet Are You Following? DIABETIC Information n ot available 05/25/2022 Have There Been Any Changes To Your Family Or Social Situation? No [email or web address] Information no t available 05/25/2022 Which Of Your Hands Is Dominant? Right Information n ot available 11/19/2022 Do You Have A Medical Power Of Sports Official? No Information not available 03/29/2022 What Was The Date Of Your Most Recent Tobacco Screening? 11/23/2024 Information not available 11/23/2024 What Is Your Current Pack Years? [email or web address] ears Information not available 02/17/2023 Do You Have Any Pets? Yes Information not available 11/19/2022 What Is Your Relationship Status? [email or web address] Information not available 03/29/2022 Do You Use Your Seat Belt Or Car Seat Routinely? Yes Information not available 11/19/2022 Are You Sexually Active? Yes [email or web address] Information not available 03/29/2022 Do You Have [...] Much Tobacco Do You Smoke? 0.5 PPD [email or web address] Information not available 03/29/2022 Do You Participate In Social Media? Yes [email or web address] Information not available 06/27/2024 Do You Use Sunscreen Routinely? Yes Information not available 11/19/2022 Has Tobacco Cessation Counseling Been Provided? Yes Information not available 01/25/2023 On What Date Was Tobacco Cessation Counseling Provided? 11/23/2024 Information not available 11/23/2024 How Many Years Have You Smoked Tobacco? 26 [email or web address] Information not available 03/29/2022 Have You Recently Traveled Abroad? No [email or web address] Information not available 05/25/2022 Do You Have Difficulty Walking Or Climbing Stairs? No [email or web address] Information not available 05/25/2022 Are You Currently In School? No [email or web address] Information not available 05/25/2022 Do You Have Any Dietary Restrictions? Yes [email or web address] Information not available 06/27/2024 Sex: Female Functional Status Question Answer Note LastModified by Organizat ion Details LastModified Time Do you use any illicit or recreational drugs? No Information not available 11/19/2022 Do you or have you ever used any other forms of tobacco or nicotine? No Information not available 02/17/2023 Are you currently employed? No [email or web address] Information not available 05/25/2022 Do you have transportation difficulties? No [email or web address] Information not available 05/25/2022 Are you able to walk? YESWOREST [email or web address] Information not available 05/25/2022 Do you have difficulty doing errands alone? No [email or web address] Information not available 05/25/2022 Are you able to care for yourself? Yes Information not available 05/25/2022 Do you have difficulty dressing or bathing? No [email or web address] Information not available 05/25/2022 What is your exercise level? None [email or web address] Information not available 05/25/2022 Mental Status Question Answer Note LastModified by Organizat ion Details LastModified Time Do you feel stressed (tense, restless, nervous, or anxious, or unable to sleep at night)? [id number] Information not available 11/19/2022 Do you have difficulty concentrating, remembering or making decisions? No [email or web address] Information no t available 05/25/2022 Family History Relationship Description Onset Age of this Age Resolved Age Notes LastModified by Organization Details LastModified Time Unspecified Relation Family history of Hypertension [email or web address] Not available 15:35:01 Unspecified Relation Family history of diabetes mellitus type 2 [email or web address] Not available 03/29 15:34:57 Unspecified Relation Family history of ischemic heart disease [email or web address] Not available 03/29 15:35:07 Unspecified Relation Family history of Depression [email or web address] Not available 03/18 15:34:42 Father Family history of hyperlipidem ia [email or web address] Not available 03/29 15:34:06 Mother Family history of Hypothyroidi sm [email or web address] Not available 03/29 15:34:37 Mother Family history of hyperlipidem ia [email or web address] Not available 03/29 15:34:10 Brother Family history of hyperlipidem ia [email or web address] Not available 03/29 15:34:21 Medical History Condition [...] quadrivalent, PF 04/22/2023 completed Krystal Chilel APRN [address] [place] [address], [phone], [employer] 04/22/2023 16:12:01 Influenza, split virus, trivalent, PF 04/17/2024 completed Delia hodges, [employer] 04/17/2024 13:46:02 COVID-19, mRNA, LNP-S, PF, 100 mcg/0.5mL dose or 50 mcg/0.25mL dose 10/16/2020 completed REINIER hodges [employer] 05/25/2022 13:43:55 COVID-19, mRNA, LNP-S, PF, 100 mcg/0.5mL dose or 50 mcg/0.25mL dose 09/18/2020 completed REINIER hodges [employer] 05/25/2022 13:43:55 COVID-19, mRNA, LNP-S, PF, 100 mcg/0.5mL dose or 50 mcg/0.25mL dose 06/04/2021 completed REINIER hodges [employer] 05/25/2022 13:43:56 COVID-19, mRNA, LNP-S, bivalent, PF, 30 mcg/0.3 mL dose 05/25/2022 completed Krystal Chilel APRN [address] [facility] [place], [address], [facility] [employer] 05/25/2022 14:33:42 Past Encounters Encounter ID Performer Location Encounter Start Date Encounter Closed Date Diagnosis/Indication Diagnosis SNOMED-CT Code Diagnosis ICD10 Code Diagnosis Note [id number] Krystal Chilel APRN [place] [phone] 12/24/2024 10:05:26 12/24/2024 10:31:08 Tuberculosis screening status 723271589 Z11.1 [id number] Mariluz García NP [place] [phone] 12/26/2024 15:05:15 12/26/2024 15:28:39 Tuberculosis screening status 362350817 Z11.1 Health Concerns Section Related Observation LastModified by Organization Detai ls LastModified Time None Recorded Concern Status LastModified by Organization Details LastModified Time None Recorded Payers Encounter Date Sequence Insurance Name Policy Number Policy Wang Covered Member ID Wang Member ID Guarantor Name 12/26/2024 1 [employer] [facility] (MEDICAID HMO) Aracely Powell [id number] Aracely Powell OBGyn Episode No OBEpisode recorded.
--- OUTSIDE RECORDS SUMMARY | 2025-01-23 13:12 | XMS_ITS | Encounter Summary ---
Author Organization [place] [address] Care Team Providers Care Chemical Pathologist Name Role Phone Unavailable Primary Care Provider Unavailabl e Reason for Visit * Reason Onset Date Comments Abnormal Radiology 01/09/2025 Encounter Details Date Type Department Care Team (Late st Contact Info) Description 01/09/2025 Telephone [facility] [place] [address] Madeline Morris, Clerical Staff Abnormal Radiology Social History Tobacco Use Types Packs/Day Years Used Date Smoking Tobacco: Never Assessed Comments No Sex and Gender Information Value Date Recorded Sex Assigned at Not on file Legal Sex Female 12:47 PM EDT Gender Identity Not on file Sexual Orientation Not on file documented as of this encounter Miscellaneous Notes * Telephone Encounter - Ada Niño RN - 01/14/2025 12:11 PM EDT Claudette Pettit from [facility]: I can confirm that all patients below are on our list and have been contacted and additional testing has been set up. Phone number for patient's to call with questions is [phone]. N will done TE at this time. * Telephone Encounter - Ada Niño RN - 01/11/2025 11:21 AM EDT Patient is being contacted by Claudette Pettit from [facility] per Monica. Claudette has been contacted regarding patient's abnormal imaging. * Telephone Encounter - Ebony Calderon RN - 01/09/2025 8:23 AM EDT Additional breast imaging recommended: Auto generated letter sent for pt to call Sally at the breast center or Central Scheduling to schedule or call the breast health line nurse at [phone] with questions or concerns. * Telephone Encounter - Madeline Morris, Clerical Staff - 01/09/2025 7:39 AM EDT Insurance:Medicaid Ordering Provider:Krystal Chilel documented in this encounter Plan of Treatment Not on file documented as of this encounter Visit Diagnoses Not on filedocumented in this encounter
--- OUTSIDE RECORDS SUMMARY | 2025-01-23 13:12 | XMS_ITS | Continuity of Care Document ---
Author Organization [facility] [employer] [facility] Address [address] [place] [id number] Care Team Providers Care Young Adult Librarian Name Role Phone KRYSTAL CHILEL Primary Care Provider Unavailabl e Assessment No assessment recorded. Plan of Treatment Reminders Order Date Submit Date Provider Last Modified By Organization Details Last Modified Time Details Appointments FOLLOW UP 15 2024 01:30P M Odilon Chilel APRN Not available Not available Not available Lab None recorded. Referral None recorded. Procedures None recorded. Surgeries None recorded. Imaging None recorded. Medication Orders tuberculi n PPD 5 tub. unit/0.1 mL intraderm al injection solution 2024 025 [email or web address] [facility], [address] [place] [address], [id number], 12/24/2024 10:24:32 Patient TargetsNo targets recorded. Patient InstructionsNo instructions recorded. Reason for Referral None Reported. Results Created Date Observation Date Name Description Value Unit Range Abnormal Flag Note LastModifiedBy Organization Detail LastModifiedTime 01/10/20 25 01/08/2025 MAMMO , scree crystal, digit al, bilat eral No observ ation record ed. Not Available 01/11 14:07:12 Result Notes None recorded. Problems Name Problem SNOMED Code Status Onset Date Resolution Date Notes Provider Name and Address Organization Details Recorded Time Urinary incontin ence 653714886 Active 2022 REINIER hodges, [facility] [employer] 16:08:55 Diabetes mellitus 98926985 Active 2023 Delia hodges, [employer] 4 14:06:27 Acute bronchit is 89390225 Active 2023 Mariluz García NP [address] [place], [address] , [employer] 4 11:12:49 Sore throat 895420158 Active 2023 Mariluz García NP [address] [place], [address] , [employer] 4 11:12:51 Type 2 diabetes mellitus 38119892 Active 2024 Delia hodges, [employer] 5 14:10:27 Hypothyr oidism 86624768 Active 2019 Not Available [facility] 2 21:25:22 Type 2 diabetes mellitus without complica tion 578145776 Active 2019 Not Available [facility] 2 21:25:22 Vitamin D deficien cy 89410018 Active 2019 Problem Code: E55.9; Problem Code Type: ICD-10; Not Available [facility] 2 21:25:22 Nicotine dependen ce 58534968 Active 2021 Problem Code: F17.200; Problem Code Type: ICD-10; Not Available [facility] 2 21:25:22 Dysthymi a 77984418 Active 2019 Problem Code: F34.1; Problem Code Type: ICD-10; Not Available [facility] 2 21:25:22 Hyperlip idemia 42816515 Active 2019 Problem Code: E78.5; Problem Code Type: ICD-10; Not Available [facility] 2 21:25:22 Allergic rhinitis 58829254 Active 2019 Problem Code: J30.9; Problem Code Type: ICD-10; Not Available [facility] 2 21:25:22 Irritabl e bowel syndrome characte rized by constipa tion 516256752 Active 2019 Problem Code: K58.1; Problem Code Type: ICD-10; Not Available [facility] 21:25:23 Constipa tion 52334195 Completed 202012/05/2020 Not Available [facility] 21:25:23 Hemorrho ids 21771507 Completed 202012/05/2020 Problem Code: K64.9; Problem Code Type: ICD-10; Not Available [facility] 21:25:23 Atopic dermatit is 42583256 Completed 202003/29/2022 Problem Code: L20.9; Problem Code Type: ICD-10; REINIER hodges, [employer] 15:32:31 Trigger finger Completed 201909/09/2020 Not Available [facility] 21:25:23 Myositis 81658312 Completed 201912/04/2020 Problem Code: M60.9; Problem Code Type: ICD-10; Not Available [facility] 21:25:23 Pelvic and perineal pain 803851610 Completed 202003/05/2021 Problem Code: R10.2; Problem Code Type: ICD-10; Not Available [facility] 21:25:23 Diarrhea 24068722 Completed 201903/29/2022 Problem Code: R19.7; Problem Code Type: ICD-10; REINIER hodges [employer] 2 15:32:25 Pyrexia of unknown origin 1426964 Completed 201903/29/2022 Problem Code: R50.9; Problem Code Type: ICD-10; REINIER hodges [employer] 2 15:32:33 Chronic fatigue syndrome 17740419 Active 2020 Problem Code: R53.82; Problem Code Type: ICD-10; Not Available [facility] 21:25:24 General examinat ion of patient Completed 202003/29/2022 REINIER RIVERA [employer] 2 15:32:05 Medical examinat ion for suspecte d conditio n Completed 201906/10/2020 Problem Code: Z03.89; Problem Code Type: ICD-10; Not Available [facility] 2 21:25:24 Screenin g mammogra phy Completed 202003/29/2022 Problem Code: Z12.31; Problem Code Type: ICD-10; REINIER JARANER tracie, [employer]. 15:32:14 Medical examinat ion for suspecte d conditio n Completed 201906/10/2020 Problem Code: Z03.89; Problem Code Type: ICD-10; Not Available [facility] 2 21:25:25 Screenin g for malignan t neoplasm of vagina Completed 201903/29/2022 REINIER JARANER tracie, [employer] 2 15:32:11 Body mass index 30+ - obesity 250554883 Active 2021 Problem Code: Z68.32; Problem Code Type: ICD-10; Not Available [facility] 2 21:25:25 Body mass index 30+ - obesity 011538212 Completed 201906/10/2020 Problem Code: Z68.33; Problem Code Type: ICD-10; Not Available [facility] 2 21:25:26 Gastroes ophageal reflux disease without esophagi tis 183579058 Active 2019 Not Available [facility] 2 21:25:26 Abdomina l pain 64358356 Completed 202103/29/2022 Problem Code: R10.9; Problem Code Type: ICD-10; REINIER JARANER tracie, [employer] 2 15:32:21 Examinat ion for suspecte d tubercul osis Completed 201905/21/2020 Problem Code: V71.2; Problem Code Type: ICD-9; Not Available [facility] 21:25:27 General examinat ion of patient Completed 201906/10/2020 [employer]IER [employer] 15:32:05 Finding of Mantoux test 402545541 Completed 202103/29/2022 Problem Code: Z11.1; Problem Code Type: ICD-10; REINIER hodges [employer] 15:31:59 Body mass index 30+ - obesity 523556003 Completed 202101/05/2022 Problem Code: Z68.33; Problem Code Type: ICD-10; Not Available [facility] 21:25:27 Body mass index 30+ - obesity 024521321 Completed 202012/04/2020 Problem Code: Z68.33; Problem Code Type: ICD-10; Not Available [facility] 21:25:28 Problem Notes None recorded. Procedures Surgical History Date Name Laterality Status Provider Name and Address Organization Details Recorded Time 09/23/19 Most Recent Mammogram completed Delia Wilkinson [employer]. 08/19/2023 13:45:15 12/11/19 20 cholecystectomy completed Not Available [facility] 03/23/2022 22:56:19 12/11/19 20 hysterectomy completed Not Available [facility] 03/23/2022 22:56:19 12/11/19 20 section completed Not Available [facility] 03/23/2022 22:56:20 12/11/19 20 thyroidectomy completed Not Available [facility] 03/23/2022 22:56:20 Imaging Results None recorded. Procedure Notes None recorded. Medical Equipment None Reported. Allergies Allergen ID Allergen Name Allergen Category Reaction Reaction Severity Criticality Documentation Date Start Date Code Code System Note Provider Name and Address Organization Details Recorded Time 80944 azithromy rhett medicatio n Not available Not available Not available 03/23/2022 15294 RxNorm Not Available [facility] 22:56:56 Medications Name Sig Start Date Stop [...] 2024 active Not Available Not Available Not Avpatricia labsherron pravastat in 40 mg tablet take 1 [...] TAKE 1 TABLET BY MOUTH ONCE DAILY 05/09/ 2025 active Not Available Not Available Not Avai [...] Available Not Available No t Available OneTouch Ultra Test strips use to test three [...] Smoking Status Current Every Day Smoker REINIER hodges, [facility] [employer] 03/29/2022 15:46:19 Do You Have An Advance Directive? No [email or web address] Information n ot available 03/29/2022 Is Your Home Air Conditioned? Yes Information not available 11/19/2022 Do You Wear A Helmet When Biking? No [email or web address] Information not available 06/27/2024 Are You Blind Or Do You Have Difficulty Seeing? No [email or web address] Information n ot available 05/25/2022 What Is Your Level Of Caffeine Consumption? Moderate Information not available 11/19/2022 Are You A Caregiver? Yes [email or web address] Information not available 05/25/2022 In The 14 Days Before Symptom Onset, Have You Had Close Contact With A Laboratory-confirm ed COVID-19 While That Case Was Ill? No [email or web address] Information n ot available 05/25/2022 In The 14 Days Before Symptom Onset, Have You Had Close Contact With A Person Who Is Under Investigation For COVID-19 While That Person Was Ill? No Information not available 05/25/2022 Have You Been To An Area Known To Be High Risk For COVID-19? No [email or web address] Information not available 05/25/2022 Are You Deaf Or Do You Have Serious Difficulty Hearing? No [email or web address] Information not available 05/25/2022 What Type Of Diet Are You Following? DIABETIC [email or web address] Information n ot available 05/25/2022 Have There Been Any Changes To Your Family Or Social Situation? No [email or web address] Information no t available 05/25/2022 Which Of Your Hands Is Dominant? Right Information n ot available 11/19/2022 Do You Have A Medical Power Of Tree Topper? No [email or web address] Information not available 03/29/2022 What Was The Date Of Your Most Recent Tobacco Screening? 11/23/2024 Information not available 11/23/2024 What Is Your Current Pack Years? [email or web address] Information not available 02/17/2023 Do You Have Any Pets? Yes Information not available 11/19/2022 What Is Your Relationship Status? [email or web address] Information not available 03/29/2022 Do You Use Your Seat Belt Or Car Seat Routinely? Yes Information not available 11/19/2022 Are You Sexually Active? Yes [email or web address] Information not available 03/29/2022 Do You Have [...] Much Tobacco Do You Smoke? 0.5 PPD [email or web address] Information not available 03/29/2022 Do You Participate In Social Media? Yes [email or web address] Information not available 06/27/2024 Do You Use Sunscreen Routinely? Yes Information not available 11/19/2022 Has Tobacco Cessation Counseling Been Provided? Yes Information not available 01/25/2023 On What Date Was Tobacco Cessation Counseling Provided? 11/23/2024 Information not available 11/23/2024 How Many Years Have You Smoked Tobacco? 26 [email or web address] Information not available 03/29/2022 Have You Recently Traveled Abroad? No [email or web address] Information not available 05/25/2022 Do You Have Difficulty Walking Or Climbing Stairs? No [email or web address] Information not available 05/25/2022 Are You Currently In School? No [email or web address] Information not available 05/25/2022 Do You Have Any Dietary Restrictions? Yes Information not available 06/27/2024 Sex: Female Functional Status Question Answer Note LastModified by Organizat ion Details LastModified Time Do you use any illicit or recreational drugs? No Information not available 11/19/2022 Do you or have you ever used any other forms of tobacco or nicotine? No Information not available 02/17/2023 Are you currently employed? No [email or web address] Information not available 05/25/2022 Do you have transportation difficulties? No Information not available 05/25/2022 Are you able to walk? YESWOREST [email or web address] Information not available 05/25/2022 Do you have difficulty doing errands alone? No [email or web address] Information not available 05/25/2022 Are you able to care for yourself? Yes [email or web address] Information not available 05/25/2022 Do you have difficulty dressing or bathing? No [email or web address] Information not available 05/25/2022 What is your exercise level? None [email or web address] Information not available 05/25/2022 Mental Status Question Answer Note LastModified by Organizat ion Details LastModified Time Do you feel stressed (tense, restless, nervous, or anxious, or unable to sleep at night)? [id number] Information not available 11/19/2022 Do you have difficulty concentrating, remembering or making decisions? No [email or web address] Information no t available 05/25/2022 Family History Relationship Description Onset Age of this Age Resolved Age Notes LastModified by Organization Details LastModified Time Unspecified Relation Family history of Hypertension [email or web address] Not available 15:35:01 Unspecified Relation Family history of diabetes mellitus type 2 [email or web address] Not available 03/29 15:34:57 Unspecified Relation Family history of ischemic heart disease [email or web address] Not available 03/29 15:35:07 Unspecified Relation Family history of Depression [email or web address] Not available 03/18 15:34:42 Father Family history of hyperlipidem ia [email or web address] Not available 03/29 15:34:06 Mother Family history of Hypothyroidi sm [email or web address] Not available 03/29 15:34:37 Mother Family history of hyperlipidem ia [email or web address] Not available 03/29 15:34:10 Brother Family history of hyperlipidem ia [email or web address] Not available 03/29 15:34:21 Medical History Condition Response Emergency room visit since last appointm ent. N Hypothyroidism Y High Cholesterol Y Hospitalizations N Diabetes Y Gynecological History Statement/Question Response Date of Last Pap Smear Most Recent Mammogram 09/22/2022 Obstetrics History GPAL:G 0 P 0 0 0 0 Immunizations Vaccine Type Date Status Note Provider Nam e and Address Organization Details Recorded Time Influenza, split virus, quadrivalent, PF 04/22/2023 completed Krystal Chilel, [facility] [address] [place], [address], [employer] 04/22/2023 16:12:01 Influenza, split virus, trivalent, PF 04/17/2024 completed Delia hodges, [employer] 04/17/2024 13:46:02 COVID-19, mRNA, LNP-S, PF, 100 mcg/0.5mL dose or 50 mcg/0.25mL dose 10/16/2020 completed REINIER hodges, [employer] 05/25/2022 13:43:55 COVID-19, mRNA, LNP-S, PF, 100 mcg/0.5mL dose or 50 mcg/0.25mL dose 09/18/2020 completed REINIER RIVERA [employer] 05/25/2022 13:43:55 COVID-19, mRNA, LNP-S, PF, 100 mcg/0.5mL dose or 50 mcg/0.25mL dose 06/04/2021 completed REINIER hodges [employer] 05/25/2022 13:43:56 COVID-19, mRNA, LNP-S, bivalent, PF, 30 mcg/0.3 mL dose 05/25/2022 completed Krystal Chilel, [facility] [address] [place], [address], [employer] 05/25/2022 14:33:42 Past Encounters Encounter ID Performer Location Encounter Start Date Encounter Closed Date Diagnosis/Indication Diagnosis SNOMED-CT Code Diagnosis ICD10 Code Diagnosis Note [id number] Krystal Chilel [place] [phone] 11/23/2024 13:52:11 11/23/2024 15:16:25 Type 2 diabetes mellitus 53248966 E11.9 Fatigue 41612703 R53.83 Iron defic iency anemia 02100927 D50.8 Vitamin D deficiency 347 54419 E55.9 Cobalamin deficiency 190 965331 E53.8 Mixed hyperlipidemia 267 388458 E78.2 HIV screening 382766440 Z11.4 External hemorrhoids 239 70842 K64.4 Allergic rhinitis 502411 04 J30.9 Vaginal dryness 95954350 N89.8 Dysthymia 36602443 F34.1 Vitamin B deficiency 479 72141 E53.9 Hypothyroidism 85308107 E03.9 Muscle pain 30064744 M79 .10 Increased frequency of urination 360115747 R35.0 Gastroesop hageal reflux disease without esophagitis 616496071 K21.9 Hyperlipidemia 15717751 E78.5 Acute bronchitis 4494066 2 J20.9 Body mass index 30+ - obesity 362593011 Z68.32 [id number] Krystal Chilel APRN [place] [phone] 12/24/2024 10:05:26 12/24/2024 10:31:08 Tuberculosis screening status 802857561 Z11.1 Health Concerns Section Related Observation LastModified by Organization Detai ls LastModified Time None Recorded Concern Status LastModified by Organization Details LastModified Time None Recorded Payers Encounter Date Sequence Insurance Name Policy Number Policy Wang Covered Member ID Wang Member ID Guarantor Name 12/24/2024 1 [employer] [facility] (MEDICAID HMO) Aracely Powell [id number] Aracely Powell OBGyn Episode No OBEpisode recorded.
== END 2025-01-23 23:59 | disposition home or self-care (01) ==
LOC: RAD 13:02
PROVIDERS: PCP Nurse Practitioner; Visit Provider Nurse Practitioner
DX: R92.322 Mammographic fibroglandular density, left breast (principal); N63.20 Unspecified lump in the left breast, unspecified quadrant
CPT/HCPCS: 76641; 77061; 77065; G0279

== ENCOUNTER 2025-03-03 17:48 | Inpatient (IN) | payer OTHER, SELFPAY ==
--- OUTSIDE RECORDS SUMMARY | 2025-01-07 13:34 | XMS_ITS | Encounter Summary ---
Author Organization [place] [address] Care Team Providers Care Automatic Trimming Sewer Name Role Phone Unavailable Primary Care Provider Unavailabl e Reason for Referral * Mammography (Routine) - Pending Review Specialty Diagnoses / Procedures Referred By Contac t Referred To Contact Radiology Diagnoses Encounter for screening mammogram for malignant neoplasm of breast Procedures MM MAMMO DIGITAL RANDELL SCREEN Krystal Jacome NP [address] [place] [address] Phone: tel: Referral ID Status Reason Start Date Expiration Date V isits Requested Visits Authorized [id number] Pending Review 11/29/2024 11/29/2026 1 1 Reason for Visit * Mammography (Routine) - Pending Review Specialty Diagnoses / Procedures Referred By Jayden arias Referred To Contact Radiology Diagnoses Encounter for screening mammogram for malignant neoplasm of breast Procedures MM MAMMO DIGITAL RANDELL SCREEN Krystal Jacome NP [address] [place] [address] Phone: tel: Referral ID Status Reason Start Date Expiration Date V isits Requested Visits Authorized [id number] Pending Review 11/29/2024 11/29/2026 1 1 Encounter Details Date Type Department Care Team (Latest Contact Info) Description 01/07/2025 1:34 PM EDT - 01/07/2025 11:59 PM EDT Hospital Encounter Mobile Mammography Other Location View online schedule for mobile van location [phone] Krystal Chilel NP [address] [place] [address] Encounter for screening mammogram for malignant neoplasm [...] PM EDT Incomplete: Need additional imaging evaluation ([id number]) RECOMMENDATION: Additional Imaging Diagnostic Mammogram Left Additional Imaging Breast Ultrasound Left COMMENTS: DISCLAIMER *The patient was notified by MyChart or mail of the results for this examination. *The patient's information was entered into a reminder system with a target due date for the next breast imaging, in accordance with the [employer] and the Society of [...] for screening mammogram for malignant neoplasm of fhxren-XVV-33-CM COMPARISON STUDIES: Compared with prior studies the most recent being 09/22/2022, [place], [place] TISSUE DENSITY: There are scattered areas of fibroglandular density. FINDINGS: One view asymmetry left breast seen in superior aspect of left breast on MLO view only. No suspicious microcalcification Right-sided mammograms are normal. Procedure Note Td Kay MD - 01/08/2025 EXAM: MM MAMMO DIGITAL RANDELL SCREEN BILAT EXAM DATE: 01/07/2025 1:35 PM INDICATION: Z12.31-Encounter for screening mammogram for malignantneoplasm of lukpxe-HLW-93-CM COMPARISON STUDIES: Compared with prior studies the most recent being09/22/2022, [place], [place] TISSUE DENSITY: There are scattered areas of fibroglandular density. FINDINGS: One view asymmetry left breast seen in superior aspect of leftbreast on MLO view only. No suspicious microcalcification Right-sided mammograms are normal. IMPRESSION: Incomplete: Need additional imaging evaluation (QHE-Wkpgrfet-0) RECOMMENDATION: Additional Imaging Diagnostic Mammogram Left Additional Imaging Breast Ultrasound Left COMMENTS: DISCLAIMER *The patient was notified by MyChart or mail of the results for this examination. *The patient's information was entered into a reminder system with atarget due date for the next breast imaging, in accordance with the [employer] and the Society of Breast Imaging recommendations. *Breast Imaging has a false negative rate of 15%. *Any patient with a palpable abnormality, unexplained by breast imaging,should be managed on a clinical basis by the attending physician. Krystal Chilel ARCHITECT NAVAL IMG MAMMOGRAPHY ORDERABLE S Final Result documented in this encounter Visit Diagnoses Diagnosis Encounter for screening mammogram for malignant neoplasm of breast Other screening mammogram documented in this encounter
[2025-03-03 18:29] LABS: Hematocrit 41.4 % (37.0-47.0); Hemoglobin 13.7 g/dL (12.2-16.2); Immature Granulocytes % 0.4 %; Mean Corpuscular HGB Conc 33.1 g/dL (31.8-35.4); Mean Corpuscular Hemoglobin 28.8 pg (27.0-31.2); Mean Corpuscular Volume 87.2 fl (81-99); Nucleated Red Blood Cells % 0 %; Platelet Count 267 K/mm3 (142-424); Red Blood Count 4.75 M/mm3 (4.20-5.40); Red Cell Distribution Width-SD 60.8 fL; White Blood Count 13.1 K/mm3 (4.8-10.8)
[2025-03-03 18:36] LABS: Albumin Level 4.6 g/dl (3.5-5.0); Chloride 111 mmol/L (98-107); Sodium 141 mmol/L (136-145)
[2025-03-03 18:37] LABS: Potassium 4.0 mmoL/L (3.5-5.1)
[2025-03-03 18:39] LABS: Alanine Aminotransferase 29 U/L (12-78); Albumin/Globulin Ratio 1.4 (1.1-1.8); Alkaline Phosphatase 88 U/L (38-126); Anion Gap 10.0 mEq/L (5-15); Aspartate Amino Transferase 33 U/L (14-36); Bilirubin,Total 0.3 mg/dl (0.2-1.3); Blood Urea Nitrogen 12 mg/dl (7-17); Calcium 9.0 mg/dl (8.4-10.2); Carbon Dioxide 24 mmol/L (22.0-30.0); Cholesterol 210 mg/dl (140-200); Creatinine,Serum 0.80 mg/dl (0.52-1.04); Estimated Glomerular Filt Rate 76 ml/min (>60); GFR (African American) 92 ML/MIN (>60); Globulin 3.4 g/dL (1.3-3.2); Glucose 131 mg/dl (74-100); Total Protein,Serum 8.0 g/dl (6.3-8.2); Triglycerides 65 mg/dl (30-150)
[2025-03-03 18:40] LABS: HDL Cholesterol 33 mg/dl (40-60); Magnesium 2.3 mg/dl (1.6-2.3)
[2025-03-03 18:51] LABS: NT Pro Brain Natriuretic Pep. 52.0 pg/mL (0-125)
[2025-03-03 19:01] LABS: Troponin I 0.46 ng/ml (0.00-0.034)
[2025-03-03 19:11] VITALS: BMI 32.8
[2025-03-03 19:12] LABS: Thyroid Stimulating Hormone 1.70 uIU/mL (0.465-4.68)
[2025-03-03 20:00] VITALS: BP 122/61; PULSE 65; RESP 16; TEMP 36.5; O2SAT 99
[2025-03-03 20:01] VITALS: BP 127/70; PULSE 77
[2025-03-03 20:02] VITALS: BP 117/62; PULSE 58
[2025-03-03 20:41] LABS: Hemoglobin A1C 5.6 % (4.0-6.0)
[2025-03-03] MEDS: MORPHINE 2MG/ML SYRINGE 2 MG IV (22:05)
--- NOTE | 2025-03-03 22:11 | P.HP_ITS ---
<Statement entered by Cade Rehman MD - 03/05/25 11:44> Personally evaluated patient and agree with the plan of care as outlined by the SLOT TECHNICIAN. History of Present Illness *Admission Date: 03/03/25 *Reason for visit:: Non-STEMI *History of present illness: This 49-year-old female, with a history of hyperlipidemia, long-term smoking, woke up this morning approximately 430 with numbness to her arms and a slight chest pressure no chest pain. At 1230 both arms became numb chest felt constricted she had some nausea. While she was at the hospital, had a period where she could not respond her limbs felt so heavy it was hard for her to do the neuroexam.. All the symptoms have passed at the present time. Reviewed past medical history showed some carotid stenosis but MRI showed none.. Do not have the records here from [facility] but patient said that she had CT scans of the head and chest done that showed nothing to worry about as far as a stroke Patient presently is not having any chest pain but has elevated troponin cardiology has been consulted, patient will have a cardiac cath in the morning. Patient is stable at this time will follow for diabetes mellitus and return of chest pain or any return of any neurologic symptoms. [facility] Disclaimer: The information contained in this section may have been updated after the patient was seen, as this information can be updated by other users. Medical History (Updated 03/03/25 @ 22:25 by Nestor Fontaine APRN) Chronic pain BMI 32.0-32.9,adult Tailor's bunion of right foot Callus of foot Diverticulitis Keratosis Foot pain Peroneal tendinitis of left lower leg Tendonitis of ankle or foot Warts of foot Osteoarthritis of ankle or foot Calcaneal spur of left foot Metatarsalgia of left foot Edema of left lower extremity Diabetic foot Foot pain Dizziness Worsening headaches Pulsatile tinnitus of right ear Cervicogenic headache Medication overuse headache Chronic migraine without aura Anemia Neck pain Abnormal x-ray of spine Neural foraminal stenosis of cervical spine UTI (urinary tract infection) Constipation Diverticulitis Chest pain DM2 (diabetes mellitus, type 2) Tobacco use Auditory complaints of right ear Stenosis of carotid artery Dizziness Thyroid disease Bilateral cataracts Depression Anxiety History of gastroesophageal reflux (GERD) Migraine Urinary tract infection Diabetes mellitus, type 2 Hyperlipidemia Surgical History (Updated 03/03/25 @ 22:24 by Nestor Fontaine APRN) History of cervical spinal surgery History of colonoscopy Hx of hemorrhoidectomy History of spinal fusion History of carpal tunnel surgery History of thyroidectomy History of hysterectomy History of section History of cholecystectomy Family History Other Cancer Coronary artery disease Diabetes Hyperlipidemia Hypertension Social History Smoking Status: Current every day smoker tobacco type: cigarettes packs per day: 1 second hand exposure: Yes alcohol intake: never current occupational status: employed Travel in the last 8 weeks?: None household members: spouse and family housing: house 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 current occupational exposures/hazards: No caffeine: Yes Have you lived/traveled outside [place] in past 30 days?: No Contact w/someone who lives/traveled outside US past 30 days?: No Exposure to someone with infectious disease in past 14 days?: No Do you have a fever (greater than 100.4 F or 38 C)?: No Have you tested positive for COVID-19?: No Exposed to someone with COVID-19 in past 14 days?: No Do you have a sore throat?: No Do you have a cough?: No Do you have any weakness?: No Do you have any diarrhea?: No Are you experiencing any unusual bleeding?: No Do you have any muscle aches/pain?: No Do you have any abdominal pain?: No Are you experiencing loss of taste or smell?: No Other Medical History Have you received the Flu Vaccine for this season: Yes Have you received the Pneumonia Vaccine: No Review of Systems Review of Systems Review of systems:: pertinent systems reviewed and negative unless documented below Constitutional Constitutional: Reports as per HPI Comments: Weight has been stable for many years, no history of recent injuries or medication changes Eyes Eyes: Reports as per HPI ENT Ears, Nose, Mouth, and Throat: Reports as per HPI *Cardiovascular Cardiovascular: Reports as per HPI *Gastrointestinal Gastrointestinal: Reports as per HPI Comments: History of diverticulitis but no symptoms at this time *Musculoskeletal Musculoskeletal: Reports as per HPI Comments: Had problems with moving her arms and legs earlier that has resolved Integumentary/Breasts Skin/Breast: Reports as per HPI *Neurologic Neurologic: Reports as per HPI Psychiatric Psychiatric: Reports as per HPI Endocrine Endocrine: Reports as per HPI Hematologic/Lymphatic Hematologic/Lymphatic: Reports as per HPI Allergic/Immunologic Allergic/Immunologic: Reports as per HPI Meds Home Medications and Allergies Home Medications ?Medication ?Instructions ?Recorded ?Confirmed ?Type cetirizine 10 mg tablet 10 mg PO DAILY 30 days #30 t abs 10/02/18 03/03/25 Hi story oxybutynin chloride 15 mg 15 mg PO DAILY 30 days #30 t abs 10/02/18 03/03/25 History tablet,extended release 24 hr pantoprazole 40 mg tablet,delayed 40 mg PO DAILY 30 da ys #30 tabs 10/02/18 03/03/25 History release sertraline 50 mg tablet 50 mg PO DAILY 01/21/2002/15 History flaxseed oil 1,000 mg capsule 1,000 mg PO DAILY 03/03/25 History pravastatin 40 mg tablet 80 mg PO DAILY 30 days #60 t abs 01/03/23 03/03/25 History ergocalciferol (vitamin D2) 1,250 1,250 mcg PO WEEKLY 11/21/23 03/03/25 History mcg (50,000 unit) capsule (Vitamin D2) levothyroxine 112 mcg tablet 112 mcg PO DAILYDM 03/03/25 History sumatriptan succinate 100 mg tablet 100 mg PO NEEDE D PRN migraine 11/21/23 03/03/25 History headaches sennosides 8.6 mg-docusate sodium 1 tab-cap PO HS #30 tabs 11/24/23 03/03/25 Rx 50 mg tablet elkxgywpfp-illtyuckjyloe-ihdowwlq 1 cap PO DAILY 11/2703/03/25 History 50 mg-300 mg-40 mg capsule empagliflozin 25 mg tablet 25 mg PO ONCE 11/28/2302/15 History (Jardiance) ferrous sulfate 140 mg (45 mg 140 mg PO DAILY 11/28/23 03/03/25 History iron) tablet,extended release (Slow Release Iron) methocarbamol 750 mg tablet 750 mg PO Q6H PRN muscle s pasms 11/28/23 03/03/25 History fluticasone propionate 50 50 mcg intranasal ONCE 05/2203/03/25 History mcg/actuation nasal spray,suspension rimegepant 75 mg disintegrating 75 mg PO ONCE PRN migr prema 06/13/24 03/03/25 Rx tablet (Nurtec ODT) headache #8 tabs topiramate 100 mg tablet 150 mg (1.5 x 100 mg) PO HS 06/13/24 03/03/25 Rx Migraine prevention #45 tabs New Prescriptions to Start Prescriptions: Allergies Allergy/AdvReac Type Severity Reaction Status Date / Time azithromycin Allergy Unknown Verified 05/22/24 07:59 Exam Data for Last 24 hours Vital signs and Labs for Last 24 Hours: Temp Pulse Resp BP Pulse Ox O2 Del Method 97.7 F 58 L 16 117/62 99 Room Air 03/03/25 20:00 03/03/25 20:02 03/03/25 20:00 03/03/25 20:02 03/03/25 20:00 03/03/25 20:00 Laboratory Results - last 24 hr 03/03/25 18:05: WBC 13.1 H, RBC 4.75, Hgb 13.7, Hct 41.4, MCV 87.2, MCH 28.8, MCHC 33.1, RDW 19.0 H, Plt Count 267, MPV 9.0, Neut % (Auto) 76.0, Lymph % (Auto) 18.8, [place] % (Auto) 3.4, Eos % (Auto) 1.2, Baso % (Auto) 0.2, Neut # (Auto) 9.9 H, Lymph # (Auto) 2.5, [place] # (Auto) 0.4, Eos # (Auto) 0.2, Baso # (Auto) 0.0, Sodium 141, Potassium 4.0, Chloride 111 H, Carbon Dioxide 24, Anion Gap 10.0, BUN 12, Creatinine 0.80, Estimated GFR 76, Est GFR ( Amer) 92, Glucose 131 H, Hemoglobin A1c 5.6, Calcium 9.0, Magnesium 2.3, Total Bilirubin 0.3, AST 33, ALT 29, Alkaline Phosphatase 88, Troponin I 0.46 H, NT-Pro-B Natriuret Pep 52.0, Total Protein 8.0, Albumin 4.6, Globulin 3.4 H, Albumin/Globulin Ratio 1.4, Triglycerides 65, Cholesterol 210 H, LDL Cholesterol Direct 144.72 H, VLDL Cholesterol 13, HDL Cholesterol 33 L, Cholesterol/HDL Ratio 6.4 H, TSH 1.70 I & O for Last 24 hours: Intake & Output 03/01/25 03/02/25 03/03/25 03/04/25 05:59 05:59 05:59 05:59 Weight 203 lb Constitutional Constitutional: no acute distress, obese and cooperative *Routine HEENT Exam Head: Present normocephalic and atraumatic Eye: Present EOMI and PERRL ENT: Present mucous membranes moist *Routine Neck Exam Neck: Present supple and full ROM *Routine Respiratory Exam Respiratory: Present CTA bilaterally, normal respiratory effort, able to speak in complete sentences and symmetric chest movement Comments: Lungs clear in all mckeon no signs of respiratory distress *Routine Cardiovascular Exam Cardiovascular: Present RRR, Normal S1 and Normal S2 Comments: Patient reports no chest pain at this time *Routine Abdominal Exam Abdominal: Present soft and normoactive bowel sounds Comments: No tenderness to the abdomen *Routine Rectal Exam Rectal:: deferred *Routine Genitalia Exam Genitalia:: deferred *Routine Extremities Exam Extremities: Present full ROM, pulses intact and normal capillary refill Comments: No edema to lower extremities *Routine Skin Exam Skin: Present intact, dry, warm and normal turgor *Routine Neurological Exam Neurological: Present alert, oriented X3, CN II-XII intact, normal reflexes, normal tone, vision grossly intact, hearing grossly intact and normal speech Comments: No signs of neurologic deficit at this time Routine Psychiatric Exam Psychiatric: Present normal affect, normal thought process, cooperative, good insight and good judgment H&P: Result Impressions 1. Non-STEMI elevated troponin 2, long-term smoker 3. Diabetes mellitus with hyperlipidemia and obesity Assessment and Plan *Assessment and plan (1) Chest pain: Status: Acute Qualifiers: Chest pain type: chest pain due to myocardial ischemia Ischemic chest pain type: unstable angina pectoris Qualified Code(s): I20.0 - Unstable angina Category: Medical Code(s): R07.9 - Chest pain, unspecified (2) Elevated troponin: Status: Acute Category: Medical Code(s): R79.89 - Other specified abnormal findings of blood chemistry (3) Chronic narcotic use: Status: Chronic Category: Social Hx Code(s): F11.90 - Opioid use, unspecified, uncomplicated (4) DM2 (diabetes mellitus, type 2): Status: Chronic Qualifiers: 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 insulin use: without fci use Diabetes mellitus complication status: with other specified complication Qualified Code(s): E11.69 - Type 2 diabetes mellitus with other specified complication Category: Medical Code(s): E11.9 - Type 2 diabetes mellitus without complications (5) Tobacco use: Status: Chronic Category: Social Hx Code(s): Z72.0 - Tobacco use (6) Hyperlipidemia: Status: Acute Qualifiers: Hyperlipidemia type: unspecified Qualified Code(s): E78.5 - Hyperlipidemia, unspecified Category: Medical Code(s): E78.5 - Hyperlipidemia, unspecified (7) Diabetes mellitus: Status: Acute Qualifiers: Diabetes mellitus type: type 2 Diabetes mellitus fci insulin use: without fci use Diabetes mellitus complication status: with hyperglycemia Qualified Code(s): E11.65 - Type 2 diabetes mellitus with hyperglycemia Category: Medical Code(s): E11.9 - Type 2 diabetes mellitus without complications (8) Chronic pain: Status: Acute Qualifiers: Chronic pain type: chronic pain syndrome Qualified Code(s): G89.4 - Chronic pain syndrome Category: Medical Code(s): G89.29 - Other chronic pain Plan 1. Patient is stable at this time no chest pain will be monitored throughout the night. Serial troponins will continue, cardiology has been consulted with a plan for cardiac cath in the a.m.. Noting patient did have stress test in 2022 which showed no issues. 2. Chronic pain condition with chronic migraine will treat as needed 3. Long-term tobacco use teaching done on how the nicotine with the diabetes mellitus increases the risk of vascular disease/OR and also can inflame the immune systems as the patient has chronic pain fibromyalgia and actually required neck surgery.
[2025-03-03 22:29] LABS: POC Glucose,Bedside 113 (70-110)
[2025-03-03 23:24] LABS: Troponin I 0.31 ng/ml (0.00-0.034)
--- NOTE | 2025-03-03 23:25 | PC.NURSE ---
Addendum entered by Jordyn Suresh RN 03/04/25 02:38: Lab called at 02:37 to report a critical troponin value of 0.20 for the patient. Carlie Fontaine APRN was paged at this time to inform him about the critical lab value. Original Note: Lab called at 23:24 to report a critical troponin value of 0.31 for the patient. Carlie Fontaine APRN was paged at this time to inform him about the critical lab value. The patient previously had moderate, sharp chest pain again around 22:00 that immediately subsided (per her statement) after morphine administration per SEP. Carlie Fontaine APRN was also informed about this; he requested to go ahead and obtain another 12-lead EKG. Verbal order to be entered. Vital sign assessment to be obtained accordingly as well. Continuous cardiac telemetry remains in place.
--- NOTE | 2025-03-03 23:33 | ECG_ITS ---
APPROVED REPORT Exam: Resting ECG HR:61 bpm ECG Measurements Heart Rate 61 AXES UT 186 P 59 QRSd 92 QRS 21 QT 416 T 29 QTc 419 Conclusion SINUS RHYTHM LOW QRS VOLTAGE IN PRECORDIAL LEADS [QRS DEFLECTION < 1.0 mV IN CHEST LEADS] NONSPECIFIC T-WAVE ABNORMALITY No STEMI Electronically signed by : CYNTHIA LEVY, 03/04/2025 02:55:46
[2025-03-04] VITALS (11 sets, daily range): BP systolic 104–141; BP diastolic 57–78; PULSE 60–96; RESP 16–20; TEMP 36.5–36.8; O2SAT 91–97; BMI 32.5
[2025-03-04] MEDS: MORPHINE 2MG/ML SYRINGE 2 MG IV (02:22)
[2025-03-04 02:32] LABS: Troponin I 0.20 ng/ml (0.00-0.034)
--- NOTE | 2025-03-04 03:40 | PC.NURSE ---
Patient is alert and oriented x4. She was observed to have both wakeful periods and resting periods (eyes closed, respirations even/unlabored) throughout the night. Her is at the bedside. Patient has had complaints of acute sharp chest pain (located in midsternal area) that comes and goes. Morphine has been administered per MAR for pain relief, followed up with immediate, desirable outcomes. She has also had complaints of chronic migraine headaches and neck pain ( pinched feeling) that is more present. Orthostatic blood pressures were taken earlier this shift; heart rate noticed to decrease while lying down. No further stroke symptoms were noted; however, the patient stated that she continues to have left leg numbness, but she can bear weight on it and ambulate independently without difficulties. No complaints of weight or drifting of extremities observed. Memory and coordination intact. Diminished lung sounds heard upon auscultation. Normal sinus rhythm on telemetry. No acute findings per reviewed EKG. Scheduled medications administered per SEP. ACHS glucose checks. Troponins elevated but have trended downward throughout this shift. At this time, the patient is resting in bed without any further complaints. No new needs thus far. Call light within reach. Cardiology consult ordered, pending interventions.
[2025-03-04 05:46] LABS: Hematocrit 38.6 % (37.0-47.0); Hemoglobin 12.8 g/dL (12.2-16.2); Immature Granulocytes % 0.3 %; Mean Corpuscular HGB Conc 33.2 g/dL (31.8-35.4); Mean Corpuscular Hemoglobin 29.2 pg (27.0-31.2); Mean Corpuscular Volume 88.1 fl (81-99); Nucleated Red Blood Cells % 0 %; Platelet Count 234 K/mm3 (142-424); Red Blood Count 4.38 M/mm3 (4.20-5.40); Red Cell Distribution Width-SD 62.2 fL; White Blood Count 11.5 K/mm3 (4.8-10.8)
[2025-03-04 05:48] LABS: Albumin Level 4.2 g/dl (3.5-5.0); Chloride 112 mmol/L (98-107); Potassium 3.5 mmoL/L (3.5-5.1); Sodium 142 mmol/L (136-145)
[2025-03-04 05:51] LABS: Alanine Aminotransferase 25 U/L (12-78); Albumin/Globulin Ratio 1.3 (1.1-1.8); Alkaline Phosphatase 74 U/L (38-126); Anion Gap 11.5 mEq/L (5-15); Aspartate Amino Transferase 32 U/L (14-36); Bilirubin,Total 0.3 mg/dl (0.2-1.3); Blood Urea Nitrogen 13 mg/dl (7-17); Calcium 8.8 mg/dl (8.4-10.2); Carbon Dioxide 22 mmol/L (22.0-30.0); Creatinine Clearance Estimated 121 mL/min (50-200); Creatinine,Serum 0.80 mg/dl (0.52-1.04); Estimated Glomerular Filt Rate 76 ml/min (>60); GFR (African American) 92 ML/MIN (>60); Globulin 3.2 g/dL (1.3-3.2); Glucose 111 mg/dl (74-100); Total Protein,Serum 7.4 g/dl (6.3-8.2)
[2025-03-04 05:52] LABS: Magnesium 2.4 mg/dl (1.6-2.3)
[2025-03-04 06:03] LABS: Troponin I 0.12 ng/ml (0.00-0.034)
[2025-03-04 06:05] LABS: POC Glucose,Bedside 106 (70-110)
[2025-03-04] MEDS: PANTOPRAZOLE 40MG TABLET 40 MG PO (06:39)
[2025-03-04] MEDS: NICOTINE 21MG/24HR PATCH 21 MG TD (06:39)
[2025-03-04] MEDS: KETOROLAC 30MG/ML VIAL 15 MG IV (06:45)
--- NOTE | 2025-03-04 06:56 | ECG_ITS ---
APPROVED REPORT Exam: Resting ECG HR:50 bpm ECG Measurements Heart Rate 50 AXES MN 209 P 53 QRSd 97 QRS 25 QT 463 T 27 QTc 435 Conclusion SINUS BRADYCARDIA MODERATE T-WAVE ABNORMALITY, CONSIDER LATERAL ISCHEMIA [-0.1+ mV T-WAVE IN I/aVL/V5/V6] ABNORMAL ECG UNCONFIRMED REPORT Electronically signed by : Giovanni Pina MD 03/05/2025 08:23:05
--- NOTE | 2025-03-04 07:22 | PC.NURSE ---
Jardiance and Synthroid were unable to be given per MAR due to unavailability in this facility's OMN[facility]. This will be passed along to day shift to relay to this facility's pharmacy.
--- NOTE | 2025-03-04 08:41 | HMH.PHAINT1 ---
Pharmacy Intervention Comments: MEDICATION RECONCILIATION COMPLETED ON PATIENT USING EXTERNAL FILL HISTORY FROM PHARMACY. -BERNIE LLOYD, [place]
--- NOTE | 2025-03-04 08:42 | CA_ITS ---
APPROVED REPORT EXAM: Comprehensive 2D, Doppler, and color-flow Echocardiogram Fiber Optic Assembly Worker: Sherice Paul RVT Ht: 5 ft 6 in Wt: 202lbs BSA: 2.01 BP: 117/62 mmHg Indications: NSTEMI,CHEST PAIN 2D Dimensions LA Volume 27.60 mL LA Volume Index 13.73 mL/m2 (M/F) 16-34 M-Mode Dimensions RVDd 1.82 cm (0.9-2.6) LA Diam 2.68 cm (1.9-4.0) LVDd 4.57 cm (3.5-5.7) LVDs 3.04 cm (3.5-5.7) IVSd 0.83 cm (0.6-1.1) PWd 0.39 cm (0.6-1.1) EF (Teich) 62.30% FS 33.50% EDV (Teich) 95.90 mL TAPSE 2.70 (<1.7) ESV (Teich) 36.20 mL LV Diastology E Decel Time 193 (160-240 msec) E/A Ratio 1.1 Aortic Valve PAMELLA Index 1.46 cm2/m2 AoV Peak Bang. 106.0 (50-130 cm/s) AO Peak GR. 4.50 mmHg AO Mean GR. 2.90 (<5 mmHg) AO VTI 24.1 (18-25 cm) PAMELLA (VTI) 3.00 (2.5-4.5 cm2) Mitral Valve MV E Max Bang. 68.0 (40-130 cm/s) MV A Velocity 60.0 (40-130 cm/s) E/A Ratio 1.13 MV PHT 57.0 ms Pulmonary Valve PV Peak Velocity 54.0 (50-150 cm/s) Left Ventricle The left ventricle is normal size. Left ventricular systolic function is normal. The left ventricular ejection fraction is within the normal range. There is increased left ventricular wall thickness. There is normal LV segmental wall motion. The left ventricular diastolic function is normal. LVEF is 55% Right Ventricle The right ventricle is normal size. The right ventricular systolic function is normal. Atria The left atrium size is normal. The right atrium size is normal. There is no color Doppler evidence of interatrial shunt. Aortic Valve The aortic valve is mildly thickened. There is no hemodynamically significant aortic valvular stenosis. No aortic regurgitation is present. Mitral Valve The mitral valve is normal in structure. No evidence of mitral valve stenosis. Trace mitral regurgitation is present. Tricuspid Valve The tricuspid valve leaflets are thin and pliable. Trace tricuspid regurgitation. There is insufficient TR jet to estimate RVSP. Pulmonic Valve The pulmonary valve is grossly normal in structure. Trace pulmonic valve regurgitation is present. Great Vessels The aortic root is normal in size. IVC is normal in size and collapses >50% with inspiration. Pericardium There is no pericardial effusion. Other Information Study Quality: Fair Conclusion Normal biventricular systolic function. No significant valvular stenosis or regurgitation. Electronically signed by : Sosa Moe MD 03/05/2025 12:57:22
--- NOTE | 2025-03-04 08:45 | XR_ITS ---
FINAL REPORT CLINICAL HISTORY: chest pain COMPARISON: 08/03/2022 FINDINGS: The heart size is normal. The mediastinum is normal. There is no focal infiltrate or edema. Mild chronic changes are noted. There are no pleural effusions. There is no pneumothorax. Cervical fusion hardware is present bridging the lower cervical spine. IMPRESSION: No acute cardiopulmonary process Reviewed, Interpreted and Dictated by Paresh Bateman MD Transcribed by Sally Macdonald Authenticated and . [facility]
[2025-03-04] MEDS: LEVOTHYROXINE 112MCG (0.112MG) TAB 112 MCG PO (10:07)
[2025-03-04] MEDS: SERTRALINE 50MG TABLET 50 MG PO (10:07)
[2025-03-04] MEDS: EMPAGLIFLOZIN 25MG TABLET 25 MG PO (10:07)
--- NOTE | 2025-03-04 11:13 | IR_ITS ---
APPROVED REPORT Patient Location: Inpatient Textile Pin Worker: Buddy Bravo, RT (R) PROCEDURES Left heart catheterization Left ventriculogram Selective coronary angiogram Intravascular ultrasound to the right coronary Drug-eluting stent deployment to the ostial proximal right coronary INDICATION Acute non-ST elevation myocardial infarction, Heavy plaque burden exceeding 80% of lumen Informed consent was obtained prior to the procedure. COMPLICATIONS NONE Estimated Blood Loss: LESS THAN 10 ML TECHNIQUE One percent lidocaine used to anesthetize the right anterior aspect of the wrist. The right radial artery was accessed via the Seldinger technique. A 6 English sheath was placed in the right radial artery. 2.5 mg of Verapamil, 800 mcg of nitroglycerin, 1mg Lidocaine and 5000 U Heparin were given through the arterial sheath. The JL3 catheter was also used to perform left heart catheterization, left ventriculogram and selective coronary angiogram. At the end the diagnostic angiogram therapeutic Was administered given a therapeutic ACT and the guide catheter was placed in the right coronary followed by Choice PT extra-support wire placed distally. There was heavy plaque burden occupying nearly 80% of the lumen. This was deemed the culprit for the non-STEMI therefore a 4 mm x 18 mm Karl frontier stent was deployed at 16 valery in the ostial proximal segment reducing the stenosis. Repeat IVUS demonstrated there was excellent expansion and stent apposition. There was believed to be positive remodeling around the stent and this would recoil over time. After achieving excellent angiograph results the apparatus was removed the sheath was removed and hemostasis was achieved using TR banding patient was transferred to the postop putting in stable condition ANGIOGRAPHIC RESULTS The left main artery Normal The left anterior descending artery Has proximal 10% luminal regularities with mid vessel 20 and 30% stenoses. The circumflex artery Nondominant with 10% luminal regularities The right coronary artery Is a large dominant vessel with proximal hazy 40 to 50% stenosis followed by either vascular ectasia or poststenotic dilatation. There are additional 20% distal stenoses The WILLSON ventriculogram reveals Normal 65% The left ventricular end-diastolic pressure 15 mmHg IMPRESSION Heavy plaque burden in the proximal right coronary artery exceeding nearly 80% of the lumen which is considered the culprit for the non-STEMI Successful drug-eluting stent deployment to the proximal dominant right coronary severe disease distally 0% with 1 drug-eluting stent Normal ejection fraction Normal LVEDP PLAN 1. Effient and aspirin 2. LDL less than 55 achieved with high intensity statin 3. Avoidance of tobacco products 4. Risk factor modification 5. Cardiac rehabilitation Electronically signed by : Jm Burks MD 03/04/2025 15:16:35
--- NOTE | 2025-03-04 12:05 | P.DS_ITS ---
<Statement entered by Cade Rehman MD - 03/05/25 11:42> Personally evaluated patient and agree with the plan of care as outlined by the OPERATIONS ENGINEER. General Admission date:: 03/03/25 Discharge date: 03/04/25 HPI HPI HPI: This 49-year-old female, with a history of hyperlipidemia, long-term smoking, woke up this morning approximately 430 with numbness to her arms and a slight chest pressure no chest pain. At 1230 both arms became numb chest felt constricted she had some nausea. While she was at the hospital, had a period where she could not respond her limbs felt so heavy it was hard for her to do the neuroexam.. All the symptoms have passed at the present time. Reviewed past medical history showed some carotid stenosis but MRI showed none.. Do not have the records here from [facility] but patient said that she had CT scans of the head and chest done that showed nothing to worry about as far as a stroke Patient presently is not having any chest pain but has elevated troponin cardiology has been consulted, patient will have a cardiac cath in the morning. Patient is stable at this time will follow for diabetes mellitus and return of chest pain or any return of any neurologic symptoms. Hospital Course Hospital Course Hospital Course: Ms. Powell is a 49-year-old female who was a direct admit from [facility]. She originally went to the emergency room with chest pressure and numbness and both arms. She states she also had some lightheadedness, nausea, diaphoresis. While she was at the emergency department her extremities began feeling heavy and tingling and numb. Neuroexam did not show any deficits at that time. MRIs of the brain were obtained and were negative. CT scans of head and chest were also negative. Troponins were elevated and here [facility] was contacted for admission and cardiology consult. Upon admission to our facility lab work was obtained troponins were elevated, 0.46 trending downward to 0.12. No other abnormalities noted at that time. Patient was directly admitted to the hospital and plan of care was as follows: #NSTEMI, type I #Elevated troponin ? Due to patient's initial elevated troponins, chest pain cardiology was consulted. Left heart cath done today, patient received stenting to the proximal right coronary artery. Per cardiology patient to be started on Plavix 75 mg and aspirin 81 mg daily, metoprolol succinate 25 mg daily, transitioned from pravastatin to atorvastatin 80 mg at bedtime. Patient should also continue Jardiance 25 mg daily. Patient to follow-up with cardiology within 1 week. Patient should enroll in cardiac rehabilitation services. ? Patient goal LDL less than 55, currently patient's LDL 144. ? Official echocardiogram read pending. #Tobacco use disorder: Discussed in depth the need for smoking cessation. #Mood disorder: Continue sertraline 50 mg daily and hydroxyzine 10 mg 3 times daily as needed for anxiety at discharge. #Chronic migraines: Continue topiramate 150 mg at bedtime, Nurtec ODT as needed, sumatriptan 100 mg as needed #Hypothyroidism: Continue levothyroxine 112 mcg daily, TSH 1.7. #GERD: Continue pantoprazole 40 mg daily. #Overactive bladder: Continue oxybutynin 15 mg daily. #Chronic pain: Continue Robaxin-750 hours every 6 hours as needed. Total time spent on discharge 38 minutes in counseling, documentation, chart review, and direct care with patient. Exam Data for Last 24 hours Vital signs and Labs for Last 24 Hours: Temp Pulse Resp BP Pulse Ox O2 Del Method 98 F 61 16 140/78 97 Room Air 03/04/25 07:45 03/04/25 07:45 03/04/25 07:45 03/04/25 07:45 03/04/25 07:45 03/04/25 09:00 Laboratory Results - last 24 hr 03/03/25 18:05: WBC 13.1 H, RBC 4.75, Hgb 13.7, Hct 41.4, MCV 87.2, MCH 28.8, MCHC 33.1, RDW 19.0 H, Plt Count 267, MPV 9.0, Neut % (Auto) 76.0, Lymph % (Auto) 18.8, [place] % (Auto) 3.4, Eos % (Auto) 1.2, Baso % (Auto) 0.2, Neut # (Auto) 9.9 H, Lymph # (Auto) 2.5, [place]ardo # (Auto) 0.4, Eos # (Auto) 0.2, Baso # (Auto) 0.0, Sodium 141, Potassium 4.0, Chloride 111 H, Carbon Dioxide 24, Anion Gap 10.0, BUN 12, Creatinine 0.80, Estimated GFR 76, Est GFR ( Amer) 92, Glucose 131 H, Hemoglobin A1c 5.6, Calcium 9.0, Magnesium 2.3, Total Bilirubin 0.3, AST 33, ALT 29, Alkaline Phosphatase 88, Troponin I 0.46 H, NT-Pro-B Natriuret Pep 52.0, Total Protein 8.0, Albumin 4.6, Globulin 3.4 H, Albumin/Globulin Ratio 1.4, Triglycerides 65, Cholesterol 210 H, LDL Cholesterol Direct 144.72 H, VLDL Cholesterol 13, HDL Cholesterol 33 L, Cholesterol/HDL Ratio 6.4 H, TSH 1.70 03/03/25 22:14: POC Glucose 113 H 03/03/25 22:48: Troponin I 0.31 H 03/04/25 01:52: Troponin I 0.20 H 03/04/25 05:23: WBC 11.5 H, RBC 4.38, Hgb 12.8, Hct 38.6, MCV 88.1, MCH 29.2, MCHC 33.2, RDW 19.0 H, Plt Count 234, MPV 9.0, Neut % (Auto) 53.4, Lymph % (Auto) 38.2, [place]ardo % (Auto) 5.2, Eos % (Auto) 2.6, Baso % (Auto) 0.3, Neut # (Auto) 6.1, Lymph # (Auto) 4.4, [place]ardo # (Auto) 0.6, Eos # (Auto) 0.3, Baso # (Auto) 0.0, Sodium 142, Potassium 3.5, Chloride 112 H, Carbon Dioxide 22, Anion Gap 11.5, BUN 13, Creatinine 0.80, Estimated Creat Clear 121, Estimated GFR 76, Est GFR ( Amer) 92, Glucose 111 H, Calcium 8.8, Magnesium 2.4 H, Total Bilirubin 0.3, AST 32, ALT 25, Alkaline Phosphatase 74, Troponin I 0.12 H, Total Protein 7.4, Albumin 4.2, Globulin 3.2, Albumin/Globulin Ratio 1.3 03/04/25 05:35: POC Glucose 106 I & O for Last 24 hours: Intake & Output 03/01/25 03/02/25 03/03/25 03/04/25 23:59 23:59 23:59 23:59 Intake Total 938 / 938 Output Total 0 / 0 0 / 0 Balance 0 / 380 938 / 938 Weight 92.079 kg 92 kg Constitutional Constitutional: no acute distress, chronically ill appearing and cooperative *Routine HEENT Exam Head: Present normocephalic ENT: Present mucous membranes moist *Routine Neck Exam Neck: Present supple and full ROM *Routine Respiratory Exam Respiratory: Present CTA bilaterally, normal respiratory effort, able to speak in complete sentences and symmetric chest movement; Absent wheezes or crackles *Routine Cardiovascular Exam Cardiovascular: Present RRR *Routine Abdominal Exam Abdominal: Present soft and normoactive bowel sounds; Absent tenderness or distended *Routine Extremities Exam Extremities: Present full ROM; Absent clubbing or edema *Routine Skin Exam Skin: Present intact, dry and scars; Absent rash *Routine Neurological Exam Neurological: Present alert, oriented X3, moving all extremities and normal speech Results Data Completed and Pending Labs on day of discharge: Labs from last 24 hours 03/04/25 03/04/25 03/04/25 05:35 05:23 01:52 WBC 11.5 H RBC 4.38 Hgb 12.8 Hct 38.6 MCV 88.1 MCH 29.2 MCHC 33.2 RDW 19.0 H Plt Count 234 MPV 9.0 Neut % (Auto) 53.4 Lymph % (Auto) 38.2 [place]ardo % (Auto) 5.2 Eos % (Auto) 2.6 Baso % (Auto) 0.3 Neut # (Auto) 6.1 Lymph # (Auto) 4.4 [place]ardo # (Auto) 0.6 Eos # (Auto) 0.3 Baso # (Auto) 0.0 Sodium 142 Potassium 3.5 Chloride 112 H Carbon Dioxide 22 Anion Gap 11.5 BUN 13 Creatinine 0.80 Estimated Creat Clear 121 Estimated GFR 76 Est GFR ( Amer) 92 Glucose 111 H POC Glucose 106 Hemoglobin A1c Calcium 8.8 Magnesium 2.4 H Total Bilirubin 0.3 AST 32 ALT 25 Alkaline Phosphatase 74 Troponin I 0.12 H 0.20 H NT-Pro-B Natriuret Pep Total Protein 7.4 Albumin 4.2 Globulin 3.2 Albumin/Globulin Ratio 1.3 Triglycerides Cholesterol LDL Cholesterol Direct VLDL Cholesterol HDL Cholesterol Cholesterol/HDL Ratio TSH 03/03/25 03/03/25 03/03/25 22:48 22:14 18:05 WBC 13.1 H RBC 4.75 Hgb 13.7 Hct 41.4 MCV 87.2 MCH 28.8 MCHC 33.1 RDW 19.0 H Plt Count 267 MPV 9.0 Neut % (Auto) 76.0 Lymph % (Auto) 18.8 [place]ardo % (Auto) 3.4 Eos % (Auto) 1.2 Baso % (Auto) 0.2 Neut # (Auto) 9.9 H Lymph # (Auto) 2.5 [place] # (Auto) 0.4 Eos # (Auto) 0.2 Baso # (Auto) 0.0 Sodium 141 Potassium 4.0 Chloride 111 H Carbon Dioxide 24 Anion Gap 10.0 BUN 12 Creatinine 0.80 Estimated Creat Clear Estimated GFR 76 Est GFR ( Amer) 92 Glucose 131 H POC Glucose 113 H Hemoglobin A1c 5.6 Calcium 9.0 Magnesium 2.3 Total Bilirubin 0.3 AST 33 ALT 29 Alkaline Phosphatase 88 Troponin I 0.31 H 0.46 H NT-Pro-B Natriuret Pep 52.0 Total Protein 8.0 Albumin 4.6 Globulin 3.4 H Albumin/Globulin Ratio 1.4 Triglycerides 65 Cholesterol 210 H LDL Cholesterol Direct 144.72 H VLDL Cholesterol 13 HDL Cholesterol 33 L Cholesterol/HDL Ratio 6.4 H TSH 1.70 DS: Diagnosis Discharge Diagnosis (1) Chest pain: Status: Acute Code(s): R07.9 - Chest pain, unspecified Qualifiers: Chest pain type: chest pain due to myocardial ischemia Ischemic chest pain type: unstable angina pectoris Qualified Code(s): I20.0 - Unstable angina (2) Elevated troponin: Status: Acute Code(s): R79.89 - Other specified abnormal findings of blood chemistry (3) Chronic narcotic use: Status: Chronic Code(s): F11.90 - Opioid use, unspecified, uncomplicated (4) DM2 (diabetes mellitus, type 2): Status: Chronic Code(s): E11.9 - Type 2 diabetes mellitus without complications Qualifiers: Diabetes mellitus complication status: with other specified complication Diabetes mellitus nursing home insulin use: without buttermaker continuous churn use Qualified Code(s): E11.69 - Type 2 diabetes mellitus with other specified complication (5) Tobacco use: Status: Chronic Code(s): Z72.0 - Tobacco use (6) Hyperlipidemia: Status: Acute Code(s): E78.5 - Hyperlipidemia, unspecified Qualifiers: Hyperlipidemia type: unspecified Qualified Code(s): E78.5 - Hyperlipidemia, unspecified (7) Diabetes mellitus: Status: Acute Code(s): E11.9 - Type 2 diabetes mellitus without complications Qualifiers: Diabetes mellitus complication status: with hyperglycemia Diabetes mellitus buttermaker continuous churn insulin use: without nursing home use Diabetes mellitus type: type 2 Qualified Code(s): E11.65 - Type 2 diabetes mellitus with hyperglycemia (8) Chronic pain: Status: Acute Code(s): G89.29 - Other chronic pain Qualifiers: Chronic pain type: chronic pain syndrome Qualified Code(s): G89.4 - Chronic pain syndrome Meds Home Medications and Allergies Home Medications ?Medication ?Instructions ?Recorded ?Confirmed ?Type cetirizine 10 mg tablet 10 mg PO DAILY 30 days #30 t abs 10/02/18 03/03/25 History oxybutynin chloride 15 mg 15 mg PO DAILY 30 days #30 t abs 10/02/18 03/03/25 History tablet,extended release 24 hr pantoprazole 40 mg tablet,delayed 40 mg PO DAILY 30 da ys #30 tabs 10/02/18 03/03/25 History release sertraline 50 mg tablet 50 mg PO DAILY 01/21/2002/15 History flaxseed oil 1,000 mg capsule 1,000 mg PO DAILY 03/03/25 History ergocalciferol (vitamin D2) 1,250 1,250 mcg PO WEEKLY 11/21/23 03/03/25 History mcg (50,000 unit) capsule (Vitamin D2) levothyroxine 112 mcg tablet 112 mcg PO DAILY 11/21/23 03/04/25 History sumatriptan succinate 100 mg tablet 100 mg PO NEEDE D PRN migraine 11/21/23 03/03/25 History headaches [id number]-[id number] 1 cap PO DAILYP PRN Migraine 11/28/23 03/04/25 History 50 mg-300 mg-40 mg capsule Headache empagliflozin 25 mg tablet 25 mg PO DAILY 11/28/23 History (Jardiance) ferrous sulfate 140 mg (45 mg 140 mg PO DAILY 11/28/23 03/03/25 History iron) tablet,extended release (Slow Release Iron) methocarbamol 750 mg tablet 750 mg PO Q6HP PRN muscle spasms 11/28/23 03/04/25 History fluticasone propionate 50 50 mcg intranasal DAILY 12/0803/04/25 History mcg/actuation nasal spray,suspension aspirin 81 mg capsule 81 mg PO DAILY #30 caps 02/15 03/11 Rx atorvastatin 80 mg tablet (Lipitor) 80 mg PO HS #30 ta bs 03/04/25 Rx clopidogrel 75 mg tablet (Plavix) 75 mg PO DAILY #30 t abs 03/04/25 Rx estradiol 0.01% (0.1 mg/gram) 1 appful vaginal DIRE CTED 03/04/25 03/04/25 History vaginal cream hydroxyzine HCl 10 mg tablet 10 mg PO TIDP PRN Anxiety 03/04/25 03/04/25 History magnesium oxide 400 mg (241.3 mg 400 mg PO BID 5 03/04/25 History magnesium) tablet metoprolol succinate 25 mg 25 mg PO DAILY #30 tabs Rx tablet,extended release 24 hr (Toprol XL) rimegepant 75 mg disintegrating 75 mg PO DAILYP PRN mi graine 03/04/25 03/04/25 History tablet (Nurtec ODT) headache topiramate 100 mg tablet 150 mg PO HS 03/04/25 History New Prescriptions to Start Prescriptions: Sherry Gonzalez atorvastatin [Lipitor] Sherry Stuart clopidogrel [Plavix] Sherry Stuart metoprolol succinate [Toprol XL] Sherry Stuart Allergies Allergy/AdvReac Type Severity Reaction Status Date / Time azithromycin Allergy Unknown Verified 05/22/24 07:59 Discharge Plan Disposition Patient Disposition: Home, Self-Care Condition: Fair Discharge Order Discharge Orders: Discharge Order (Routine); Ordered 03/04/25 Ordered By: Sherry Stuart Follow up Plan Follow up with: Jm Burks MD [Staff Physician, Cardiology] Prescriptions/Medication Reconciliation: New aspirin 81 mg capsule 81 mg PO DAILY Qty: 30 0RF clopidogrel [Plavix] 75 mg tablet 75 mg PO DAILY Qty: 30 0RF metoprolol succinate [Toprol XL] 25 mg tablet extended release 24 hr 25 mg PO DAILY Qty: 30 0RF atorvastatin [Lipitor] 80 mg tablet 80 mg PO HS Qty: 30 0RF Continued pantoprazole 40 mg tablet,delayed release (DR/EC) 40 mg PO DAILY 30 Days Qty: 30 oxybutynin chloride 15 mg tablet extended release 24hr 15 mg PO DAILY 30 Days Qty: 30 cetirizine 10 mg tablet 10 mg PO DAILY 30 Days Qty: 30 flaxseed oil 1,000 mg capsule 1,000 mg PO DAILY Rx Instructions: administer with a meal sertraline 50 mg tablet 50 mg PO DAILY Patient Comments: TAKE 1 TABLET BY MOUTH ONCE DAILY fluticasone propionate 50 mcg/actuation spray,suspension 50 mcg INTRANASAL DAILY Patient Comments: USE 1 SPRAY(S) IN EACH NOSTRIL ONCE DAILY [id number]-xmyuhldslfefx-tjtv 50-300-40 mg capsule 1 cap PO DAILYP PRN (Reason: Migraine Headache) Patient Comments: Take 1 capsule every 12 hours by oral route as needed. methocarbamol 750 mg tablet 750 mg PO Q6HP PRN (Reason: muscle spasms) Patient Comments: TAKE ONE TABLET EVERY 6 HOURS NEEDED FOR SPASM Slow Release Iron 140 mg (45 mg iron) tablet extended release 140 mg PO DAILY Patient Comments: Take 1 tablet every day by oral route for 90 days. Jardiance 25 mg tablet 25 mg PO DAILY ergocalciferol (vitamin D2) [Vitamin D2] 1,250 mcg (50,000 unit) capsule 1,250 mcg PO WEEKLY levothyroxine 112 mcg tablet 112 mcg PO DAILY Patient Comments: TAKE 1 TABLET BY MOUTH ONCE DAILY sumatriptan succinate 100 mg tablet 100 mg PO NEEDED PRN (Reason: migraine headaches) Rx Instructions: take 1 tab at onset of headache; if no relief, may repeat 1 tab after at least 2 hrs; max = 2 tabs/24 hrs or 4 tabs per week magnesium oxide 400 mg (241.3 mg magnesium) tablet 400 mg PO BID estradiol 0.01 % (0.1 mg/gram) cream 1 appful VAGINAL DIRECTED hydroxyzine HCl 10 mg tablet 10 mg PO TIDP PRN (Reason: Anxiety) topiramate 100 mg tablet 150 mg PO HS Nurtec ODT 75 mg tablet,disintegrating 75 mg PO DAILYP PRN (Reason: migraine headache) Discontinued pravastatin 80 mg tablet 80 mg PO DAILY Patient Comments: TAKE 1 TABLET BY MOUTH ONCE DAILY Problem Reconciliation Problems Reviewed?: Yes Patient Discharge Instructions ACTIVITY: Continue current activity and No heavy lifting DIET: cardiac Patient Instructions: Angina, DI for Cardiac Catheterization, Moderate Sedation Print Language: Icelandic Providers Primary Care Provider: Krystal Chilel Admit Provider: Cade Rehman Attending Provider: Cade Rehman
--- NOTE | 2025-03-04 12:47 | P.CONCA_ITS ---
History of Present Illness History of Present Illness Consult date: 03/04/25 Requesting physician: Cdae Rehman Consult reason: chest pain Chief complaint: Chest pressure and arm History of present illness: This is a 49-year-old female who presented to the emergency department with numbness in her bilateral arms that started around 4:30 AM on the morning of admission. She states that following the onset of the bilateral arm movement she started to have some chest pressure. She states that this got more severe as time went on and associated with shortness of breath and nausea so she decided to come to the emergency department. She was found to have an elevated troponin consistent with a non-STEMI. She states that she is still been having symptoms intermittently since being in the hospital. She states that her chest just feels very constricted when she starts having the pressure. She denies any fever, chills, vomiting, diarrhea, PND or orthopnea. [facility] Disclaimer: The information contained in this section may have been updated after the patient was seen, as this information can be updated by other users. Medical History (Updated 03/04/25 @ 12:54 by Scarlett Ferreira APRN) Numbness and tingling of upper extremity Atypical angina Non-STEMI (non-ST elevated myocardial infarction) Chronic pain BMI 32.0-32.9,adult Tailor's bunion of right foot Callus of foot Diverticulitis Keratosis Foot pain Peroneal tendinitis of left lower leg Tendonitis of ankle or foot Warts of foot Osteoarthritis of ankle or foot Calcaneal spur of left foot Metatarsalgia of left foot Edema of left lower extremity Diabetic foot Foot pain Dizziness Worsening headaches Pulsatile tinnitus of right ear Cervicogenic headache Medication overuse headache Chronic migraine without aura Anemia Neck pain Abnormal x-ray of spine Neural foraminal stenosis of cervical spine UTI (urinary tract infection) Constipation Diverticulitis Chest pain DM2 (diabetes mellitus, type 2) Tobacco use Auditory complaints of right ear Stenosis of carotid artery Dizziness Thyroid disease Bilateral cataracts Depression Anxiety History of gastroesophageal reflux (GERD) Migraine Urinary tract infection Diabetes mellitus, type 2 Hyperlipidemia Surgical History (Updated 03/03/25 @ 22:24 by Nestor Fontaine APRN) History of cervical spinal surgery History of colonoscopy Hx of hemorrhoidectomy History of spinal fusion History of carpal tunnel surgery History of thyroidectomy History of hysterectomy History of section History of cholecystectomy Family History Other Cancer Coronary artery disease Diabetes Hyperlipidemia Hypertension Social History Smoking Status: Current every day smoker tobacco type: cigarettes packs per day: 1 second hand exposure: Yes alcohol intake: never current occupational status: employed Travel in the last 8 weeks?: None household members: spouse and family housing: house 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 current occupational exposures/hazards: No caffeine: Yes Have you lived/traveled outside US in past 30 days?: No Contact w/someone who lives/traveled outside US past 30 days?: No Exposure to someone with infectious disease in past 14 days?: No Do you have a fever (greater than 100.4 F or 38 C)?: No Have you tested positive for COVID-19?: No Exposed to someone with COVID-19 in past 14 days?: No Do you have a sore throat?: No Do you have a cough?: No Do you have any weakness?: No Do you have any diarrhea?: No Are you experiencing any unusual bleeding?: No Do you have any muscle aches/pain?: No Do you have any abdominal pain?: No Are you experiencing loss of taste or smell?: No Review of Systems Review of Systems Review of systems:: pertinent systems reviewed and negative unless documented below Constitutional Constitutional: Reports system reviewed and no additional complaints, except as documented Eyes Eyes: Reports system reviewed and no additional complaints, except as documented ENT Ears, Nose, Mouth, and Throat: Reports system reviewed and no additional complaints, except as documented *Cardiovascular Cardiovascular: Reports system reviewed and no additional complaints, except as documented, Reports chest pain, Reports chest pain with activity, Reports dyspnea, Reports dyspnea on exertion and Reports radiating jaw, neck or arm pain *Respiratory Respiratory: Reports system reviewed and no additional complaints, except as documented, Reports dyspnea and Reports dyspnea on exertion *Gastrointestinal Gastrointestinal: Reports system reviewed and no additional complaints, except as documented and Reports nausea *Genitourinary Genitourinary: Reports system reviewed and no additional complaints, except as documented *Musculoskeletal Musculoskeletal: Reports system reviewed and no additional complaints, except as documented Integumentary/Breasts Skin/Breast: Reports system reviewed and no additional complaints, except as documented *Neurologic Neurologic: Reports system reviewed and no additional complaints, except as documented and Reports as per HPI Psychiatric Psychiatric: Reports system reviewed and no additional complaints, except as documented Endocrine Endocrine: Reports system reviewed and no additional complaints, except as documented Hematologic/Lymphatic Hematologic/Lymphatic: Reports system reviewed and no additional complaints, except as documented Allergic/Immunologic Allergic/Immunologic: Reports system reviewed and no additional complaints, except as documented Exam Data for Last 24 hours Vital signs and Labs for Last 24 Hours: Temp Pulse Resp BP Pulse Ox O2 Del Method 98.3 F 67 18 141/77 H 97 Room Air 03/04/25 12:00 03/04/25 12:00 03/04/25 12:00 03/04/25 12:00 03/04/25 12:00 03/04/25 12:00 Laboratory Results - last 24 hr 03/03/25 18:05: WBC 13.1 H, RBC 4.75, Hgb 13.7, Hct 41.4, MCV 87.2, MCH 28.8, MCHC 33.1, RDW 19.0 H, Plt Count 267, MPV 9.0, Neut % (Auto) 76.0, Lymph % (Auto) 18.8, [place] % (Auto) 3.4, Eos % (Auto) 1.2, Baso % (Auto) 0.2, Neut # (Auto) 9.9 H, Lymph # (Auto) 2.5, [place] # (Auto) 0.4, Eos # (Auto) 0.2, Baso # (Auto) 0.0, Sodium 141, Potassium 4.0, Chloride 111 H, Carbon Dioxide 24, Anion Gap 10.0, BUN 12, Creatinine 0.80, Estimated GFR 76, Est GFR ( Amer) 92, Glucose 131 H, Hemoglobin A1c 5.6, Calcium 9.0, Magnesium 2.3, Total Bilirubin 0.3, AST 33, ALT 29, Alkaline Phosphatase 88, Troponin I 0.46 H, NT-Pro-B Natriuret Pep 52.0, Total Protein 8.0, Albumin 4.6, Globulin 3.4 H, Albumin/Globulin Ratio 1.4, Triglycerides 65, Cholesterol 210 H, LDL Cholesterol Direct 144.72 H, VLDL Cholesterol 13, HDL Cholesterol 33 L, Cholesterol/HDL Ratio 6.4 H, TSH 1.70 03/03/25 22:14: POC Glucose 113 H 03/03/25 22:48: Troponin I 0.31 H 03/04/25 01:52: Troponin I 0.20 H 03/04/25 05:23: WBC 11.5 H, RBC 4.38, Hgb 12.8, Hct 38.6, MCV 88.1, MCH 29.2, MCHC 33.2, RDW 19.0 H, Plt Count 234, MPV 9.0, Neut % (Auto) 53.4, Lymph % (Auto) 38.2, [place] % (Auto) 5.2, Eos % (Auto) 2.6, Baso % (Auto) 0.3, Neut # (Auto) 6.1, Lymph # (Auto) 4.4, [place] # (Auto) 0.6, Eos # (Auto) 0.3, Baso # (A uto) 0.0, Sodium 142, Potassium 3.5, Chloride 112 H, Carbon Dioxide 22, Anion Gap 11.5, BUN 13, Creatinine 0.80, Estimated Creat Clear 121, Estimated GFR 76, Est GFR ( Amer) 92, Glucose 111 H, Calcium 8.8, Magnesium 2.4 H, Total Bilirubin 0.3, AST 32, ALT 25, Alkaline Phosphatase 74, Troponin I 0.12 H, Total Protein 7.4, Albumin 4.2, Globulin 3.2, Albumin/Globulin Ratio 1.3 03/04/25 05:35: POC Glucose 106 I & O for Last 24 hours: Intake & Output 03/01/25 03/02/25 03/03/25 03/04/25 23:59 23:59 23:59 23:59 Intake Total 938 / 938 Output Total 0 / 0 0 / 0 Balance 0 / 380 938 / 938 Weight 203 lb 202 lb 13.204 oz Constitutional Constitutional: no acute distress and obese *Routine HEENT Exam Head: Present normocephalic and atraumatic ENT: Present mucous membranes moist *Routine Neck Exam Neck: Present supple, full ROM and normal carotid upstroke; Absent JVD, carotid bruit or lymphadenopathy *Routine Respiratory Exam Respiratory: Present CTA bilaterally, normal respiratory effort, able to speak in complete sentences and symmetric chest movement *Routine Cardiovascular Exam Cardiovascular: Present RRR, Normal S1 and Normal S2; Absent murmur or gallop *Routine Abdominal Exam Abdominal: Present soft and normoactive bowel sounds; Absent tenderness, distended or organomegaly *Routine Extremities Exam Extremities: Present full ROM, pulses intact and normal capillary refill; Absent cyanosis, clubbing or edema *Routine Skin Exam Skin: Present intact and warm; Absent erythema *Routine Neurological Exam Neurological: Present alert, oriented X3 and CN II-XII intact; Absent sensory deficit or motor deficit Routine Psychiatric Exam Psychiatric: Present normal affect Meds Home Medications and Allergies Home Medications ?Medication ?Instructions ?Recorded ?Confirmed ?Type cetirizine 10 mg tablet 10 mg PO DAILY 30 days #30 t abs 10/02/18 03/03/25 History oxybutynin chloride 15 mg 15 mg PO DAILY 30 days #30 t abs 10/02/18 03/03/25 History tablet,extended release 24 hr pantoprazole 40 mg tablet,delayed 40 mg PO DAILY 30 da ys #30 tabs 10/02/18 03/03/25 History release sertraline 50 mg tablet 50 mg PO DAILY 01/21/2002/15 History flaxseed oil 1,000 mg capsule 1,000 mg PO DAILY 03/03/25 History ergocalciferol (vitamin D2) 1,250 1,250 mcg PO WEEKLY 11/21/23 03/03/25 History mcg (50,000 unit) capsule (Vitamin D2) levothyroxine 112 mcg tablet 112 mcg PO DAILY 11/21/23 03/04/25 History sumatriptan succinate 100 mg tablet 100 mg PO NEEDE D PRN migraine 11/21/23 03/03/25 History headaches mwpcrlrlyj-zfgzdgpqfsnjd-fvfgukcf 1 cap PO DAILYP PRN Migraine 11/28/23 03/04/25 History 50 mg-300 mg-40 mg capsule Headache empagliflozin 25 mg tablet 25 mg PO DAILY 11/28/23 History (Jardiance) ferrous sulfate 140 mg (45 mg 140 mg PO DAILY 11/28/23 03/03/25 History iron) tablet,extended release (Slow Release Iron) methocarbamol 750 mg tablet 750 mg PO Q6HP PRN muscle spasms 11/28/23 03/04/25 History fluticasone propionate 50 50 mcg intranasal DAILY 11/0 12/0803/04/25 History mcg/actuation nasal spray,suspension estradiol 0.01% (0.1 mg/gram) 1 appful vaginal DIRE CTED 03/04/25 03/04/25 History vaginal cream hydroxyzine HCl 10 mg tablet 10 mg PO TIDP PRN Anxiety 03/04/25 03/04/25 History magnesium oxide 400 mg (241.3 mg 400 mg PO BID 5 03/04/25 History magnesium) tablet pravastatin 80 mg tablet 80 mg PO DAILY 03/04/2502/15 History rimegepant 75 mg disintegrating 75 mg PO DAILYP PRN mi graine 03/04/25 03/04/25 History tablet (Nurtec ODT) headache topiramate 100 mg tablet 150 mg PO HS 03/04/25 History New Prescriptions to Start Prescriptions: Allergies Allergy/AdvReac Type Severity Reaction Status Date / Time azithromycin Allergy Unknown Verified 05/22/24 07:59 Assessment and Plan *Assessment and plan (1) Non-STEMI (non-ST elevated myocardial infarction): Status: Acute Category: Medical Code(s): I21.4 - Non-ST elevation (NSTEMI) myocardial infarction (2) Atypical angina: Status: Acute Category: Medical Code(s): I20.89 - Other forms of angina pectoris (3) Numbness and tingling of upper extremity: Status: Acute Category: Medical Code(s): R20.0 - Anesthesia of skin; R20.2 - Paresthesia of skin (4) Diabetes mellitus: Status: Acute Qualifiers: Diabetes mellitus type: type 2 Diabetes mellitus adjunct faculty for medical terminology insulin use: without adjunct faculty for medical terminology use Diabetes mellitus complication status: with hyperglycemia Qualified Code(s): E11.65 - Type 2 diabetes mellitus with hyperglycemia Category: Medical Code(s): E11.9 - Type 2 diabetes mellitus without complications (5) Hyperlipidemia: Status: Acute Qualifiers: Hyperlipidemia type: unspecified Qualified Code(s): E78.5 - Hyperlipidemia, unspecified Category: Medical Code(s): E78.5 - Hyperlipidemia, unspecified (6) Tobacco use: Status: Chronic Category: Social Hx Code(s): Z72.0 - Tobacco use Plan Plan: 1. The patient was mated to the hospital due to bilateral arm numbness and chest pressure. She has an elevated troponin consistent with a non-STEMI. Will plan to proceed with left cardiac catheterization today to evaluate for coronary artery disease. 2. The patient has been educated on risks and benefits of proceeding with left cardiac catheterization. Patient verbalizes understanding and is agreeable in proceeding with the procedure. 3. The patient will be n.p.o. in preparation for left cardiac catheterization. 4. Will obtain an echocardiogram to evaluate her LV function due to her non- STEMI. 5. Start aspirin 81 mg daily due to the non-STEMI. 6. Start Toprol-XL 25 mg daily due to the non-STEMI. 7. Her blood pressure slightly elevated. As mentioned above we will start Toprol which will help to improve her blood pressure as well. 8. Her LDL goal is less than 55. Her LDL is 144. Will stop pravastatin and start Lipitor 80 mg p.o. nightly. 9. Tobacco cessation is highly advised and counseled. 10. The patient is diabetic. She will need aggressive control of her diabetes. Will defer this to the hospitalist. 11. Further recommendations will be made pending the patient's response to treatment the results of her left cardiac catheterization and echocardiogram today. Thank you for the opportunity to have participate in the care of this patient. All recommendations and orders are per Dr. Moe.
[2025-03-04] MEDS: HEPARIN 1,000 UNITS/ML 10ML VIAL (CATH LAB) 5000 UNIT IV (14:50)
[2025-03-04] MEDS: HEPARIN 1,000 UNITS/500ML NS (CATH LAB) 3000 UNIT IV (14:50)
[2025-03-04] MEDS: LIDOCAINE 1% 10ML MDV 10 ML IJ (14:51)
[2025-03-04] MEDS: 0.9 % SODIUM CHLORIDE 500 ML 25 ML IV (14:51)
[2025-03-04] MEDS: VERAPAMIL 2.5MG/ML 2ML VIAL 2.5 MG IV (14:51)
[2025-03-04] MEDS: NITROGLYCERIN 800MCG/8ML SYR (CATH LAB) 800 MCG IA (14:51)
[2025-03-04] MEDS: FENTANYL 100MCG/2ML VIAL 50 MCG IV (14:52)
[2025-03-04] MEDS: MIDAZOLAM HCL 1MG/ML 5ML VIAL 1 MG IV (14:52)
[2025-03-04] MEDS: PRASUGREL 10MG TAB 60 MG PO (15:24)
--- NOTE | 2025-03-04 15:25 | SUR.PHASEII ---
called report to gerardo avila
--- OUTSIDE RECORDS SUMMARY | 2025-03-04 16:05 | XMS_ITS | Clinical Summary ---
Author Organization [facility] Address [address] [place] [address] Phone Care Team Providers Care Ethylbenzene Converter Operator Name Role Phone Unavailable Primary Care Provider Unavailabl e Encounters Date Type Department Care Team Description 01/09/2025 Telephone [facility] [address] [place] [address] Madeline Morris, Clerical Staff Abnormal Radiology 01/07/2025 1:34 PM EDT - 01/07/2025 11:59 PM EDT Hospital Encounter Mobile Mammography Other Location View online schedule for mobile van location [phone] Krystal Chilel NP Encounter for screening mammogram for [...] PM EDT Incomplete: Need additional imaging evaluation ([id number]) RECOMMENDATION: Additional Imaging Diagnostic Mammogram Left Additional Imaging Breast Ultrasound Left COMMENTS: DISCLAIMER *The patient was notified by MyChart or mail of the results for this examination. *The patient's information was entered into a reminder system with a target due date for the next breast imaging, in accordance with the [employer] and the Society of [...] for screening mammogram for malignant neoplasm of [id number] COMPARISON STUDIES: Compared with prior studies the most recent being 09/22/2022, [place], [place] TISSUE DENSITY: There are scattered areas of fibroglandular density. FINDINGS: One view asymmetry left breast seen in superior aspect of left breast on MLO view only. No suspicious microcalcification Right-sided mammograms are normal. Procedure Note Td Kay MD - 01/08/2025 EXAM: MM MAMMO DIGITAL RANDELL SCREEN BILAT EXAM DATE: 01/07/2025 1:35 PM INDICATION: Z12.31-Encounter for screening mammogram for malignantneoplasm of [id number] COMPARISON STUDIES: Compared with prior studies the most recent being09/22/2022, [place], [place] TISSUE DENSITY: There are scattered areas of fibroglandular density. FINDINGS: One view asymmetry left breast seen in superior aspect of leftbreast on MLO view only. No suspicious microcalcification Right-sided mammograms are normal. IMPRESSION: Incomplete: Need additional imaging evaluation ([id number]) RECOMMENDATION: Additional Imaging Diagnostic Mammogram Left Additional Imaging Breast Ultrasound Left COMMENTS: DISCLAIMER *The patient was notified by MyChart or mail of the results for this examination. *The patient's information was entered into a reminder system with atarget due date for the next breast imaging, in accordance with the [employer] and the Society of Breast Imaging recommendations. *Breast Imaging has a false negative rate of 15%. *Any patient with a palpable abnormality, unexplained by breast imaging,should be managed on a clinical basis by the attending physician. us Krystal Chilel HEAD OPERATOR [facility] IMG MAMMOGRAPHY ORDERABLE S Final Result from Last 3 Months Insurance [facility] [place] [address]
--- OUTSIDE RECORDS SUMMARY | 2025-03-04 16:05 | XMS_ITS | Clinical Summary ---
Author Organization [facility] Address [address] [place] [address] Care Team Providers Care Horse Stud Manager Name Role Phone Krystal Chilel APRN Primary Care Provider Allergies No known active allergies Medications No [...] 01/28/2017 1:17 PM EDT Plan of Treatment Health Maintenance Due Date Last Done Comments [facility]-Depression Screening 1975 [facility]-Infant/Child/Adol SDOH Screenings 1975 [facility]- SDOH Screenings 1991 [...] 2023 [facility]-Zoster Vaccines (1 of 2) 2023 JOI-[id number]-45 Vaccine (5 - 2023- season) 2024 05/25/2022, 06/04/2021, 10/16/2020, Additional history [...] 10:59 PM EDT 03/29/2022 11:22 PM EDT Godfrey Quiles MD LAB BLOOD ORDERABLES Final Result Performing Organization Address City/Va Hospital/ZIP Co de Phone Number [facility] [address] [place] [address] * Hepatitis C Antibody - ED (03/29/2022 10:59 PM EDT) Hepatitis C Antibody Negative Negative 03/30/2022 1:28 AM EDT [facility] Blood Venous blood specimen / Unknown Venipuncture / Unknown 03/29/2022 10:59 PM EDT 03/29/2022 11:22 PM EDT Godfrey Quiles MD LAB BLOOD ORDERABLES Final Result Performing Organization Address [facility] Co [facility] Phone Number [facility] [address] [place] [address] * Cytology (07/08/2014 12:00 AM EST) 07/08/2014 07/09/2014 11: 21 AM EST Narrative SUNQUEST - 07/15/2014 3:22 PM EST [facility] MR #: [id number] [facility] [place], [place] [address] 1975 (Age: 39) FW Collect Date: 07/08/2014 00:00 Receipt Date: 07/09/2014 11:21 Page 1 DEPARTMENT OF PATHOLOGY AND LABORATORY MEDICINE CYTOPATHOLOGY REPORT Email: [email or web address] [email or web address] ATTENDING MD/Practitioner: Elio Michael MD Service: SSG [...] LYMPHOID HYPERPLASIA - LYMPH NODE) F: A; 14180 ASP INTER, 13515 A,B; 00434(2) B; 96597 ASP INTER SNOMED CODES: A; P1144 P1149 [id number] B; [id number] P1149 [id number] A resident has participated in this service. A pathologist has performed and is responsible for the reported pathologic evaluation. us Franck Michael MD LAB PATHOLOGY ORDERABLES Final Result [facility]QUEST from Last 3 Months or Most Recently Relevant to Health Maintenance Insurance [employer] Care Teams Horse Stud Manager Relationship Specialty Start Date End Date Krystal Chilel APRN [address] [place] [address] PCP - General 03/29/22
--- OUTSIDE RECORDS SUMMARY | 2025-03-04 16:05 | XMS_ITS | Encounter Summary ---
Author Organization [place] [address] Care Team Providers Care Project Asst Name Role Phone Unavailable Primary Care Provider Unavailabl e Reason for Visit * Reason Onset Date Comments Abnormal Radiology 01/09/2025 Encounter Details Date Type Department Care Team (Late st Contact Info) Description 01/09/2025 Telephone [facility] [place] [address] Madeline Morris, Clerical Staff Abnormal [...] 01/14/2025 12:11 PM EDT Claudette Pettit from [facility]: I can confirm that all patients below are on our list and have been contacted and additional testing has been set up. Phone number for patient's to call with questions is [phone]. N will done TE at this time. * Telephone Encounter - Ada Niño RN - 01/11/2025 11:21 AM EDT Patient is being contacted by Claudette Pettit from [facility] per Monica. Claudette has been contacted regarding patient's abnormal imaging. * Telephone Encounter - Ebony Calderon RN - 01/09/2025 8:23 AM EDT Additional breast imaging recommended: Auto generated letter sent for pt to call Sally at the breast center or Central Scheduling to schedule or call the breast health line nurse at [phone] with questions or concerns. * Telephone Encounter - Madeline Morris, Clerical Staff - 01/09/2025 7:39 AM EDT Insurance:Medicaid Ordering Provider:Krystal Chilel documented in this encounter Plan of Treatment Not on file documented as of this encounter Visit Diagnoses Not on filedocumented in this encounter
[2025-03-04] MEDS: IOPAMIDOL-370 (76%);100ML BOTTLE 50 ML IV (16:51)
[2025-03-04 17:26] LABS: CATHL Activated Clotting Time 272 SEC (74-125)
--- NOTE | 2025-03-05 10:25 | SW/DCPLANNER ---
Spoke with patient on the phone. Patient stated that she is doing okay. Patient stated that she seems breathless. I suggested to follow up with her primary care provider or been seen in the ED. Patient stated that she was able to get her new medicine picked up. Patient stated that she is going to call DR. Burks's office and schedule her follow up appointment. Patient stated that she has no concerns or question at this time. Amanda Hollingsworth
== END 2025-03-04 18:16 | disposition home or self-care (01) | DRG 322 ==
PROVIDERS: Internal Medicine; Nurse Practitioner Family; Admitting Provider Student in an Organized Health Care Education/Training Program; PCP Nurse Practitioner; Visit Provider Student in an Organized Health Care Education/Training Program
PROC: 4A023N7 Measurement of Cardiac Sampling and Pressure, Left Heart, Percutaneous Approach (ICD-10-PCS; CPT 93452; principal; 2025-03-04 16:00)
DX: I21.4 Non-ST elevation (NSTEMI) myocardial infarction (principal); E78.5 Hyperlipidemia, unspecified; F17.210 Nicotine dependence, cigarettes, uncomplicated; F39 Unspecified mood [affective] disorder; G43.901 Migraine, unspecified, not intractable, with status migrainosus; E03.9 Hypothyroidism, unspecified; K21.9 Gastro-esophageal reflux disease without esophagitis; N32.81 Overactive bladder; F11.90 Opioid use, unspecified, uncomplicated; G89.4 Chronic pain syndrome; E11.65 Type 2 diabetes mellitus with hyperglycemia; I25.10 Atherosclerotic heart disease of native coronary artery without angina pectoris; M79.7 Fibromyalgia; E66.9 Obesity, unspecified; Z71.6 Tobacco abuse counseling; Z79.890 Hormone replacement therapy; Z79.899 Other long term (current) drug therapy; Z79.84 Long term (current) use of oral hypoglycemic drugs; Z88.1 Allergy status to other antibiotic agents; Z68.32 Body mass index [BMI] 32.0-32.9, adult
CPT/HCPCS: 36415; 71045; 80053; 80061; 82962; 83036; 83735; 83880; 84443; 84484; 85025; 85347; 93005; 93306; 99152; C1725; C1769; C1874; J1200; J1644; J1650; J1885; J2003; J2250; J2270; J3010; J7040; Q9967

== ENCOUNTER 2025-03-14 11:07 | Outpatient (CLI) | payer OTHER, SELFPAY ==
--- OUTSIDE RECORDS SUMMARY | 2025-03-14 11:11 | XMS_ITS | Encounter Summary ---
Author Organization [place] [address] Care Team Providers Care Mental Retardation Aide Name Role Phone Unavailable Primary Care Provider Unavailabl e Reason for Visit * Reason Onset Date Comments Abnormal Radiology 01/09/2025 Encounter Details Date Type Department Care Team (Late st Contact Info) Description 01/09/2025 Telephone [facility] [place] [address] Madeline Morris, Clerical Staff Abnormal [...] 01/14/2025 12:11 PM EDT Claudette Pettit from [facility]: I can confirm that all patients below are on our list and have been contacted and additional testing has been set up. Phone number for patient's to call with questions is [phone]. N will done TE at this time. * Telephone Encounter - Ada Niño RN - 01/11/2025 11:21 AM EDT Patient is being contacted by Claudette Pettit from [facility] per Monica. Claudette has been contacted regarding patient's abnormal imaging. * Telephone Encounter - Ebony Calderon RN - 01/09/2025 8:23 AM EDT Additional breast imaging recommended: Auto generated letter sent for pt to call Sally at the breast center or Central Scheduling to schedule or call the breast health line nurse at [phone] with questions or concerns. * Telephone Encounter - Madeline Morris, Clerical Staff - 01/09/2025 7:39 AM EDT Insurance:Medicaid Ordering Provider:Krystal Chilel documented in this encounter Plan of Treatment Not on file documented as of this encounter Visit Diagnoses Not on filedocumented in this encounter
--- OUTSIDE RECORDS SUMMARY | 2025-03-14 11:11 | XMS_ITS | Clinical Summary ---
Author Organization [facility] Address [address] [place] [address] Care Team Providers Care Ob/Gyn Physician Name Role Phone Krystal Chilel APRN Primary Care Provider [phone] Allergies No known active allergies Medications No [...] 2023 UKY-Zoster Vaccines (1 of 2) 2023 [id number] Vaccine (5 - 2023- season) 2024 05/25/2022, [...] Organization Address City/[facility]/ZIP Co de Phone Number HEALTHCARE LAB [address] [place] [address] * Hepatitis C Antibody - ED (03/29/2022 10:59 PM EDT) Hepatitis C Antibody Negative Negative 03/30/2022 1:28 AM EDT [facility] Blood Venous blood specimen / Unknown Venipuncture / Unknown 03/29/2022 10:59 PM EDT 03/29/2022 11:22 PM EDT Godfrey Quiles MD LAB BLOOD ORDERABLES Final Result Performing Organization Address City/[facility] Co de Phone Number HEALTHCARE LAB [address] [place] [address] * Cytology (07/08/2014 12:00 AM EST) 07/08/2014 07/09/2014 11: 21 AM EST Narrative SUNQUEST - 07/15/2014 3:22 PM EST [facility] MR #: [id number] [facility] [address] [place] [id number] 1975 (Age: 39) FW Collect Date: 07/08/2014 00:00 Receipt Date: 07/09/2014 11:21 Page 1 DEPARTMENT OF PATHOLOGY AND LABORATORY MEDICINE CYTOPATHOLOGY REPORT Email: [email or web address] [phone] ATTENDING MD/Practitioner: Elio Michael MD Service: SSG [...] LYMPHOID HYPERPLASIA - LYMPH NODE) F: A; 03846 ASP INTER, 10727 A,B; 37039(2) B; 99491 ASP INTER SNOMED CODES: A; P1144 P1149 [id number] B; [id number] P1149 [id number] A resident has participated in this service. A pathologist has performed and is responsible for the reported pathologic evaluation. us Franck Michael MD LAB PATHOLOGY ORDERABLES Final Result SUNQUEST from Last 3 Months or Most Recently Relevant to Health Maintenance Insurance [employer] Care Teams Ob/Gyn Physician Relationship Specialty Start Date End Date Krystal Chilel APRN [address] [place] [address] PCP - General 03/29/22
--- OUTSIDE RECORDS SUMMARY | 2025-03-14 11:11 | XMS_ITS | Clinical Summary ---
Author Organization [facility] Address [address] [place] [address] Phone Care Team Providers Care Inbound Call Center Agent Name Role Phone Unavailable Primary Care Provider Unavailabl e Encounters Date Type Department Care Team Description 01/09/2025 Telephone [facility] [place] [address] Madeline Morris, Clerical Staff Abnormal Radiology 01/07/2025 1:34 PM EDT - 01/07/2025 11:59 PM EDT Hospital Encounter Mobile Mammography Other Location View online schedule for mobile van location [phone] Krystal Chilel NP Encounter for screening mammogram [...] PM EDT Incomplete: Need additional imaging evaluation ([id number]-[id number]-5) RECOMMENDATION: Additional Imaging Diagnostic Mammogram Left Additional Imaging Breast Ultrasound Left COMMENTS: DISCLAIMER *The patient was notified by MyChart or mail of the results for this examination. *The patient's information was entered into a reminder system with a target due date for the next breast imaging, in accordance with the [employer] and the Society of [...] for screening mammogram for malignant neoplasm of [id number]-CM COMPARISON STUDIES: Compared with prior studies the most recent being 09/22/2022, [place], [place] TISSUE DENSITY: There are scattered areas of fibroglandular density. FINDINGS: One view asymmetry left breast seen in superior aspect of left breast on MLO view only. No suspicious microcalcification Right-sided mammograms are normal. Procedure Note Td Kay MD - 01/08/2025 EXAM: MM MAMMO DIGITAL RANDELL SCREEN BILAT EXAM DATE: 01/07/2025 1:35 PM INDICATION: Z12.31-Encounter for screening mammogram for malignantneoplasm of gvgiac-CLC-85-CM COMPARISON STUDIES: Compared with prior studies the most recent being09/22/2022, [place], [place] TISSUE DENSITY: There are scattered areas of fibroglandular density. FINDINGS: One view asymmetry left breast seen in superior aspect of leftbreast on MLO view only. No suspicious microcalcification Right-sided mammograms are normal. IMPRESSION: Incomplete: Need additional imaging evaluation (XAN-[id number]) RECOMMENDATION: Additional Imaging Diagnostic Mammogram Left Additional Imaging Breast Ultrasound Left COMMENTS: DISCLAIMER *The patient was notified by MyChart or mail of the results for this examination. *The patient's information was entered into a reminder system with atarget due date for the next breast imaging, in accordance with the [employer] and the Society of Breast Imaging recommendations. *Breast Imaging has a false negative rate of 15%. *Any patient with a palpable abnormality, unexplained by breast imaging,should be managed on a clinical basis by the attending physician. us Krystal Chilel SIDE SHOW ENTERTAINER IMG MAMMOGRAPHY ORDERABLE S Final Result from Last 3 Months Insurance [address] [place] [address] [facility] [place] [address]
[2025-03-14 11:15] VITALS: BMI 32.3
[2025-03-14 11:44] LABS: Hematocrit 37.2 % (37.0-47.0); Hemoglobin 12.6 g/dL (12.2-16.2); Immature Granulocytes % 0.3 %; Mean Corpuscular HGB Conc 33.9 g/dL (31.8-35.4); Mean Corpuscular Hemoglobin 30.3 pg (27.0-31.2); Mean Corpuscular Volume 89.4 fl (81-99); Nucleated Red Blood Cells % 0 %; Platelet Count 256 K/mm3 (142-424); Red Blood Count 4.16 M/mm3 (4.20-5.40); Red Cell Distribution Width-SD 55.8 fL; White Blood Count 11.6 K/mm3 (4.8-10.8)
[2025-03-14 12:49] LABS: Chloride 111 mmol/L (98-107); Sodium 145 mmol/L (136-145)
[2025-03-14 12:50] LABS: Potassium 4.3 mmoL/L (3.5-5.1)
[2025-03-14 12:53] LABS: Anion Gap 13.3 mEq/L (5-15); Blood Urea Nitrogen 15 mg/dl (7-17); Calcium 9.4 mg/dl (8.4-10.2); Carbon Dioxide 25 mmol/L (22.0-30.0); Creatinine Clearance Estimated 119 mL/min (50-200); Creatinine,Serum 0.80 mg/dl (0.52-1.04); Estimated Glomerular Filt Rate 76 ml/min (>60); GFR (African American) 92 ML/MIN (>60); Glucose 102 mg/dl (74-100)
== END 2025-03-14 23:59 | disposition home or self-care (01) ==
LOC: LAB 11:08
PROVIDERS: Internal Medicine; PCP Nurse Practitioner; Visit Provider Student in an Organized Health Care Education/Training Program
DX: Z95.5 Presence of coronary angioplasty implant and graft (principal)
CPT/HCPCS: 36415; 80048; 85025

== ENCOUNTER → 2025-03-28 13:06 | Outpatient (RCR) | payer OTHER, SELFPAY | LOC: CR 13:06 | PROVIDERS: Visit Provider Student in an Organized Health Care Education/Training Program | DX: I65.29 Occlusion and stenosis of unspecified carotid artery (principal) | CPT/HCPCS: 93798 ==

== ENCOUNTER 2025-04-19 11:00 | Outpatient (CLI) | payer OTHER, SELFPAY ==
--- NOTE | 2025-04-19 11:00 | CA_ITS ---
FINAL REPORT CLINICAL HISTORY: headaches, CAD-MO 02/2025, Smoker, HTN FINDINGS: The peak systolic velocity of the right common carotid artery is 90 cm/s. The peak systolic velocity of the right internal carotid artery is 96 cm/s and end diastolic velocity 37 cm/s. The ICA/CCA ratio is 1.1. No significant plaque is present. The right external carotid artery is patent. The right vertebral artery is patent with antegrade flow. The peak systolic velocity of the left common carotid artery is 90 cm/s. The peak systolic velocity of the left internal carotid artery is 115 cm/s and end diastolic velocity 44 cm/s. The ICA/CCA ratio is 1.3. No significant plaque is present. The left external carotid artery is patent. The left vertebral artery is patent with antegrade flow. IMPRESSION: Less than 50% bilateral carotid stenoses. Bilateral patent vertebral arteries with antegrade flow. If indicated, CTA or MRA could further evaluate. Reviewed, Interpreted and Dictated by Paresh Bateman MD Transcribed by Elena Hurtado Authenticated and [facility]
--- OUTSIDE RECORDS SUMMARY | 2025-04-19 11:05 | XMS_ITS | Encounter Summary ---
Author [place] [address] Care Team Providers Care Survey Associate Name Role Phone Unavailable Primary Care Provider Unavailabl e Reason for Visit * Reason Onset Date Comments Abnormal Radiology 01/09/2025 Encounter Details Date Type Department Care Team (Late st Contact Info) Description 01/09/2025 Telephone [facility] Women's [facility] [place] [address] Madeline Morris, Clerical Staff Abnormal [...] PM EDT Claudette Pettit from [facility]: I can confirm that all patients below are on our list and have been contacted and additional testing has been set up. Phone number for patient's to call with questions is [phone]. N will done TE at this time. * Telephone Encounter - Ada Niño RN - 01/11/2025 11:21 AM EDT Patient is being contacted by Claudette Pettit from [place] per Monica. Claudette has been contacted regarding patient's abnormal imaging. * Telephone Encounter - Ebony Calderon RN - 01/09/2025 8:23 AM EDT Additional breast imaging recommended: Auto generated letter sent for pt to call Sally at the breast center or Central Scheduling to schedule or call the breast health line nurse at [phone] with questions or concerns. * Telephone Encounter - Madeline Morris, Clerical Staff - 01/09/2025 7:39 AM EDT Insurance:Medicaid Ordering Provider:Krystal Chilel documented in this encounter Plan of Treatment Not on file documented as of this encounter Visit Diagnoses Not on filedocumented in this encounter
--- OUTSIDE RECORDS SUMMARY | 2025-04-19 11:05 | XMS_ITS | Clinical Summary ---
Author Organization [facility] Address [address] [place] [address] Phone Care Team Providers Care Semiconductor Processing Technician Name Role Phone Unavailable Primary Care Provider Unavailabl e Surgical History Surgery Date Site/Laterality Comments BREAST [...] Zoster (1 of 2) 2023 COVID-19 Vaccine (2024- season) 2025 05/25/2022, 06/04/2021, 10/16/2020, Additional history exists Influenza [...] neoplasm of breast from Last 3 Months or Most Recently Relevant to Health Maintenance Results * (ABNORMAL) MM MAMMO DIGITAL RANDELL SCREEN BILAT (01/07/2025 1:35 PM EDT) Anatomical Region Laterality Modality Breast Bilateral Mammography 01/07/2025 1:35 PM EDT Impressions 01/08/2025 12:15 PM EDT Incomplete: Need additional imaging evaluation ([id number]-Syklazql-3) RECOMMENDATION: Additional Imaging Diagnostic Mammogram Left Additional Imaging Breast Ultrasound Left COMMENTS: DISCLAIMER *The patient was notified by MyChart or mail of the results for this examination. *The patient's information was entered into a reminder system with a target due date for the next breast imaging, in accordance with the [employer] and the Society of [...] for screening mammogram for malignant neoplasm of [id number]-BFV-78-CM COMPARISON STUDIES: Compared with prior studies the most recent being 09/22/2022, [place], [place] TISSUE DENSITY: There are scattered areas of fibroglandular density. FINDINGS: One view asymmetry left breast seen in superior aspect of left breast on MLO view only. No suspicious microcalcification Right-sided mammograms are normal. Procedure Note Td Kay MD - 01/08/2025 EXAM: MM MAMMO DIGITAL RANDELL SCREEN BILAT EXAM DATE: 01/07/2025 1:35 PM INDICATION: Z12.31-Encounter for screening mammogram for malignantneoplasm of [id number]-[id number]-CM COMPARISON STUDIES: Compared with prior studies the most recent being09/22/2022, [place], [place] TISSUE DENSITY: There are scattered areas of fibroglandular density. FINDINGS: One view asymmetry left breast seen in superior aspect of leftbreast on MLO view only. No suspicious microcalcification Right-sided mammograms are normal. IMPRESSION: Incomplete: Need additional imaging evaluation ([id number]-8) RECOMMENDATION: Additional Imaging Diagnostic Mammogram Left Additional Imaging Breast Ultrasound Left COMMENTS: DISCLAIMER *The patient was notified by MyChart or mail of the results for this examination. *The patient's information was entered into a reminder system with atarget due date for the next breast imaging, in accordance with the [employer] and the Society of Breast Imaging recommendations. *Breast Imaging has a false negative rate of 15%. *Any patient with a palpable abnormality, unexplained by breast imaging,should be managed on a clinical basis by the attending physician. Krystal Chilel ATHLETICS DIRECTOR IMG MAMMOGRAPHY ORDERABLE S Final Result from Last 3 Months or Most Recently Relevant to Health Maintenance Insurance [employer] [facility] [place] [address]
--- OUTSIDE RECORDS SUMMARY | 2025-04-19 11:05 | XMS_ITS | Clinical Summary ---
Author Organization [facility] Address [address] [place] [address] Care Team Providers Care Poker Room Manager Name Role Phone Krystal Chilel APRN Primary Care Provider [phone] Allergies No known active allergies Medications No [...] of 3 - 19+ 3-dose series) 1992 UKY-Pap Smear 07/08/2017 07/08/2014 CT Colonography 2018 Colonoscopy 2018 FIT-DNA 2018 FIT 2018 FOBT 2018 Sigmoidoscopy 2018 UKY-Colorectal Cancer Screening 2018 UKY-Cervical Cancer Screening 07/08/2019 UKY-HPV/Cotest 07/08/2019 07/08/2014 UKY-Pneumococcal Vaccine: 50+ Years (1 of 1 - PCV) 2023 UKY-Zoster Vaccines (1 of 2) 2023 [id number]-63 Vaccine (5 - season) 2025 05/25/2022, 06/04/2021, 10/16/2020, Additional history exists UKY-Influenza Vaccine (#1) 2025 04/17/2024, HPV Vaccines Aged Out No longer eligi [...] Procedure Name Priority Date/Time Associated Diagnosis Comments CYTO DATA CONVERSION Routine 07/08/2014 12:00 AM EST from Last 3 Months or Most Recently Relevant to Health Maintenance Results * Cytology (07/08/2014 12:00 AM EST) 07/08/2014 07/09/2014 11: 21 AM EST Narrative SUNQUEST - 07/15/2014 3:22 PM EST [facility] MR #: [id number] [facility] [address] [facility] [place] [id number] 1975 (Age: 39) FW Collect Date: 07/08/2014 00:00 Receipt Date: 07/09/2014 11:21 Page 1 DEPARTMENT OF PATHOLOGY AND LABORATORY MEDICINE CYTOPATHOLOGY REPORT Email: [email or web address] [phone] ATTENDING MD/Practitioner: Elio Michael MD Service: SSG [...] LYMPHOID HYPERPLASIA - LYMPH NODE) F: A; 50137 ASP INTER, 43618 A,B; 55734(2) B; 79074 ASP INTER SNOMED CODES: A; P1144 P1149 [id number] B; [id number] P1149 [id number] A resident has participated in this service. A pathologist has performed and is responsible for the reported pathologic evaluation. Franck Michael MD LAB PATHOLOGY ORDERABLES Final Result SUNQUEST from Last 3 Months or Most Recently Relevant to Health Maintenance Insurance [employer] Care Teams Poker Room Manager Relationship Specialty Start Date End Date Krystal Chilel APRN [address] [place] [address] PCP - General 03/29/22
== END 2025-04-19 23:59 | disposition home or self-care (01) ==
LOC: RT 11:00
PROVIDERS: PCP Nurse Practitioner; Visit Provider Nurse Practitioner Family
DX: I65.23 Occlusion and stenosis of bilateral carotid arteries (principal); I25.10 Atherosclerotic heart disease of native coronary artery without angina pectoris; I10 Essential (primary) hypertension; F17.200 Nicotine dependence, unspecified, uncomplicated
CPT/HCPCS: 93880